=== PATIENT | male | born 1945 | race Caucasian/White ===

== ENCOUNTER 2022-12-15 11:03 | Outpatient (OUT) | payer MEDICARE, OTHER, SELFPAY ==
[2022-12-15 11:42] LABS: Estimated Average Glucose 97 mg/dL
[2022-12-15 11:49] LABS: Basophils Absolute Auto 0.1 10^3/uL (0.0-0.1); Basophils Percent Auto 0.7 % (0.2-2.0); Eosinophils Absolute Auto 0.1 10^3/uL (0.0-0.7); Eosinophils Percent Auto 1.8 % (0.9-7.0); Hematocrit 42.6 % (42.0-54.0); Hemoglobin 15.3 g/dL (14.0-18.0); Immature Granulocytes Abs Auto 0.06 10^3/uL (0.00-0.03); Immature Granulocytes Pct Auto 0.8 % (0.0-0.5); Lymphocytes Absolute Auto 0.9 10^3/uL (1.2-3.8); Lymphocytes Percent Auto 12.4 % (20.5-60.0); Mean Corpuscular HGB Conc 35.9 g/dL (29.9-35.2); Mean Corpuscular Hemoglobin 36.4 pg (25.9-34.0); Mean Corpuscular Volume 101.4 fL (80.0-94.0); Mean Platelet Volume 9.6 fL (9.5-13.5); Monocytes Absolute Auto 0.4 10^3/uL (0.3-0.8); Monocytes Percent Auto 5.6 % (1.7-12.0); Neutrophils Absolute Auto 5.6 10^3/uL (1.4-6.5); Neutrophils Percent Auto 78.7 % (43.0-75.0); Platelet Count 229 10^3/uL (150-450); Red Cell Distribution Width 12.5 % (11.0-15.0); White Blood Count 7.1 10^3/uL (4.0-11.0)
[2022-12-15 11:57] LABS: Alanine Aminotransferase 38 U/L (16-63); Albumin Globulin Ratio 1.2; Albumin Level 4.2 g/dL (3.4-5.0); Alkaline Phosphatase 96 U/L (46-116); Anion Gap 12.4; Aspartate Amino Transferase 19 U/L (15-37); Bilirubin Total 1.6 mg/dL (0.2-1.0); Calcium 8.9 mg/dL (8.5-10.1); Carbon Dioxide 28.9 mmol/L (21.0-32.0); Chloride 103 mmol/L (98-107); Chol HDL Ratio 2.7; Cholesterol 109 mg/dL (<=200); Estimated GFR (African America >60 (>=60); Estimated GFR (Non-African Ame >60 (>=60); Free T3 2.68 pg/mL (2.18-3.98); Globulin 3.5 g/dL; Glucose 100 mg/dL (74-106); HDL Cholesterol 40 mg/dL (40-60); Potassium 4.3 mmol/L (3.5-5.1); Sodium 140 mmol/L (136-145); Thyroid Stimulating Hormone 0.624 uIU/mL (0.358-3.740); Total Protein 7.7 g/dL (6.4-8.2); Triglycerides 95 mg/dL (<=150)
[2022-12-15 12:16] LABS: Prostate Specific Antigen Scrn 0.42 ng/mL (<=4.00)
== END 2022-12-15 11:04 | disposition home or self-care (01) ==
LOC: LAB 11:08
PROVIDERS: PCP Family Medicine; Visit Provider Family Medicine
DX: E78.5 Hyperlipidemia, unspecified (principal); I10 Essential (primary) hypertension; G21.3 Postencephalitic parkinsonism; R73.09 Other abnormal glucose; Z12.5 Encounter for screening for malignant neoplasm of prostate
CPT/HCPCS: 36415; 80053; 80061; 83036; 84436; 84443; 84481; 85025; G0103

== ENCOUNTER 2023-02-11 15:50 | Outpatient (OUT) | payer MEDICARE, OTHER, SELFPAY ==
--- NOTE | 2023-02-11 16:14 | XR_ITS ---
The [address] [address] Patient Name: GOOD MCDONNELL MRN: [id number] date: 1945 Sex: M Assigned Patient Location: LAB Current Patient Location: LAB Accession/Order Number: [id number] Exam Date: 02/11/2023 16:08 Report Date: 02/11/2023 19:06 At the request of: LUIS DANIEL GALICIA Procedure: XR chest 2V EXAM: XR chest 2V HISTORY: Pneumonia J18.9 . Cough for one week. COMPARISON: None. TECHNIQUE: Upright PA and lateral chest x-ray FINDINGS: There is elevation of the right hemidiaphragm. Prominence of interstitial markings are seen diffusely throughout the lungs without evidence of an effusion or pneumothorax. The heart is not grossly enlarged and the vasculature is not distended. The osseous structures are grossly intact. XR/XR chest 2V IMPRESSION: Prominence of interstitial markings are noted throughout the lungs. These are likely to be chronic in nature, and comparison with a previous study would be helpful in determining the chronicity of these findings. A discrete infiltrate or overt cardiac decompensation is not identified. Electronically authenticated by: LUIS HENSON Date: 02/11/2023 19:06
[2023-02-11 16:22] LABS: Alanine Aminotransferase 27 U/L (16-63); Albumin Globulin Ratio 0.9; Albumin Level 3.8 g/dL (3.4-5.0); Alkaline Phosphatase 118 U/L (46-116); Anion Gap 11.3; Aspartate Amino Transferase 36 U/L (15-37); BUN Creatinine Ratio 22.9; Bilirubin Total 1.3 mg/dL (0.2-1.0); Carbon Dioxide 29.8 mmol/L (21.0-32.0); Chloride 101 mmol/L (98-107); Estimated GFR (African America >60 (>=60); Estimated GFR (Non-African Ame >60 (>=60); Glucose 119 mg/dL (74-106); Potassium 4.1 mmol/L (3.5-5.1); Sodium 138 mmol/L (136-145); Total Protein 7.8 g/dL (6.4-8.2)
[2023-02-11 16:26] LABS: Basophils Percent Auto 0.5 % (0.2-2.0); Hematocrit 41.6 % (42.0-54.0); Hemoglobin 14.6 g/dL (14.0-18.0); Immature Granulocytes Abs Auto 0.05 10^3/uL (0.00-0.03); Immature Granulocytes Pct Auto 1.2 % (0.0-0.5); Lymphocytes Absolute Auto 0.8 10^3/uL (1.2-3.8); Lymphocytes Percent Auto 19.2 % (20.5-60.0); Mean Corpuscular HGB Conc 35.1 g/dL (29.9-35.2); Mean Corpuscular Volume 102.7 fL (80.0-94.0); Mean Platelet Volume 9.5 fL (9.5-13.5); Monocytes Absolute Auto 0.4 10^3/uL (0.3-0.8); Monocytes Percent Auto 8.8 % (1.7-12.0); Neutrophils Absolute Auto 2.9 10^3/uL (1.4-6.5); Neutrophils Percent Auto 69.3 % (43.0-75.0); Platelet Count 211 10^3/uL (150-450); Red Blood Count 4.05 10^6/uL (4.70-6.10); Red Cell Distribution Width 12.8 % (11.0-15.0); White Blood Count 4.2 10^3/uL (4.0-11.0)
== END 2023-02-11 15:51 | disposition home or self-care (01) ==
LOC: LAB 15:52
PROVIDERS: PCP Family Medicine; Visit Provider Family Medicine
DX: J18.9 Pneumonia, unspecified organism (principal)
CPT/HCPCS: 36415; 71046; 80053; 85025

== ENCOUNTER 2023-09-29 09:41 | Outpatient (OUT) | payer MEDICARE, OTHER, SELFPAY ==
[2023-09-29 10:47] LABS: Hematocrit 42.2 % (42.0-54.0); Hemoglobin 14.6 g/dL (14.0-18.0); Mean Corpuscular HGB Conc 34.6 g/dL (29.9-35.2); Mean Corpuscular Hemoglobin 34.8 pg (25.9-34.0); Mean Corpuscular Volume 100.7 fL (80.0-94.0); Mean Platelet Volume 9.6 fL (9.5-13.5); Platelet Count 194 10^3/uL (150-450); Red Blood Count 4.19 10^6/uL (4.70-6.10); Red Cell Distribution Width 12.8 % (11.0-15.0); White Blood Count 7.5 10^3/uL (4.0-11.0)
[2023-09-29 11:47] LABS: Alanine Aminotransferase 27 U/L (16-63); Albumin Globulin Ratio 1.1; Albumin Level 3.7 g/dL (3.4-5.0); Alkaline Phosphatase 116 U/L (46-116); Anion Gap 11.3; Aspartate Amino Transferase 16 U/L (15-37); Bilirubin Total 1.1 mg/dL (0.2-1.0); Carbon Dioxide 28.1 mmol/L (21.0-32.0); Chloride 106 mmol/L (98-107); Estimated GFR (African America >60 (>=60); Estimated GFR (Non-African Ame >60 (>=60); Globulin 3.4 g/dL; Glucose 100 mg/dL (74-106); Potassium 4.4 mmol/L (3.5-5.1); Sodium 141 mmol/L (136-145); Thyroid Stimulating Hormone 0.728 uIU/mL (0.358-3.740); Total Protein 7.1 g/dL (6.4-8.2)
[2023-09-29 12:53] LABS: Lymphocytes Absolute Manual 0.75 10^3/uL (1.20-3.80); Monocytes Absolute Manual 0.52 10^3/uL (0.30-0.80); Segmented Neut Absolute Manual 5.92 10^3/uL (1.4-6.5)
[2023-09-29 13:24] LABS: Free T4 0.95 ng/dL (0.76-1.46)
== END 2023-09-29 09:42 | disposition home or self-care (01) ==
LOC: LAB 09:42
PROVIDERS: PCP Family Medicine; Visit Provider Family Medicine
DX: M54.9 Dorsalgia, unspecified (principal); I11.0 Hypertensive heart disease with heart failure; I50.30 Unspecified diastolic (congestive) heart failure; C85.90 Non-Hodgkin lymphoma, unspecified, unspecified site
CPT/HCPCS: 36415; 80053; 83880; 84439; 84443; 85007; 85027

== ENCOUNTER 2023-11-14 06:00 | Outpatient (OUT) | payer MEDICARE, OTHER, SELFPAY ==
--- OUTSIDE RECORDS SUMMARY | 2023-11-16 06:13 | XMS_ITS | CCD ---
Author Organization [facility] Care Team Providers Care 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 Name Role Phone Alexandria Camargo RN Unavailable [...] RN Unavailable Unavailable Jigar Stanford DO Unavailable LUIS DANIEL GALICIA Primary Care Unavailable Dillan [...] Luis Daniel Galicia MD Primary Care Provider [phone] COLEEN HAYWARD Attending Unavailable HOY, LUIS DANIEL [...] Erythromycin; Translations: [ERYTHROMYCIN] Drug Allergy 2 Itching [facility] Work Phone: (18 sources) Iodine And Iodide Containing Products; Translations: [IODINE AND IODIDE CONTAINING PRODUCTS] Propensity to adverse reactions to drug 1 Other: See Comments [facility] (12 sources) Contrast media; Translations: [Contrast Dye] Drug allergy Loss of consciousness [facility] (1 source) Iodine (And Iodine Containting Drugs) Drug allergy (disorder) [facility] Repository (1 source) Acetaminophen; Translations: [acetaminophen] Drug Allergy [facility] Repository (1 source) No Known Medication Allergies; Translations: [No Known Medication Allergies] Propensity to adverse reactions (disorder) [facility] Repository Medications Current Medications Medication Drug [...] tablet (6 sources) Opioid Agonist Start: 11-18-2021 Melrose 325 mg-7.5 mg oral tablet See Instructions, 1 tab(s), Refill(s) 0, Take 1 tablet 1 hour before procedure., [facility] #[id number], 190, cm, 11/18/21 9:22:00 EDT, Height/Length Dosing, 102, kg, 11/18/21 9:22:00 EDT, Weight Dosing Start Date: 11/18/21 Status: Ordered acetaminophen 325 mg / traMADol hydrochloride 37.5 mg oral tablet (6 sources) Opioid Agonist Start: 11-18-2021 Ultracet 325 mg-37.5 mg Tab 1 tab(s), Oral, As Directed, 20 tab(s), Refill(s) 0, Take 1 tablet every 4 hours as needed for pain., [facility] #[id number], 190, cm, 11/18/21 9:22:00 EDT, Height/Length Dosing, [...] day(s), # 10 cap(s), Refills(s) 0, Pharmacy: [facility] #[id number], 190, cm, 09/24/21 8:06:00 EDT, Height/Length Dosing, 102.5, kg, 09/24/21 8:06:00 EDT, Weight Dosing Start Date: 10/09/21 Stop Date: 10/14/21 Status: Ordered ciprofloxacin 500 mg oral tablet (8 sources) Quinolone Antimicrobial Start: 11-19-19 take 1 tablet by mouth twice daily Cipro 500 mg Tab 500 mg = 1 tab(s), Oral, BID, Start 3 days prior to procedure., # 14 tab(s), Refills(s) 0, Pharmacy: [facility] #[id number], 190, cm, 11/18/21 9:22:00 EDT, Height/Length Dosing, 102, kg, 11/18/21 9:22:00 EDT, Weight Dosing Start Date: 11/18/21 Status: Ordered Start: 06-23-2021 Cipro 500 mg T ab 500 mg = 1 tab(s), Oral, As Directed, # 2 tab(s), Refills(s) 0, Pharmacy: [facility], 190, cm, 06/23/21 11:19:00 EDT, Height/Length Dosing, 102, kg, 06/23/21 11:19:00 EDT, Weight Dosing Start Date: 06/23/21 Status: Ordered diazePAM 10 mg oral tablet (6 sources) Benzodiazepine Start: 11-18-2021 Valium 10 mg Tab See Instructions, Take 1 tab 1 hour before procdure., # 1 tab(s), Refills(s) 0, [facility]: [id number], 190, cm, 11/18/21 9:22:00 EDT, Height/Length Dosing, [...] 20 tab(s), Refills(s) 0, [facility]acy: [facility] #[id number], 190, cm, 09/24/21 8:06:00 EDT, Height/Length Dosing, [...] 21 tab(s), Refills(s) 0, [facility]acy: [facility] #[id number], 190, cm, 02/03/22 15:48:00 EST, Height/Length Dosing, [...] Daily, # 30 tab(s), Refills(s) 11, Pharmacy: [facility] #[id number], 190, cm, 03/16/22 8:29:00 EST, Height/Length Dosing, [...] day(s), # 30 cap(s), Refills(s) 11, Pharmacy: [facility] #[id number], 190, cm, 03/31/23 15:07:00 EST, Height/Length Dosing, [...] in both eyes at bedtime as needed. sofioioq-lyo-kofkh- vit K-lycop (ONE-A-DAY MEN'S 50 PLUS) 400-20-370 mcg tab (6 sources) End: 2 take 50-400 tablets by mouth once daily mqlyfmdh-qin-btzhg-v it K-lycop (ONE-A-DAY MEN'S 50 PLUS) 400-20-370 mcg tab Take 1 tablet by mouth once daily. 0 12/12/2021 Discontinued take 50-400 tablets by mouth once daily gkwzmpzo-lus-yovbm-vit K-lycop (ONE-A-DA Y MEN'S 50 PLUS) 400-20-370 [...] # 5 tab(s), Refills(s) 0, Pharmacy: [facility] #[id number], 190, cm, 11/18/21 9:22:00 EDT, Height/Length Dosing, [...] Comment on above: TAKE 1 TABLET BY [facility] EVERY DAY NEEDED tamsulosin hydrochloride 0.4 mg oral capsule (8 sources) alpha-Adrenergic Rocio Start: End: take 1 capsule by mouth twice daily tamsulosin (FLOMAX) 0.4 mg Take 1 capsule by mouth twice daily. 60 capsule 2 11/27/2020 04/16/2022 Discontinued (Other) Comment on above: Take 1 capsule by mo [facility] twice daily. vitamin b12 1 mg oral [...] Residual codes; unclassified (1 source) History of wkfhalb-couliznb-dfxgk t (YAG) laser capsulotomy of lens; Translations: [...] detection for pulmonary nodules was performed utilizing Project [employer] software. FINDINGS: No pleural or pericardial effusion. [...] on 10/04/2023 9:37 AM Normal [facility] CT CHEST WO CONTon CT CHEST WO [...] on 07/01/2023 11:24 AM Normal [facility] THYROID PROFILEon 06-30-2023 Free T4 [Mass/Vol] 1.03 ng/dL Normal 0.61-1.60 [facility] Comment on above: Performed By: #### T HYR #### [facility] ([id number]) [address], [address] [place] [address] TSH 0.25 uIU/mL Low 0.49-4.67 [facility] Comment on above: Performed By: #### T HYR #### [facility] ([id number]) [address], [address] [place] [address] Reminderson 05-11-2023 Reminders - From: Radha Barbosa [...] fax orders. He said he would prefer [facility] if they are able to do these tests. Normal [facility] Oswaldo 04-21-2023 KEZIAN Telephone (ANDRE) -- LUIS ALBERTO OCAMPO ([id number]) 1945 M Date Time Provider Department 04/21/23 [...] to spreadsheet: No Routing: Please route to [employer] Allergies As of Date: 04/21/2023 Noted Allergy Reaction ERYTHROMYCIN 04/11/2021 9 - Itching IODINE AND IODIDE CONTAINING PROD*07/19/2020 14 - Other: See Comments Comments: Pt passed out from milogram test on spinal cord Date Reviewed: 03/02/2023 Reviewed by: Nicolasa Varela LPN - Fully Assessed Reason for Visit: Appointment [186] Primary Visit Diagnosis:Bronchiectasis without acute exacerbation (HCC) [J47.9] Order(s):SPIROMETRY - BASELINE AND POST DILATOR [4602930] Order #: [id number]: 1 FUTURE RESPIRATORY THERAPY OP [facility] A90 [0439525] Order #: [id number]: 1 Prescriptions as of 04/21/2023 - Acetaminophen [...] Encounter Status:Closed by OLIVIA QUINTERO on 04/21/[address] [facility] [address] ABD/PEL W IVCONon 024 CT ABD/PEL W IVCON * * *Final Report* * * DATE OF EXAM: Apr 16 2023 8:33AM [facility] 0530 - CT ABD/PEL W [...] chest CT performed will be reported separately. Middleware Developer (topogram) images: No additional findings. IMPRESSION: 1. [...] any questions regarding this interpretation, please call [phone]. If you are unable to reach us at the number above, please feel free to contact [facility] at [phone]. [id number] Normal [facility] CT Abdomen and Pelvis W cont rast [...] any questions regarding this interpretation, please call [phone]. If you are unable to reach us at the number above, please feel free to contact [facility] at [phone]. DIVISION OF RADIOLOGY * * *Final Report* * * DATE OF EXAM: Apr 16 2023 8:33AM [facility] 0530 - CT ABD/PEL W [...] chest CT performed will be reported separately. Middleware Developer (topogram) images: No additional findings. DIVISION OF RADIOLOGY Provider, Chris King - 04/16/2023 * * *Final Report* * * DATE OF EXAM: Apr 16 2023 8:33AM [facility] 0530 - CT ABD/PEL W [...] chest CT performed will be reported separately. Middleware Developer (topogram) images: No additional findings. IMPRESSION IMPRESSION: 1. Borderline splenomegaly, stable. 2. No evidence of intra-abdominal/pelvic lymphadenopathy. 3. New trace pelvic ascites. 4. Nonobstructing bilateral renal stones. Transcribe Date/Time: Apr 16 2023 10:45A Dictated by: YAMILE TOMPKINS MD This examination was interpreted and the report reviewed and electronically signed by: YAMILE TMOPKINS MD on Apr 16 2023 10:54AM EST Thank you for allowing us to participate in the care of your patient. Should there be any questions regarding this interpretation, please call [phone]. If you are unable to reach us at the number above, please feel free to contact [facility] at [phone]. [facility] CT CHEST W IVCONon 4 CT CHEST W IVCON * * *Final Report* * * DATE OF EXAM: Apr 16 2023 8:33AM [facility] 0539 - CT CHEST W [...] CT scan report for the abdomen findings. Middleware Developer (topogram) images: No additional findings. IMPRESSION: 1. [...] any questions regarding this interpretation, please call [phone]. If you are unable to reach us at the number above, please feel free to [facility] at [phone]. [id number] Normal [facility] CT Chest W contrast Jenna IMPRESSION: 1. [...] any questions regarding this interpretation, please call [phone]. If you are unable to reach us at the number above, please feel free to contact [facility] at [phone]. DIVISION OF RADIOLOGY * * *Final Report* * * DATE OF EXAM: Apr 16 2023 8:33AM [facility] 0539 - CT CHEST W [...] CT scan report for the abdomen findings. Middleware Developer (topogram) images: No additional findings. DIVISION OF RADIOLOGY Provider, [facility] - 04/16/2023 * * *Final Report* * * DATE OF EXAM: Apr 16 2023 8:33AM [facility] 0539 - CT CHEST W [...] CT scan report for the abdomen findings. Middleware Developer (topogram) images: No additional findings. IMPRESSION IMPRESSION: [...] any questions regarding this interpretation, please call [phone]. If you are unable to reach us at the number above, please feel free to contact [facility] at [phone]. [facility] No Panel InformationOrdered By: Ccf Provider on 04-16-2023 [facility] No Panel Informationon 04-16 Radiology Study observation (narrative) [facility] Lab Reportson 04-02-2023 Lab Reports [id number]#1.00TIFF [facility] Screenson 04-02-2023 Screens [id number]#1.00TIFF [facility] CNOVSPon 04-01-2023 CNOVSP Visit (SP) Office (H EMAMN) -- LUIS ALBERTO OCAMPO ([id number]) 1945 M Date Time Provider Department 04/01/23 3:15 PM LARRY HENSON HEM During your visit today, we recorded the following information about you: Temperature Pulse Respiration Blood pressure 97.5 degrees 89/minute 20/minute 133/75 Weight 94.6 kg Larry Henson MD, PhD 04/01/2023 4:06 PM Signed [facility] DEPARTMENT OF HEMATOLOGY AND MEDICAL ONCOLOGY ASSESSMENT [...] seen by Dr. Luis Daniel Galicia at [facility] and underwent a transthoracic CT guided needle [...] of right iritis. 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 Noted symptoms improved with eye drops, but [...] a pruritic.rash (more content not included)... Normal [facility] Ambulatory Visit Summaryon 0 03-31-2023 Ambulatory Visit Summary LUIS ALBERTO OCAMPO :1945 Visit Date:03/31/2023 Ambulatory Visit Instructions Your Diagnosis BPH with obstruction/lower urinary tract symptoms Prostate cancer OAB (overactive bladder) History of bladder stone Your Care Team Attending Physician - Jt GA, NANDO, Ivy Romero Primary Care Physician [...] CORONADO, Dakotah Krueger Where: [facility] Patient Educationon 03-31-19 24 Patient Education Nephrology [...] ? 8 oz (237 mL) of milk, nnrtqaw-hruzbekywmvf-rtvxd milk, and calcium-fortifiedfruit juice. Calcium-fortified means that [...] Spinach (cooked), rhubarb, beets, sweet potatoes, and Omani chard. ? Peanuts. ? Potato chips, uruguayan fries, and baked potatoes with skin on. ? Nuts and nut products. ? Chocolate. ? If you regularly take a diuretic medicine, make sure to eat at least 1 or 2 servings of fruits or vegetables that are high in potassium each day. These include: ? Avocado. ? Banana. ? [place], prune, carrot, or tomato juice. ? Baked [...] fish oil, or vitamin B6. ? Take awnh-gza-ailltnv and prescription medicines only as told by your health care provider. These include supplements. What foods sh (more content not included)... Normal [facility] Urology Office/Clinic Noteon 03-31-2023 Urology [...] prostate) TRUS/bx by RITU 04/15/20 - T1C, Larimer 6 (3+3). S/P Brachytherapy 06/26/20. [1] PSA [...] day(s), # 30 cap(s), Refills(s) 11, Pharmacy: [facility] #[id number], 190, cm, 03/31/23 15:07:00 EST, Height/Length Dosing, 95.7, kg, 03/31/23 15:07:00 EST, Weight Dosing 34918 Measure Post Void residual urine and/or bladder [...] pass them. Will (more content not included)... [facility] Comment on above: Result Comment: Elec tronically Signed By: NANDO Waters APRN, Ivy Romero\.br\Date and Time Signed: 03/31/23 19:18 EST Consultation Noteon 03-09-19 24 Consultation Note [id number]#1.00TIFF [facility] CNOVon 03-02-2023 CNOV Office Visit (RADTSA ) -- LUIS ALBERTO OCAMPO ([id number]) 1945 M Date Time Provider Department 03/02/23 3:15 PM [facility] During your visit today, we recorded the following information about you: Temperature Pulse Respiration Blood pressure 97.2 degrees 86/minute 18/minute 155/82 Weight 96.9 kg Nicolaas Varela LPN 03/05/2023 3:59 PM Signed AUA= [...] ASSESSMENT/PLAN: Prostate adenocarcinoma, initial PSA 5.51, biopsy Larimer score 3 + 3 = 6 (grade [...] (HCC) [C61] Order(s):PSA/PROSTSPECAG DIAG [SQPSA] Order #: [id number] FUTURE Prescriptions as of 03/05/2023 - Acetaminophen [...] induced catar (more content not included)... Normal [facility] CBC W Auto Differential pane l (Bld)on 02-24-2023 Basophils (Bld) [#/Vol] 0.04 10*3/uL Normal <0.11 [facility] Comment on above: Order Comment: Speci men Type: BLOOD SPECIMENOrdering Facility: [facility] Address: [address] [place] [address] Performed By: #### 5 7021-8 ####[facility] LABIA [id number] [place] [id number] Basophils/100 WBC (Bld) 0.7 % Normal [facility] Comment on above: Order Comment: Speci men Type: BLOOD SPECIMENOrdering Facility: [facility] Address: [address] [place] [address] Performed By: #### 5 7021-8 ####[facility] LABCLIA [id number] [place] [address] Differential cell count method Nom (Bld) Auto Normal [facility] Comment on above: Order Comment: Speci men Type: BLOOD SPECIMENOrdering Facility: [facility] Address: [address] [place] [address] Performed By: #### 5 7021-8 ####[facility] LABCLIA [id number] [place] [address] Eosinophils (Bld) [#/Vol] 0.23 10*3/uL Normal <0.46 [facility] Comment on above: Order Comment: Speci men Type: BLOOD SPECIMENOrdering Facility: [facility] Address: [address] [place] [address] Performed By: #### 5 7021-8 ####[facility] LABCLIA [id number] [place] [address] Eosinophils/100 WBC (Bld) 3.9 % Normal [facility] Comment on above: Order Comment: Speci men Type: BLOOD SPECIMENOrdering Facility: [facility] Address: [address] [place] [address] Performed By: #### 5 7021-8 ####[facility] LABCLIA [id number] [place] [address] Erythrocyte distribution width (RBC) [Ratio] 13.0 % Normal 11.5-15.0 [facility] Comment on above: Order Comment: Speci men Type: BLOOD SPECIMENOrdering Facility: [facility] Address: [address] [place] [address] Performed By: #### 5 7021-8 ####[facility] LABCLIA [id number] [place] [address] Hematocrit (Bld) [Volume fraction] 40.5 % Normal 39.0-51.0 [facility] Comment on above: Order Comment: Speci men Type: BLOOD SPECIMENOrdering Facility: [facility] Address: [address] [place] [address] Performed By: #### 5 7021-8 ####[facility] LABCLIA [id number] [place] [address] Hemoglobin (Bld) [Mass/Vol] 14.0 g/dL Normal 13.0-17.0 [facility] Comment on above: Order Comment: Speci men Type: BLOOD SPECIMENOrdering Facility: [facility] Address: [address] [place] [address] Performed By: #### 5 7021-8 ####[facility] LABCLIA [id number] [place] [address] Immature granulocytes (Bld) [#/Vol] 0.04 10*3/uL Normal <0.10 [facility] Comment on above: Order Comment: Speci men Type: BLOOD SPECIMENOrdering Facility: [facility] Address: [address] [place] [address] Performed By: #### 5 7021-8 ####[facility] LABCLIA [id number] [place] [address] Immature granulocytes/100 WBC (Bld) 0.7 % Normal [facility] Comment on above: Order Comment: Speci men Type: BLOOD SPECIMENOrdering Facility: [facility] Address: [address] [place] [address] Performed By: #### 5 7021-8 ####[facility] [id number] [place] [address] Lymphocytes (Bld) [#/Vol] 0.84 10*3/uL Low 1.00-4.00 [facility] Comment on above: Order Comment: Speci men Type: BLOOD SPECIMENOrdering Facility: [facility] Address: [address] [place] [address] Performed By: #### 5 7021-8 ####[facility] LABCLIA [id number] [place] [address] Lymphocytes/100 WBC (Bld) 14.3 % Normal [facility] Comment on above: Order Comment: Speci men Type: BLOOD SPECIMENOrdering Facility: [facility] Address: [address] [place] [address] Performed By: #### 5 7021-8 ####[facility]IA [id number] [place] [address] MCH (RBC) [Entitic mass] 35.1 pg High 26.0-34.0 [facility] Comment on above: Order Comment: Speci men Type: BLOOD SPECIMENOrdering Facility: [facility] Address: [address] [place] [address] Performed By: #### 5 7021-8 ####[facility] LABCLIA [id number] [place] [address] MCHC (RBC) [Mass/Vol] 34.6 g/dL Normal 30.5-36.0 [facility] Comment on above: Order Comment: Speci men Type: BLOOD SPECIMENOrdering Facility: [facility] Address: [address] [place] [address] Performed By: #### 5 7021-8 ####[facility] LABCLIA [id number] [place] [address] MCV (RBC) [Entitic vol] 101.5 fL High 80.0-100.0 [facility] Comment on above: Order Comment: Speci men Type: BLOOD SPECIMENOrdering Facility: [facility] Address: [address] [place] [address] Performed By: #### 5 7021-8 ####[facility] LABCLIA [id number] [place] [address] Monocytes (Bld) [#/Vol] 0.62 10*3/uL Normal <0.87 [facility] Comment on above: Order Comment: Speci men Type: BLOOD SPECIMENOrdering Facility: [facility] Address: [address] [place] [address] Performed By: #### 5 7021-8 ####[facility] LABCLIA [id number] [place] [address] Monocytes/100 WBC (Bld) 10.6 % Normal [facility] Comment on above: Order Comment: Speci men Type: BLOOD SPECIMENOrdering Facility: [facility] Address: [address] [place] [address] Performed By: #### 5 7021-8 ####[facility] LABCLIA [id number] [place] [address] Neutrophils (Bld) [#/Vol] 4.09 10*3/uL Normal 1.45-7.50 [facility] Comment on above: Order Comment: Speci men Type: BLOOD SPECIMENOrdering Facility: [facility] Address: [address] [place] [address] Performed By: #### 5 7021-8 ####[facility] LABCLIA [id number] [place] [address] Neutrophils/100 WBC (Bld) 69.8 % Normal [facility] Comment on above: Order Comment: Speci men Type: BLOOD SPECIMENOrdering Facility: [facility] Address: [address] [place] [address] Performed By: #### 5 7021-8 ####[facility] LABCLIA [id number] [place] [address] Nucleated RBC (Bld) [#/Vol] 10*3/uL Normal <0.01 [facility] Comment on above: Order Comment: Speci men Type: BLOOD SPECIMENOrdering Facility: [facility] Address: [address] [place] [address] Performed By: #### 5 7021-8 ####[facility] LABCLIA [id number] [place] [address] Nucleated RBC/100 WBC (Bld) [Ratio] 0.0 /100 WBC Normal [facility] Comment on above: Order Comment: Speci men Type: BLOOD SPECIMENOrdering Facility: [facility] Address: [address] [place] [address] Performed By: #### 5 7021-8 ####[facility] LABCLIA [id number] [place] [address] Platelet mean volume (Bld) [Entitic vol] 9.2 fL Normal 9.0-12.7 [facility] Comment on above: Order Comment: Speci men Type: BLOOD SPECIMENOrdering Facility: [facility] Address: [address] [place] [address] Performed By: #### 5 7021-8 ####[facility] LABCLIA [id number] [place] [address] Platelets (Bld) [#/Vol] 224 10*3/uL Normal 150-400 [facility] Comment on above: Order Comment: Speci men Type: BLOOD SPECIMENOrdering Facility: [facility] Address: [address] [place] [address] Performed By: #### 5 7021-8 ####[facility] LABCLIA [id number] [place] [address] RBC (Bld) [#/Vol] 3.99 10*6/uL Low 4.20-6.00 [facility] Comment on above: Order Comment: Speci men Type: BLOOD SPECIMENOrdering Facility: [facility] Address: [address] [place] [address] Performed By: #### 5 7021-8 ####[facility] LABCLIA [id number] [place] [address] WBC (Bld) [#/Vol] 5.86 10*3/uL Normal 3.70-11.00 [facility] Comment on above: Order Comment: Speci men Type: BLOOD SPECIMENOrdering Facility: [facility] Address: [address] [place] [address] Performed By: #### 5 7021-8 ####[facility] LABCLIA [id number] [place] [address] Comprehensive metabolic 2000 panelon 02-24-2023 Albumin [Mass/Vol] 4.4 g/dL Normal 3.9-4.9 [facility] Comment on above: Order Comment: Speci men Type: BLOOD SPECIMENOrdering Facility: [facility] Address: [address] [place] [address] Performed By: #### 2 4323-8, 2532-0 ####[facility] LABCLIA [id number] [place] [address] ALP [Catalytic activity/Vol] 96 U/L Normal 38-113 [facility] Comment on above: Order Comment: Speci men Type: BLOOD SPECIMENOrdering Facility: [facility] Address: [address] [place] [address] Performed By: #### 2 4323-8, 2531-0 ####[facility] LABCLIA [id number] [place] [address] ALT [Catalytic activity/Vol] 23 U/L Normal 10-54 [facility] Comment on above: Order Comment: Speci men Type: BLOOD SPECIMENOrdering Facility: [facility] Address: [address] [place] [address] Performed By: #### 2 4323-8, 2531-0 ####[facility] LABCLIA [id number] [place] [address] Anion gap [Moles/Vol] 9 mmol/L Normal 9-18 [facility] Comment on above: Order Comment: Speci men Type: BLOOD SPECIMENOrdering Facility: [facility] Address: [address] [place] [address] Performed By: #### 2 4323-8, 2531-0 ####[facility] LABCLIA [id number] [place] [address] AST [Catalytic activity/Vol] 22 U/L Normal 14-40 [facility] Comment on above: Order Comment: Speci men Type: BLOOD SPECIMENOrdering Facility: [facility] Address: [address], [place] [address] Performed By: #### 2 4323-8, 2531-0 ####[facility] LABCLIA [id number] [place] [address] Bilirubin [Mass/Vol] 1.3 mg/dL Normal 0.2-1.3 [facility] Comment on above: Order Comment: Speci men Type: BLOOD SPECIMENOrdering Facility: [facility] Address: [address] [place] [address] Performed By: #### 2 432-8, 2531-0 ####[facility] LABCLIA [id number] [place] [address] Calcium [Mass/Vol] 9.9 mg/dL Normal 8.5-10.2 [facility] Comment on above: Order Comment: Speci men Type: BLOOD SPECIMENOrdering Facility: [facility] Address: [address] [place] [address] Performed By: #### 2 4328, 2531-0 ####[facility] LABCLIA [id number] [place] [address] Chloride [Moles/Vol] 104 mmol/L Normal 97-105 [facility] Comment on above: Order Comment: Speci men Type: BLOOD SPECIMENOrdering Facility: [facility] Address: [address] [place] [address] Performed By: #### 2 4328, 0 ####[facility] LABCLIA [id number] [place] [address] CO2 [Moles/Vol] 29 mmol/L Normal 22-30 [facility] Comment on above: Order Comment: Speci men Type: BLOOD SPECIMENOrdering Facility: [facility] Address: [address] [place] [address] Performed By: #### 2 43238, 0 ####[facility] LABCLIA [id number] [place] [address] Creatinine [Mass/Vol] 1.00 mg/dL Normal 0.73-1.22 [facility] Comment on above: Order Comment: Speci men Type: BLOOD SPECIMENOrdering Facility: [facility] Address: [address] [place] [address] Performed By: #### 2 432-8, 2531-0 ####[facility] LABCLIA [id number] [place] [address] Creatinine and Glomerular filtration rate.predicted panel (S/P/Bld) 78 mL/min/1.73m??? Normal >=60 [facility] Comment on above: Order Comment: July sawyer Type: BLOOD SPECIMENOrdering Facility: [facility] Address: [address] [place] [address] Result Comment: Jessica mated Glomerular Filtration Rate [...] GFR. Performed By: #### 2 4323-8, 2531-0 ####[facility] LABIA [id number] [place] [address] Glucose [Mass/Vol] 105 mg/dL High 74-99 [facility] Comment on above: Order Comment: July sawyer Type: BLOOD SPECIMENOrdering Facility: [facility] Address: [address] [place] [address] Result Comment: The [place] Diabetes Association (ADA) provides guidance for cutoff [...] Standards of Medical Care in Diabetes 2016, [place] [employer] Association. Diabetes Care. 2016.39(Suppl 1). Performed By: #### 2 4323-8, 0 ####[facility] LABIA [id number] [place] [address] Potassium [Moles/Vol] 4.1 mmol/L Normal 3.7-5.1 [facility] Comment on above: Order Comment: July sawyer Type: BLOOD SPECIMENOrdering Facility: [facility] Address: [address] [place] [address] Performed By: #### 2 4323-8, 2531-0 ####[facility] LABCLIA [id number] [place] [address] Protein [Mass/Vol] 7.1 g/dL Normal 6.3-8.0 [facility] Comment on above: Order Comment: Speci men Type: BLOOD SPECIMENOrdering Facility: [facility] Address: [address] [place] [address] Performed By: #### 2 4323-8, 2531-0 ####[facility] LABCLIA [id number] [place] [address] Sodium [Moles/Vol] 142 mmol/L Normal 136-144 [facility] Comment on above: Order Comment: Speci men Type: BLOOD SPECIMENOrdering Facility: [facility] Address: [address] [place] [address] Performed By: #### 2 4323-8, 2531-0 ####[facility] LABCLIA [id number] [place] [address] Urea nitrogen [Mass/Vol] 25 mg/dL High 9-24 [facility] Comment on above: Order Comment: Speci men Type: BLOOD SPECIMENOrdering Facility: [facility] Address: [address] [place] [address] Performed By: #### 2 4323-8, 2531-0 ####[facility] LABCLIA [id number] [place] [address] [facility] LDH [Catalytic activity/Vol] 210 U/L Normal 135-225 [facility] Comment on above: Order Comment: Speci men Type: BLOOD SPECIMENOrdering Facility: [facility] Address: [address] [place] [address] Result Comment: Hemo lysis present. The origin [...] indicated. Performed By: #### 2 4323-8, 2532-0 ####[facility] LABCLIA [id number] [place] [address] PSA SerPl-ncon 02-24-2023 Prostate specific Ag [Mass/Vol] 0.40 ng/mL Normal <2.60 [facility] Comment on above: Order Comment: Speci men Type: BLOOD SPECIMENOrdering Facility: [facility] Address: [address] [place] [address] Result Comment: Tota terrence PSA test methodology used is the Electrochemiluminescence Immunoassay by [employer]. Total PSA values by differing methodologies cannot be interchanged. Performed By: #### 2 857-1 ####[facility] LABCLIA [id number] [address] [place] Lab Reportson 02-11-2023 Lab Reports [id number] [facility] CNPN Telephone (HEMAMN) -- LUIS ALBERTO OCAMPO ([id number]) 1945 M Date Time Provider Department 02/08/23 LARRY HENSON During your visit today, we recorded the following information about you: Kayleen Gardner 02/08/2023 10:20 AM Signed Luis Alberto Ocampo is calling Larry Henson MD, PhD today regarding Mobile Marketing Manager - Other (PET Scan) Vinayak states that he has an appointment scheduled in April with Dr. Henson and normally has a PET scan done prior to follow-ups. Asking if this order can be placed, or if this is not needed. Requesting response back:[phone] (home) [phone] (cell) Duration of symptoms: N/A Patient has [...] OD - Fully Assessed Reason for Visit: Mobile Marketing Manager - Other [3602] Cmt: PET Scan Prescriptions [...] history of lymphoma [Z85.72] 02/15/2020 Parkinson disease ([facility]) [G20.A1] 03/19/2021 Prostate CA ([facility]) [C61] 04/2020 GERD (gastroesophageal reflux disease) [K21.9] 03/19/2021 Encounter Status:Closed by KAYLEEN GARDNER on 03/15/23 Normal [facility] Consultation Noteon 09-06-19 23 Consultation Note [id number]#[id number]:127 Normal [facility] RAD - CT Reporton 09-05-2022 RAD - CT Report [id number]#1.00CD:127 Normal [facility] Reminderson 09-05-2022 Reminders - From: Maegan Gunter To: KAMERON - [place] - Results; Sent: 08/25/2022 09:16:55 EDT Show up: 09/24/2022 09:16:00 EDT Subject: CT results Due Date/Time: 09/24/2022 09:16:00 EDT Pt should be getting CT AP wo con to check for renal/bladder stones. Please check for these results and call pt with them. addressed in separate message. Normal [facility] Calculus Analysison 09-02-19 Calcium oxalate monohydrate (Stone) [Mass fraction] 100 % Invalid Interpretation Code [facility] Comment on above: Performed By: #### 1 [id number] ####[facility] [address] [place] [address] Color (Stone) Brown Invalid Interpretation Code [facility] Comment on above: Performed By: #### 1 [id number] ####[facility] [address] [place] [address] Composition Comment Invalid Interpretation Code [facility] Comment on above: Result Comment: Perc entage (Represents the % composition) Performed By: #### 1 [id number] ####[facility] [address] [place] [address] Disclaimer: Comment Invalid Interpretation Code [facility] Comment on above: Result Comment: This test was developed and its performance characteristics determined by [employer]. It has not been cleared or approved by the Food and Drug Administration. Performed at: [facility] [address] [id number] PhD Alec Tesfaye Performed By: #### 1 [id number] ####[facility] [address] [place] [address] Laboratory comment Alex (Report) Comment Invalid Interpretation Code [facility] Comment on above: Result Comment: Page hurst questions regarding Calculi Analysis contact [facility] at: [phone]. Performed By: #### 1 [id number] ####[address] [place] [address] Please Note: Comment Invalid Interpretation Code [facility] Comment on above: Result Comment: Calc siena report will follow via computer, mail or chucking lathe operator delivery. Performed By: #### 1 [id number] ####[facility] [address] [place] [address] Size (Stone) [Entitic vol] 6x7 Invalid Interpretation Code [facility] Comment on above: Result Comment: Sing le piece received. Performed By: #### 1 [id number] ####[address] [place] [address] Specimen source subject Nom Comment Invalid Interpretation Code [facility] Comment on above: Result Comment: Not provided Performed By: #### 1 [id number] ####[facility] [address] [place] [address] Stone Photo Comment Invalid Interpretation Code [facility] Comment on above: Result Comment: Phot ograph will follow under a separate cover Performed By: #### 1 [id number] ####[facility] [address] [place] [address] Weight (Stone) 151 mg Invalid Interpretation Code [facility] Comment on above: Performed By: #### 1 [id number] ####[facility] [address] [place] [address] CT ABD/PEL WO IVCONon 2022 CT ABD/PEL WO IVCON * * *Final Report* * * DATE OF EXAM: Aug 28 2022 8:47AM [facility] 0531 - CT ABD/PEL WO [...] partially imaged right inferior perihilar peribronchial thickening. Middleware Developer (topogram) images: No additional finding. IMPRESSION: 1. [...] any questions regarding this interpretation, please call [phone]. If you are unable to reach us at the number above, please feel free to contact [facility]iology at [phone]. [id number] Normal [facility] Screenson 08-26-2022 Screens [id number]#[id number]:127 Normal [facility] Ambulatory Visit Summaryon 0 08-25-2022 Ambulatory [...] Dakotah PELAYO MD Where: [facility] 08-25-2022 CNOV Office Visit (RADTSA ) -- LUIS ALBERTO OCAMPO ([id number]) 1945 M Date Time Provider Department 08/25/22 [...] (HCC) [C61] Order(s):PSA/PROSTSPECAG DIAG [SQPSA] Order #: [id number] FUTURE Prescriptions as of 09/02/2022 - carbidopa-levodopa [...] Malignant neopla (more content not included)... Normal [facility] Patient Educationon 08-26-19 Patient Education Oncology Cancer [...] if anything looks unusual. Men with a kqahik-aacx-yzgpiu risk for skin cancer may want to see a college specialist (stone polisher) for an annual body check. What are the benefits of screening? Cancer screening is done to look for cancer in the very early stages, before it spreads and becomes harder to treat and before you would start to notice symptoms. Finding cancer early improves the chances of successful treatment. It ma (more content not included)... 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 S/P Brachytherapy 06/26/20. Has appt [...] with results. Pt would like CT at [facility]. -Send stone for analysis. Overall the patient [...] Contact [employer] (more content not included)... Normal [facility] Comment on above: Result Comment: Elec tronically Signed By: Dakotah PELAYO MD\.br\Date and Time Signed: 08/25/22 09:19 EDT\.br\Electronically Co-Signed By: Maegan Gunter\.br\Date and Time Co-Signed: 08/25/22 09:16 EDT\.br\Electronically Co-Signed By: Maegan Gunter\.br\Date and Time Co-Signed: 08/25/22 09:17 EDT PSA Markyl-mCnatalyon 08-19-2022 Prostate specific Ag [Mass/Vol] 0.52 ng/mL Normal <2.60 [facility] Comment on above: Order Comment: Speci men Type: BLOOD SPECIMENOrdering Facility: [facility] Address: [address] [id number] Result Comment: Tota l PSA test methodology used is the Electrochemiluminescence Immunoassay by [employer]. Total PSA values by differing methodologies cannot be interchanged. Performed By: #### 2 857-1 ####[facility] LABCLIA [id number] [facility] [id number] [place], [place] [address] [place] BRAIN TREMOR [...] Vol. 15, No. 3, 1999, pp. 503-510 Air/Ocean Export Clerk: HAI Transcribe Date/Time: May 06 2022 5:13P Dictated by : MARIA ANTONIA ANDERSON MD This examination was interpreted and the report reviewed and electronically signed by: MARIA ANTONIA ANDERSON MD on May 06 2022 5:22PM EST [id number] Normal [facility] INSULINon 04-07-2022 Insulin 5.3 uIU/mL Normal 2.6-24.9 [facility] Comment on above: Performed By: #### I NSULIN #### [facility] [address] [place] [address] Dr. Gabbi Cummings CBC AUTO DIFFon 04-06-2022 BASO # 0.1 103/ul Normal 0.0-0.1 [facility] Comment on above: Performed By: #### C BC #### [facility] [address] [place] [address] Dr. Gabbi Cummings Basophils/100 WBC (Bld) 0.8 % Normal 0.2-2.0 [facility] Comment on above: Result Comment: Prev iously reported as: 0.9 On 04/06/2022 08:01 By RC01 Performed By: #### C BC #### [facility] [address] [place] [address] Dr. Gabbi Cummings EO # 0.2 103/ul Normal 0.0-0.7 [facility] Comment on above: Performed By: #### C BC #### [facility] [address] [place] [address] Dr. Gabbi Cummings Eosinophils/100 WBC (Bld) 2.8 % Normal 0.9-7.0 [facility] Comment on above: Result Comment: Prev iously reported as: 3.5 On 04/06/2022 08:01 By RC01 Performed By: #### C BC #### [facility] [address] [place] [address] Dr. Gabbi Cummings Erythrocyte distribution width (RBC) [Ratio] 13.9 % Normal 11.0-15.0 [facility] Comment on above: Result Comment: Prev iously reported as: 1.0 On 04/06/2022 08:01 By RC01 Performed By: #### C BC #### [facility] [address] [place] [address] Dr. Gabbi Cummings Hematocrit (Bld) [Volume fraction] 42.9 % Normal 42.0-54.0 [facility] Comment on above: Result Comment: Prev iously reported as: 20.4 On 04/06/2022 08:01 By RC01 Performed By: #### C BC #### [facility] [address] [place] [address] Dr. Gabbi Cummings Hemoglobin (Bld) [Mass/Vol] 15.5 g/dL Normal 14.0-18.0 [facility] Comment on above: Result Comment: Prev iously reported as: 15.1 On 04/06/2022 08:01 By RC01 Performed By: #### C BC #### [facility] [address] [place] [address] Dr. Gabbi Cummings IG # 0.06 10e3/ul Critically high 0.00-0.03 [facility] Comment on above: Result Comment: Prev iously reported as: 0.04 On 04/06/2022 08:01 By RC01 Performed By: #### C BC #### [facility] [address] [place] [address] Dr. Gabbi Cummings IG % 0.9 % Critically high 0.0-0.5 [facility] Comment on above: Result Comment: Prev iously reported as: 0.7 On 04/06/2022 08:01 By RC01 Performed By: #### C BC #### [facility] [address] [place] [address] Dr. Gabbi Cummings LYMPH # 0.9 103/ul Critically low 1.2-3.8 [facility] Comment on above: Result Comment: Prev iously reported as: 0.8 On 04/06/2022 08:01 By RC01 Performed By: #### C BC #### [facility] [address] [place] [address] Dr. Gabbi Cummings Lymphocytes/100 WBC (Bld) 13.9 % Critically low 20.5-60.0 [facility] Comment on above: Result Comment: Prev iously reported as: 14.6 On 04/06/2022 08:01 By RC01 Performed By: #### C BC #### [facility] [address] [place] [address] Dr. Gabbi Cummings MANUAL DIFF REQ NO Normal [facility] Comment on above: Performed By: #### C BC #### [facility] [address] [place] [address] Dr. Gabbi Cummings MCH (RBC) [Entitic mass] 38.4 pg Critically high 25.9-34.0 [facility] Comment on above: Result Comment: Prev iously reported as: 84.8 On 04/06/2022 08:01 By RC01 Performed By: #### C BC #### [facility] [address] [place] [address] Dr. Gabbi Cummings MCHC (RBC) [Mass/Vol] 36.1 g/dL Critically high 29.9-35.2 [facility] Comment on above: Result Comment: Prev iously reported as: 74.0 On 04/06/2022 08:01 By RC01 Performed By: #### C BC #### [facility] [address] [place] [address] Dr. Gabbi Cummings MCV (RBC) [Entitic vol] 106.2 fL Critically high 80.0-94.0 [facility] Comment on above: Result Comment: Prev iously reported as: 114.6 On 04/06/2022 08:01 By RC01 Performed By: #### C BC #### [facility] [address] [place] [address] Dr. Gabbi Cummings MONO # 0.4 103/ul Normal 0.3-0.8 [facility] Comment on above: Performed By: #### C BC #### [facility] [address] [place] [address] Dr. Gabbi Cummings Monocytes/100 WBC (Bld) 6.3 % Normal 1.7-12.0 [facility] Comment on above: Performed By: #### C BC #### [facility] [address] [place] [address] Dr. Gabbi Cummings NEUT # 4.8 103/ul Normal 1.4-6.5 [facility] Comment on above: Result Comment: Prev iously reported as: 4.2 On 04/06/2022 08:01 By RC Performed By: #### C BC #### [facility] [address] [place] [address] Dr. Gabbi Cummings Neutrophils/100 WBC (Bld) 75.3 % Critically high 43.0-75.0 [facility] Comment on above: Result Comment: Prev iously reported as: 74.0 On 04/06/2022 08:01 By RC01 Performed By: #### C BC #### [facility] [address] [place] [address] Dr. Gabbi Cummings Platelet mean volume (Bld) [Entitic vol] 9.9 fL Normal 9.5-13.5 [facility] Comment on above: Result Comment: Prev iously reported as: 10.2 On 04/06/2022 08:01 By RC01 Performed By: #### C BC #### [facility] [address] [place] [address] Dr. Gabbi Cummings PLT 217 103/ul Normal 150-450 [facility] Comment on above: Result Comment: Prev iously reported as: 194 On 04/06/2022 08:01 By RC01 Performed By: #### C BC #### [facility] [address] [place] [address] Dr. Gabbi Cummings RBC 4.04 106/ul Critically low 4.70-6.10 [facility] Comment on above: Result Comment: Prev iously reported as: 1.78 On 04/06/2022 08:01 By RC01 Performed By: #### C BC #### [facility] [address] [place] [address] Dr. Gabbi Cummings WBC 6.3 103/ul Normal 4.0-11.0 [facility] Comment on above: Result Comment: Prev iously reported as: 5.7 On 04/06/2022 08:01 By RC01 Performed By: #### C BC #### [facility] [address] [place] [address] Dr. Gabbi Cummings FREE THYROXINE INDEX T7on FTI 2.70 Normal 1.30-4.50 [facility] Comment on above: Performed By: #### T SH, T7, CMP, LIPID, URIC #### [facility] [address] [place] [address] Dr. Gabbi Cummings T3U 38.0 % Normal 33.0-40.0 [facility] Comment on above: Performed By: #### T SH, T7, CMP, LIPID, URIC #### [facility] [address] [place] [address] Dr. Gabbi Cummings T4 [Mass/Vol] 7.10 ug/dL Normal 4.50-12.10 [facility] Comment on above: Performed By: #### T SH, T7, CMP, LIPID, URIC #### [facility] [address] [place] [address] Dr. Gabbi Cummings GLYCOHEMOGLOBIN A1Con 2022 ADA RECOMMENDATION SEE BELOW Normal [facility] Comment on above: Result Comment: ADA RECOMMENDED LIMIT 4.0 - 6.0 ADA THERAPEUTIC TARGET < 7.0 ACTION SUGGESTED > 7.0 Performed By: #### A 1C #### [facility] [address] [place] [address] Dr. Gabbi Cummings Glucose [Mass/Vol] 100 mg/dL Normal [facility] Comment on above: Performed By: #### A 1C #### [facility] [address] [place] [address] Dr. Gabbi Cummings HbA1c (Bld) [Mass fraction] 5.1 % Normal 4.5-6.2 [facility] Comment on above: Performed By: #### A 1C #### [facility] [address] [place] [address] Dr. Gabbi Cummings LIPID PROFILEon 04-06-2022 CHOL-HDL RATIO NORM SEE BELOW Normal [facility] Comment on above: Result Comment: 3.3 - 4.4 LOW RISK 4.4 - 7.1 AVERAGE RISK 7.1 - 11.0 MODERATE RISK >11.0 HIGH RISK Performed By: #### T SH, T7, CMP, LIPID, URIC #### [facility] [address] [address] [address] Gabbi Cummings Cholesterol [Mass/Vol] 90 mg/dL Normal <=200 [facility] Comment on above: Performed By: #### T SH, T7, CMP, LIPID, URIC #### [facility] [address] [place] [address] Dr. Gabbi Cummings Cholesterol in HDL [Mass/Vol] 37 mg/dL Critically low 40-60 [facility] Comment on above: Performed By: #### T SH, T7, CMP, LIPID, URIC #### [facility] [address] [place] [address] Dr. Gabbi Cummings Cholesterol in LDL [Mass/Vol] 35.0 mg/dL Normal [facility] Comment on above: Performed By: #### T SH, T7, CMP, LIPID, URIC #### [facility] [address] [address] [address] Gabbi Cummings Cholesterol.total/Ch olesterol in HDL [Mass ratio] 2.4 {ratio} Normal [facility] Comment on above: Performed By: #### T SH, T7, CMP, LIPID, URIC #### [facility] [address] [place] [address] Dr. Gabbi Cummings HDL NORMAL > or = 60 mg/dl - LO W CARDIOVASCULAR RISK <40 mg/dl - HIGH CARDIOVASCULAR RISK Normal [facility] Comment on above: Performed By: #### T SH, T7, CMP, LIPID, URIC #### [facility] [address] [address] [address] Gabbi Cummings LDL CALC NORMAL SEE BELOW Normal [facility] Comment on above: Result Comment: <100 mg/dl OPTIMAL 100 - 129 mg/dl NEAR OR ABOVE OPTIMAL 130 - 159 mg/dl BORDERLINE HIGH 160 - 189 mg/dl HIGH >190 mg/dl VERY HIGH Performed By: #### T SH, T7, CMP, LIPID, URIC #### [facility] [address] [address] [address] Gabbi Cummings Triglyceride [Mass/Vol] 90 mg/dL Normal <=150 [facility] Comment on above: Performed By: #### T SH, T7, CMP, LIPID, URIC #### [facility] [address] [address] [address] Gabbi Cummings VLDL CALC 18.0 mg/dL Normal [facility] Comment on above: Performed By: #### T SH, T7, CMP, LIPID, URIC #### [facility] [address] [address] [address] Gabbi Cummings PERIPHERAL SMEARon 3 Pathologist Cyto stain Nom (Cvx/Vag) [ID] DR. YVONNE ALONZO Normal [facility] Comment on above: Result Comment: LYMP HOPENIA OF UNCERTAIN ETIOLOGY; REACTIVE FORMATION PRESENT Performed By: #### P ERSMR #### [facility] [address] [place] [address] Dr. Gabbi Cummings PROF 14(COMP METB)on 023 Albumin [Mass/Vol] 4.1 g/dL Normal 3.4-5.0 [facility] [facility] Comment on above: Performed By: #### T SH, T7, CMP, LIPID, URIC #### [facility] [address] [address] [address] Gabbi Cummings Albumin/Globulin [Mass ratio] 1.2 {ratio} Normal [facility] Comment on above: Performed By: #### T SH, T7, CMP, LIPID, URIC #### [facility] [address] [address] [address] Gabbi Cummings ALP [Catalytic activity/Vol] 100 U/L Normal 46-116 [facility] Comment on above: Performed By: #### T SH, T7, CMP, LIPID, URIC #### [facility] [address] [place] [address] Dr. Gabbi Cummings ALT [Catalytic activity/Vol] 43 U/L Normal 16-63 [facility] Comment on above: Performed By: #### T SH, T7, CMP, LIPID, URIC #### [facility] [address] [place] [address] Dr. Gabbi Cummings Anion gap [Moles/Vol] 11.2 mmol/L Normal [facility] Comment on above: Performed By: #### T SH, T7, CMP, LIPID, URIC #### [facility] [address] [place] [address] Dr. Gabbi Cummings AST [Catalytic activity/Vol] 20 U/L Normal 15-37 [facility] Comment on above: Performed By: #### T SH, T7, CMP, LIPID, URIC #### [facility] [address] [place] [address] Dr. Gabbi Cummings Bilirubin [Mass/Vol] 1.6 mg/dL Critically high 0.2-1.0 [facility] Comment on above: Performed By: #### T SH, T7, CMP, LIPID, URIC #### [facility] [address] [place] [address] Dr. Gabbi Cummings Calcium [Mass/Vol] 9.1 mg/dL Normal 8.5-10.1 [facility] Comment on above: Performed By: #### T SH, T7, CMP, LIPID, URIC #### [facility] [address] [place] [address] Dr. Gabbi Cummings Chloride [Moles/Vol] 105 mmol/L Normal 98-107 [facility] Comment on above: Performed By: #### T SH, T7, CMP, LIPID, URIC #### [facility] [address] [place] [address] Dr. Gabbi Cummings CO2 [Moles/Vol] 28.8 mmol/L Normal 21.0-32.0 [facility] Comment on above: Performed By: #### T SH, T7, CMP, LIPID, URIC #### [facility] [address] [address] [address] Gabbi Cummings Creatinine [Mass/Vol] 0.97 mg/dL Normal 0.70-1.30 [facility] Comment on above: Performed By: #### T SH, T7, CMP, LIPID, URIC #### [facility] [address] [address] [address] Gabbi Cummings EGFR-AF QATARI >60 Normal >=60 [facility] Comment on above: Performed By: #### T SH, T7, CMP, LIPID, URIC #### [facility] [address] [place] [address] Dr. Gabbi Cummings EGFR-NON AF QATARI >60 Normal >=60 [facility] Comment on above: Performed By: #### T SH, T7, CMP, LIPID, URIC #### [facility] [address] [place] [address] Dr. Gabbi Cummings Globulin (S) [Mass/Vol] 3.4 g/dL Normal [facility] Comment on above: Performed By: #### T SH, T7, CMP, LIPID, URIC #### [facility] [address] [place] [address] Dr. Gabbi Cummings Glucose [Mass/Vol] 109 mg/dL Critically high 74-106 [facility] Comment on above: Performed By: #### T SH, T7, CMP, LIPID, URIC #### [facility] [address] [place] [address] Dr. Gabbi Cummings Potassium [Moles/Vol] 4.0 mmol/L Normal 3.5-5.1 [facility] Comment on above: Performed By: #### T SH, T7, CMP, LIPID, URIC #### [facility] [address] [place] [address] Dr. Gabbi Cummings Protein [Mass/Vol] 7.5 g/dL Normal 6.4-8.2 [facility] Comment on above: Performed By: #### T SH, T7, CMP, LIPID, URIC #### [facility] [address] [place] [address] Dr. Gabbi Cummings Sodium [Moles/Vol] 141 mmol/L Normal 136-145 [facility] Comment on above: Performed By: #### T SH, T7, CMP, LIPID, URIC #### [facility] [address] [address] [address] Gabbi Cummings Urea nitrogen [Mass/Vol] 17.0 mg/dL Normal 7.0-18.0 [facility] Comment on above: Performed By: #### T SH, T7, CMP, LIPID, URIC #### [facility] [address] [address] [address] Gabbi Cummings Urea nitrogen/Creatinine [Mass ratio] 17.5 mg/mg Normal [facility] Comment on above: Performed By: #### T SH, T7, CMP, LIPID, URIC #### [facility] [address] [place] [address] Dr. Gabbi Cummings TSHon 04-06-2022 TSH 0.655 uIU/mL Normal 0.358-3.740 [facility] Comment on above: Performed By: #### T SH, T7, CMP, LIPID, URIC #### [facility] [address] [address] [address] Gabbi Cummings URIC ACID SERUMon 04-06-2022 Urate [Mass/Vol] 5.1 mg/dL Normal 3.5-7.2 [facility] Comment on above: Performed By: #### T SH, T7, CMP, LIPID, URIC #### [facility] [address] [place] [address] Dr. Gabbi Cummings COAGULATIONOrdered By: Yakelin Patel on 10-09-2021 aPTT Coag (PPP) [Time] 51.9 s High 25.1 - 36.5 second(s) [facility] INR Coag (PPP) [Relative time] 1.1 {INR} Invalid Interpretation Code [facility] PT Coag (PPP) [Time] 12.7 s Normal 10.2 - 12.9 second(s) [facility] ECHOCARDIO M/2D COMPLETEon 0 09-09-2021 ECHOCARDIO M/2D COMPLETE Patient: LUIS ALBERTO OCAMPOJesus Exam Date: 09/09/2021 : 1945 Gender:M Ordering : ELAINE MONTERO Admission #: [id number] Family : DR LUIS DANIEL GALICIA . Order #: [id number] CLICK HERE TO VIEW EXAM ECHOCARDIOGRAM REPORT [...] Area(A4C): 14.40 cm2 Left Atrium Systolic Volume(A2C): 43236 mm3 Left Atrium Systolic Volume(A4C): 59707 mm3 Mitral Valve MV E to A [...] Thapa M.D. on 09/09/2021 at 18:36 Normal [facility] CHEMISTRYOrdered By: SYSTEM SYSTEM on 08-11-2021 Anion [...] rate/Area] mL/min/1.73 m2 Normal >=59mL/min/ 1.73 m2 [facility] Chem S Glucose [Mass/Vol] 122 mg/dL Normal [...] AM) Normal Negative [facility] UA Auto SS Devol.plasma/Lithi um.RBC (Bld) [Mass ratio] 0-3 /HPF Normal [...] Desc Clean Catch (08/11/21 7:44 AM) Normal [facility] UA Auto SS Urobilinogen Qn (U) 1.2507647 {June'U}/dL Normal 0.0 - 1.0 EU/dL FT [...] (Unsp spec) Not detected Normal Not Detected [facility] Comment on above: Order Comment: Healt hcare Worker?: N Result Comment: This nucleic acid amplification test was developed and its performance characteristics determined by [employer]. Nucleic acid amplification tests include RT- PCR [...] detected) result in this assay. PERFORMED BY: [address] [place] [address] PATHOLOGIST MILLING/POLISHING OPERATOR LUZ MARINA RAYO M.D. Performed By: #### C ORONAVIRUS #### [facility] , No Panel Information [facility] Vital Signs Date Time Vital Sign Value Performing Clinician Facility 03-31-2023 15:00-0500 Blood Pressure Location [facility] 03-31-2023 15:00-0500 Diastolic blood pressure 70 mm[Hg] [facility] 03-31-2023 15:00-0500 Heart rate 100 /min [facility] 03-31-2023 15:00-0500 Systolic blood pressure 124 mm[Hg] [facility] 08-25-2022 16:00-0400 Body temperature 98.29 [degF] CHACHO Kaiser MD Work Phone: [facility] 08-25-2022 16:00-0400 Body weight 98.25 kg CHACHO Kaiser MD Work Phone: [facility] 08-25-2022 16:00-0400 Diastolic blood pressure 84 mm[Hg] CHACHO Kaiser MD Work Phone: [facility] 08-25-2022 16:00-0400 Heart rate 91 /min CHACHO Kaiser MD Work Phone: [facility] 08-25-2022 16:00-0400 SaO2% (BldA) [Mass fraction] 97 % CHACHO Kaiser MD Work Phone: [facility] 08-25-2022 16:00-0400 Systolic blood pressure 133 mm[Hg] CHACHO Kaiser MD Work Phone: [facility] 08-25-2022 08:47-0400 Blood Pressure Location Dakotahlanie PELAY[facility] 08-25-2022 08:47-0400 Diastolic blood pressure 83 mm[Hg] Dakotah PELAYO [facility] 08-25-2022 08:47-0400 Heart rate 84 /min Dakotah PELAYO [facility] 08-25-2022 08:47-0400 Respiratory rate 16 /min Dakotah PELAYO [facility] 08-25-2022 08:47-0400 Systolic blood pressure 127 mm[Hg] Dakotah PELAYO [facility] 04-16-2022 15:54-0500 Diastolic blood pressure 77 mm[Hg] Jigar Stanford DO Work Phone: [facility] 04-16-2022 15:54-0500 Heart rate 87 /min Jigar Stanford DO Work Phone: [facility] 04-16-2022 15:54-0500 Systolic blood pressure 149 mm[Hg] Jigar Stanford DO Work Phone: [facility] 03-16-2022 08:25-0500 Blood Pressure Location Dakotah PELAYO [facility] 03-16-2022 08:25-0500 Diastolic blood pressure 97 mm[Hg] Dakotah PELAYO [facility] 03-16-2022 08:25-0500 Heart rate 92 /min Dakotah PELAYO [facility] 03-16-2022 08:25-0500 Systolic blood pressure 149 mm[Hg] Dakotha PELAYO [facility] 02-25-2022 15:41-0500 Body temperature 97.59 [degF] NA Martha CORONADO Work Phone: [facility] 02-25-2022 15:41-0500 Body weight 103.87 kg CHACHO Kaiser MD Work Phone: [facility] 02-25-2022 15:41-0500 Diastolic blood pressure 80 mm[Hg] CHACHO Kaiser MD Work Phone: [facility] 02-25-2022 15:41-0500 Heart rate 91 /min CHACHO Kaiser MD Work Phone: [facility] 02-25-2022 15:41-0500 Respiratory rate 16 /min CHACHO Kaiser MD Work Phone: [facility] 02-25-2022 15:41-0500 SaO2% (BldA) [Mass fraction] 98 % CHACHO Kaiser MD Work Phone: [facility] 02-25-2022 15:41-0500 Systolic blood pressure 137 mm[Hg] CHACHO Kaiser MD Work Phone: [facility] 02-03-2022 15:36-0500 Blood Pressure Location Dakotah PELAYO [facility] 02-03-2022 15:36-0500 Diastolic blood pressure 87 mm[Hg] Dakotah PELAYO [facility] 02-03-2022 15:36-0500 Heart rate 76 /min Dakotah PELAYO [facility] 02-03-2022 15:36-0500 Respiratory rate 16 /min Dakotah PELAYO [facility] 02-03-2022 15:36-0500 Systolic blood pressure 135 mm[Hg] Dakotah PELAYO [facility] 12-11-2021 09:46-0400 Body temperature 98.1 [degF] Larry Henson MD, PhD Work Phone: [facility] 12-11-2021 09:46-0400 Body weight 104.92 kg Larry Henson MD, PhD Work Phone: [facility] 12-11-2021 09:46-0400 Diastolic blood pressure 85 mm[Hg] Larry Henson MD, PhD Work Phone: [facility] 12-11-2021 09:46-0400 Heart rate 71 /min Larry Henson MD, PhD Work Phone: [facility] 12-11-2021 09:46-0400 Respiratory rate 18 /min Larry Henson MD, PhD Work Phone: [facility] 12-11-2021 09:46-0400 SaO2% (BldA) [Mass fraction] 96 % Larry Henson MD, PhD Work Phone: [facility] 12-11-2021 09:46-0400 Systolic blood pressure 147 mm[Hg] Larry Henson MD, PhD Work Phone: [facility] 10-09-2021 11:54-0400 Blood Pressure Location [facility] 10-09-2021 11:54-0400 Diastolic blood pressure 81 mm[Hg] [facility] 10-09-2021 11:54-0400 Heart rate 71 /min [facility] 10-09-2021 11:54-0400 Mean blood pressure 104 mm[Hg] [facility] 10-09-2021 11:54-0400 Respiratory rate 20 /min [facility] 10-09-2021 11:54-0400 SaO2% (BldA) [Mass fraction] 93 % [facility] 10-09-2021 11:54-0400 Systolic blood pressure 149 mm[Hg] [facility] 10-09-2021 11:00-0400 Blood Pressure Location [facility] 10-09-2021 11:00-0400 Diastolic blood pressure 85 mm[Hg] [facility] 10-09-2021 11:00-0400 Heart rate 73 /min [facility] 10-09-2021 11:00-0400 Mean blood pressure 107 mm[Hg] [facility] 10-09-2021 11:00-0400 Respiratory rate 20 /min [facility] 10-09-2021 11:00-0400 SaO2% (BldA) [Mass fraction] 93 % [facility] 10-09-2021 11:00-0400 Systolic blood pressure 151 mm[Hg] [facility] 10-09-2021 10:55-0400 Body temperature 98.78 [degF] [facility] 10-09-2021 10:55-0400 Diastolic blood pressure 81 mm[Hg] [facility] 10-09-2021 10:55-0400 Heart rate 71 /min [facility] 10-09-2021 10:55-0400 Respiratory rate 11 /min [facility] 10-09-2021 10:55-0400 SaO2% (BldA) [Mass fraction] 93 % [facility] 10-09-2021 10:55-0400 Systolic blood pressure 141 mm[Hg] [facility] 10-09-2021 10:45-0400 Respiratory rate 16 /min [facility] 10-09-2021 10:40-0400 Respiratory rate 11 /min [facility] 10-09-2021 10:30-0400 Blood Pressure Location [facility] 10-09-2021 10:30-0400 Body temperature 99.32 [degF] [facility] 10-09-2021 10:25-0400 Respiratory rate 8 /min [facility] 10-09-2021 08:24-0400 Mean blood pressure 100 mm[Hg] [facility] 10-09-2021 08:23-0400 Body temperature 97.7 [degF] [facility] 10-09-2021 08:23-0400 Heart rate 76 /min [facility] 08-28-2021 14:01-0400 Body temperature 98.71 [degF] CHACHO Kaiser MD Work Phone: [facility] 08-28-2021 14:01-0400 Body weight 102.24 kg CHACHO Kaiser MD Work Phone: [facility] 08-28-2021 14:01-0400 Diastolic blood pressure 85 mm[Hg] CHACHO Kaiser MD Work Phone: [facility] 08-28-2021 14:01-0400 Heart rate 102 /min CHACHO Kaiser MD Work Phone: [facility] 08-28-2021 14:01-0400 Respiratory rate 18 /min CHACHO Kaiser MD Work Phone: [facility] 08-28-2021 14:01-0400 SaO2% (BldA) [Mass fraction] 96 % CHACHO Kaiser MD Work Phone: [facility] 08-28-2021 14:01-0400 Systolic blood pressure 141 mm[Hg] CHACHO Kaiser MD Work Phone: [facility] 08-11-2021 07:17-0400 Blood Pressure Location [facility] 08-11-2021 07:17-0400 Body temperature 98.24 [degF] [facility] 08-11-2021 07:17-0400 Diastolic blood pressure 74 mm[Hg] [facility] 08-11-2021 07:17-0400 Heart rate 84 /min [facility] 08-11-2021 07:17-0400 Mean blood pressure 89 mm[Hg] [facility] 08-11-2021 07:17-0400 SaO2% (BldA) [Mass fraction] 96 % [facility] 08-11-2021 07:17-0400 Systolic blood pressure 119 mm[Hg] [facility] 08-11-2021 07:16-0400 Blood Pressure Location [facility] 08-11-2021 07:16-0400 BP/Pulse Patient Position [facility] 08-11-2021 07:16-0400 Diastolic blood pressure 78 mm[Hg] [facility] 08-11-2021 07:16-0400 Heart rate 93 /min [facility] 08-11-2021 07:16-0400 Mean blood pressure 96 mm[Hg] [facility] 08-11-2021 07:16-0400 Respiratory rate 18 /min [facility] 08-11-2021 07:16-0400 Systolic blood pressure 132 mm[Hg] [facility] 06-23-2021 11:18-0400 Blood Pressure Location [facility] 06-23-2021 11:18-0400 Diastolic blood pressure 89 mm[Hg] [facility] 06-23-2021 11:18-0400 Heart rate 87 /min [facility] 06-23-2021 11:18-0400 Respiratory rate 16 /min [facility] 06-23-2021 11:18-0400 Systolic blood pressure 135 mm[Hg] [facility] Encounters Encounter Date Encounter Type Care Provider Facility Start: 03-28-2024 ambulatory Dakotah PELAYO Facility [facility] Start: 11-11-2023 End: 11-11-2023 ambulatory [facility] Start: 10-01-2023 End: 10-01-2023 ambulatory [facility] Start: 08-31-2023 End: 08-31-2023 ambulatory WHITNEY PHIPPS Not Available Start: 08-05-2023 End: 08-05-2023 ambulatory [facility] Start: 07-07-2023 ambulatory LUIS DANIEL [facility] Start: 06-30-2023 End: 06-30-2023 ambulatory [facility] Start: 06-29-2023 End: 06-29-2023 ambulatory WHITNEY Osorio BEJ Not Available Start: 06-17-2023 End: 06-17-2023 ambulatory COLEEN M [facility] Start: 04-21-2023 Telephone encounter [facility] Provider Ibeth lynnekingston Magnus Comment on above: Appointment Start: 04-16-2023 End: 04-16-2023 ambulatory LUIS DANIEL GALICIA Facility:[facility] Start: 04-16-2023 End: 04-16-2023 Subsequent hospital visit by physician Arrival Time Radiology Work Phone: Radiology Pet CT Comment on above: 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] Start: 04-01-2023 End: 04-01-2023 ambulatory LUIS DANIEL SHELLEYY Facility:[facility] Start: 03-31-2023 End: 04-01-2023 ambulatory Ivy X Orsridharch Facility:[facility] Start: 03-31-2023 End: 03-31-2023 Patient encounter procedure Ivy X Orzech [facility] Start: 03-02-2023 End: 03-03-2023 ambulatory LUIS DANIEL M GRAYSON Facility:[facility] Start: 02-24-2023 End: 02-24-2023 ambulatory LUIS DANIEL M Y Facility:[facility] Start: 02-16-2023 End: 02-17-2023 ambulatory Dakotah PELAYO Facility:[facility] Start: 02-16-2023 End: 02-16-2023 Patient encounter procedure Dakotah PELAYO [facility] [place] Start: 11-16-2022 End: 11-16-2022 ambulatory LUIS DANIEL M HOY Facility:[facility] Start: 11-16-2022 End: 11-16-2022 Patient encounter procedure Freda Hendrix OD Work Phone: Ophthalmology Comment on above: S/P YAG capsulotomy, bilateral (Primary Dx); Pseudophakia; Insufficiency of tear film of both eyes Start: 11-05-2022 End: 11-05-2022 ambulatory LINDSEY HUGO Facility:[facility] Start: 11-05-2022 End: 11-05-2022 Office outpatient new 45 minutes Lindsey Hugo MD Work Phone: Ophthalmology Comment on above: 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); Pseudophakia; Insufficiency of tear film of both eyes Start: 09-30-2022 Refill Jigar little DO Work Phone: [facility] Comment on above: Refill Request Start: 08-28-2022 End: 08-28-2022 ambulatory LUIS DANIEL GALICIA Facility:[facility] Start: 08-25-2022 End: 08-26-2022 ambulatory LUIS DANIEL GALICIA Facility:[facility] Start: 08-25-2022 End: 08-25-2022 Lab Drop off Dakotah PELAYO [facility] Start: 08-25-2022 End: 08-26-2022 Patient encounter procedure Dakotah PELAYO [facility] Comment on above: Malignant neoplasm o f prostate (HCC) (Primary Dx) Start: 08-21-2022 End: 08-21-2022 ambulatory ODETTE BARRETT Facility:[facility] Start: 08-19-2022 End: 08-19-2022 ambulatory LUIS DANIEL GALICIA Facility:[facility] Start: 07-20-2022 End: 07-21-2022 ambulatory Dakotah PELAYO Facility:[facility] Start: 05-26-2022 End: 05-26-2022 ambulatory JIGAR STANFORD Facility:[facility] Start: 05-26-2022 End: 05-26-2022 ambulatory Jigar Stanford DO Work Phone: [facility] Comment on above: Primary parkinsonism (HCC) (Primary Dx); Tremor Start: 05-26-2022 End: 05-26-2022 Telemedicine consultation with patient Jigar Stanford DO Work Phone: [facility] Start: 05-08-2022 ambulatory Jigar little DO Work Phone: Neurology Comment on above: Just on May 06 Start: 05-06-2022 End: 05-06-2022 ambulatory JIGAR STANFORD Facility:[facility] Start: 04-20-2022 Telephone encounter Joy Zuñiga (Pss) [...] encounter procedure Dakotah PELAYO [facility] [place] Start: 02-25-2022 End: 02-25-2022 Patient encounter procedure Dillan Kaiser MD Work Phone: Radiation Oncology Comment on above: Malignant neoplasm o f prostate (HCC) (Primary Dx) Start: 02-03-2022 End: 02-03-2022 Patient encounter procedure [facility]EL[facility] Start: 01-14-2022 End: 01-14-2022 Patient encounter procedure SONIDO NERI [facility] Start: 01-12-2022 End: 01-12-2022 Patient encounter procedure Dakotah PELAYO [facility] Start: 12-11-2021 End: 12-11-2021 ambulatory Larry Henson MD, PhD Work Phone: Hematology/Oncology Comment on above: Tremor (Primary Dx); Extranodal marginal zone B-cell lymphoma (HCC) Start: 12-11-2021 End: 12-11-2021 Patient encounter procedure Larry Henson MD, PhD Work Phone: [facility] Start: 11-18-2021 End: 11-18-2021 Patient encounter procedure Dakotah Krueger PIERCE [facility] Start: 10-21-2021 Telephone encounter Larry agarwal MD, PhD Work Phone: Hematology/Oncology Comment on above: Care Coordination (N eurologist Referral ) Start: 10-09-2021 End: 10-09-2021 Admission to same day surgery center [facility] Start: 09-09-2021 End: 09-10-2021 ambulatory [facility] Facility: Start: 08-28-2021 End: 08-28-2021 Patient encounter procedure Dillan Kaiser MD Work Phone: Radiation Oncology Comment on above: Malignant neoplasm o f prostate (HCC) (Primary Dx) Start: 08-11-2021 End: 08-11-2021 Patient encounter procedure [facility] Start: 08-11-2021 End: 08-11-2021 Preprocedural examination done [facility] Start: 07-21-2021 End: 07-21-2021 Patient encounter procedure [facility] Start: 06-23-2021 End: 06-23-2021 Patient encounter procedure [facility] Start: 2021 Orders Only Thomas Mckeon INSTALLATION MANAGER.FURNITURE STAINER Work Phone: Ophthalmology Comment on above: Dermatochalasis [...] ation done Marissa Leija MD Work Phone: [facility] Work Phone: Procedures Date Procedure Procedure Detail [...] Author Start: 02-24-2026 Diabetes Screening [facility] Start: 12-11-2024 DIABETES SCREEN DIABETES SCREEN [facility] Start: 12-11-2024 Diabetes Screening Diabetes Screenin [facility] Start: 03-02-2024 End: 03-02-2024 ambulatory 03/02/2024 3:45 PM EST Results Only [facility] [address] [address] [place] [address] [facility] Start: 03-02-2024 End: 03-02-2024 Patient encounter procedure 03/02/2024 1:30 PM EST Office Visit Radiation Oncology [address] [facility] [place] [address] Dillan Kaiser MD [address] [place] [address] [place] [address] 1yr f/u Radiation Oncology Comment on above: 1yr f/u Start: 11-20-2023 DIABETES SCREEN DIABETES SCREEN [facility] Start: 11-19-2023 End: 11-19-2023 Patient encounter procedure 11/19/2023 2:45 PM EDT Office Visit [facility] Ophthalmology [address] [place], [place] [id number] Odette Barrett, OD [address] [place], [place] [id number] 1 year full exam Ophthalmology Comment on above: 1 year full exam Start: 10-31-2023 Covid-19 Vaccine () Covid-19 Vaccine () [facility] Start: 10-31-2023 Influenza vaccination Influenza Vacc ine (#1) [facility] Start: 03-01-2023 Advance Directive Discussion Advance Directive Discussion [facility] Start: 03-01-2023 Depression Assessment Depression Ass essment [facility] Start: 02-24-2023 End: 04-26-2023 Prostate specific Ag [Mass/volume] in Serum or Plasma PSA/PROSTSPECAG DIAG Lab Routine Malignant neoplasm of prostate (HCC) Expected: 02/24/2023, Expires: 04/26/2023 [facility] Work Phone: Comment on above: Expected: 02/24/2023 , Expires: 04/26/2023 Start: 10-30-2022 Covid-19 Vaccine () Covid-19 Vaccine () [facility] Start: 10-30-2022 Influenza vaccination [facility] Start: 08-26-2022 End: 10-26-2022 Prostate specific Ag [Mass/volume] in Serum or Plasma PSA/PROSTSPECAG DIAG Lab Routine Malignant neoplasm of prostate (HCC) Expected: 08/26/2022, Expires: 10/26/2022 [facility] Work Phone: Comment on above: Expected: 08/26/2022 , Expires: 10/26/2022 Start: 08-25-2022 Adult depression screening assessment DEPRESSION SCREENING [facility] Start: 03-01-2022 ADVANCE DIRECTIVE DISCUSSION ADVANCE DIRECTIVE DISCUSSION [facility] Start: 03-01-2022 DEPRESSION ASSESSMENT DEPRESSION ASS ESSMENT [facility] Start: 02-27-2022 End: 04-29-2022 Prostate specific Ag [Mass/volume] in Serum or Plasma PSA/PROSTSPECAG DIAG Lab Routine Malignant neoplasm of prostate (HCC) Expected: 02/27/2022, Expires: 04/29/2022 [facility] Work Phone: Comment on above: Expected: 02/27/2022 , Expires: 04/29/2022 Start: 02-24-2022 Adult depression screening assessment DEPRESSION SCREENING [facility] Start: 10-30-2021 Influenza vaccination INFLUENZA (#1) [facility] Start: 03-01-2021 ADVANCE DIRECTIVE DISCUSSION ADVANCE DIRECTIVE DISCUSSION [facility] Start: 03-01-2021 DEPRESSION ASSESSMENT DEPRESSION ASS ESSMENT [facility] Start: 02-14-2021 COVID-19 VACCINE (5 - Booster) COVID-19 VACCINE (5 - Booster) [facility] Start: 12-10-2020 COVID-19 VACCINE (3 - Booster for Aisha series) COVID-19 VACCINE (3 - Booster for Aisha series) [facility] Start: 12-10-2020 COVID-19 VACCINE (3 - Aisha risk series) COVID-19 VACCINE (3 - Aisha risk series) [facility] Start: 06-08-2012 PNEUMOVAX AGE 65 AND OVER WITH 5YR LOOKBACK (#1) PNEUMOVAX AGE 65 AND OVER WITH 5YR LOOKBACK (#1) [facility] Start: 2007 RSV Vaccine (1 - 1-d ose 60+ series) RSV Vaccine (1 - 1-dose 60+ series) [facility] Start: 06-08-1997 SHINGRIX VACCINE (1 of 2) SHINGRIX VACCINE (1 of 2) [facility] Start: 06-08-1992 COLOGUARD (FIT-DNA) COLOGUARD (FIT-D NA) [facility] Start: 06-08-1992 Colonoscopy COLONOSCOPY [facility] Start: 06-08-1992 COLORECTAL CANCER SCREENING COLORECTAL CANCER SCREENING [facility] Start: 06-08-[address] COLONOGRAPHY [facility] Start: 06-08-1992 FECAL OCCULT BLOOD FECAL OCCULT BLOO D [facility] Start: 06-08-1992 Screening for malign ant neoplasm of colon [facility] Start: 06-08-1992 SIGMOIDOSCOPY SIGMOIDOSCOPY [facility] Start: 06-08-1982 Lipid 1996 panel - Serum or Plasma Lipid Screening [facility] Start: 06-08-1982 Lipid panel Lipid Screening [facility] Start: 06-08-1982 LIPID SCREEN LIPID SCREEN [facility] Start: 06-08-1966 SHINGRIX VACCINE (1 of 2) SHINGRIX VACCINE (1 of 2) [facility] Start: 06-08-1966 Urine microalbumin profile [facility] Start: 06-08-1965 Anxiety Screening Anxiety Screening [facility] Start: 06-08-1965 Depression Screening Depression Scre ening [facility] Start: 06-08-1953 Pneumococcal Vaccine : 65+ (1 - PCV) Pneumococcal Vaccine: 65+ (1 - PCV) [facility] Start: 06-08-1953 Pneumococcal Vaccine : 65+ (1 of 2 - PCV) Pneumococcal Vaccine: 65+ (1 of 2 - PCV) [facility] Start: 06-08-1953 PNEUMOCOCCAL: 65+ (1 - PCV) PNEUMOCOCCAL: 65+ (1 - PCV) [facility] Start: 1945 ABDOMINAL AORTIC ANEURYSM SCREENING ABDOMINAL AORTIC ANEURYSM SCREENING [facility] End: 05-15-2023 NM BRAIN SPECT NM BRAIN SPECT Radiology Routine Other symptoms and signs involving the nervous system 1 Occurrences starting 04/16/2022 until 05/15/2023 [facility] Work Phone: Comment on above: 1 Occurrences starti ng 04/16/2022 until 05/15/2023 End: 05-20-2024 SPIROMETRY - BASELINE AND POST DILATOR SPIROMETRY - BASELINE AND POST DILATOR PFT Routine Bronchiectasis without acute exacerbation (HCC) 1 Occurrences starting 04/21/2023 until 05/20/2024 [facility] Comment on above: 1 Occurrences starti ng 04/21/2023 until 05/20/2024 [facility] Immunizations Immunization Date Immunization Notes Care Provider Bettie [email or web address] 12-30-2022 influenza virus vaccine, unspecified formulation Ivy Waters [facility] 12-09-2020 influenza virus vaccine, unspecified formulation Dakotah PELAYO [facility] 12-09-2020 influenza, high-dose , quadrivalent vaccine (FLUZONE HIGH DOSE QUADRIVALENT) Marissa Leija MD Work Phone: [facility] 12-05-2020 influenza nasal, unspecified formulation CHACHO Kaiser MD Work Phone: [facility] 12-05-2020 influenza virus vaccine, unspecified formulation Supa Dickens Jr. [facility] 10-15-2020 SARS-CoV-2 (COVID-19 ) Ad26 vaccine, recombinant Supa Dickens JrJesus [facility] 09-05-2020 SARS-CoV-2 (COVID-19 ) Ad26 vaccine, recombinant Supa Dickens JrJesus [facility] 05-24-2020 SARS-CoV-2 (COVID-19 ) mRNA-1273 vaccine Supa Dickens Jr. [facility] 05-20-2020 SARS-CoV-2 (COVID-19 ) mRNA-1273 vaccine Dakotah PELAYO [facility] 05-03-2020 SARS-CoV-2 (COVID-19 ) mRNA-1273 vaccine Dakotah PELAYO [facility] 04-26-2020 SARS-CoV-2 (COVID-19 ) mRNA-1273 vaccine Supa Maninder Juarez [facility] 12-29-2019 influenza virus vaccine, unspecified formulation Dakotah PIERCE [facility] 12-29-2019 Seasonal trivalent influenza vaccine, adjuvanted, preservative free Marissa Leija MD Work Phone: [facility] 12-13-2019 influenza virus vaccine, unspecified formulation Dakotah PELAYO [facility] 12-13-2019 influenza, seasonal, injectable Marissa Leija MD Work Phone: [facility] 12-15-2018 influenza virus vaccine, unspecified formulation Dakotah PELAYO [facility] 12-15-2018 influenza, high dose seasonal, preservative-free Marissa Leija MD Work Phone: [facility] 11-23-2018 influenza virus vaccine, live, attenuated, for intranasal use Marissa Leija MD Work Phone: [facility] 12-22-2016 influenza virus vaccine, unspecified formulation Dakotah PELAYO [facility] 12-22-2016 influenza, high dose seasonal, preservative-free Marissa Leija MD Work Phone: [facility] 11-26-2014 influenza virus vaccine, unspecified formulation Dakotah PELAYO [facility] 11-26-2014 influenza, high dose seasonal, preservative-free Marissa Leija MD Work Phone: [facility] Payers Date Payer Category Payer Medicare MEDICARE MEDICAR E A AND B [id number] 2014-Present [phone] [place] [address] Medicare [id number] 2014 Medicare MEDICARE MEDICAR E A AND B [id number] 2014-Present [phone] [place] [address] Medicare [id number] 2014 Unknown [employer] [place] [employer] [place] MEDIC[place] SUPPLEMENT [id number] 2014-Present [phone] [id number] [employer] [place] [address] Indemnity [id number] 2014 Unknown [employer] [place] [employer] [place] MEDICARE SUPPLEMENT [id number] 2014-Present [phone] [address] [employer] [place] [address] Indemnity [id number] 2014 Unknown [id number] 1959 Medicare [id number] 1959 Unknown [id number] 1947 Unknown [id number] 3 1947 Unknown [id number] [id number] 3 1947 Unknown [id number] 2.16.840.1.842169.3.579.2.72 7 1947 Unknown [id number] 2.16.840.1.154374.3.579.2.72 7 1947 Unknown [id number] 2.16.840.1.142637.3.579.2.72 7 1947 Unknown [id number] 2.16.840.1.855351.3.579.2.72 7 1947 Unknown [id number] 2.16.840.1.349289.3.579.2.72 7 1947 Unknown [id number] 2.16.840.1.017250.3.579.2.72 7 1947 Unknown [id number] 2.16.840.1.423807.3.579.2.12 59 1947 Unknown [id number] 2.16.840.1.949310.3.579.2.12 59 1947 Unknown [id number] 2.16.840.1.613346.3.579.2.12 86 1947 Unknown [id number] 2.16.840.1.352068.3.579.2.12 86 1947 Unknown [id number] 2.16.840.1.382896.3.579.2.12 86 1947 Unknown [id number] 2.16.840.1.681191.3.579.2.12 86 1947 Unknown [id number] 2.16.840.1.920212.3.579.2.12 86 1947 Unknown [id number] 2.16.840.1.978738.3.579.2.12 86 1947 Unknown [id number] 2.16.840.1.211551.3.579.2.12 86 1947 Unknown [id number] 86 Social History Date Type Detail Facility Start: 06-23-2021 End: 02-25-2022 Tobacco smoking status PRIS Ex-smoker [facility] Start: 03-01-1969 End: 03-01-2004 History of tobacco use Current smoker [facility] Work Phone: Start: 03-01-1969 End: 03-01-2004 History of tobacco use Cigarette Smoker [facility] Work Phone: Start: 06-06-2021 End: 03-02-2023 Alcohol intake Current drinker of alcohol (finding) [facility] Start: 03-19-2021 History SDOH Alcohol Comment 1 beer per week. [facility] Start: 1945 Sex Assigned At Male [facility] Start: 05-03-2021 End: 08-28-2021 Exposure to SARS-CoV-2 (event) Not sure [facility] Start: 08-19-2022 End: 08-25-2022 Sex Assigned At Male [facility] Start: 07-11-2014 End: 08-19-2022 Cigarettes smoked current (pack per day) - Reported 2 [facility] Start: 07-11-2014 End: 02-25-2022 Tobacco use and exposure Smokeless tobacco non-user [facility] Tobacco smoking status Never [facility] Start: 05-13-2020 Gender identity Identifies as male gender (finding) [facility] Start: 05-13-2020 Sexual orientation Heterosexual (fin fara) [facility] Medical Equipment Procedure Code Equipment Code Equipment Origin al Text Equipment Identifier Dates Lens Iol 0d +20 Jarvis Uv Abs - [id number] Start: 02-15-2020 Comment on above: Description: -0.23 Lens Iol 0d +20 Jarvis Uv Abs - [id number] Start: 06-11-2020 Comment on above: Description: -0.09 Functional Status Date Assessment Result Facility 03-31-2023 Functional Status N/A [facility] 08-25-2022 Functional Status N/A [facility] 03-16-2022 Functional Status N/A [facility] 02-03-2022 Functional Status N/A [facility] 12-29-2021 Functional Status N/A [facility] 11-18-2021 Functional Status N/A [facility] 08-11-2021 Functional Status No [facility] Clinical Notes 02-15-2020 to 04-21-2023 Telephone Encounter - Bhavani Clements - 04/21/2023 12:14 PM Frandy Robles RN - 04/16/2023 7:45 AM Lizzie Henderson RT(R) - 04/16/2023 7:45 AM Freda Arenas OD - 11/16/2022 4:03 PM EDT Note [...] to Olivia Quintero documented in this encounter [facility] 04-16-2023 Note HNO ID: [id number] Author: LIZZIE MAC RT(R) Service: ? Author [...] PATIENT PRESENTS WITH AN IMPLANTABLE OR ATTACHED COLLAR BASTER JUMPBASTING: No RADIOLOGY DEPARTMENT: CT; Exam(s) Completed: Chest Abdomen Pelvis With IV and Oral contrast PERIPHERAL IV DATA: Site assessment: Clean,Dry and Intact, Site disposition Discontinued SIGNED BY: Lizzie Mac RT(R) April 16, 2023 7:50 AM [facility] 04-16-2023 Note HNO ID: [id number] Author: FRANDY SKINNER RN Service: ? 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 Author Type: Physician Type: Progress Notes Filed: 04/01/2023 16:06 Note Text: [facility] DEPARTMENT OF HEMATOLOGY AND MEDICAL ONCOLOGY ASSESSMENT [...] seen by Dr. Luis Daniel Galicia at [facility] and underwent a transthoracic CT guided needle [...] of right iritis. 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 Noted symptoms improved with eye drops, but [...] ptosis of the (more content not included)... [facility] 03-31-2023 Hospital Discharge instructions Patient Education 03/31/2023 [...] include: ?8 oz (237 mL) of milk, xzwrouj-mgxphlvvznge-qwfrf milk, and calcium-fortifiedfruit juice. Calcium-fortified means that [...] ?Spinach (cooked), rhubarb, beets, sweet potatoes, and Omani chard. ?Peanuts. ?Potato chips, uruguayan fries, and baked potatoes with skin on. ?Nuts and nut products. ?Chocolate. If you regularly take a diuretic medicine, make sure to eat at least 1 or 2 servings of fruits or vegetables that are high in potassium each day. These include: ?Avocado. ?Banana. ?[place], prune, carrot, or tomato juice. ?Baked potato. [...] magnesium, fish oil, or vitamin B6. Take rbiw-ksg-uvzkjem and prescription medicines only as told by [...] Casseroles. Pizza. Lasagna. Frozen meals. Potato chips. Hungarian fries. The items listed above may not [...] provider. Document Revised: 05/28/2022 Document Reviewed: 05/28/2022 [employer] Patient Education 2022 netomat. 03/31/2023 19:17:52 Kidney Stones, Zuxs-bs-Ouyx Kidney Stones Kidney stones are rock-like masses [...] Follow these instructions at home: Medicines Take ryge-vma-xvqdgbo and prescription medicines only as told by [...] provider. Document Revised: 10/20/2021 Document Reviewed: 10/20/2021 [employer] Patient Education 2022 netomat. 03/31/2023 19:17:39 Benign Prostatic Hyperplasia Benign Prostatic [...] urethra. Follow these instructions at home: Take aiac-brf-kqrsutr and prescription medicines only as told by [...] provider. Document Revised: 09/03/2021 Document Reviewed: 09/03/2021 [employer] Patient Education 2022 netomat. 03/31/2023 19:17:29 Prostate Cancer Prostate Cancer The [...] under a microscope. This is called the Larimer score and the total score can range from 6 10, indicating how likely it is that the cancer will spread (metastasize) to other parts of the body. The higher the score, the greater the likelihood that the cancer will spread. Larimer 6 or lower: This indicates that the cancer cells look similar to normal prostate cells (well differentiated). Larimer 7: This indicates that the cancer cells look somewhat similar to normal prostate cells (moderately differentiated). Larimer 8, 9, or 10: This indicates that [...] stress of having cancer. General instructions Take urpt-kul-rlzneuo and prescription medicines only as told by your health care provider. If you have to go to the hospital, notify your cancer specialist (oncologist). Keep all follow-up visits. This is important. Where to find more information [place] [employer]: www.cancer.org [place] Society of Clinical Oncology: www.cancer.net National Cancer [place]: www.cancer.gov Contact a health care provider if: [...] provider. Document Revised: 05/14/2021 Document Reviewed: 05/14/2021 [employer] Patient Education 2022 netomat. [facility] 03-02-2023 Note HNO ID: [id number] Author: Dillan KAISER MD Service: ? Author Type: Physician Type: Progress Notes Filed: 03/05/2023 15:59 Note Text: Radiation Oncology - Follow Up Note PATIENT NAME: Luis Alberto Ocampo PATIENT DIAGNOSIS: 1. Prostate adenocarcinoma, initial PSA 5.51, biopsy Larimer score 3 + 3 = 6 (grade [...] Urologic follow-up with Dr. Pelayo. Signed by: Dillna Kaiser MD cc: MD Dr. Pierce Brooks Portions of the above note extracted and edited from previous visit as well as active information included in the EMR. [facility] 11-16-2022 Note HNO ID: [id number] Author: Freda Hendrix OD Service: ? Author Type: BUDGET EXAMINER Type: Progress Notes Filed: 11/16/2022 4:05 PM [...] Hendrix, OD November 16, 2022 4:03 PM [facility] 11-16-2022 History of Present illness Narrative ASSESSMENT/PLAN: [...] 2022 4:03 PM documented in this encounter [facility] 11-05-2022 Note HNO ID: [id number] Author: Lindsey Hugo V, MD Service: ? [...] patient was offered a surgery/procedure at a [facility] facility. The surgeon/proceduralist and patient have discussed [...] the consent form. -F/U 1 week with hooker off (Franki) The documentation recorded by the scribe [...] HUGO MD November 05, 2022 3:30 PM [facility] 11-05-2022 Note HNO ID: [id number] Author: Freda Hendrix OD Service: ? Author Type: BUDGET EXAMINER Type: Progress Notes Filed: 11/05/2022 3:35 PM [...] Hendrix, EVAN November 05, 2022 2:59 PM [facility] 11-05-2022 History of Present illness Narrative The [...] patient was offered a surgery/procedure at a [facility] facility. The surgeon/proceduralist and patient have discussed [...] the consent form. -F/U 1 week with hooker off (Franki) The documentation recorded by the scribe [...] 2022 2:59 PM documented in this encounter [facility] 09-30-2022 Miscellaneous Notes Last appt 05/26/22 [facility] Requested Prescriptions Pending Prescriptions Disp Refills carbidopa-levodopa (SINEMET 25-100) 25-100 mg per tablet 270 tablet 3 Sig: Take 1 tablet by mouth three times daily. documented in this encounter [facility] 08-28-2022 Note HNO ID: [id number] Author: RT Linnea(Mila) Service: ? Author Type: [...] RT Linnea(R) August 28, 2022 8:49 AM [facility] 08-25-2022 Note HNO ID: [id number] Author: Dillan Kaiser MD Service: ? Author [...] ASSESSMENT/PLAN: Prostate adenocarcinoma, initial PSA 5.51, biopsy Larimer score 3 + 3 = 6 (grade [...] as active information included in the EMR. [facility] 08-25-2022 Nurse Note AUA=20 documented in this encounter [facility] 08-25-2022 History of Present illness Narrative Radiation Oncology - Follow Up Note PATIENT NAME: Luis Alberto Ocampo PATIENT DIAGNOSIS: 1. Prostate adenocarcinoma, initial PSA 5.51, biopsy Larimer score 3 + 3 = 6 (grade [...] in the EMR. documented in this encounter [facility] 08-25-2022 Hospital Discharge instructions Patient Education 08/25/2022 [...] if anything looks unusual. Men with a ulurmq-pkxv-qtvtzb risk for skin cancer may want to see a college specialist (stone polisher) for an annual body check. What are the benefits of screening? Cancer screening is done to look for cancer in the very early stages, before it spreads and becomes harder to treat and before you would start to notice symptoms. Finding cancer early improves the chances of successful treatment. It may save your life. Where to find more information [place] [employer]: www.cancer.org Centers for Disease Control and Prevention: www.cdc.gov National Cancer [place]: www.cancer.gov Contact a health care provider if: [...] provider. Document Revised: 07/14/2021 Document Reviewed: 01/12/2020 [employer] Patient Education 2022 netomat. Follow Up Care 07/28/2022 15:36:43 With:PIERCE CORONADO, Dakotah Krueger, URL Address: [facility] [address] [place] [address]- When: Unknown [facility] 08-21-2022 Note HNO ID: [id number] Author: Odette Barrett, EVAN Service: ? Author Type: BUDGET EXAMINER Type: Progress Notes Filed: 08/21/2022 3:52 PM [...] Barrett, OD August 21, 2022 3:51 PM [facility] 05-26-2022 Note HNO ID: [id number] Author: Jigar Stanford, DO Service: ? Author Type: Physician Type: Progress Notes Filed: 05/27/2022 8:22 AM Note Text: VIRTUAL VISIT PROGRESS NOTE This is a virtual visit using [employer] video visit. It required patient-provider interaction for the medical decision making as documented below. I have communicated my name and active licensure. The patient's identity and physical location were verified at the time of this visit. 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 documented in this encounter [facility] 05-26-2022 History of Present illness Narrative VIRTUAL VISIT PROGRESS NOTE This is a virtual visit using [employer] video visit. It required patient-provider interaction for the medical decision making as documented below. I have communicated my name and active licensure. The patient's identity and physical location were verified at the time of this visit. 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] 1050 PATIENT DISCHARGED TO: Ambulatory patient, left [place] department area. A Diagnostic radioactive procedure has taken place, with no further precautions necessary other than routine body substance precautions. More information regarding radiation safety can be found using this link: [email or web address] [email or web address] SIGNATURE: RT Sam(R) PATIENT NAME: Luis Alberto Ocampo DATE: May 06, 2022 TIME: 11:09 AM PAGER/CONTACT #: [facility] 04-20-2022 Miscellaneous Notes Name: Luis Alberto Ocampo AGE: [age] year old Weight: Last 1 Encounter Wt Readings: Date: Wt: 02/25/2022 103.9 kg (229 lb) Is this appointment for a WBC scan? No. Clinical Scan VIJAY SCAN Scheduled for - Date: 05/06 Time: 1030 Study can ONLY be done Wednesday thru Wednesday Scanned into Syngo: N/A Additional Comments: Route to [facility] Special Studies ([id number]) Are all orders present for scheduling? Yes Appointment Scheduled: Date: 05/06 Time: 1030 Mill Recorder Notes: N/A Route to P [place] SPECIAL STUDIES [[id number]] documented in this encounter [facility] 04-16-2022 Instructions Jigar Stanford DO - 04/16/2022 4:44 PM EST Radiology will contact the patient OR call [phone] option 3 to schedule documented in this encounter [facility] 04-16-2022 History of Present illness Narrative [facility] - NEW PATIENT EVALUATION Luis Daniel Galicia MD, [address] [facility] [address] Luis Alberto Ocampo is a 76 year [...] has scratchier. 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 He [...] Left pathological reflexes: Mike's absent. Coordination Right: Qtcrkf-ue-pbav normal. Rapid alternating movement normal.Left: Akzqxr-sk-slwf normal. Rapid alternating movement normal. Gait Casual [...] stare. Hypophonia was not present. The patient's pendunbartonsh sample reveals significant tremulousness without micrographia. Assessment [...] newly diagnosed Neurologic disease and counseling about alf implications, counseling and review of mutliple symptoms [...] counseling regarding preparing to see the patient, gmnl-vb-wzjo patient care, completing clinical documentation, obtaining and/or reviewing separately obtained history, performing a medically appropriate examination, counseling and educating the patient/family/caregiver, ordering medications, tests, or procedures, and communicating results to the patient/family/caregiver. I tried to answer all of the patient's questions and concerns during this visit. Jigar Stanford DO Senior Staff Neurologist - [facility] documented in this encounter [facility] 03-16-2022 Hospital Discharge instructions Patient Education 03/16/2022 [...] who: Are older than age 65. Are -Panamanian. Are obese. Have a family history of [...] cells. Follow these instructions at home: Take hcnr-yul-pypfdqf and prescription medicines only as told by [...] 02/15/2006 Document Revised: 01/28/2018 Document Reviewed: 10/26/2016 [employer] Patient Education Danger. Follow Up Care 02/26/2022 11:42:07 With:PIERCE CORONADO, Dakotah Krueger, URL Address: [facility] [address] [address]- When: Unknown [facility] 02-25-2022 History of Present illness Narrative Radiation [...] ASSESSMENT/PLAN: Prostate adenocarcinoma, initial PSA 5.51, biopsy Larimer score 3 + 3 = 6 (grade group 1), clinical stage T1c, N0, M0, stage I [pT2, N0, M0, PSA <10, GG 1] (AJCC 8th ed.) status post prostate brachytherapy 06/26/2020. PSA remains very low. Still with urgency related urinary issues, actively seeing Dr. Pelayo. Recent diagnosis Parkinsons, has worsening tremor, has consult at [facility] with neurology. continues to decline. Considering UroLift [...] in the EMR. documented in this encounter [facility] 02-03-2022 Hospital Discharge instructions Patient Education 02/03/2022 [...] urethra. Follow these instructions at home: Take lsky-veu-jmlnjsr and prescription medicines only as told by [...] 02/15/2006 Document Revised: 01/10/2019 Document Reviewed: 03/22/2017 [employer] Patient Education 2020 netomat. Follow Up Care 01/14/2022 12:19:47 With:PIERCE CORONADO, Dakotah Krueger, URL Address: [address] [address]- When:3 months [facility] 01-12-2022 Hospital Discharge instructions Patient Education [...] facility personnel to use a Coude (pronounced cracker and cookie machine operator-day) tipped catheter. Follow Up Care 11/18/2021 10:03:06 With:Dakotah PELAYO Address: [address] [address] [facility] (1) When: Unknown Comments:Call for followup appointment. Please make arrangements to follow-up on Wednesday morning so we can remove the catheter. [facility] 12-11-2021 Nurse Note Additional intake questions: Has the patient had fever, nausea, vomiting, diarrhea, constipation, fatigue for > 1 week? No Does the patient have a decreased appetite? No Does patient want to see a Development Analyst? No (yes to any of above refer patient to schedulers for dietitian appointment) ) Does patient have any new or increased numbness or tingling of extremities? No Is patient interested in fertility information? No Does patient need any prescription refills? No Does patient have an advanced directive in place? No, Patient refused referral to Social Work or Resource Center documented in this encounter [facility] 12-11-2021 History of Present illness Narrative Images from the original note were not included. [facility] DEPARTMENT OF HEMATOLOGY AND MEDICAL ONCOLOGY ASSESSMENT [...] seen by Dr. Luis Daniel Galicia at [place] and underwent a transthoracic CT guided needle [...] of right iritis. 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 Noted symptoms improved with eye drops, but [...] April 2020 Diagnosed with Elham 6 (3+3) [id number] prostate cancer. Underwent brachytherapy with appropriate decrement [...] as above Elham 6 (3+3) prostate cancer ([id number]), low risk; treated with brachytherapy Parkinson's Disease [...] 2021 Larry Henson M.D., Ph.D. Staff Physician [facility] [address] [place] [address] Office Office Appointments Authenticated by responsible provider. documented in this encounter [facility] 11-18-2021 Hospital Discharge instructions Patient Education 11/18/2021 [...] including vitamins, herbs, eye drops, creams, and ecxm-phg-yazfymo medicines. ?Whether you are or may be [...] 12/13/2007 Document Revised: 06/06/2019 Document Reviewed: 12/20/2017 [employer] Patient Education 2020 [employer] Follow Up Care 11/05/2021 14:26:12 With:Dakotah PELAYO MD, URL Address: [address] [address]- When: Unknown With:Dakotah PELAYO MD, URL Address: [address] [address]- When: Unknown [facility] [place] 10-23-2021 Miscellaneous Notes Returned patient's call regarding referral to Neurology. The patient verbalized that he has seen his PCP regarding the hand tremors and was referred to a neurologist at [facility]. He has seen this neurologist twice and verbalized that he is not comfortable he would like a referral to a [facility] Neurologist. Dr. Henson notified of the above. Zo Kingsley RN Patient is calling back to follow-up on request for referral to neurology. States he would like to be seen as close to [place] as possible. Requesting response back: [phone] Luis Alberto Thoams Damaris('s) is calling Larry Henson MD, PhD today regarding Care Coordination (Neurologist Referral ) Patient has been identified by name and birthdate. Requesting response back: [phone] (home) [phone] (cell) Pt called stating that he has [...] October 21, 2021 documented in this encounter [facility] 10-09-2021 Evaluation + Plan note Diagnostic Tests PendingCalculi Analysis Urinary 10/09/21 [facility] 10-09-2021 Hospital Discharge instructions Patient Education [...] Follow these instructions at home: Medicines Take lcmm-aac-whdnaaj and prescription medicines only as told by [...] 03/06/2008 Document Revised: 05/29/2019 Document Reviewed: 01/06/2017 [employer] Patient Education 2020 netomat. 10/09/2021 11:21:03 Cystoscopy Cystoscopy Cystoscopy is a [...] including vitamins, herbs, eye drops, creams, and dnjr-mji-ingtroh medicines. Any problems you or family members [...] provider tells you to take them. ?Taking wxpo-hed-ggwubve medicines, vitamins, herbs, and supplements. Follow instructions [...] Follow these instructions at home: Medicines Take zncn-att-lirmuqo and prescription medicines only as told by [...] 02/12/2001 Document Revised: 02/07/2019 Document Reviewed: 02/07/2019 [employer] Patient Education 2020 [employer] 10/09/2021 11:21:03 Post Op Patient Instructions - FT (CUSTOM) Follow Up Care 09/17/2021 14:25:14 With:Supa Dickens Address: [facility] [address] [place] [address]- Business (1) When:6 weeks Comments:PVR with next visitCall for followup appointmentCall for any problems. [facility] 08-28-2021 History of Present illness Narrative [...] day to affected eyelid x 2 wks ijejcdvn-xzq-gtmic-vit K-lycop (ONE-A-DAY MEN'S 50 PLUS) 400-20-370 mcg [...] in the EMR. documented in this encounter [facility] 07-21-2021 Hospital Discharge instructions Patient Education 07/21/2021 [...] nerve stimulation). For women, using a medical librarian to prevent urine leaks. This is a [...] right after experiencing incontinence. General instructions Take rgid-udt-ocwqzqa and prescription medicines only as told by [...] 03/25/2005 Document Revised: 02/25/2018 Document Reviewed: 05/27/2017 [employer] Patient Education 2020 [employer] Follow Up Care 06/26/2021 12:54:28 With:Maninder Juarez MD, Supa Viveros, URO Address: [facility] [address] , [place] [address]- When: Unknown Comments:Cysto Lithopathy & bladder stone urolift [facility] 06-23-2021 Hospital Discharge instructions Patient Education 06/23/2021 [...] fried and sweet foods. General instructions Take ktgj-lvu-wlvllex and prescription medicines only as told by [...] 12/12/2009 Document Revised: 06/08/2019 Document Reviewed: 03/03/2018 [employer] Patient Education 2019 netomat. 06/23/2021 11:49:37 Brachytherapy for Prostate Cancer Brachytherapy [...] including vitamins, herbs, eye drops, creams, and wasa-qlt-rpjnpng medicines. Any problems you or family members [...] 07/26/2006 Document Revised: 01/28/2018 Document Reviewed: 02/24/2017 [employer] Patient Education 2020 netomat. Follow Up Care 04/21/2021 09:38:11 With:Maninder Juarez MD, Supa Viveros, URO Address: [facility] [address] , [place] [address]- When: Unknown [facility] 06-06-2021 Instructions Marissa Leija MD - 06/06/2021 [...] with small sip of water Will need warehouse associate driver if having sedation surgery For surgery at [place] or [place], call . The patient was offered a surgery/procedure at a [facility] facility. The surgeon/proceduralist and patient have discussed [...] okay after surgery. documented in this encounter [facility] 06-06-2021 History of Present illness Narrative Pt [...] with small sip of water Will need warehouse associate driver if having sedation surgery For surgery at [place] or [place], call . The patient was offered a surgery/procedure at a [facility] facility. The surgeon/proceduralist and patient have discussed [...] 2021 2:38 PM. documented in this encounter [facility] 05-30-2021 Nurse Note AUA=23 documented in this encounter [facility] 05-28-2021 Miscellaneous Notes Called patient and LVM for him to call back and schedule a follow up appointment with Dr. Leija. Patient wanting a call back from Dr. Barrett because he hasnt heard from Dr. Leija or Dr. Barrett about some results. He can be reached at [phone]. 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 documented as of this encounter (statuses as of 06/06/2021) [facility] History of Past illness Narrative* Problem Noted Date Resolved Date Combined 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 02/15/2020 02/16/2020 Senile incipient cataract, bilateral 12/28/2019 02/16/2020 Dry eye syndrome of bilateral lacrimal glands 12/28/2019 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 documented as of this encounter (statuses as of 2021) [facility] History of Past illness Narrative* Problem Noted Date Resolved Date Combined 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 02/15/2020 02/16/2020 Senile incipient cataract, bilateral 12/28/2019 02/16/2020 Dry eye syndrome of bilateral lacrimal glands 12/28/2019 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 documented as of this encounter (statuses as of 08/16/2021) [facility] History of Past illness Narrative* Problem Noted Date Resolved Date Combined 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 02/15/2020 02/16/2020 Senile incipient cataract, bilateral 12/28/2019 02/16/2020 Dry eye syndrome of bilateral lacrimal glands 12/28/2019 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 documented as of this encounter (statuses as of 09/02/2021) [facility] History of Past illness Narrative* Problem Noted Date Resolved Date Combined 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 02/15/2020 02/16/2020 Senile incipient cataract, bilateral 12/28/2019 02/16/2020 Dry eye syndrome of bilateral lacrimal glands 12/28/2019 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 documented as of this encounter (statuses as of 10/23/2021) [facility] History of Past illness Narrative* Problem Noted Date Resolved Date Combined 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 02/15/2020 02/16/2020 Senile incipient cataract, bilateral 12/28/2019 02/16/2020 Dry eye syndrome of bilateral lacrimal glands 12/28/2019 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 documented as of this encounter (statuses as of 12/12/2021) [facility] History of Past illness Narrative* Problem Noted Date Resolved Date Combined 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 02/15/2020 02/16/2020 Senile incipient cataract, bilateral 12/28/2019 02/16/2020 Dry eye syndrome of bilateral lacrimal glands 12/28/2019 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 documented as of this encounter (statuses as of 03/04/2022) [facility] History of Past illness Narrative* Problem Noted Date Resolved Date Combined 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 02/15/2020 02/16/2020 Senile incipient cataract, bilateral 12/28/2019 02/16/2020 Dry eye syndrome of bilateral lacrimal glands 12/28/2019 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 documented as of this encounter (statuses as of 04/17/2022) [facility] History of Past illness Narrative* Problem Noted Date Resolved Date Combined 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 02/15/2020 02/16/2020 Senile incipient cataract, bilateral 12/28/2019 02/16/2020 Dry eye syndrome of bilateral lacrimal glands 12/28/2019 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 documented as of this encounter (statuses as of 04/21/2022) [facility] History of Past illness Narrative* Problem Noted Date Resolved Date Combined 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 02/15/2020 02/16/2020 Senile incipient cataract, bilateral 12/28/2019 02/16/2020 Dry eye syndrome of bilateral lacrimal glands 12/28/2019 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 documented as of this encounter (statuses as of 05/08/2022) [facility] History of Past illness Narrative* Problem Noted Date Resolved Date Combined 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 02/15/2020 02/16/2020 Senile incipient cataract, bilateral 12/28/2019 02/16/2020 Dry eye syndrome of bilateral lacrimal glands 12/28/2019 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 documented as of this encounter (statuses as of 05/27/2022) [facility] History of Past illness Narrative* Problem Noted Date Resolved Date Combined 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 02/15/2020 02/16/2020 Senile incipient cataract, bilateral 12/28/2019 02/16/2020 Dry eye syndrome of bilateral lacrimal glands 12/28/2019 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 documented as of this encounter (statuses as of 09/03/2022) [facility] History of Past illness Narrative* Problem Noted [...] of this encounter (statuses as of 09/30/2022) [facility] History of Past illness Narrative* Problem Noted [...] of this encounter (statuses as of 11/06/2022) [facility] History of Past illness Narrative* Problem Noted [...] of this encounter (statuses as of 11/17/2022) [facility] History of Past illness Narrative* Problem Noted [...] of this encounter (statuses as of 04/21/2023) [facility] No data available for this section [facility] Evaluation + Plan note Future Appointments Appointment Date:08/14/2021 11:45:00 AM Scheduled Provider: Location:[facility] Future Appointments Appointment Date:01/05/2022 07:45:00 AM Scheduled Provider: Location:[facility] Appointment Type:Urology CALL PAT FT Appointment Date:01/12/2022 01:00:00 PM Scheduled Provider: Location:[facility] Appointment Type:Urology FT [facility] Evaluation + Plan note Future Appointments Appointment Date:01/14/2022 11:30:00 AM Scheduled Provider: Location:[facility] Appointment Type:URO [facility] Future Appointments Appointment Date:02/03/2022 03:30:00 PM Scheduled Provider:Dakotah PELAYO [facility] evaluation + Plan note Future Appointments Appointment Date:05/05/2022 03:15:00 PM Scheduled Provider:Dakotah PELAYO MD [facility]O Office Visit [facility] evaluation + Plan note Future Appointments Appointment Date:02/16/2023 11:00:00 AM Scheduled Provider:Dakotah PELAYO MD [facility] Type:[facility]O Office Visit [facility] Evaluation + Plan note Future Appointments Appointment Date:02/16/2023 11:00:00 AM Scheduled Provider:Dakotah PELAYO MD Location:[facility] Appointment Type:URO Office Visit Diagnostic Tests Pending * Calculi Analysis Urinary 08/25/22 [facility] Future Appointments Appointment Date:03/28/2024 03:15:00 PM Scheduled Provider:Dakotah PELAYO MD Location:[facility] Appointment Type:URO Office Visit [facility] evaluation note* Diagnosis 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 [facility] Diagnosis Dermatochalasis of both upper eyelids- Primary Brow ptosis, left [facility]* Diagnosis Malignant neoplasm of prostate (HCC)- Primary Malignant neoplasm of prostate [facility]* Diagnosis Tremor- Primary Abnormal involuntary movements Extranodal marginal zone B-cell lymphoma (HCC) Marginal zone lymphoma, unspecified site, extranodal and solid organ sites [facility] Diagnosis Malignant neoplasm of prostate (HCC)- Primary Malignant neoplasm of prostate [facility] Diagnosis Tremor- Primary Abnormal involuntary movements Other symptoms and signs involving the nervous system [facility]* Diagnosis Primary parkinsonism (HCC)- Primary Paralysis agitans Tremor Abnormal involuntary movements [facility] Diagnosis Malignant neoplasm of prostate (HCC)- Primary Malignant neoplasm of prostate [facility]* Diagnosis Primary parkinsonism (HCC) Paralysis agitans [facility]* Diagnosis 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- Primary Pseudophakia Lens replaced by other means Insufficiency of tear film of both eyes [facility]* Diagnosis S/P YAG capsulotomy, bilateral- Primary Pseudophakia Lens replaced by other means Insufficiency of tear film of both eyes [facility]* Diagnosis Bronchiectasis without acute exacerbation (HCC)- Primary Bronchiectasis without acute exacerbation [facility]* Diagnosis Preop examination- Primary Preoperative examination, [...] solid organ sites [facility] No data available for this section [facility] No data available for this section [facility] (narrative)* Outpatient Procedure (Routine) - Authorized Specialty Diagnoses / Procedures Referred By Juliet t Referred To Contact [facility] Diagnoses Bronchiectasis without acute exacerbation (HCC) Procedures SPIROMETRY - BASELINE AND POST DILATOR BRNCDILAT RSPSE SPMTRY PRE&POST-BRNCDILAT ADMN Pulm [address] [place] [address] Respiratory [place] [address] [place] [address] Referral ID Status Reason Start Date Expiration Date Visits Requested Visits Authorized [id number] Authorized Auto-Generat ed Referral 04/21/2023 05/20/2024 1 1 [facility] Summary Purpose Family History No Family History Records FoundNo Family History Records Found No data available for this section No data available for this section No Family History Records FoundNo Family History Records FoundNo Family History Records FoundNo Family History Records FoundNo Family History Records Found Advance Directives No Advanced Directives Records FoundDocuments on File Type Date Recorded Patient Crime Specialist Expl anation Advance Directive(s) 04/04/2021 9:46 AM [...] TOMOGRAPHY THORAX W/[place] [address] [place] [address] Ct Imaging [facility] Referral ID Status Reason Start Date Expiration Date V isits Requested Visits Authorized [id number] Closed Auto-Generate d Referral 04/01/2023 04/30/2024 1 1 Specialty Diagnoses / Procedures Referred By Juliet gold Referred To Contact CT IMAGING Diagnoses Extranodal marginal zone B-cell lymphoma (HCC) Procedures CT ABD/PEL W IVCON CT ABD & PELVIS W/[place] [address] [place] [address] [place] [address] Referral ID Status Reason Start Date Expiration Date V isits Requested Visits Authorized [id number] Closed Auto-Generate d Referral 04/01/2023 04/30/2024 1 1 Specialty Diagnoses / Procedures Referred By Juliet t Referred To Contact Diagnoses Primary parkinsonism (HCC) Procedures PROVIDER ORDERED FOLLOW UP OFFICE/OUTPATIENT [facility] 60-74 MINUTES Jigar Stanford, DO [address] [place] [address] Referral ID Status Reason Start Date Expiration Date V isits Requested Visits Authorized [id number] Authorized 11/26/2022 02/24/2023 1 1 Specialty Diagnoses / Procedures Referred By José Miguelac t Referred To Contact Diagnoses Tremor Procedures PROVIDER ORDERED FOLLOW UP OFFICE/OUTPATIENT [facility] 60-74 MINUTES Jigar Stanford, DO [address] [place] [address] Referral ID Status Reason Start Date Expiration Date Visits Requested Visits Authorized [id number] Authorized PCP Requested Referral 07/14/2022 07/15/2022 1 1 Specialty Diagnoses / Procedures Referred By Juliet t Referred To Contact MOLECULAR & FUNCTIONAL IMAGING Diagnoses Other symptoms and signs involving the nervous system Procedures NM BRAIN SPECT RP LOCLZJ MARANDA SPECT 1 AREA SINGLE DAY IMAGING Jigar Stanford DO [address] [place] [address] Molecular & Functional Imaging [address] [place] [address] Referral ID Status Reason Start Date Expiration Date Visits Requested Visits Authorized [id number] Pending Review Auto-Generat ed Referral 04/16/2022 05/16/2023 1 1 Specialty Diagnoses / Procedures Referred By Juliet t Referred To Contact Neurology Diagnoses Tremor Procedures CONSULT TO NEUROLOGY OFFICE/OUTPATIENT [facility] 60-74 MINUTES [place] [address] [place] [id number] Referral ID Status Reason Start Date Expiration Date Visits Requested Visits Authorized [id number] Authorized PCP Requested Referral 12/11/2022 1 1 Additional Source Comments (unrecognized sect ion and content) No Status Records FoundNo Status Records FoundNo Status Records FoundNo Status Records FoundNo Status Records FoundNo Status Records FoundNo Status Records Found INFORMATION SOURCE (unrecogn ized section and content) DATE CREATED AUTHOR 04/24/2021 [facility] DATE CREATED AUTHOR AUTHOR'S ORGANIZ ATION 04/09/2022 [facility] DATE CREATED AUTHOR AUTHOR'S ORGANIZ ATION 04/29/2023 [facility] DATE CREATED AUTHOR AUTHOR'S ORGANIZ ATION 05/13/2023 [facility] DATE CREATED AUTHOR AUTHOR'S ORGANIZ ATION 09/02/2023 [facility] DATE CREATED AUTHOR AUTHOR'S ORGANIZ ATION 10/05/2023 [facility] DATE CREATED AUTHOR AUTHOR'S ORGANIZ ATION 11/13/2023 [facility] Source Comments (unrecognize d section and content) In the event this informatio n is protected by the Federal Confidentiality of Alcohol and Drug Abuse Patient Records regulations: The Federal rules restrict any use of the information to criminally investigate or prosecute any alcohol or drug abuse patient.[facility] the event this information is protected by the Federal Confidentiality of Alcohol and Drug Abuse Patient Records regulations: The Federal rules restrict any use of the information to criminally investigate or prosecute any alcohol or drug abuse patient.[facility] the event this information is protected by the Federal Confidentiality of Alcohol and Drug Abuse Patient Records regulations: The Federal rules restrict any use of the information to criminally investigate or prosecute any alcohol or drug abuse patient.[facility] the event this information is protected by the Federal Confidentiality of Alcohol and Drug Abuse Patient Records regulations: The Federal rules restrict any use of the information to criminally investigate or prosecute any alcohol or drug abuse patient.[facility] the event this information is protected by the Federal Confidentiality of Alcohol and Drug Abuse Patient Records regulations: The Federal rules restrict any use of the information to criminally investigate or prosecute any alcohol or drug abuse patient.[facility] the event this information is protected by the Federal Confidentiality of Alcohol and Drug Abuse Patient Records regulations: The Federal rules restrict any use of the information to criminally investigate or prosecute any alcohol or drug abuse patient.[facility] the event this information is protected by the Federal Confidentiality of Alcohol and Drug Abuse Patient Records regulations: The Federal rules restrict any use of the information to criminally investigate or prosecute any alcohol or drug abuse patient.[facility] the event this information is protected by the Federal Confidentiality of Alcohol and Drug Abuse Patient Records regulations: The Federal rules restrict any use of the information to criminally investigate or prosecute any alcohol or drug abuse patient.[facility] the event this information is protected by the Federal Confidentiality of Alcohol and Drug Abuse Patient Records regulations: The Federal rules restrict any use of the information to criminally investigate or prosecute any alcohol or drug abuse patient.[facility] the event this information is protected by the Federal Confidentiality of Alcohol and Drug Abuse Patient Records regulations: The Federal rules restrict any use of the information to criminally investigate or prosecute any alcohol or drug abuse patient.[facility] the event this information is protected by the Federal Confidentiality of Alcohol and Drug Abuse Patient Records regulations: The Federal rules restrict any use of the information to criminally investigate or prosecute any alcohol or drug abuse patient.[facility] the event this information is protected by the Federal Confidentiality of Alcohol and Drug Abuse Patient Records regulations: The Federal rules restrict any use of the information to criminally investigate or prosecute any alcohol or drug abuse patient.[facility] the event this information is protected by the Federal Confidentiality of Alcohol and Drug Abuse Patient Records regulations: The Federal rules restrict any use of the information to criminally investigate or prosecute any alcohol or drug abuse patient.[facility] the event this information is protected by the Federal Confidentiality of Alcohol and Drug Abuse Patient Records regulations: The Federal rules restrict any use of the information to criminally investigate or prosecute any alcohol or drug abuse patient.[facility] the event this information is protected by the Federal Confidentiality of Alcohol and Drug Abuse Patient Records regulations: The Federal rules restrict any use of the information to criminally investigate or prosecute any alcohol or drug abuse patient.[facility] the event this information is protected by the Federal Confidentiality of Alcohol and Drug Abuse Patient Records regulations: The Federal rules restrict any use of the information to criminally investigate or prosecute any alcohol or drug abuse patient.[facility] the event this information is protected by the Federal Confidentiality of Alcohol and Drug Abuse Patient Records regulations: The Federal rules restrict any use of the information to criminally investigate or prosecute any alcohol or drug abuse patient.[facility] Reason for Visit (unrecogniz ed section and content) Reason Comments Established Patient Specialty Diagnoses / Procedures Referred By Juliet gold Referred To Contact Diagnoses Tremor Procedures PROVIDER ORDERED FOLLOW UP OFFICE/OUTPATIENT NEW HIGH MDM 60-74 MINUTES Jigar Stanford, DO [address] [place] [address] Referral ID Status Reason Start Date Expiration Date V isits Requested Visits Authorized [id number] Closed PCP Requested Referral 07/14/2022 07/15/2022 1 [...] TOMOGRAPHY THORAX W/[place] [address] [place] [address] [place] [address] Referral ID Status Reason Start Date Expiration Date V isits Requested Visits Authorized [id number] Closed Auto-Generate d Referral 04/01/2023 04/30/2024 1 1 Care Teams (unrecognized sec tion and content) 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 Relationship Specialty Start Date End Date Luis Daniel Galicia MD [address] [place] [address] PCP - General Family Practice 02/17/18 Alexandria Camargo, RN Specialty Mobile Marketing Manager Radiation Oncology 06/17/17 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 Relationship Specialty Start Date End Date Luis Daniel Galicia MD [address] [place] [address] PCP - General Family Practice 02/17/18 Alexandria Camargo RN Specialty Mobile Marketing Manager Radiation Oncology 06/17/17 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 Relationship Specialty Start Date End Date Luis Daniel Galicia MD [address] [place] [id number] PCP - General Family Practice 02/17/18 Alexandria Camargo RN Specialty Mobile Marketing Manager Radiation Oncology 06/17/17 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 Relationship Specialty Start Date End Date Luis Daniel Galicia MD [address] [place] [address] PCP - General Family Practice 02/17/18 Alexandria Camargo, RN Specialty Mobile Marketing Manager Radiation Oncology 06/17/17 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 Relationship Specialty Start Date End Date Luis Daniel Galicia MD [address] [place] [address] PCP - General Family Practice 02/17/18 Alexandria Camargo, RN Specialty Mobile Marketing Manager Radiation Oncology 06/17/17 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 Relationship Specialty Start Date End Date Luis Daniel Galicia MD [address] [place] [id number] PCP - General Family Medicine 02/17/18 Alexandria Camargo, RN Specialty Mobile Marketing Manager Radiation Oncology 06/17/17 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 Relationship Specialty Start Date End Date Luis Daniel Galicia MD [address] [place] [id number] PCP - General Family Medicine 02/17/18 Alexandria Camargo, RN Specialty Mobile Marketing Manager Radiation Oncology 06/17/17 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 Relationship Specialty Start Date End Date Luis Daniel Galicia MD [address] [place] [id number] PCP - General Family Medicine 02/17/18 Alexandria Camargo, RN Specialty Mobile Marketing Manager Radiation Oncology 06/17/17 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 Relationship Specialty Start Date End Date Luis Daniel Galicia MD [address] [place] [address] PCP - General Family Medicine 02/17/18 Alexandria Camargo, RN Specialty Mobile Marketing Manager Radiation Oncology 06/17/17 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 Relationship Specialty Start Date End Date Luis Daniel Galicia MD PCP - General Family Medicine 02/17/18 Alexandria Camargo, RN Specialty Mobile Marketing Manager Radiation Oncology 06/17/17 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 Relationship Specialty Start Date End Date Luis Daniel Galicia MD PCP - General Family Medicine 02/17/18 Alexandria Camargo, RN Specialty Mobile Marketing Manager Radiation Oncology 06/17/17 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 Relationship Specialty Start Date End Date Luis Daniel Galicia MD PCP - General Family Medicine 02/17/18 Alexandria Camargo, RN Specialty Mobile Marketing Manager Radiation Oncology 06/17/17 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 Relationship Specialty Start Date End Date Luis Daniel Galicia MD PCP - General Family Medicine 02/17/18 Alexandria Camargo, RN Specialty Mobile Marketing Manager Radiation Oncology 06/17/17 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 Relationship Specialty Start Date End Date Luis Daniel Galicia MD PCP - General Family Medicine 02/17/18 Alexandria Camargo, RN Specialty Mobile Marketing Manager Radiation Oncology 06/17/17 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 Relationship Specialty Start Date End Date Luis Daniel Galicia MD PCP - General Family Medicine 02/17/18 Alexandria Camargo, RN Specialty Mobile Marketing Manager Radiation Oncology 06/17/17 Jigar Stanford DO [address] [place] [id number] Specialty Event Promotions Coordinator Neurology 02/17/23 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 Relationship Specialty Start Date End Date Luis Daniel Galicia MD PCP - General Family Medicine 02/17/18 Alexandria Camargo, RN Specialty Mobile Marketing Manager Radiation Oncology 06/17/17 Jigar Stanford [address] [place] [id number] Specialty Event Promotions Coordinator Neurology 02/17/23 FOR RECORDS PERTAINING TO PATIENTS [...] BE BASED ON THE PRIMARY CLINICAL RECORDS. [email or web address] provides no warranty or guarantee of the accuracy or completeness of information in this document.
--- OUTSIDE RECORDS SUMMARY | 2023-11-16 08:11 | XMS_ITS | CCD ---
Author Organization [facility] Care Team Providers Care Commercial Loan Assistant Name Role Phone Alexandria Camargo RN Unavailable [...] Luis Daniel Galicia MD Primary Care Provider [phone] COLEEN HAYWARD Attending Unavailable HOY, LUIS DANIEL [...] Erythromycin; Translations: [ERYTHROMYCIN] Drug Allergy 2 Itching [facility] Work Phone: (18 sources) Iodine And Iodide Containing Products; Translations: [IODINE AND IODIDE CONTAINING PRODUCTS] Propensity to adverse reactions to drug 1 Other: See Comments [facility] (12 sources) Contrast media; Translations: [Contrast Dye] Drug allergy Loss of consciousness [facility] (1 source) Iodine (And Iodine Containting Drugs) Drug allergy (disorder) [facility] (1 source) Acetaminophen; Translations: [acetaminophen] Drug Allergy [facility] (1 source) No Known Medication Allergies; Translations: [No Known Medication Allergies] Propensity to adverse reactions (disorder) [facility] Medications Current Medications Medication Drug [...] tablet (6 sources) Opioid Agonist Start: 11-18-2021 [place] 325 mg-7.5 mg oral tablet See Instructions, 1 tab(s), Refill(s) 0, Take 1 tablet 1 hour before procedure., [facility] #[id number], 190, cm, 11/18/21 9:22:00 EDT, Height/Length Dosing, 102, kg, 11/18/21 9:22:00 EDT, Weight Dosing Start Date: 11/18/21 Status: Ordered acetaminophen 325 mg / traMADol hydrochloride 37.5 mg oral tablet (6 sources) Opioid Agonist Start: 11-18-2021 Ultracet 325 mg-37.5 mg Tab 1 tab(s), Oral, As Directed, 20 tab(s), Refill(s) 0, Take 1 tablet every 4 hours as needed for pain., [facility] #[id number], 190, cm, 11/18/21 9:22:00 EDT, Height/Length Dosing, [...] day(s), # 10 cap(s), Refills(s) 0, Pharmacy: [facility] #[id number], 190, cm, 09/24/21 8:06:00 EDT, Height/Length Dosing, 102.5, kg, 09/24/21 8:06:00 EDT, Weight Dosing Start Date: 10/09/21 Stop Date: 10/14/21 Status: Ordered ciprofloxacin 500 mg oral tablet (8 sources) Quinolone Antimicrobial Start: 11-19-19 take 1 tablet by mouth twice daily Cipro 500 mg Tab 500 mg = 1 tab(s), Oral, BID, Start 3 days prior to procedure., # 14 tab(s), Refills(s) 0, Pharmacy: [facility] #[id number], 190, cm, 11/18/21 9:22:00 EDT, Height/Length Dosing, 102, kg, 11/18/21 9:22:00 EDT, Weight Dosing Start Date: 11/18/21 Status: Ordered Start: 06-23-2021 Cipro 500 mg T ab 500 mg = 1 tab(s), Oral, As Directed, # 2 tab(s), Refills(s) 0, Pharmacy: [facility], 190, cm, 06/23/21 11:19:00 EDT, Height/Length Dosing, 102, kg, 06/23/21 11:19:00 EDT, Weight Dosing Start Date: 06/23/21 Status: Ordered diazePAM 10 mg oral tablet (6 sources) Benzodiazepine Start: 11-18-2021 Valium 10 mg Tab See Instructions, Take 1 tab 1 hour before procdure., # 1 tab(s), Refills(s) 0, [facility]: [id number], 190, cm, 11/18/21 9:22:00 EDT, Height/Length Dosing, [...] 20 tab(s), Refills(s) 0, [facility]: [facility][id number], 190, cm, 09/24/21 8:06:00 EDT, Height/Length Dosing, [...] 21 tab(s), Refills(s) 0, [facility]: [facility] #[id number], 190, cm, 02/03/22 15:48:00 EST, Height/Length Dosing, [...] Daily, # 30 tab(s), Refills(s) 11, Pharmacy: [facility] #[id number], 190, cm, 03/16/22 8:29:00 EST, Height/Length Dosing, [...] day(s), # 30 cap(s), Refills(s) 11, Pharmacy: [facility] #[id number], 190, cm, 03/31/23 15:07:00 EST, Height/Length Dosing, [...] in both eyes at bedtime as needed. afgozprw-kmx-cfzsr- vit K-lycop (ONE-A-DAY MEN'S 50 PLUS) 400-20-370 mcg tab (6 sources) End: 2 take 50-400 tablets by mouth once daily pppbtwcv-rrw-kcvei-v it K-lycop (ONE-A-DAY MEN'S 50 PLUS) 400-20-370 mcg tab Take 1 tablet by mouth once daily. 0 12/12/2021 Discontinued take 50-400 tablets by mouth once daily plivgjia-xnf-tilhl-vit K-lycop (ONE-A-DA Y MEN'S 50 PLUS) 400-20-370 [...] # 5 tab(s), Refills(s) 0, Pharmacy: [facility] #[id number], 190, cm, 11/18/21 9:22:00 EDT, Height/Length Dosing, [...] above: TAKE 1 TABLET BY [facility] EVERY DAY NEEDED tamsulosin hydrochloride 0.4 mg oral capsule (8 sources) alpha-Adrenergic Rocio Start: End: take 1 capsule by mouth twice daily tamsulosin (FLOMAX) 0.4 mg Take 1 capsule by mouth twice daily. 60 capsule 2 11/27/2020 04/16/2022 Discontinued (Other) Comment on above: Take 1 capsule by mo [facility] twice daily. vitamin b12 1 mg [...] Residual codes; unclassified (1 source) History of hjvkzxv-oqmuemjq-pihby t (YAG) laser capsulotomy of lens; Translations: [...] detection for pulmonary nodules was performed utilizing [employer] software. FINDINGS: No pleural or pericardial effusion. [...] Kevin MD on 10/04/2023 9:37 AM Normal [facility] CT CHEST WO CONTon CT CHEST WO [...] Cohen DO on 07/01/2023 11:24 AM Normal [facility] THYROID PROFILEon 06-30-2023 Free T4 [Mass/Vol] 1.03 ng/dL Normal 0.61-1.60 [facility] Comment on above: Performed By: #### T HYR #### [facility] ([id number]) [address], [address] [place] [address] TSH 0.25 uIU/mL Low 0.49-4.67 [facility] Comment on above: Performed By: #### T HYR #### [facility] ([id number]) [address], [address] [place] [address] Reminderson 05-11-2023 Reminders - From: Radha Barbosa MA (EU - Recalls Pirece) To: EU - Recalls Pierce; Sent: 05/11/2023 [...] fax orders. He said he would prefer [facility] if they are able to do these tests. Normal [facility] 04-21-2023 KEZIAN Telephone (ANDRE) -- LUIS ALBERTO OCAMPO ([id number]) 1945 M Date Time Provider Department 04/21/23 [...] to spreadsheet: No Routing: Please route to [employer] Allergies As of Date: 04/21/2023 Noted Allergy Reaction ERYTHROMYCIN 04/11/2021 9 - Itching IODINE AND IODIDE CONTAINING PROD*07/19/2020 14 - Other: See Comments Comments: Pt passed out from milogram test on spinal cord Date Reviewed: 03/02/2023 Reviewed by: Nicolasa Varela LPN - Fully Assessed Reason for Visit: Appointment [186] Primary Visit Diagnosis:Bronchiectasis without acute exacerbation (HCC) [J47.9] Order(s):SPIROMETRY - BASELINE AND POST DILATOR [2858104] Order #: [id number]: 1 FUTURE RESPIRATORY THERAPY OP [facility] A90 [8691040] Order #: [id number]: 1 Prescriptions as of 04/21/2023 - Acetaminophen [...] Encounter Status:Closed by OLIVIA QUINTERO on 04/21/[address] [facility] [address] ABD/PEL W IVCONon 024 CT ABD/PEL W IVCON * * *Final Report* * * DATE OF EXAM: Apr 16 2023 8:33AM [facility] 0530 - CT ABD/PEL W IVCON / [...] chest CT performed will be reported separately. Gas Regulator Repairer Helper (topogram) images: No additional findings. IMPRESSION: 1. [...] any questions regarding this interpretation, please call [phone]. If you are unable to reach us at the number above, please feel free to contact [facility] at [phone]. [id number] Normal [facility] CT Abdomen and Pelvis W cont rast [...] any questions regarding this interpretation, please call [phone]. If you are unable to reach us at the number above, please feel free to contact [facility] at [phone]. DIVISION OF RADIOLOGY * * *Final Report* * * DATE OF EXAM: Apr 16 2023 8:33AM [facility] 0530 - CT ABD/PEL W IVCON / [...] chest CT performed will be reported separately. Gas Regulator Repairer Helper (topogram) images: No additional findings. DIVISION OF RADIOLOGY Provider, Chris King - 04/16/2023 * * *Final Report* * * DATE OF EXAM: Apr 16 2023 8:33AM [facility] 0530 - CT ABD/PEL W IVCON / [...] chest CT performed will be reported separately. Gas Regulator Repairer Helper (topogram) images: No additional findings. IMPRESSION IMPRESSION: [...] any questions regarding this interpretation, please call [phone]. If you are unable to reach us at the number above, please feel free to contact [facility] at [phone]. [facility] CT CHEST W IVCONon 4 CT CHEST W IVCON * * *Final Report* * * DATE OF EXAM: Apr 16 2023 8:33AM [facility] 0539 - CT CHEST W IVCON / [...] CT scan report for the abdomen findings. Gas Regulator Repairer Helper (topogram) images: No additional findings. IMPRESSION: 1. [...] any questions regarding this interpretation, please call [phone]. If you are unable to reach us at the number above, please feel free to [facility] at [phone]. [id number] Normal [facility] CT Chest W contrast Jenna IMPRESSION: 1. [...] any questions regarding this interpretation, please call [phone]. If you are unable to reach us at the number above, please feel free to contact [facility] at [phone]. DIVISION OF RADIOLOGY * * *Final Report* * * DATE OF EXAM: Apr 16 2023 8:33AM [facility] 0539 - CT CHEST W IVCON / [...] CT scan report for the abdomen findings. Gas Regulator Repairer Helper (topogram) images: No additional findings. DIVISION OF RADIOLOGY Provider, [facility] - 04/16/2023 * * *Final Report* * * DATE OF EXAM: Apr 16 2023 8:33AM [facility] 0539 - CT CHEST W IVCON / [...] CT scan report for the abdomen findings. Gas Regulator Repairer Helper (topogram) images: No additional findings. IMPRESSION IMPRESSION: [...] any questions regarding this interpretation, please call [phone]. If you are unable to reach us at the number above, please feel free to contact [facility] at [phone]. [facility] No Panel InformationOrdered By: Ccf Provider on 04-16-2023 [facility] No Panel Informationon 04-16 Radiology Study observation (narrative) [facility] Lab Reportson 04-02-2023 Lab Reports [id number]#1.00TIFF [facility] Screenson 04-02-2023 Screens [id number]#1.00TIFF [facility] CNOVSPon 04-01-2023 CNOVSP Visit (SP) Office (H EMAMN) -- LUIS ALBERTO OCAMPO ([id number]) 1945 M Date Time Provider Department 04/01/23 3:15 PM LARRY HENSON HEM During your visit today, we recorded the following information about you: Temperature Pulse Respiration Blood pressure 97.5 degrees 89/minute 20/minute 133/75 Weight 94.6 kg Larry Henson MD, PhD 04/01/2023 4:06 PM Signed [facility] DEPARTMENT OF HEMATOLOGY AND MEDICAL ONCOLOGY ASSESSMENT [...] seen by Dr. Luis Daniel Galicia at [place] and underwent a transthoracic CT guided needle [...] of right iritis. Was followed with outside robotic machine tender production. Noted symptoms improved with eye drops, but [...] a pruritic.rash (more content not included)... Normal [facility] Ambulatory Visit Summaryon 0 03-31-2023 Ambulatory Visit [...] ? 8 oz (237 mL) of milk, itqhukz-vscghbmgwmdt-rvwrt milk, and calcium-fortifiedfruit juice. Calcium-fortified means that [...] Spinach (cooked), rhubarb, beets, sweet potatoes, and Burkinan chard. ? Peanuts. ? Potato chips, nauruan fries, and baked potatoes with skin on. ? Nuts and nut products. ? Chocolate. ? If you regularly take a diuretic medicine, make sure to eat at least 1 or 2 servings of fruits or vegetables that are high in potassium each day. These include: ? Avocado. ? Banana. ? [place], prune, carrot, or tomato juice. ? Baked [...] fish oil, or vitamin B6. ? Take hplx-uln-nsnwjhe and prescription medicines only as told by your health care provider. These include supplements. What foods sh (more content not included)... Normal [facility] Urology Office/Clinic Noteon 03-31-2023 Urology Office/Clinic Note [...] prostate) TRUS/bx by RITU 04/15/20 - T1C, [place] 6 (3+3). S/P Brachytherapy 06/26/20. [1] PSA [...] day(s), # 30 cap(s), Refills(s) 11, Pharmacy: [facility] #[id number], 190, cm, 03/31/23 15:07:00 EST, Height/Length Dosing, 95.7, kg, 03/31/23 15:07:00 EST, Weight Dosing 33015 Measure Post Void residual urine and/or bladder [...] pass them. Will (more content not included)... [facility] Comment on above: Result Comment: Elec tronically Signed By: NANDO Waters APRN, Ivy Romero\.br\Date and Time Signed: 03/31/23 19:18 EST Consultation Noteon 03-09-19 24 Consultation Note [id number]#1.00TIFF [facility] CNOVon 03-02-2023 CNOV Office Visit (RADTSA ) -- LUIS ALBERTO OCAMPO ([id number]) 1945 M Date Time Provider Department 03/02/23 [...] ASSESSMENT/PLAN: Prostate adenocarcinoma, initial PSA 5.51, biopsy [place] score 3 + 3 = 6 (grade [...] (HCC) [C61] Order(s):PSA/PROSTSPECAG DIAG [SQPSA] Order #: [id number] FUTURE Prescriptions as of 03/05/2023 - Acetaminophen [...] induced catar (more content not included)... Normal [facility] CBC W Auto Differential pane l (Bld)on 02-24-2023 Basophils (Bld) [#/Vol] 0.04 10*3/uL Normal <0.11 [facility] Comment on above: Order Comment: Speci men Type: BLOOD SPECIMENOrdering Facility: [facility] Address: [address] [place] [address] Performed By: #### 5 7021-8 ####[facility] LABIA [id number] [place] [id number] Basophils/100 WBC (Bld) 0.7 % Normal [facility] Comment on above: Order Comment: Speci men Type: BLOOD SPECIMENOrdering Facility: [facility] Address: [address] [place] [address] Performed By: #### 5 7021-8 ####[facility] LABCLIA [id number] [place] [address] Differential cell count method Nom (Bld) Auto Normal [facility] Comment on above: Order Comment: Speci men Type: BLOOD SPECIMENOrdering Facility: [facility] Address: [address] [place] [address] Performed By: #### 5 7021-8 ####[facility] LABCLIA [id number] [place] [address] Eosinophils (Bld) [#/Vol] 0.23 10*3/uL Normal <0.46 [facility] Comment on above: Order Comment: Speci men Type: BLOOD SPECIMENOrdering Facility: [facility] Address: [address] [place] [address] Performed By: #### 5 7021-8 ####[facility] LABCLIA [id number] [place] [address] Eosinophils/100 WBC (Bld) 3.9 % Normal [facility] Comment on above: Order Comment: Speci men Type: BLOOD SPECIMENOrdering Facility: [facility] Address: [address] [place] [address] Performed By: #### 5 7021-8 ####[facility] LABCLIA [id number] [place] [address] Erythrocyte distribution width (RBC) [Ratio] 13.0 % Normal 11.5-15.0 [facility] Comment on above: Order Comment: Speci men Type: BLOOD SPECIMENOrdering Facility: [facility] Address: [address] [place] [address] Performed By: #### 5 7021-8 ####[facility] LABCLIA [id number] [place] [address] Hematocrit (Bld) [Volume fraction] 40.5 % Normal 39.0-51.0 [facility] Comment on above: Order Comment: Speci men Type: BLOOD SPECIMENOrdering Facility: [facility] Address: [address] [place] [address] Performed By: #### 5 7021-8 ####[facility] LABCLIA [id number] [place] [address] Hemoglobin (Bld) [Mass/Vol] 14.0 g/dL Normal 13.0-17.0 [facility] Comment on above: Order Comment: Speci men Type: BLOOD SPECIMENOrdering Facility: [facility] Address: [address] [place] [address] Performed By: #### 5 7021-8 ####[facility] LABCLIA [id number] [place] [address] Immature granulocytes (Bld) [#/Vol] 0.04 10*3/uL Normal <0.10 [facility] Comment on above: Order Comment: Speci men Type: BLOOD SPECIMENOrdering Facility: [facility] Address: [address] [place] [address] Performed By: #### 5 7021-8 ####[facility] LABCLIA [id number] [place] [address] Immature granulocytes/100 WBC (Bld) 0.7 % Normal [facility] Comment on above: Order Comment: Speci men Type: BLOOD SPECIMENOrdering Facility: [facility] Address: [address] [place] [address] Performed By: #### 5 7021-8 ####[facility] LABIA [id number] [place] [address] Lymphocytes (Bld) [#/Vol] 0.84 10*3/uL Low 1.00-4.00 [facility] Comment on above: Order Comment: Speci men Type: BLOOD SPECIMENOrdering Facility: [facility] Address: [address] [place] [address] Performed By: #### 5 7021-8 ####[facility] LABCLIA [id number] [place] [address] Lymphocytes/100 WBC (Bld) 14.3 % Normal [facility] Comment on above: Order Comment: Speci men Type: BLOOD SPECIMENOrdering Facility: [facility] Address: [address] [place] [address] Performed By: #### 5 7021-8 ####[facility] LABIA [id number] [place] [address] MCH (RBC) [Entitic mass] 35.1 pg High 26.0-34.0 [facility] Comment on above: Order Comment: Speci men Type: BLOOD SPECIMENOrdering Facility: [facility] Address: [address] [place] [address] Performed By: #### 5 7021-8 ####[facility] LABCLIA [id number] [place] [address] MCHC (RBC) [Mass/Vol] 34.6 g/dL Normal 30.5-36.0 [facility] Comment on above: Order Comment: Speci men Type: BLOOD SPECIMENOrdering Facility: [facility] Address: [address] [place] [address] Performed By: #### 5 7021-8 ####[facility] LABCLIA [id number] [place] [address] MCV (RBC) [Entitic vol] 101.5 fL High 80.0-100.0 [facility] Comment on above: Order Comment: Speci men Type: BLOOD SPECIMENOrdering Facility: [facility] Address: [address] [place] [address] Performed By: #### 5 7021-8 ####[facility] LABCLIA [id number] [place] [address] Monocytes (Bld) [#/Vol] 0.62 10*3/uL Normal <0.87 [facility] Comment on above: Order Comment: Speci men Type: BLOOD SPECIMENOrdering Facility: [facility] Address: [address] [place] [address] Performed By: #### 5 7021-8 ####[facility] LABCLIA [id number] [place] [address] Monocytes/100 WBC (Bld) 10.6 % Normal [facility] Comment on above: Order Comment: Speci men Type: BLOOD SPECIMENOrdering Facility: [facility] Address: [address] [place] [address] Performed By: #### 5 7021-8 ####[facility] LABCLIA [id number] [place] [address] Neutrophils (Bld) [#/Vol] 4.09 10*3/uL Normal 1.45-7.50 [facility] Comment on above: Order Comment: Speci men Type: BLOOD SPECIMENOrdering Facility: [facility] Address: [address] [place] [address] Performed By: #### 5 7021-8 ####[facility] LABCLIA [id number] [place] [address] Neutrophils/100 WBC (Bld) 69.8 % Normal [facility] Comment on above: Order Comment: Speci men Type: BLOOD SPECIMENOrdering Facility: [facility] Address: [address] [place] [address] Performed By: #### 5 7021-8 ####[facility] LABCLIA [id number] [place] [address] Nucleated RBC (Bld) [#/Vol] 10*3/uL Normal <0.01 [facility] Comment on above: Order Comment: Speci men Type: BLOOD SPECIMENOrdering Facility: [facility] Address: [address] [place] [address] Performed By: #### 5 7021-8 ####[facility] LABCLIA [id number] [place] [address] Nucleated RBC/100 WBC (Bld) [Ratio] 0.0 /[address] [facility] Comment on above: Order Comment: Speci men Type: BLOOD SPECIMENOrdering Facility: [facility] Address: [address] [place] [address] Performed By: #### 5 7021-8 ####[facility] LABCLIA [id number] [place] [address] Platelet mean volume (Bld) [Entitic vol] 9.2 fL Normal 9.0-12.7 [facility] Comment on above: Order Comment: Speci men Type: BLOOD SPECIMENOrdering Facility: [facility] Address: [address] [place] [address] Performed By: #### 5 7021-8 ####[facility] LABCLIA [id number] [place] [address] Platelets (Bld) [#/Vol] 224 10*3/uL Normal 150-400 [facility] Comment on above: Order Comment: Speci men Type: BLOOD SPECIMENOrdering Facility: [facility] Address: [address] [place] [address] Performed By: #### 5 7021-8 ####[facility] LABCLIA [id number] [place] [address] RBC (Bld) [#/Vol] 3.99 10*6/uL Low 4.20-6.00 [facility] Comment on above: Order Comment: Speci men Type: BLOOD SPECIMENOrdering Facility: [facility] Address: [address] [place] [address] Performed By: #### 5 7021-8 ####[facility] LABCLIA [id number] [place] [address] WBC (Bld) [#/Vol] 5.86 10*3/uL Normal 3.70-11.00 [facility] Comment on above: Order Comment: Speci men Type: BLOOD SPECIMENOrdering Facility: [facility] Address: [address] [place] [address] Performed By: #### 5 7021-8 ####[facility] LABCLIA [id number] [place] [address] Comprehensive metabolic 2000 panelon 02-24-2023 Albumin [Mass/Vol] 4.4 g/dL Normal 3.9-4.9 [facility] Comment on above: Order Comment: Speci men Type: BLOOD SPECIMENOrdering Facility: [facility] Address: [address] [place] [address] Performed By: #### 2 4323-8, 2532-0 ####[facility] LABCLIA [id number] [place] [address] ALP [Catalytic activity/Vol] 96 U/L Normal 38-113 [facility] Comment on above: Order Comment: Speci men Type: BLOOD SPECIMENOrdering Facility: [facility] Address: [address] [place] [address] Performed By: #### 2 4323-8, 2531-0 ####[facility] LABCLIA [id number] [place] [address] ALT [Catalytic activity/Vol] 23 U/L Normal 10-54 [facility] Comment on above: Order Comment: Speci men Type: BLOOD SPECIMENOrdering Facility: [facility] Address: [address] [place] [address] Performed By: #### 2 4323-8, 2531-0 ####[facility] LABCLIA [id number] [place] [address] Anion gap [Moles/Vol] 9 mmol/L Normal 9-18 [facility] Comment on above: Order Comment: Speci men Type: BLOOD SPECIMENOrdering Facility: [facility] Address: [address] [place] [address] Performed By: #### 2 4323-8, 2531-0 ####[facility] LABCLIA [id number] [place] [address] AST [Catalytic activity/Vol] 22 U/L Normal 14-40 [facility] Comment on above: Order Comment: Speci men Type: BLOOD SPECIMENOrdering Facility: [facility] Address: [address] [place] [address] Performed By: #### 2 4323-8, 2531-0 ####[facility] LABCLIA [id number] [place] [address] Bilirubin [Mass/Vol] 1.3 mg/dL Normal 0.2-1.3 [facility] Comment on above: Order Comment: Speci men Type: BLOOD SPECIMENOrdering Facility: [facility] Address: [address] [place] [address] Performed By: #### 2 432-8, 2531-0 ####[facility] LABCLIA [id number] [place] [address] Calcium [Mass/Vol] 9.9 mg/dL Normal 8.5-10.2 [facility] Comment on above: Order Comment: Speci men Type: BLOOD SPECIMENOrdering Facility: [facility] Address: [address] [place] [address] Performed By: #### 2 4328, 2531-0 ####[facility] LABCLIA [id number] [place] [address] Chloride [Moles/Vol] 104 mmol/L Normal 97-105 [facility] Comment on above: Order Comment: Speci men Type: BLOOD SPECIMENOrdering Facility: [facility] Address: [address] [place] [address] Performed By: #### 2 4328, 0 ####[facility] LABCLIA [id number] [place] [address] CO2 [Moles/Vol] 29 mmol/L Normal 22-30 [facility] Comment on above: Order Comment: Speci men Type: BLOOD SPECIMENOrdering Facility: [facility] Address: [address] [place] [address] Performed By: #### 2 43238, 0 ####[facility] LABCLIA [id number] [place] [address] Creatinine [Mass/Vol] 1.00 mg/dL Normal 0.73-1.22 [facility] Comment on above: Order Comment: Speci men Type: BLOOD SPECIMENOrdering Facility: [facility] Address: [address] [place] [address] Performed By: #### 2 432-8, 2531-0 ####[facility] LABCLIA [id number] [place] [address] Creatinine and Glomerular filtration rate.predicted panel (S/P/Bld) 78 mL/min/1.73m??? Normal >=60 [facility] Comment on above: Order Comment: July sawyer Type: BLOOD SPECIMENOrdering Facility: [facility] Address: [address] [place] [address] Result Comment: Jessica mated Glomerular Filtration Rate [...] GFR. Performed By: #### 2 4323-8, 2531-0 ####[facility] LABIA [id number] [place] [address] Glucose [Mass/Vol] 105 mg/dL High 74-99 [facility] Comment on above: Order Comment: July sawyer Type: BLOOD SPECIMENOrdering Facility: [facility] Address: [address] [place] [address] Result Comment: The [place] [employer] (ADA) provides guidance for cutoff [...] Standards of Medical Care in Diabetes 2016, [place] [employer]. Diabetes Care. 2016.39(Suppl 1). Performed By: #### 2 4323-8, 0 ####[facility] LABIA [id number] [place] [address] Potassium [Moles/Vol] 4.1 mmol/L Normal 3.7-5.1 [facility] Comment on above: Order Comment: July sawyer Type: BLOOD SPECIMENOrdering Facility: [facility] Address: [address] [place] [address] Performed By: #### 2 4323-8, 2531-0 ####[facility] LABCLIA [id number] [place] [address] Protein [Mass/Vol] 7.1 g/dL Normal 6.3-8.0 [facility] Comment on above: Order Comment: Speci men Type: BLOOD SPECIMENOrdering Facility: [facility] Address: [address] [place] [address] Performed By: #### 2 4323-8, 2531-0 ####[facility] LABCLIA [id number] [place] [address] Sodium [Moles/Vol] 142 mmol/L Normal 136-144 [facility] Comment on above: Order Comment: Speci men Type: BLOOD SPECIMENOrdering Facility: [facility] Address: [address] [place] [address] Performed By: #### 2 4323-8, 2531-0 ####[facility] LABCLIA [id number] [place] [address] Urea nitrogen [Mass/Vol] 25 mg/dL High 9-24 [facility] Comment on above: Order Comment: Speci men Type: BLOOD SPECIMENOrdering Facility: [facility] Address: [address] [place] [address] Performed By: #### 2 4323-8, 2531-0 ####[facility] LABCLIA [id number] [place] [address] [facility]2023 LDH [Catalytic activity/Vol] 210 U/L Normal 135-225 [facility] Comment on above: Order Comment: Speci men Type: BLOOD SPECIMENOrdering Facility: [facility] Address: [address] [place] [address] Result Comment: Hemo lysis present. The origin [...] indicated. Performed By: #### 2 4323-8, 2532-0 ####[facility] LABCLIA [id number] [place] [address] PSA SerPl-ncon 02-24-2023 Prostate specific Ag [Mass/Vol] 0.40 ng/mL Normal <2.60 [facility] Comment on above: Order Comment: Speci men Type: BLOOD SPECIMENOrdering Facility: [facility] Address: [address] [place] [address] Result Comment: Tota terrence PSA test methodology used is the Electrochemiluminescence Immunoassay by [employer]. Total PSA values by differing methodologies cannot be interchanged. 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 Henson and normally has a PET scan done prior to follow-ups. Asking if this order can be placed, or if this is not needed. 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 Consultation Noteon 09-06-19 23 Consultation Note [id number]#[id number]:127 Normal [facility] RAD - CT Reporton 09-05-2022 RAD - CT Report [id number]#[id number]:127 Normal [facility] Reminderson 09-05-2022 Reminders - From: Maegan Gunter To: KAMERON - PA - Results; Sent: 08/25/2022 09:16:55 EDT Show up: 09/24/2022 09:16:00 EDT Subject: CT results Due Date/Time: 09/24/2022 09:16:00 EDT Pt should be getting CT AP wo con to check for renal/bladder stones. Please check for these results and call pt with them. addressed in separate message. Normal [facility] Calculus Analysison 09-02-19 Calcium oxalate monohydrate (Stone) [Mass fraction] 100 % Invalid Interpretation Code [facility] Comment on above: Performed By: #### 1 [id number] ####[facility] [address] [place] [address] Color (Stone) Brown Invalid Interpretation Code [facility] Comment on above: Performed By: #### 1 [id number] ####[facility] [address] [place] [address] Composition Comment Invalid Interpretation Code [facility] Comment on above: Result Comment: Perc entage (Represents the % composition) Performed By: #### 1 [id number] ####[facility] [address] [place] [address] Disclaimer: Comment Invalid Interpretation Code [facility] Comment on above: Result Comment: This test was developed and its performance characteristics determined by [employer]. It has not been cleared or approved by the Food and Drug Administration. Performed at: [facility] [address] [id number] PhD Alec Tesfaye Performed By: #### 1 [id number] ####[facility] [address] [place] [address] Laboratory comment Alex (Report) Comment Invalid Interpretation Code [facility] Comment on above: Result Comment: Page hurst questions regarding Calculi Analysis [facility] at: [phone]. Performed By: #### 1 [id number] ####[address] [place] [address] Please Note: Comment Invalid Interpretation Code [facility] Comment on above: Result Comment: Calc siena report will follow via computer, mail or laborer adjustable steel joist delivery. Performed By: #### 1 [id number] ####[facility] [address] [place] [address] Size (Stone) [Entitic vol] 6x7 Invalid Interpretation Code [facility] Comment on above: Result Comment: Sing le piece received. Performed By: #### 1 [id number] ####[address] [place] [address] Specimen source subject Nom Comment Invalid Interpretation Code [facility] Comment on above: Result Comment: Not provided Performed By: #### 1 [id number] ####[facility] [address] [place] [address] Stone Photo Comment Invalid Interpretation Code [facility] Comment on above: Result Comment: Phot ograph will follow under a separate cover Performed By: #### 1 [id number] ####[facility] [address] [place] [address] Weight (Stone) 151 mg Invalid Interpretation Code [facility] Comment on above: Performed By: #### 1 [id number] ####[facility] [address] [place] [address] CT ABD/PEL WO IVCONon 2022 CT ABD/PEL WO IVCON * * *Final Report* * * DATE OF EXAM: Aug 28 2022 8:47AM [facility] 0531 - CT ABD/PEL WO IVCON / [...] partially imaged right inferior perihilar peribronchial thickening. Gas Regulator Repairer Helper (topogram) images: No additional finding. IMPRESSION: 1. [...] any questions regarding this interpretation, please call [phone]. If you are unable to reach us at the number above, please feel free to contact [facility] at [phone]. [id number] Normal [facility] Screenson 08-26-2022 Screens [id number]#[id number]:127 Normal [facility] Ambulatory Visit Summaryon 0 08-25-2022 Ambulatory [...] Dakotah PELAYO MD Where: [facility] 08-25-2022 CNOV Office Visit (RADTSA ) -- LUIS ALBERTO OCAMPO ([id number]) 1945 M Date Time Provider Department 08/25/22 [...] (HCC) [C61] Order(s):PSA/PROSTSPECAG DIAG [SQPSA] Order #: [id number] FUTURE Prescriptions as of 09/02/2022 - carbidopa-levodopa [...] Malignant neopla (more content not included)... Normal [facility] Patient Educationon 08-26-19 Patient Education Oncology Cancer [...] if anything looks unusual. Men with a jvodcp-cudj-apwlvs risk for skin cancer may want to see a slunk skinner (human resources team member) for an annual body check. What are the benefits of screening? Cancer screening is done to look for cancer in the very early stages, before it spreads and becomes harder to treat and before you would start to notice symptoms. Finding cancer early improves the chances of successful treatment. It ma (more content not included)... 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 S/P Brachytherapy 06/26/20. Has appt [...] with results. Pt would like CT at [facility]. -Send stone for analysis. Overall the patient [...] Contact Informat (more content not included)... Normal [facility] Comment on above: Result Comment: Elec tronically Signed By: Dakotah PELAYO MD\.br\Date and Time Signed: 08/25/22 09:19 EDT\.br\Electronically Co-Signed By: Maegan Gunter\.br\Date and Time Co-Signed: 08/25/22 09:16 EDT\.br\Electronically Co-Signed By: Maegan Gunter\.br\Date and Time Co-Signed: 08/25/22 09:17 EDT PSA Markyl-mCnatalyon 08-19-2022 Prostate specific Ag [Mass/Vol] 0.52 ng/mL Normal <2.60 [facility] Comment on above: Order Comment: Speci men Type: BLOOD SPECIMENOrdering Facility: [facility] Address: [address] [id number] Result Comment: Tota l PSA test methodology used is the Electrochemiluminescence Immunoassay by [employer]. Total PSA values by differing methodologies cannot be interchanged. Performed By: #### 2 857-1 ####[facility] LABCLIA [id number] [facility] [id number] [place], [place] [id number] [place] BRAIN TREMOR [...] Vol. 15, No. 3, 1999, pp. 503-510 Striper: HAI Transcribe Date/Time: May 06 2022 5:13P Dictated by : MARIA ANTONIA ANDERSON MD This examination was interpreted and the report reviewed and electronically signed by: MARIA ANTONIA ANDERSON MD on May 06 2022 5:22PM EST [id number] Normal [facility] INSULINon 04-07-2022 Insulin 5.3 uIU/mL Normal 2.6-24.9 [facility] Comment on above: Performed By: #### I NSULIN #### [facility] [address] [place] [address] Dr. Gabbi Cummings CBC AUTO DIFFon 04-06-2022 BASO # 0.1 103/ul Normal 0.0-0.1 [facility] Comment on above: Performed By: #### C BC #### [facility] [address] [place] [address] Dr. Gabbi Cummings Basophils/100 WBC (Bld) 0.8 % Normal 0.2-2.0 [facility] Comment on above: Result Comment: Prev iously reported as: 0.9 On 04/06/2022 08:01 By RC01 Performed By: #### C BC #### [facility] [address] [place] [address] Dr. Gabbi Cummings EO # 0.2 103/ul Normal 0.0-0.7 [facility] Comment on above: Performed By: #### C BC #### [facility] [address] [place] [address] Dr. Gabbi Cummings Eosinophils/100 WBC (Bld) 2.8 % Normal 0.9-7.0 [facility] Comment on above: Result Comment: Prev iously reported as: 3.5 On 04/06/2022 08:01 By RC01 Performed By: #### C BC #### [facility] [address] [place] [address] Dr. Gabbi Cummings Erythrocyte distribution width (RBC) [Ratio] 13.9 % Normal 11.0-15.0 [facility] Comment on above: Result Comment: Prev iously reported as: 1.0 On 04/06/2022 08:01 By RC01 Performed By: #### C BC #### [facility] [address] [place] [address] Dr. Gabbi Cummings Hematocrit (Bld) [Volume fraction] 42.9 % Normal 42.0-54.0 [facility] Comment on above: Result Comment: Prev iously reported as: 20.4 On 04/06/2022 08:01 By RC01 Performed By: #### C BC #### [facility] [address] [place] [address] Dr. Gabbi Cummings Hemoglobin (Bld) [Mass/Vol] 15.5 g/dL Normal 14.0-18.0 [facility] Comment on above: Result Comment: Prev iously reported as: 15.1 On 04/06/2022 08:01 By RC01 Performed By: #### C BC #### [facility] [address] [place] [address] Dr. Gabbi Cummings IG # 0.06 10e3/ul Critically high 0.00-0.03 [facility] Comment on above: Result Comment: Prev iously reported as: 0.04 On 04/06/2022 08:01 By RC01 Performed By: #### C BC #### [facility] [address] [place] [address] Dr. Gabbi Cummings IG % 0.9 % Critically high 0.0-0.5 [facility] Comment on above: Result Comment: Prev iously reported as: 0.7 On 04/06/2022 08:01 By RC01 Performed By: #### C BC #### [facility] [address] [place] [address] Dr. Gabbi Cummings LYMPH # 0.9 103/ul Critically low 1.2-3.8 [facility] Comment on above: Result Comment: Prev iously reported as: 0.8 On 04/06/2022 08:01 By RC01 Performed By: #### C BC #### [facility] [address] [place] [address] Dr. Gabbi Cummings Lymphocytes/100 WBC (Bld) 13.9 % Critically low 20.5-60.0 [facility] Comment on above: Result Comment: Prev iously reported as: 14.6 On 04/06/2022 08:01 By RC01 Performed By: #### C BC #### [facility] [address] [place] [address] Dr. Gabbi Cummings MANUAL DIFF REQ NO Normal [facility] Comment on above: Performed By: #### C BC #### [facility] [address] [place] [address] Dr. Gabbi Cummings MCH (RBC) [Entitic mass] 38.4 pg Critically high 25.9-34.0 [facility] Comment on above: Result Comment: Prev iously reported as: 84.8 On 04/06/2022 08:01 By RC01 Performed By: #### C BC #### [facility] [address] [place] [address] Dr. Gabbi Cummings MCHC (RBC) [Mass/Vol] 36.1 g/dL Critically high 29.9-35.2 [facility] Comment on above: Result Comment: Prev iously reported as: 74.0 On 04/06/2022 08:01 By RC01 Performed By: #### C BC #### [facility] [address] [place] [address] Dr. Gabbi Cummings MCV (RBC) [Entitic vol] 106.2 fL Critically high 80.0-94.0 [facility] Comment on above: Result Comment: Prev iously reported as: 114.6 On 04/06/2022 08:01 By RC01 Performed By: #### C BC #### [facility] [address] [place] [address] Dr. Gabbi Cummings MONO # 0.4 103/ul Normal 0.3-0.8 [facility] Comment on above: Performed By: #### C BC #### [facility] [address] [place] [address] Dr. Gabbi Cummings Monocytes/100 WBC (Bld) 6.3 % Normal 1.7-12.0 [facility] Comment on above: Performed By: #### C BC #### [facility] [address] [place] [address] Dr. Gabbi Cummings NEUT # 4.8 103/ul Normal 1.4-6.5 [facility] Comment on above: Result Comment: Prev iously reported as: 4.2 On 04/06/2022 08:01 By RC Performed By: #### C BC #### [facility] [address] [place] [address] Dr. Gabbi Cummings Neutrophils/100 WBC (Bld) 75.3 % Critically high 43.0-75.0 [facility] Comment on above: Result Comment: Prev iously reported as: 74.0 On 04/06/2022 08:01 By RC01 Performed By: #### C BC #### [facility] [address] [place] [address] Dr. Gabbi Cummings Platelet mean volume (Bld) [Entitic vol] 9.9 fL Normal 9.5-13.5 [facility] Comment on above: Result Comment: Prev iously reported as: 10.2 On 04/06/2022 08:01 By RC01 Performed By: #### C BC #### [facility] [address] [place] [address] Dr. Gabbi Cummings PLT 217 103/ul Normal 150-450 [facility] Comment on above: Result Comment: Prev iously reported as: 194 On 04/06/2022 08:01 By RC01 Performed By: #### C BC #### [facility] [address] [place] [address] Dr. Gabbi Cummings RBC 4.04 106/ul Critically low 4.70-6.10 [facility] Comment on above: Result Comment: Prev iously reported as: 1.78 On 04/06/2022 08:01 By RC01 Performed By: #### C BC #### [facility] [address] [place] [address] Dr. Gabbi Cummings WBC 6.3 103/ul Normal 4.0-11.0 [facility] Comment on above: Result Comment: Prev iously reported as: 5.7 On 04/06/2022 08:01 By RC01 Performed By: #### C BC #### [facility] [address] [place] [address] Dr. Gabbi Cummings FREE THYROXINE INDEX T7on FTI 2.70 Normal 1.30-4.50 [facility] Comment on above: Performed By: #### T SH, T7, CMP, LIPID, URIC #### [facility] [address] [place] [address] Dr. Gabbi Cummings T3U 38.0 % Normal 33.0-40.0 [facility] Comment on above: Performed By: #### T SH, T7, CMP, LIPID, URIC #### [facility] [address] [place] [address] Dr. Gabbi Cummings T4 [Mass/Vol] 7.10 ug/dL Normal 4.50-12.10 [facility] Comment on above: Performed By: #### T SH, T7, CMP, LIPID, URIC #### [facility] [address] [place] [address] Dr. Gabbi Cummings GLYCOHEMOGLOBIN A1Con 2022 ADA RECOMMENDATION SEE BELOW Normal [facility] Comment on above: Result Comment: ADA RECOMMENDED LIMIT 4.0 - 6.0 ADA THERAPEUTIC TARGET < 7.0 ACTION SUGGESTED > 7.0 Performed By: #### A 1C #### [facility] [address] [place] [address] Dr. Gabbi Cummings Glucose [Mass/Vol] 100 mg/dL Normal [facility] Comment on above: Performed By: #### A 1C #### [facility] [address] [place] [address] Dr. Gabbi Cummings HbA1c (Bld) [Mass fraction] 5.1 % Normal 4.5-6.2 [facility] Comment on above: Performed By: #### A 1C #### [facility] [address] [place] [address] Dr. Gabbi Cummings LIPID PROFILEon 04-06-2022 CHOL-HDL RATIO NORM SEE BELOW Normal [facility] Comment on above: Result Comment: 3.3 - 4.4 LOW RISK 4.4 - 7.1 AVERAGE RISK 7.1 - 11.0 MODERATE RISK >11.0 HIGH RISK Performed By: #### T SH, T7, CMP, LIPID, URIC #### [facility] [address] [address] [address] Gabbi Cummings Cholesterol [Mass/Vol] 90 mg/dL Normal <=200 [facility] Comment on above: Performed By: #### T SH, T7, CMP, LIPID, URIC #### [facility] [address] [place] [address] Dr. Gabbi Cummings Cholesterol in HDL [Mass/Vol] 37 mg/dL Critically low 40-60 [facility] Comment on above: Performed By: #### T SH, T7, CMP, LIPID, URIC #### [facility] [address] [place] [address] Dr. Gabbi Cummings Cholesterol in LDL [Mass/Vol] 35.0 mg/dL Normal [facility] Comment on above: Performed By: #### T SH, T7, CMP, LIPID, URIC #### [facility] [address] [address] [address] Gabbi Cummings Cholesterol.total/Ch olesterol in HDL [Mass ratio] 2.4 {ratio} Normal [facility] Comment on above: Performed By: #### T SH, T7, CMP, LIPID, URIC #### [facility] [address] [place] [address] Dr. Gabbi Cummings HDL NORMAL > or = 60 mg/dl - LO W CARDIOVASCULAR RISK <40 mg/dl - HIGH CARDIOVASCULAR RISK Normal [facility] Comment on above: Performed By: #### T SH, T7, CMP, LIPID, URIC #### [facility] [address] [address] [address] Gabbi Cummings LDL CALC NORMAL SEE BELOW Normal [facility] Comment on above: Result Comment: <100 mg/dl OPTIMAL 100 - 129 mg/dl NEAR OR ABOVE OPTIMAL 130 - 159 mg/dl BORDERLINE HIGH 160 - 189 mg/dl HIGH >190 mg/dl VERY HIGH Performed By: #### T SH, T7, CMP, LIPID, URIC #### [facility] [address] [address] [address] Gabbi Cummings Triglyceride [Mass/Vol] 90 mg/dL Normal <=150 [facility] Comment on above: Performed By: #### T SH, T7, CMP, LIPID, URIC #### [facility] [address] [address] [address] Gabbi Cummings VLDL CALC 18.0 mg/dL Normal [facility] Comment on above: Performed By: #### T SH, T7, CMP, LIPID, URIC #### [facility] [address] [address] [address] Gabbi Cummings PERIPHERAL SMEARon 3 Pathologist Cyto stain Nom (Cvx/Vag) [ID] DR. YVONNE ALOZNO Normal [facility] Comment on above: Result Comment: LYMP HOPENIA OF UNCERTAIN ETIOLOGY; REACTIVE FORMATION PRESENT Performed By: #### P ERSMR #### [facility] [address] [place] [address] Dr. Gabbi Cummings PROF 14(COMP METB)on 023 Albumin [Mass/Vol] 4.1 g/dL Normal 3.4-5.0 [facility] Comment on above: Performed By: #### T SH, T7, CMP, LIPID, URIC #### [facility] [address] [address] [address] Gabbi Cummings Albumin/Globulin [Mass ratio] 1.2 {ratio} Normal [facility] Comment on above: Performed By: #### T SH, T7, CMP, LIPID, URIC #### [facility] [address] [address] [address] Gabbi Cummings ALP [Catalytic activity/Vol] 100 U/L Normal 46-116 [facility] Comment on above: Performed By: #### T SH, T7, CMP, LIPID, URIC #### [facility] [address] [place] [address] Dr. Gabbi Cummings ALT [Catalytic activity/Vol] 43 U/L Normal 16-63 [facility] Comment on above: Performed By: #### T SH, T7, CMP, LIPID, URIC #### [facility] [address] [place] [address] Dr. Gabbi Cummings Anion gap [Moles/Vol] 11.2 mmol/L Normal [facility] Comment on above: Performed By: #### T SH, T7, CMP, LIPID, URIC #### [facility] [address] [place] [address] Dr. Gabbi Cummings AST [Catalytic activity/Vol] 20 U/L Normal 15-37 [facility] Comment on above: Performed By: #### T SH, T7, CMP, LIPID, URIC #### [facility] [address] [place] [address] Dr. Gabbi Cummings Bilirubin [Mass/Vol] 1.6 mg/dL Critically high 0.2-1.0 [facility] Comment on above: Performed By: #### T SH, T7, CMP, LIPID, URIC #### [facility] [address] [place] [address] Dr. Gabbi Cummings Calcium [Mass/Vol] 9.1 mg/dL Normal 8.5-10.1 [facility] Comment on above: Performed By: #### T SH, T7, CMP, LIPID, URIC #### [facility] [address] [place] [address] Dr. Gabbi Cummings Chloride [Moles/Vol] 105 mmol/L Normal 98-107 [facility] Comment on above: Performed By: #### T SH, T7, CMP, LIPID, URIC #### [facility] [address] [place] [address] Dr. Gabbi Cummings CO2 [Moles/Vol] 28.8 mmol/L Normal 21.0-32.0 [facility] Comment on above: Performed By: #### T SH, T7, CMP, LIPID, URIC #### [facility] [address] [address] [address] Gabbi Cummings Creatinine [Mass/Vol] 0.97 mg/dL Normal 0.70-1.30 [facility] Comment on above: Performed By: #### T SH, T7, CMP, LIPID, URIC #### [facility] [address] [address] [address] Gabbi Cummings EGFR-AF BERMUDIAN >60 Normal >=60 [facility] Comment on above: Performed By: #### T SH, T7, CMP, LIPID, URIC #### [facility] [address] [place] [address] Dr. Gabbi Cummings EGFR-NON AF BERMUDIAN >60 Normal >=60 [facility] Comment on above: Performed By: #### T SH, T7, CMP, LIPID, URIC #### [facility] [address] [place] [address] Dr. Gabbi Cummings Globulin (S) [Mass/Vol] 3.4 g/dL Normal [facility] Comment on above: Performed By: #### T SH, T7, CMP, LIPID, URIC #### [facility] [address] [place] [address] Dr. Gabbi Cummings Glucose [Mass/Vol] 109 mg/dL Critically high 74-106 [facility] Comment on above: Performed By: #### T SH, T7, CMP, LIPID, URIC #### [facility] [address] [place] [address] Dr. Gabbi Cummings Potassium [Moles/Vol] 4.0 mmol/L Normal 3.5-5.1 [facility] Comment on above: Performed By: #### T SH, T7, CMP, LIPID, URIC #### [facility] [address] [place] [address] Dr. Gabbi Cummings Protein [Mass/Vol] 7.5 g/dL Normal 6.4-8.2 [facility] Comment on above: Performed By: #### T SH, T7, CMP, LIPID, URIC #### [facility] [address] [place] [address] Dr. Gabbi Cummings Sodium [Moles/Vol] 141 mmol/L Normal 136-145 [facility] Comment on above: Performed By: #### T SH, T7, CMP, LIPID, URIC #### [facility] [address] [address] [address] Gabbi Cummings Urea nitrogen [Mass/Vol] 17.0 mg/dL Normal 7.0-18.0 [facility] Comment on above: Performed By: #### T SH, T7, CMP, LIPID, URIC #### [facility] [address] [address] [address] Gabbi Cummings Urea nitrogen/Creatinine [Mass ratio] 17.5 mg/mg Normal [facility] Comment on above: Performed By: #### T SH, T7, CMP, LIPID, URIC #### [facility] [address] [place] [address] Dr. Gabbi Cummings TSHon 04-06-2022 TSH 0.655 uIU/mL Normal 0.358-3.740 [facility] Comment on above: Performed By: #### T SH, T7, CMP, LIPID, URIC #### [facility] [address] [address] [address] Gabbi Cummings URIC ACID SERUMon 04-06-2022 Urate [Mass/Vol] 5.1 mg/dL Normal 3.5-7.2 [facility] Comment on above: Performed By: #### T SH, T7, CMP, LIPID, URIC #### [facility] [address] [place] [address] Dr. Gabbi Cummings COAGULATIONOrdered By: Yakelin Patel on 10-09-2021 aPTT Coag (PPP) [Time] 51.9 s High 25.1 - 36.5 second(s) [facility] Coag INR Coag (PPP) [Relative time] 1.1 {INR} Invalid Interpretation Code [facility] PT Coag (PPP) [Time] 12.7 s Normal 10.2 - 12.9 second(s) [facility] ECHOCARDIO M/2D COMPLETEon 0 09-09-2021 ECHOCARDIO M/2D COMPLETE Patient: LUIS ALBERTO OCAMPOJesus Exam Date: 09/09/2021 : 1945 Gender:M Ordering : ELAINE MONTERO Admission #: [id number] Family : DR LUIS DANIEL GALICIA . Order #: [id number] CLICK HERE TO VIEW EXAM ECHOCARDIOGRAM REPORT [...] Area(A4C): 14.40 cm2 Left Atrium Systolic Volume(A2C): 02176 mm3 Left Atrium Systolic Volume(A4C): 66793 mm3 Mitral Valve MV E to A [...] Thapa M.D. on 09/09/2021 at 18:36 Normal [facility] CHEMISTRYOrdered By: SYSTEM SYSTEM on 08-11-2021 Anion [...] rate/Area] mL/min/1.73 m2 Normal >=59mL/min/ 1.73 m2 [facility] Chem S Glucose [Mass/Vol] 122 mg/dL Normal [...] AM) Normal Negative [facility] UA Auto SS [place].plasma/Lithi um.RBC (Bld) [Mass ratio] 0-3 /HPF Normal [...] Desc Clean Catch (08/11/21 7:44 AM) Normal [facility] UA Auto SS Urobilinogen Qn (U) [id number] {June'U}/dL Normal 0.0 - 1.0 EU/dL FT [...] (Unsp spec) Not detected Normal Not Detected [facility] Comment on above: Order Comment: Healt hcare Worker?: N Result Comment: This nucleic acid amplification test was developed and its performance characteristics determined by [employer]. Nucleic acid amplification tests include RT- PCR [...] detected) result in this assay. PERFORMED BY: [address] [place] [address] PATHOLOGIST PROFESSIONAL MODEL LUZ MARINA RAYO M.D. Performed By: #### C ORONAVIRUS #### [facility] , No Panel Information [facility] Vital Signs Date Time Vital Sign Value Performing Clinician Facility 03-31-2023 15:00-0500 Blood Pressure Location [facility] 03-31-2023 15:00-0500 Diastolic blood pressure 70 mm[Hg] [facility] 03-31-2023 15:00-0500 Heart rate 100 /min [facility] 03-31-2023 15:00-0500 Systolic blood pressure 124 mm[Hg] [facility] 08-25-2022 16:00-0400 Body temperature 98.29 [degF] CHACHO Kaiser MD Work Phone: [facility] 08-25-2022 16:00-0400 Body weight 98.25 kg CHACHO Kaiser MD Work Phone: [facility] 08-25-2022 16:00-0400 Diastolic blood pressure 84 mm[Hg] CHACHO Kaiser MD Work Phone: [facility] 08-25-2022 16:00-0400 Heart rate 91 /min CHACHO Kaiser MD Work Phone: [facility] 08-25-2022 16:00-0400 SaO2% (BldA) [Mass fraction] 97 % CHACHO Kaiser MD Work Phone: [facility] 08-25-2022 16:00-0400 Systolic blood pressure 133 mm[Hg] CHACHO Kaiser MD Work Phone: [facility] 08-25-2022 08:47-0400 Blood Pressure Location Dakotahlanie PELAYO [facility] 08-25-2022 08:47-0400 Diastolic blood pressure 83 mm[Hg] Dakotah PELAYO [facility] 08-25-2022 08:47-0400 Heart rate 84 /min Dakotah PELAYO [facility] 08-25-2022 08:47-0400 Respiratory rate 16 /min Dakotah PELAYO [facility] 08-25-2022 08:47-0400 Systolic blood pressure 127 mm[Hg] Dakotah PELAYO [facility] 04-16-2022 15:54-0500 Diastolic blood pressure 77 mm[Hg] Jigar Stanford DO Work Phone: [facility] 04-16-2022 15:54-0500 Heart rate 87 /min Jigar Stanford DO Work Phone: [facility] 04-16-2022 15:54-0500 Systolic blood pressure 149 mm[Hg] Jigar Stanford DO Work Phone: [facility] 03-16-2022 08:25-0500 Blood Pressure Location Dakotah PELAYO [facility] 03-16-2022 08:25-0500 Diastolic blood pressure 97 mm[Hg] Dakotah PELAYO [facility] 03-16-2022 08:25-0500 Heart rate 92 /min Dakotah PELAYO [facility] 03-16-2022 08:25-0500 Systolic blood pressure 149 mm[Hg] Dakotah PELAYO [facility] 02-25-2022 15:41-0500 Body temperature 97.59 [degF] NA Martha CORONADO Work Phone: [facility] 02-25-2022 15:41-0500 Body weight 103.87 kg CHACHO Kaiser MD Work Phone: [facility] 02-25-2022 15:41-0500 Diastolic blood pressure 80 mm[Hg] CHACHO Kaiser MD Work Phone: [facility] 02-25-2022 15:41-0500 Heart rate 91 /min CHACHO Kaiser MD Work Phone: [facility] 02-25-2022 15:41-0500 Respiratory rate 16 /min CHACHO Kaiser MD Work Phone: [facility] 02-25-2022 15:41-0500 SaO2% (BldA) [Mass fraction] 98 % CHACHO Kaiser MD Work Phone: [facility] 02-25-2022 15:41-0500 Systolic blood pressure 137 mm[Hg] CHACHO Kaiser MD Work Phone: [facility] 02-03-2022 15:36-0500 Blood Pressure Location Dakotah PELAYO [facility] 02-03-2022 15:36-0500 Diastolic blood pressure 87 mm[Hg] Dakotah PELAYO [facility] 02-03-2022 15:36-0500 Heart rate 76 /min Dakotah PELAYO [facility] 02-03-2022 15:36-0500 Respiratory rate 16 /min Dakotah PELAYO [facility] 02-03-2022 15:36-0500 Systolic blood pressure 135 mm[Hg] Dakotah PELAYO [facility] 12-11-2021 09:46-0400 Body temperature 98.1 [degF] Larry Henson MD, PhD Work Phone: [facility] 12-11-2021 09:46-0400 Body weight 104.92 kg Larry Henson MD, PhD Work Phone: [facility] 12-11-2021 09:46-0400 Diastolic blood pressure 85 mm[Hg] Larry Henson MD, PhD Work Phone: [facility] 12-11-2021 09:46-0400 Heart rate 71 /min Larry Henson MD, PhD Work Phone: [facility] 12-11-2021 09:46-0400 Respiratory rate 18 /min Larry Henson MD, PhD Work Phone: [facility] 12-11-2021 09:46-0400 SaO2% (BldA) [Mass fraction] 96 % Larry Henson MD, PhD Work Phone: [facility] 12-11-2021 09:46-0400 Systolic blood pressure 147 mm[Hg] Larry Henson MD, PhD Work Phone: [facility] 10-09-2021 11:54-0400 Blood Pressure Location [facility] 10-09-2021 11:54-0400 Diastolic blood pressure 81 mm[Hg] [facility] 10-09-2021 11:54-0400 Heart rate 71 /min [facility] 10-09-2021 11:54-0400 Mean blood pressure 104 mm[Hg] [facility] 10-09-2021 11:54-0400 Respiratory rate 20 /min [facility] 10-09-2021 11:54-0400 SaO2% (BldA) [Mass fraction] 93 % [facility] 10-09-2021 11:54-0400 Systolic blood pressure 149 mm[Hg] [facility] 10-09-2021 11:00-0400 Blood Pressure Location [facility] 10-09-2021 11:00-0400 Diastolic blood pressure 85 mm[Hg] [facility] 10-09-2021 11:00-0400 Heart rate 73 /min [facility] 10-09-2021 11:00-0400 Mean blood pressure 107 mm[Hg] [facility] 10-09-2021 11:00-0400 Respiratory rate 20 /min [facility] 10-09-2021 11:00-0400 SaO2% (BldA) [Mass fraction] 93 % [facility] 10-09-2021 11:00-0400 Systolic blood pressure 151 mm[Hg] [facility] 10-09-2021 10:55-0400 Body temperature 98.78 [degF] [facility] 10-09-2021 10:55-0400 Diastolic blood pressure 81 mm[Hg] [facility] 10-09-2021 10:55-0400 Heart rate 71 /min [facility] 10-09-2021 10:55-0400 Respiratory rate 11 /min [facility] 10-09-2021 10:55-0400 SaO2% (BldA) [Mass fraction] 93 % [facility] 10-09-2021 10:55-0400 Systolic blood pressure 141 mm[Hg] [facility] 10-09-2021 10:45-0400 Respiratory rate 16 /min [facility] 10-09-2021 10:40-0400 Respiratory rate 11 /min [facility] 10-09-2021 10:30-0400 Blood Pressure Location [facility] 10-09-2021 10:30-0400 Body temperature 99.32 [degF] [facility] 10-09-2021 10:25-0400 Respiratory rate 8 /min [facility] 10-09-2021 08:24-0400 Mean blood pressure 100 mm[Hg] [facility] 10-09-2021 08:23-0400 Body temperature 97.7 [degF] [facility] 10-09-2021 08:23-0400 Heart rate 76 /min [facility] 08-28-2021 14:01-0400 Body temperature 98.71 [degF] CHACHO Kaiser MD Work Phone: [facility] 08-28-2021 14:01-0400 Body weight 102.24 kg CHACHO Kaiser MD Work Phone: [facility] 08-28-2021 14:01-0400 Diastolic blood pressure 85 mm[Hg] CHACHO Kaiser MD Work Phone: [facility] 08-28-2021 14:01-0400 Heart rate 102 /min CHACHO Kaiser MD Work Phone: [facility] 08-28-2021 14:01-0400 Respiratory rate 18 /min CHACHO Kaiser MD Work Phone: [facility] 08-28-2021 14:01-0400 SaO2% (BldA) [Mass fraction] 96 % CHACHO Kaiser MD Work Phone: [facility] 08-28-2021 14:01-0400 Systolic blood pressure 141 mm[Hg] CHACHO Kaiser MD Work Phone: [facility] 08-11-2021 07:17-0400 Blood Pressure Location [facility] 08-11-2021 07:17-0400 Body temperature 98.24 [degF] [facility] 08-11-2021 07:17-0400 Diastolic blood pressure 74 mm[Hg] [facility] 08-11-2021 07:17-0400 Heart rate 84 /min [facility] 08-11-2021 07:17-0400 Mean blood pressure 89 mm[Hg] [facility] 08-11-2021 07:17-0400 SaO2% (BldA) [Mass fraction] 96 % [facility] 08-11-2021 07:17-0400 Systolic blood pressure 119 mm[Hg] [facility] 08-11-2021 07:16-0400 Blood Pressure Location [facility] 08-11-2021 07:16-0400 BP/Pulse Patient Position [facility] 08-11-2021 07:16-0400 Diastolic blood pressure 78 mm[Hg] [facility] 08-11-2021 07:16-0400 Heart rate 93 /min [facility] 08-11-2021 07:16-0400 Mean blood pressure 96 mm[Hg] [facility] 08-11-2021 07:16-0400 Respiratory rate 18 /min [facility] 08-11-2021 07:16-0400 Systolic blood pressure 132 mm[Hg] [facility] 06-23-2021 11:18-0400 Blood Pressure Location [facility] 06-23-2021 11:18-0400 Diastolic blood pressure 89 mm[Hg] [facility] 06-23-2021 11:18-0400 Heart rate 87 /min [facility] 06-23-2021 11:18-0400 Respiratory rate 16 /min [facility] 06-23-2021 11:18-0400 Systolic blood pressure 135 mm[Hg] [facility] Encounters Encounter Date Encounter Type Care Provider Facility Start: 03-28-2024 ambulatory Dakotah PELAYO Facility :[facility] Start: 11-11-2023 End: 11-11-2023 ambulatory [facility] Start: 10-01-2023 End: 10-01-2023 ambulatory [facility] Start: 08-31-2023 End: 08-31-2023 ambulatory WHITNEY PHIPPS Not Available Start: 08-05-2023 End: 08-05-2023 ambulatory [facility] Start: 07-07-2023 ambulatory LUIS DANIEL [facility] Start: 06-30-2023 End: 06-30-2023 ambulatory [facility] Start: 06-29-2023 End: 06-29-2023 ambulatory WHITNEY Osorio BEJ Not Available Start: 06-17-2023 End: 06-17-2023 ambulatory [facility] Start: 04-21-2023 Telephone encounter [facility] Provider Ibeth lynnenew cuyama Magnus Comment on above: Appointment Start: 04-16-2023 End: 04-16-2023 ambulatory LUIS DANIEL GALICIA Facility:[facility] Start: 04-16-2023 End: 04-16-2023 Subsequent hospital visit by physician Arrival Time Radiology Work Phone: Radiology [facility] Comment on above: 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] Start: 04-01-2023 End: 04-01-2023 ambulatory LUIS DANIEL SHELLEYY Facility:[facility] Start: 03-31-2023 End: 04-01-2023 ambulatory Ivy X Orsridharch Facility:[facility] Start: 03-31-2023 End: 03-31-2023 Patient encounter procedure Ivy X Orzech [facility] [place] Start: 03-02-2023 End: 03-03-2023 ambulatory LUIS DANIEL M GRAYSON Facility:[facility] Start: 02-24-2023 End: 02-24-2023 ambulatory LUIS DANIEL M Y Facility:[facility] Start: 02-16-2023 End: 02-17-2023 ambulatory Dakotah PELAYO Facility:[facility] Start: 02-16-2023 End: 02-16-2023 Patient encounter procedure Dakotah PELAYO [facility] [place] Start: 11-16-2022 End: 11-16-2022 ambulatory LUIS DANIEL M HOY Facility:[facility] Start: 11-16-2022 End: 11-16-2022 Patient encounter procedure Freda Hendrix OD Work Phone: Ophthalmology Comment on above: S/P YAG capsulotomy, bilateral (Primary Dx); Pseudophakia; Insufficiency of tear film of both eyes Start: 11-05-2022 End: 11-05-2022 ambulatory LINDSEY HUGO Facility:[facility] Start: 11-05-2022 End: 11-05-2022 Office outpatient new 45 minutes Lindsey Hugo MD Work Phone: Ophthalmology Comment on above: 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); Pseudophakia; Insufficiency of tear film of both eyes Start: 09-30-2022 Refill Jigar little DO Work Phone: [facility] Comment on above: Refill Request Start: 08-28-2022 End: 08-28-2022 ambulatory LUIS DANIEL GALICIA Facility:[facility] Start: 08-25-2022 End: 08-26-2022 ambulatory LUIS DANIEL GALICIA Facility:[facility] Start: 08-25-2022 End: 08-25-2022 Lab Drop off Dakotah PELAYO [facility] Start: 08-25-2022 End: 08-26-2022 Patient encounter procedure Dakotah PELAYO [facility] [place] Comment on above: Malignant neoplasm o f prostate (HCC) (Primary Dx) Start: 08-21-2022 End: 08-21-2022 ambulatory ODETTE BARRETT Facility:[facility] Start: 08-19-2022 End: 08-19-2022 ambulatory LUIS DANIEL GALICIA Facility:[facility] Start: 07-20-2022 End: 07-21-2022 ambulatory Dakotah PELAYO Facility:[facility] Start: 05-26-2022 End: 05-26-2022 ambulatory JIGAR STANFORD Facility:[facility] Start: 05-26-2022 End: 05-26-2022 ambulatory Jigar Stanford DO Work Phone: [facility] Comment on above: Primary parkinsonism (HCC) (Primary Dx); Tremor Start: 05-26-2022 End: 05-26-2022 Telemedicine consultation with patient Jigar Stanford DO Work Phone: [facility] Start: 05-08-2022 ambulatory Jigar little DO Work Phone: Neurology Comment on above: Just on May 06 Start: 05-06-2022 End: 05-06-2022 ambulatory JIGAR STANFORD Facility:[facility] Start: 04-20-2022 Telephone encounter Joy Zuñiga (Pss) [...] encounter procedure Dakotah PELAYO [facility] [place] Start: 02-25-2022 End: 02-25-2022 Patient encounter procedure Dillan Kaiser MD Work Phone: Radiation Oncology Comment on above: Malignant neoplasm o f prostate (HCC) (Primary Dx) Start: 02-03-2022 End: 02-03-2022 Patient encounter procedure [facility]ah PELAYO [facility] Start: 01-14-2022 End: 01-14-2022 Patient encounter procedure SONIDO NERI [facility] Start: 01-12-2022 End: 01-12-2022 Patient encounter procedure Dakotah PELAYO [facility] Start: 12-11-2021 End: 12-11-2021 ambulatory Larry Henson MD, PhD Work Phone: Hematology/Oncology Comment on above: Tremor (Primary Dx); Extranodal marginal zone B-cell lymphoma (HCC) Start: 12-11-2021 End: 12-11-2021 Patient encounter procedure Larry Henson MD, PhD Work Phone: [facility] Start: 11-18-2021 End: 11-18-2021 Patient encounter procedure Dakotah Krueger PIERCE [facility] Start: 10-21-2021 Telephone encounter Larry agarwal MD, PhD Work Phone: Hematology/Oncology Comment on above: Care Coordination (N eurologist Referral ) Start: 10-09-2021 End: 10-09-2021 Admission to same day surgery center Supa Dickens Jr[facility] Start: 09-09-2021 End: 09-10-2021 ambulatory [facility] Facility: Start: 08-28-2021 End: 08-28-2021 Patient encounter procedure Dillan Kaiser MD Work Phone: Radiation Oncology Comment on above: Malignant neoplasm o f prostate (HCC) (Primary Dx) Start: 08-11-2021 End: 08-11-2021 Patient encounter procedure Supa Dickens Jr. [facility] Start: 08-11-2021 End: 08-11-2021 Preprocedural examination done [facility]ens Jr[facility] Start: 07-21-2021 End: 07-21-2021 Patient encounter procedure Supa Dickens Jr. [facility] Start: 06-23-2021 End: 06-23-2021 Patient encounter procedure Supa Dickens Jr. [facility] Start: 2021 Orders Only Thomas Mckeon RELOCATION SERVICES SPECIALIST.CHRISTIAN SCIENCE HEALER Work Phone: Ophthalmology Comment on above: Dermatochalasis [...] ation done Marissa Leija MD Work Phone: [facility] Work Phone: Procedures Date Procedure Procedure Detail [...] xm uni/ bi w/interp intermed exam Marissa Lieja MD Work Phone: Start: 02-24-2021 Adult depression [...] Author Start: 02-24-2026 Diabetes Screening Diabetes Screenin [facility] Start: 12-11-2024 DIABETES SCREEN DIABETES SCREEN [facility] Start: 12-11-2024 Diabetes Screening Diabetes Screenin [facility] Start: 03-02-2024 End: 03-02-2024 ambulatory 03/02/2024 3:45 PM EST Results Only [facility] [address] [place] [address] [place] [address] [facility] Start: 03-02-2024 End: 03-02-2024 Patient encounter procedure 03/02/2024 1:30 PM EST Office Visit Radiation Oncology [address] [facility] [place] [address] Dillan Kaiser MD [address] [place] [address] [place] [address] 1yr f/u Radiation Oncology Comment on above: 1yr f/u Start: 11-20-2023 DIABETES SCREEN DIABETES SCREEN [facility] Start: 11-19-2023 End: 11-19-2023 Patient encounter procedure 11/19/2023 2:45 PM EDT Office Visit [facility] Ophthalmology [address] [place], [place] [id number] Odette Barrett, OD [address] [place], [place] [id number] 1 year full exam Ophthalmology Comment on above: 1 year full exam Start: 10-31-2023 Covid-19 Vaccine () Covid-19 Vaccine () [facility] Start: 10-31-2023 Influenza vaccination Influenza Vacc ine (#1) [facility] Start: 03-01-2023 Advance Directive Discussion Advance Directive Discussion [facility] Start: 03-01-2023 Depression Assessment Depression Ass essment [facility] Start: 02-24-2023 End: 04-26-2023 Prostate specific Ag [Mass/volume] in Serum or Plasma PSA/PROSTSPECAG DIAG Lab Routine Malignant neoplasm of prostate (HCC) Expected: 02/24/2023, Expires: 04/26/2023 [facility] Work Phone: Comment on above: Expected: 02/24/2023 , Expires: 04/26/2023 Start: 10-30-2022 Covid-19 Vaccine () Covid-19 Vaccine () [facility] Start: 10-30-2022 Influenza vaccination [facility] [place] Start: 08-26-2022 End: 10-26-2022 Prostate specific Ag [Mass/volume] in Serum or Plasma PSA/PROSTSPECAG DIAG Lab Routine Malignant neoplasm of prostate (HCC) Expected: 08/26/2022, Expires: 10/26/2022 [facility] Work Phone: Comment on above: Expected: 08/26/2022 , Expires: 10/26/2022 Start: 08-25-2022 Adult depression screening assessment DEPRESSION SCREENING [facility] Start: 03-01-2022 ADVANCE DIRECTIVE DISCUSSION ADVANCE DIRECTIVE DISCUSSION [facility] Start: 03-01-2022 DEPRESSION ASSESSMENT DEPRESSION ASS ESSMENT [facility] Start: 02-27-2022 End: 04-29-2022 Prostate specific Ag [Mass/volume] in Serum or Plasma PSA/PROSTSPECAG DIAG Lab Routine Malignant neoplasm of prostate (HCC) Expected: 02/27/2022, Expires: 04/29/2022 [facility] Work Phone: Comment on above: Expected: 02/27/2022 , Expires: 04/29/2022 Start: 02-24-2022 Adult depression screening assessment DEPRESSION SCREENING [facility] Start: 10-30-2021 Influenza vaccination INFLUENZA (#1) [facility] Start: 03-01-2021 ADVANCE DIRECTIVE DISCUSSION ADVANCE DIRECTIVE DISCUSSION [facility] Start: 03-01-2021 DEPRESSION ASSESSMENT DEPRESSION ASS ESSMENT [facility] Start: 02-14-2021 COVID-19 VACCINE (5 - Booster) COVID-19 VACCINE (5 - Booster) [facility] Start: 12-10-2020 COVID-19 VACCINE (3 - Booster for Aisha series) COVID-19 VACCINE (3 - Booster for Aisha series) [facility] Start: 12-10-2020 COVID-19 VACCINE (3 - Aisha risk series) COVID-19 VACCINE (3 - Aisha risk series) [facility] Start: 06-08-2012 PNEUMOVAX AGE 65 AND OVER WITH 5YR LOOKBACK (#1) PNEUMOVAX AGE 65 AND OVER WITH 5YR LOOKBACK (#1) [facility] Start: 2007 RSV Vaccine (1 - 1-d ose 60+ series) RSV Vaccine (1 - 1-dose 60+ series) [facility] Start: 06-08-1997 SHINGRIX VACCINE (1 of 2) SHINGRIX VACCINE (1 of 2) [facility] Start: 06-08-1992 COLOGUARD (FIT-DNA) COLOGUARD (FIT-D NA) [facility] Start: 06-08-1992 Colonoscopy COLONOSCOPY [facility] Start: 06-08-1992 COLORECTAL CANCER SCREENING COLORECTAL CANCER SCREENING [facility] Start: 06-08-[address] COLONOGRAPHY [facility] Start: 06-08-1992 FECAL OCCULT BLOOD FECAL OCCULT BLOO D [facility] Start: 06-08-1992 Screening for malign ant neoplasm of colon [facility] Start: 06-08-1992 SIGMOIDOSCOPY SIGMOIDOSCOPY [facility] Start: 06-08-1982 Lipid 1996 panel - Serum or Plasma Lipid Screening [facility] Start: 06-08-1982 Lipid panel Lipid Screening [facility] Start: 06-08-1982 LIPID SCREEN LIPID SCREEN [facility] Start: 06-08-1966 SHINGRIX VACCINE (1 of 2) SHINGRIX VACCINE (1 of 2) [facility] Start: 06-08-1966 Urine microalbumin profile [facility] Start: 06-08-1965 Anxiety Screening Anxiety Screening [facility] Start: 06-08-1965 Depression Screening Depression Scre ening [facility] Start: 06-08-1953 Pneumococcal Vaccine : 65+ (1 - PCV) Pneumococcal Vaccine: 65+ (1 - PCV) [facility] Start: 06-08-1953 Pneumococcal Vaccine : 65+ (1 of 2 - PCV) Pneumococcal Vaccine: 65+ (1 of 2 - PCV) [facility] Start: 06-08-1953 PNEUMOCOCCAL: 65+ (1 - PCV) PNEUMOCOCCAL: 65+ (1 - PCV) [facility] Start: 1945 ABDOMINAL AORTIC ANEURYSM SCREENING ABDOMINAL AORTIC ANEURYSM SCREENING [facility] End: 05-15-2023 NM BRAIN SPECT NM BRAIN SPECT Radiology Routine Other symptoms and signs involving the nervous system 1 Occurrences starting 04/16/2022 until 05/15/2023 [facility] Work Phone: Comment on above: 1 Occurrences starti ng 04/16/2022 until 05/15/2023 End: 05-20-2024 SPIROMETRY - BASELINE AND POST DILATOR SPIROMETRY - BASELINE AND POST DILATOR PFT Routine Bronchiectasis without acute exacerbation (HCC) 1 Occurrences starting 04/21/2023 until 05/20/2024 [facility] Comment on above: 1 Occurrences starti ng 04/21/2023 until 05/20/2024 [facility] Immunizations Immunization Date Immunization Notes Care Provider Bettie [email or web address] 12-30-2022 influenza virus vaccine, unspecified formulation Ivy Waters [facility] 12-09-2020 influenza virus vaccine, unspecified formulation Dakotah PELAYO [facility] 12-09-2020 influenza, high-dose , quadrivalent vaccine (FLUZONE HIGH DOSE QUADRIVALENT) Marissa Leija MD Work Phone: [facility] 12-05-2020 influenza nasal, unspecified formulation CHACHO Kaiser MD Work Phone: [facility] 12-05-2020 influenza virus vaccine, unspecified formulation Supa Dickens Jr. [facility] 10-15-2020 SARS-CoV-2 (COVID-19 ) Ad26 vaccine, recombinant Supa Dickens JrJesus [facility] 09-05-2020 SARS-CoV-2 (COVID-19 ) Ad26 vaccine, recombinant Supa Dickens JrJesus [facility] 05-24-2020 SARS-CoV-2 (COVID-19 ) mRNA-1273 vaccine Supa Dickens Jr. [facility] 05-20-2020 SARS-CoV-2 (COVID-19 ) mRNA-1273 vaccine Dakotah PELAYO [facility] 05-03-2020 SARS-CoV-2 (COVID-19 ) mRNA-1273 vaccine Dakotah PELAYO [facility] 04-26-2020 SARS-CoV-2 (COVID-19 ) mRNA-1273 vaccine Supa Maninder Juarez [facility] 12-29-2019 influenza virus vaccine, unspecified formulation Dakotah PIERCE [facility] 12-29-2019 Seasonal trivalent influenza vaccine, adjuvanted, preservative free Marissa Leija MD Work Phone: [facility] 12-13-2019 influenza virus vaccine, unspecified formulation Dakotah PELAYO [facility] 12-13-2019 influenza, seasonal, injectable Marissa Leija MD Work Phone: [facility] 12-15-2018 influenza virus vaccine, unspecified formulation Dakotah PELAYO [facility] 12-15-2018 influenza, high dose seasonal, preservative-free Marissa Leija MD Work Phone: [facility] 11-23-2018 influenza virus vaccine, live, attenuated, for intranasal use Marissa Leija MD Work Phone: [facility] 12-22-2016 influenza virus vaccine, unspecified formulation Dakotah PELAYO [facility] 12-22-2016 influenza, high dose seasonal, preservative-free Marissa Leija MD Work Phone: [facility] 11-26-2014 influenza virus vaccine, unspecified formulation Dakotah PELAYO [facility] 11-26-2014 influenza, high dose seasonal, preservative-free Marissa Leija MD Work Phone: [facility] Payers Date Payer Category Payer Medicare MEDICARE MEDICAR E A AND B [id number] 2014-Present [phone] [place] [address] Medicare [id number] 2014 Medicare MEDICARE MEDICAR E A AND B [id number] 2014-Present [phone] [place] [address] Medicare [id number] 2014 Unknown [employer] [place] [employer] [place] MEDICARE SUPPLEMENT [id number] 2014-Present [phone] [address] [employer] [place] [address] Indemnity [id number] 2014 Unknown [employer] [place] [employer] [place] MEDICARE SUPPLEMENT [id number] 2014-Present [phone] [address] [place] [address] Indemnity [id number] 2014 Unknown [id number] 1959 Medicare [id number] 1959 Unknown [id number] 1947 Unknown [id number] 3 1947 Unknown [id number] [id number] 3 1947 Unknown [id number] [id number] 7 1947 Unknown [id number] 2.16.840.1.437786.3.579.2.72 7 1947 Unknown [id number] 2.16.840.1.231595.3.579.2.72 7 1947 Unknown [id number] 2.16.840.1.945934.3.579.2.72 7 1947 Unknown [id number] 2.16.840.1.298912.3.579.2.72 7 1947 Unknown [id number] 2.16.840.1.423944.3.579.2.72 7 1947 Unknown [id number] 2.16.840.1.408581.3.579.2.12 59 1947 Unknown [id number] 2.16.840.1.533221.3.579.2.12 59 1947 Unknown [id number] 2.16.840.1.750912.3.579.2.12 86 1947 Unknown [id number] 2.16.840.1.499096.3.579.2.12 86 1947 Unknown [id number] 2.16.840.1.720165.3.579.2.12 86 1947 Unknown [id number] 2.16.840.1.188063.3.579.2.12 86 1947 Unknown [id number] 2.16.840.1.716661.3.579.2.12 86 1947 Unknown [id number] 2.16.840.1.266852.3.579.2.12 86 1947 Unknown [id number] 2.16.840.1.467872.3.579.2.12 86 1947 Unknown [id number] 86 Social History Date Type Detail Facility Start: 06-23-2021 End: 02-25-2022 Tobacco smoking status SDIS Ex-smoker [facility] Start: 03-01-1969 End: 03-01-2004 History of tobacco use Current smoker [facility] Work Phone: Start: 03-01-1969 End: 03-01-2004 History of tobacco use Cigarette Smoker [facility] Work Phone: Start: 06-06-2021 End: 03-02-2023 Alcohol intake Current drinker of alcohol (finding) [facility] Start: 03-19-2021 History SDOH Alcohol Comment 1 beer per week. [facility] Start: 1945 Sex Assigned At Male [facility] Start: 05-03-2021 End: 08-28-2021 Exposure to SARS-CoV-2 (event) Not sure [facility] Start: 08-19-2022 End: 08-25-2022 Sex Assigned At Male [facility] Start: 07-11-2014 End: 08-19-2022 Cigarettes smoked current (pack per day) - Reported 2 [facility] Start: 07-11-2014 End: 02-25-2022 Tobacco use and exposure Smokeless tobacco non-user [facility] Tobacco smoking status Never [facility] Start: 05-13-2020 Gender identity Identifies as male gender (finding) [facility] Start: 05-13-2020 Sexual orientation Heterosexual (fin fara) [facility] Medical Equipment Procedure Code Equipment Code Equipment Origin al Text Equipment Identifier Dates Lens Iol 0d +20 Jarvis Uv Abs - [id number] Start: 02-15-2020 Comment on above: Description: -0.23 Lens Iol 0d +20 Jarvis Uv Abs - [id number] Start: 06-11-2020 Comment on above: Description: -0.09 Functional Status Date Assessment Result Facility 03-31-2023 Functional Status N/A [facility] 08-25-2022 Functional Status N/A [facility] 03-16-2022 Functional Status N/A [facility] 02-03-2022 Functional Status N/A [facility] 12-29-2021 Functional Status N/A [facility] 11-18-2021 Functional Status N/A [facility] 08-11-2021 Functional Status No [facility] Clinical Notes 02-15-2020 to 04-21-2023 Telephone Encounter [...] to Olivia Quintero documented in this encounter [facility] 04-16-2023 Note HNO ID: [id number] Author: LIZZIE MAC RT(R) Service: ? Author [...] PATIENT PRESENTS WITH AN IMPLANTABLE OR ATTACHED CITY ATTORNEY: No RADIOLOGY DEPARTMENT: CT; Exam(s) Completed: Chest Abdomen Pelvis With IV and Oral contrast PERIPHERAL IV DATA: Site assessment: Clean,Dry and Intact, Site disposition Discontinued SIGNED BY: Lizzie Mac RT(R) April 16, 2023 7:[address] [facility] 04-16-2023 Note HNO ID: [id number] Author: FRANDY SKINNER RN Service: ? Author [...] DATE: April 16, 2023 TIME: 7:[address] [facility] 04-16-2023 History of Present illness Narrative Radiology [...] PATIENT PRESENTS WITH AN IMPLANTABLE OR ATTACHED CITY ATTORNEY: No RADIOLOGY DEPARTMENT: CT; Exam(s) Completed: Chest Abdomen Pelvis With IV and Oral contrast PERIPHERAL IV DATA: Site assessment: Clean,Dry and Intact, Site disposition Discontinued SIGNED BY: RT Linnea(R) April 16, 2023 7:50 AM documented in this encounter [facility] 04-01-2023 Note HNO ID: [id number] Author: LARRY HENSON MD, PhD Service: ? Author Type: Physician Type: Progress Notes Filed: 04/01/2023 16:06 Note Text: [facility] DEPARTMENT OF HEMATOLOGY AND MEDICAL ONCOLOGY ASSESSMENT [...] seen by Dr. Luis Daniel Galicia at [place] and underwent a transthoracic CT guided needle [...] of right iritis. Was followed with outside robotic machine tender production. Noted symptoms improved with eye drops, but [...] ptosis of the (more content not included)... [facility] 03-31-2023 Hospital Discharge instructions Patient Education 03/31/2023 [...] include: ?8 oz (237 mL) of milk, qaxuhja-gxmttqqvzocw-vccwu milk, and calcium-fortifiedfruit juice. Calcium-fortified means that [...] ?Spinach (cooked), rhubarb, beets, sweet potatoes, and Burkinan chard. ?Peanuts. ?Potato chips, nauruan fries, and baked potatoes with skin on. ?Nuts and nut products. ?Chocolate. If you regularly take a diuretic medicine, make sure to eat at least 1 or 2 servings of fruits or vegetables that are high in potassium each day. These include: ?Avocado. ?Banana. ?Chester, prune, carrot, or tomato juice. ?Baked potato. [...] magnesium, fish oil, or vitamin B6. Take qaqm-ihb-dkfksuz and prescription medicines only as told by [...] Casseroles. Pizza. Lasagna. Frozen meals. Potato chips. Yoruba fries. The items listed above may not [...] provider. Document Revised: 05/28/2022 Document Reviewed: 05/28/2022 [employer] Patient Education 2022 [place]. 03/31/2023 19:17:52 Kidney Stones, Buvj-yw-Dbjt Kidney Stones Kidney stones are rock-like masses [...] Follow these instructions at home: Medicines Take lydj-gou-znactmu and prescription medicines only as told by [...] provider. Document Revised: 10/20/2021 Document Reviewed: 10/20/2021 [employer] Patient Education 2022 [place]. 03/31/2023 19:17:39 Benign Prostatic Hyperplasia Benign Prostatic [...] urethra. Follow these instructions at home: Take eyie-mih-pnotkcc and prescription medicines only as told by [...] provider. Document Revised: 09/03/2021 Document Reviewed: 09/03/2021 [employer] Patient Education 2022 [place]. 03/31/2023 19:17:29 Prostate Cancer Prostate Cancer The [...] under a microscope. This is called the Brooklyn score and the total score can range from 6 10, indicating how likely it is that the cancer will spread (metastasize) to other parts of the body. The higher the score, the greater the likelihood that the cancer will spread. Brooklyn 6 or lower: This indicates that the cancer cells look similar to normal prostate cells (well differentiated). Brooklyn 7: This indicates that the cancer cells look somewhat similar to normal prostate cells (moderately differentiated). Brooklyn 8, 9, or 10: This indicates that [...] stress of having cancer. General instructions Take rxla-ckr-vhfpvcu and prescription medicines only as told by your health care provider. If you have to go to the hospital, notify your cancer specialist (oncologist). Keep all follow-up visits. This is important. Where to find more information [employer] [employer]: www.cancer.org [place] [employer] On[employer]: www.cancer.net National Cancer [place]: www.cancer.gov Contact a health care provider if: [...] provider. Document Revised: 05/14/2021 Document Reviewed: 05/14/2021 [employer] Patient Education 2022 [employer]. [facility] 03-02-2023 Note HNO ID: [id number] Author: Dillan KAISER MD Service: ? Author Type: Physician Type: Progress Notes Filed: 03/05/2023 15:59 Note Text: Radiation Oncology - Follow Up Note PATIENT NAME: Luis Alberto Ocampo PATIENT DIAGNOSIS: 1. Prostate adenocarcinoma, initial PSA 5.51, biopsy Brooklyn score 3 + 3 = 6 (grade [...] as active information included in the EMR. [facility] 11-16-2022 Note HNO ID: [id number] Author: Freda Hendrix OD Service: ? Author Type: DRAFTER TOPOGRAPHICAL Type: Progress Notes Filed: 11/16/2022 4:05 PM [...] Hendrix, OD November 16, 2022 4:[address] [facility] 11-16-2022 History of Present illness Narrative ASSESSMENT/PLAN: [...] 2022 4:03 PM documented in this encounter [facility] 11-05-2022 Note HNO ID: [id number] Author: Lindsey Hugo V, MD Service: ? [...] patient was offered a surgery/procedure at a [facility] facility. The surgeon/proceduralist and patient have discussed [...] the consent form. -F/U 1 week with mosaic worker (Frakni) The documentation recorded by the scribe accurately [...] HUGO MD November 05, 2022 3:[address] [facility] 11-05-2022 Note HNO ID: [id number] Author: Freda Hendrix OD Service: ? Author Type: DRAFTER TOPOGRAPHICAL Type: Progress Notes Filed: 11/05/2022 3:35 PM [...] Hendrix, EVAN November 05, 2022 2:[address] [facility] 11-05-2022 History of Present illness Narrative The [...] patient was offered a surgery/procedure at a [facility] facility. The surgeon/proceduralist and patient have discussed [...] the consent form. -F/U 1 week with mosaic worker (Franki) The documentation recorded by the scribe [...] 2022 2:59 PM documented in this encounter [facility] 09-30-2022 Miscellaneous Notes Last appt 05/26/22 [facility] Requested Prescriptions Pending Prescriptions Disp Refills carbidopa-levodopa (SINEMET 25-100) 25-100 mg per tablet 270 tablet 3 Sig: Take 1 tablet by mouth three times daily. documented in this encounter [facility] 08-28-2022 Note HNO ID: [id number] Author: RT Linnea(Mila) Service: ? Author Type: [...] RT Linnea(R) August 28, 2022 8:[address] [facility] 08-25-2022 Note HNO ID: [id number] Author: Dillan Kaiser MD Service: ? Author [...] ASSESSMENT/PLAN: Prostate adenocarcinoma, initial PSA 5.51, biopsy Brooklyn score 3 + 3 = 6 (grade [...] as active information included in the EMR. [facility] 08-25-2022 Nurse Note AUA=20 documented in this encounter [facility] 08-25-2022 History of Present illness Narrative Radiation Oncology - Follow Up Note PATIENT NAME: Luis Alberto Ocampo PATIENT DIAGNOSIS: 1. Prostate adenocarcinoma, initial PSA 5.51, biopsy Brooklyn score 3 + 3 = 6 (grade [...] in the EMR. documented in this encounter [facility] 08-25-2022 Hospital Discharge instructions Patient Education 08/25/2022 [...] if anything looks unusual. Men with a jmvipd-dmbi-utyoen risk for skin cancer may want to see a slunk skinner (human resources team member) for an annual body check. What are the benefits of screening? Cancer screening is done to look for cancer in the very early stages, before it spreads and becomes harder to treat and before you would start to notice symptoms. Finding cancer early improves the chances of successful treatment. It may save your life. Where to find more information [employer] [employer]: www.cancer.org Centers for Disease Control and Prevention: www.cdc.gov National Cancer [place]: www.cancer.gov Contact a health care provider if: [...] provider. Document Revised: 07/14/2021 Document Reviewed: 01/12/2020 [employer] Patient Education 2022 [place]. Follow Up Care 07/28/2022 15:36:43 With:PIERCE CORONADO, Dakotah Krueger, URL Address: [facility] [address] [place] [address]- When: Unknown [facility] [place] 08-21-2022 Note HNO ID: [id number] Author: Odette Barrett, EVAN Service: ? Author Type: DRAFTER TOPOGRAPHICAL Type: Progress Notes Filed: 08/21/2022 3:52 PM [...] Barrett, OD August 21, 2022 3:[address] [facility] 05-26-2022 Note HNO ID: [id number] Author: Jigar Stanford, DO Service: ? Author Type: Physician Type: Progress Notes Filed: 05/27/2022 8:22 AM Note Text: VIRTUAL VISIT PROGRESS NOTE This is a virtual visit using ncyclo video visit. It required patient-provider interaction for the medical decision making as documented below. I have communicated my name and active licensure. The patient's identity and physical location were verified at the time of this visit. 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 05-26-2022 Instructions Jigar Stanford DO - 05/26/2022 [...] Compazine or Phenergan. documented in this encounter [facility] 05-26-2022 History of Present illness Narrative VIRTUAL VISIT PROGRESS NOTE This is a virtual visit using ncyclo video visit. It required patient-provider interaction for the medical decision making as documented below. I have communicated my name and active licensure. The patient's identity and physical location were verified at the time of this visit. 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[facility]) Parkinson disease ([facility]) Polio 1949 No sequela Prostate CA ([facility]) 04/2020 Tremor of both hands on Toprol [...] which included preparing to see the patient, rpze-cx-vzum patient care, completing clinical documentation, obtaining and/or reviewing separately obtained history, counseling and educating the patient/family/caregiver, and communicating results to the patient/family/caregiver Jigar Stanford DO documented in this encounter [facility] 05-06-2022 Note HNO ID: [id number] Author: RT Sam(R) Service: Nuclear Medicine Author [...] 1050 PATIENT DISCHARGED TO: Ambulatory patient, left [place] department area. A Diagnostic radioactive procedure has taken place, with no further precautions necessary other than routine body substance precautions. More information regarding radiation safety can be found using this link: [email or web address] [email or web address]%20Medi [email or web address].pdf SIGNATURE: RT Sam(R) PATIENT NAME: Luis Alberto Ocampo DATE: May 06, 2022 TIME: 11:09 AM PAGER/CONTACT #: [facility] 04-20-2022 Miscellaneous Notes Name: Luis Alberto Ocampo AGE: [age] year old Weight: Last 1 Encounter Wt Readings: Date: Wt: 02/25/2022 103.9 kg (229 lb) Is this appointment for a WBC scan? No. Clinical Scan VIJAY SCAN Scheduled for - Date: 05/06 Time: 1030 Study can ONLY be done Wednesday thru Wednesday Scanned into Syngo: N/A Additional Comments: Route to [facility] Special Studies ([id number]) Are all orders present for scheduling? Yes Appointment Scheduled: Date: 05/06 Time: 1030 Social Work Msw Notes: N/A Route to [facility] SPECIAL STUDIES [[id number]] documented in this encounter [facility] 04-16-2022 Instructions Jigar Stanford DO - 04/16/2022 4:44 PM EST Radiology will contact the patient OR call [phone] option 3 to schedule documented in this encounter [facility] 04-16-2022 History of Present illness Narrative [facility] - NEW PATIENT EVALUATION Luis Daniel Galicia MD, [address] [facility] [id number] Luis Alberto Ocampo is a 76 year [...] has scratchier. 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 He [...] Left pathological reflexes: Mike's absent. Coordination Right: Brirhv-zn-iwbu normal. Rapid alternating movement normal.Left: Oinlkb-ta-fazn normal. Rapid alternating movement normal. Gait Casual [...] stare. Hypophonia was not present. The patient's pennorth forksh sample reveals significant tremulousness without micrographia. Assessment [...] newly diagnosed Neurologic disease and counseling about chcf implications, counseling and review of mutliple symptoms [...] counseling regarding preparing to see the patient, wpbq-vj-jgks patient care, completing clinical documentation, obtaining and/or reviewing separately obtained history, performing a medically appropriate examination, counseling and educating the patient/family/caregiver, ordering medications, tests, or procedures, and communicating results to the patient/family/caregiver. I tried to answer all of the patient's questions and concerns during this visit. Jigar Stanford DO Senior Staff Neurologist - [facility] documented in this encounter [facility] 03-16-2022 Hospital Discharge instructions Patient Education 03/16/2022 [...] who: Are older than age 65. Are -Turkmen. Are obese. Have a family history of [...] cells. Follow these instructions at home: Take hjax-iyq-eieduoe and prescription medicines only as told by [...] 02/15/2006 Document Revised: 01/28/2018 Document Reviewed: 10/26/2016 [employer] Patient Education [employer]. Follow Up Care 02/26/2022 11:42:07 With:PIERCE CORONADO, Dakotah Krueger, URL Address: [facility] [place] [address]- When: Unknown [facility] 02-25-2022 History of Present illness Narrative Radiation [...] ASSESSMENT/PLAN: Prostate adenocarcinoma, initial PSA 5.51, biopsy Brooklyn score 3 + 3 = 6 (grade group 1), clinical stage T1c, N0, M0, stage I [pT2, N0, M0, PSA <10, GG 1] (AJCC 8th ed.) status post prostate brachytherapy 06/26/2020. PSA remains very low. Still with urgency related urinary issues, actively seeing Dr. Pelayo. Recent diagnosis Parkinsons, has worsening tremor, has consult at [facility] with neurology. continues to decline. Considering [...] in the EMR. documented in this encounter [facility] 02-03-2022 Hospital Discharge instructions Patient Education 02/03/2022 [...] urethra. Follow these instructions at home: Take oegp-cya-rtpteas and prescription medicines only as told by [...] 02/15/2006 Document Revised: 01/10/2019 Document Reviewed: 03/22/2017 [employer] Patient Education 2020 [employer]. Follow Up Care 01/14/2022 12:19:47 With:PIERCE CORONADO, Dakotah Krueger, URL Address: [address] [address]- When:3 months [facility] [place] 01-12-2022 Hospital Discharge instructions Patient [...] facility personnel to use a Coude (pronounced hospice care transitions coordinator-day) tipped catheter. Follow Up Care 11/18/2021 10:03:06 With:Dakotah PELAYO Address: [address] [address] [facility] (1) When: Unknown Comments:Call for followup appointment. Please make arrangements to follow-up on Wednesday morning so we can remove the catheter. [facility] 12-11-2021 Nurse Note Additional intake questions: Has the patient had fever, nausea, vomiting, diarrhea, constipation, fatigue for > 1 week? No Does the patient have a decreased appetite? No Does patient want to see a Soft Shoe Dancer? No (yes to any of above refer patient to schedulers for dietitian appointment) ) Does patient have any new or increased numbness or tingling of extremities? No Is patient interested in fertility information? No Does patient need any prescription refills? No Does patient have an advanced directive in place? No, Patient refused referral to Social Work or Resource Center documented in this encounter [facility] 12-11-2021 History of Present illness Narrative Images from the original note were not included. [facility] DEPARTMENT OF HEMATOLOGY AND MEDICAL ONCOLOGY ASSESSMENT [...] seen by Dr. Luis Daniel Galicia at [place] and underwent a transthoracic CT guided needle [...] of right iritis. Was followed with outside robotic machine tender production. Noted symptoms improved with eye drops, but [...] April 2020 Diagnosed with Elham 6 (3+3) [id number] prostate cancer. Underwent brachytherapy with appropriate decrement [...] as above Elham 6 (3+3) prostate cancer (C1yE5C7), low risk; treated with brachytherapy Parkinson's Disease [...] 2021 Larry Henson M.D., Ph.D. Staff Physician [facility] [address] [place] [address] Office Office Appointments Authenticated by responsible provider. documented in this encounter [facility] 11-18-2021 Hospital Discharge instructions Patient Education 11/18/2021 [...] including vitamins, herbs, eye drops, creams, and rwye-fcd-krqlbas medicines. ?Whether you are or may be [...] 12/13/2007 Document Revised: 06/06/2019 Document Reviewed: 12/20/2017 [employer] Patient Education 2020 [employer] Follow Up Care 11/05/2021 14:26:12 With:Dakotah PELAYO MD, URL Address: [address] [address]- When: Unknown With:Dakotah PELAYO MD, URL Address: [address] [address]- When: Unknown [facility] [place] 10-23-2021 Miscellaneous Notes Returned patient's call regarding referral to Neurology. The patient verbalized that he has seen his PCP regarding the hand tremors and was referred to a neurologist at [facility]. He has seen this neurologist twice and verbalized that he is not comfortable he would like a referral to a [facility] Neurologist. Dr. Henson notified of the above. Zo Kingsley RN Patient is calling back to follow-up on request for referral to neurology. States he would like to be seen as close to [place] as possible. Requesting response back: [phone] Luis Alberto Thomas Damaris('s) is calling Larry Henson MD, PhD today regarding Care Coordination (Neurologist Referral ) Patient has been identified by name and birthdate. Requesting response back: [phone] (home) [phone] (cell) Pt called stating that he has [...] October 21, 2021 documented in this encounter [facility] 10-09-2021 Evaluation + Plan note Diagnostic Tests PendingCalculi Analysis Urinary 10/09/21 [facility] 10-09-2021 Hospital Discharge instructions Patient Education [...] Follow these instructions at home: Medicines Take bkbr-fkc-ztengmg and prescription medicines only as told by [...] 03/06/2008 Document Revised: 05/29/2019 Document Reviewed: 01/06/2017 Connect[employer] Patient Education 2020 [employer]. 10/09/2021 11:21:03 Cystoscopy Cystoscopy Cystoscopy is a [...] including vitamins, herbs, eye drops, creams, and khfx-bhb-raxtgkb medicines. Any problems you or family members [...] provider tells you to take them. ?Taking bicw-uqt-elumlow medicines, vitamins, herbs, and supplements. Follow instructions [...] Follow these instructions at home: Medicines Take sinj-khh-yxvoimn and prescription medicines only as told by [...] 02/12/2001 Document Revised: 02/07/2019 Document Reviewed: 02/07/2019 [employer] Patient Education 2020 [employer] 10/09/2021 11:21:03 Post Op Patient Instructions - FT (CUSTOM) Follow Up Care 09/17/2021 14:25:14 With:Supa Dickens Address: [facility] [address] [place] [address]- Business (1) When:6 weeks Comments:PVR with next visitCall for followup appointmentCall for any problems. [facility] 08-28-2021 History of Present illness Narrative [...] day to affected eyelid x 2 wks bmquevix-nex-wqxuq-vit K-lycop (ONE-A-DAY MEN'S 50 PLUS) 400-20-370 mcg [...] in the EMR. documented in this encounter [facility] 07-21-2021 Hospital Discharge instructions Patient Education 07/21/2021 [...] nerve stimulation). For women, using a medical staff manager to prevent urine leaks. This is a [...] right after experiencing incontinence. General instructions Take mjkz-kub-tslhcoq and prescription medicines only as told by [...] 03/25/2005 Document Revised: 02/25/2018 Document Reviewed: 05/27/2017 [employer] Patient Education 2020 [employer] Follow Up Care 06/26/2021 12:54:28 With:Maninder Juarez MD, Supa Viveros, URO Address: [facility] [address] , [place] [address]- When: Unknown Comments:Cysto Lithopathy & bladder stone urolift [facility] 06-23-2021 Hospital Discharge instructions Patient Education 06/23/2021 [...] fried and sweet foods. General instructions Take gmjy-frn-pxymbsj and prescription medicines only as told by [...] 12/12/2009 Document Revised: 06/08/2019 Document Reviewed: 03/03/2018 Connect[employer] Patient Education 2019 [employer]. 06/23/2021 11:49:37 Brachytherapy for Prostate Cancer Brachytherapy [...] including vitamins, herbs, eye drops, creams, and ahsc-vjd-kjcaykr medicines. Any problems you or family members [...] 07/26/2006 Document Revised: 01/28/2018 Document Reviewed: 02/24/2017 Connecture Patient Education 2020 [employer]. Follow Up Care 04/21/2021 09:38:11 With:Maninder Juarez MD, Supa Viveros, URO Address: [facility] [address] , [place] [address]- When: Unknown [facility] 06-06-2021 Instructions Marissa Leija MD - 06/06/2021 [...] with small sip of water Will need sweeper driver if having sedation surgery For surgery at [place] or [place], call . The patient was offered a surgery/procedure at a [facility] facility. The surgeon/proceduralist and patient have discussed [...] okay after surgery. documented in this encounter [facility] 06-06-2021 History of Present illness Narrative Pt [...] with small sip of water Will need sweeper driver if having sedation surgery For surgery at [place] or [place], call . The patient was offered a surgery/procedure at a [facility] facility. The surgeon/proceduralist and patient have discussed [...] 2021 2:38 PM. documented in this encounter [facility] 05-30-2021 Nurse Note AUA=23 documented in this encounter [facility] 05-28-2021 Miscellaneous Notes Called patient and LVM for him to call back and schedule a follow up appointment with Dr. Leija. Patient wanting a call back from Dr. Barrett because he hasnt heard from Dr. Leija or Dr. Barrett about some results. He can be reached at [phone]. 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 documented as of this encounter (statuses as of 06/06/2021) [facility] History of Past illness Narrative* Problem Noted Date Resolved Date Combined 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 02/15/2020 02/16/2020 Senile incipient cataract, bilateral 12/28/2019 02/16/2020 Dry eye syndrome of bilateral lacrimal glands 12/28/2019 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 documented as of this encounter (statuses as of 2021) [facility] History of Past illness Narrative* Problem Noted Date Resolved Date Combined 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 02/15/2020 02/16/2020 Senile incipient cataract, bilateral 12/28/2019 02/16/2020 Dry eye syndrome of bilateral lacrimal glands 12/28/2019 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 documented as of this encounter (statuses as of 08/16/2021) [facility] History of Past illness Narrative* Problem Noted Date Resolved Date Combined 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 02/15/2020 02/16/2020 Senile incipient cataract, bilateral 12/28/2019 02/16/2020 Dry eye syndrome of bilateral lacrimal glands 12/28/2019 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 documented as of this encounter (statuses as of 09/02/2021) [facility] History of Past illness Narrative* Problem Noted Date Resolved Date Combined 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 02/15/2020 02/16/2020 Senile incipient cataract, bilateral 12/28/2019 02/16/2020 Dry eye syndrome of bilateral lacrimal glands 12/28/2019 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 documented as of this encounter (statuses as of 10/23/2021) [facility] History of Past illness Narrative* Problem Noted Date Resolved Date Combined 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 02/15/2020 02/16/2020 Senile incipient cataract, bilateral 12/28/2019 02/16/2020 Dry eye syndrome of bilateral lacrimal glands 12/28/2019 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 documented as of this encounter (statuses as of 12/12/2021) [facility] History of Past illness Narrative* Problem Noted Date Resolved Date Combined 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 02/15/2020 02/16/2020 Senile incipient cataract, bilateral 12/28/2019 02/16/2020 Dry eye syndrome of bilateral lacrimal glands 12/28/2019 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 documented as of this encounter (statuses as of 03/04/2022) [facility] History of Past illness Narrative* Problem Noted Date Resolved Date Combined 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 02/15/2020 02/16/2020 Senile incipient cataract, bilateral 12/28/2019 02/16/2020 Dry eye syndrome of bilateral lacrimal glands 12/28/2019 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 documented as of this encounter (statuses as of 04/17/2022) [facility] History of Past illness Narrative* Problem Noted Date Resolved Date Combined 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 02/15/2020 02/16/2020 Senile incipient cataract, bilateral 12/28/2019 02/16/2020 Dry eye syndrome of bilateral lacrimal glands 12/28/2019 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 documented as of this encounter (statuses as of 04/21/2022) [facility] History of Past illness Narrative* Problem Noted Date Resolved Date Combined 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 02/15/2020 02/16/2020 Senile incipient cataract, bilateral 12/28/2019 02/16/2020 Dry eye syndrome of bilateral lacrimal glands 12/28/2019 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 documented as of this encounter (statuses as of 05/08/2022) [facility] History of Past illness Narrative* Problem Noted Date Resolved Date Combined 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 02/15/2020 02/16/2020 Senile incipient cataract, bilateral 12/28/2019 02/16/2020 Dry eye syndrome of bilateral lacrimal glands 12/28/2019 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 documented as of this encounter (statuses as of 05/27/2022) [facility] History of Past illness Narrative* Problem Noted Date Resolved Date Combined 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 02/15/2020 02/16/2020 Senile incipient cataract, bilateral 12/28/2019 02/16/2020 Dry eye syndrome of bilateral lacrimal glands 12/28/2019 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] of this encounter (statuses as of 04/21/2023) [facility] No data available for this section [facility] [place] Evaluation + Plan note Future Appointments Appointment Date:08/14/2021 11:45:00 AM Scheduled Provider: Location:[facility] Future Appointments Appointment Date:01/05/2022 07:45:00 AM Scheduled Provider: Location:[facility] Urology Surgical Services Appointment Type:Urology CALL PAT FT Appointment Date:01/12/2022 01:00:00 PM Scheduled Provider: Location:[facility]rology Surgical Services Appointment Type:Urology FT [facility] Evaluation + Plan note Future Appointments Appointment Date:01/14/2022 11:30:00 AM Scheduled Provider: Location:[facility] Appointment Type:URO [facility] Future Appointments Appointment Date:02/03/2022 03:30:00 PM Scheduled Provider:Dakotah PELAYO MD Location:[facility] Appointment Type:URO Office Visit [facility] evaluation + Plan note Future Appointments Appointment Date:05/05/2022 03:15:00 PM Scheduled Provider:Dakotah PELAYO MD Location:[facility] Appointment Type:URO Office Visit [facility] evaluation + Plan note Future Appointments Appointment Date:02/16/2023 11:00:00 AM Scheduled Provider:Dakotah PELAYO MD Location:[facility] Appointment Type:URO Office Visit [facility] Evaluation + Plan note Future Appointments Appointment Date:02/16/2023 11:00:00 AM Scheduled Provider:Dakotah PELAYO MD Location:[facility] Appointment Type:URO Office Visit Diagnostic Tests Pending * Calculi Analysis Urinary [facility] Future Appointments Appointment Date:03/28/2024 03:15:00 PM Scheduled Provider:Dakotah PELAYO MD Location:[facility] Appointment Type:URO Office Visit [facility] evaluation note* Diagnosis 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 [facility] Diagnosis Dermatochalasis of both upper eyelids- Primary Brow ptosis, left [facility] Diagnosis Malignant neoplasm of prostate (HCC)- Primary Malignant neoplasm of prostate [facility] Diagnosis Tremor- Primary Abnormal involuntary movements Extranodal marginal zone B-cell lymphoma (HCC) Marginal zone lymphoma, unspecified site, extranodal and solid organ sites [facility] Diagnosis Malignant neoplasm of prostate (HCC)- Primary Malignant neoplasm of prostate [facility]* Diagnosis Tremor- Primary Abnormal involuntary movements Other symptoms and signs involving the nervous system [facility]* Diagnosis Primary parkinsonism (HCC)- Primary Paralysis agitans Tremor Abnormal involuntary movements [facility] in [facility] Diagnosis Malignant neoplasm of prostate (HCC)- Primary Malignant neoplasm of prostate [facility] Diagnosis Primary parkinsonism (HCC) Paralysis agitans [facility] Diagnosis 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- Primary Pseudophakia Lens replaced by other means Insufficiency of tear film of both eyes [facility]* Diagnosis S/P YAG capsulotomy, bilateral- Primary Pseudophakia Lens replaced by other means Insufficiency of tear film of both eyes [facility] Diagnosis Bronchiectasis without acute exacerbation (HCC)- Primary Bronchiectasis without acute exacerbation [facility] Diagnosis Preop examination- Primary Preoperative examination, [...] solid organ sites [facility] this encounter [facility] No data available for this section [facility] No data available for this section [facility] HospitalReason for referral (narrative)* Outpatient Procedure (Routine) - Authorized Specialty Diagnoses / Procedures Referred By Juliet t Referred To Contact [facility] Diagnoses Bronchiectasis without acute exacerbation (HCC) Procedures SPIROMETRY - BASELINE AND POST DILATOR BRNCDILAT RSPSE SPMTRY PRE&POST-BRNCDILAT ADMN Pulm Main [address] [place] [address] [facility] [place] [address] [place] [address] Referral ID Status Reason Start Date Expiration Date Visits Requested Visits Authorized [id number] Authorized Auto-Generat ed Referral 04/21/2023 05/20/2024 1 1 [facility] Summary Purpose Family History No Family History Records FoundNo Family History Records Found No data available for this section No data available for this section No Family History Records FoundNo Family History Records FoundNo Family History Records FoundNo Family History Records FoundNo Family History Records Found Advance Directives No Advanced Directives Records FoundDocuments on File Type Date Recorded 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 Advance Directive(s) 04/04/2021 9:46 AM [...] TOMOGRAPHY THORAX W/[place] [address] [place] [address] Ct Imaging [facility] Referral ID Status Reason Start Date Expiration Date V isits Requested Visits Authorized [id number] Closed Auto-Generate d Referral 04/01/2023 04/30/2024 1 1 Specialty Diagnoses / Procedures Referred By Juliet gold Referred To Contact CT IMAGING Diagnoses Extranodal marginal zone B-cell lymphoma (HCC) Procedures CT ABD/PEL W IVCON CT ABD & PELVIS W/[place] [address] [place] [address] [place] [address] Referral ID Status Reason Start Date Expiration Date V isits Requested Visits Authorized [id number] Closed Auto-Generate d Referral 04/01/2023 04/30/2024 1 1 Specialty Diagnoses / Procedures Referred By Juliet t Referred To Contact Diagnoses Primary parkinsonism (HCC) Procedures PROVIDER ORDERED FOLLOW UP OFFICE/OUTPATIENT [facility] 60-74 MINUTES Jigar Stanford, DO [address] [place] [address] Referral ID Status Reason Start Date Expiration Date V isits Requested Visits Authorized [id number] Authorized 11/26/2022 02/24/2023 1 1 Specialty Diagnoses / Procedures Referred By José Miguelac t Referred To Contact Diagnoses Tremor Procedures PROVIDER ORDERED FOLLOW UP OFFICE/OUTPATIENT [facility] 60-74 MINUTES Jigar Stanford, DO [address] [place] [address] Referral ID Status Reason Start Date Expiration Date Visits Requested Visits Authorized [id number] Authorized PCP Requested Referral 07/14/2022 07/15/2022 1 1 Specialty Diagnoses / Procedures Referred By Juliet t Referred To Contact MOLECULAR & FUNCTIONAL IMAGING Diagnoses Other symptoms and signs involving the nervous system Procedures NM BRAIN SPECT RP LOCLZJ MARANDA SPECT 1 AREA SINGLE DAY IMAGING Jigar Stanford DO [address] [place] [address] Molecular & Functional Imaging [address] [place] [address] Referral ID Status Reason Start Date Expiration Date Visits Requested Visits Authorized [id number] Pending Review Auto-Generat ed Referral 04/16/2022 05/16/2023 1 1 Specialty Diagnoses / Procedures Referred By Juliet t Referred To Contact Neurology Diagnoses Tremor Procedures CONSULT TO NEUROLOGY OFFICE/OUTPATIENT [facility] 60-74 MINUTES [place] [address] [place] [id number] Referral ID Status Reason Start Date Expiration Date Visits Requested Visits Authorized [id number] Authorized PCP Requested Referral 12/11/2022 1 1 Additional Source Comments (unrecognized sect ion and content) No Status Records FoundNo Status Records FoundNo Status Records FoundNo Status Records FoundNo Status Records FoundNo Status Records FoundNo Status Records Found INFORMATION SOURCE (unrecogn ized section and content) DATE CREATED AUTHOR 04/24/2021 [facility] DATE CREATED AUTHOR AUTHOR'S ORGANIZ ATION 04/09/2022 [facility] DATE CREATED AUTHOR AUTHOR'S ORGANIZ ATION 04/29/2023 [facility] DATE CREATED AUTHOR AUTHOR'S ORGANIZ ATION 05/13/2023 [facility] DATE CREATED AUTHOR AUTHOR'S ORGANIZ ATION 09/02/2023 [facility] DATE CREATED AUTHOR AUTHOR'S ORGANIZ ATION 10/05/2023 [facility] DATE CREATED AUTHOR AUTHOR'S ORGANIZ ATION 11/13/[address] [facility] Source Comments (unrecognize d section and content) In the event this informatio n is protected by the Federal Confidentiality of Alcohol and Drug Abuse Patient Records regulations: The Federal rules restrict any use of the information to criminally investigate or prosecute any alcohol or drug abuse patient.[facility] MemorialIn the event this information is protected by the Federal Confidentiality of Alcohol and Drug Abuse Patient Records regulations: The Federal rules restrict any use of the information to criminally investigate or prosecute any alcohol or drug abuse patient.[facility] MemorialIn the event this information is protected by the Federal Confidentiality of Alcohol and Drug Abuse Patient Records regulations: The Federal rules restrict any use of the information to criminally investigate or prosecute any alcohol or drug abuse patient.[facility] MemorialIn the event this information is protected by the Federal Confidentiality of Alcohol and Drug Abuse Patient Records regulations: The Federal rules restrict any use of the information to criminally investigate or prosecute any alcohol or drug abuse patient.[facility] MemorialIn the event this information is protected by the Federal Confidentiality of Alcohol and Drug Abuse Patient Records regulations: The Federal rules restrict any use of the information to criminally investigate or prosecute any alcohol or drug abuse patient.[facility] MemorialIn the event this information is protected by the Federal Confidentiality of Alcohol and Drug Abuse Patient Records regulations: The Federal rules restrict any use of the information to criminally investigate or prosecute any alcohol or drug abuse patient.[facility] MemorialIn the event this information is protected by the Federal Confidentiality of Alcohol and Drug Abuse Patient Records regulations: The Federal rules restrict any use of the information to criminally investigate or prosecute any alcohol or drug abuse patient.[facility] MemorialIn the event this information is protected by the Federal Confidentiality of Alcohol and Drug Abuse Patient Records regulations: The Federal rules restrict any use of the information to criminally investigate or prosecute any alcohol or drug abuse patient.[facility] MemorialIn the event this information is protected by the Federal Confidentiality of Alcohol and Drug Abuse Patient Records regulations: The Federal rules restrict any use of the information to criminally investigate or prosecute any alcohol or drug abuse patient.[facility] MemorialIn the event this information is protected by the Federal Confidentiality of Alcohol and Drug Abuse Patient Records regulations: The Federal rules restrict any use of the information to criminally investigate or prosecute any alcohol or drug abuse patient.[facility] MemorialIn the event this information is protected by the Federal Confidentiality of Alcohol and Drug Abuse Patient Records regulations: The Federal rules restrict any use of the information to criminally investigate or prosecute any alcohol or drug abuse patient.[facility] MemorialIn the event this information is protected by the Federal Confidentiality of Alcohol and Drug Abuse Patient Records regulations: The Federal rules restrict any use of the information to criminally investigate or prosecute any alcohol or drug abuse patient.[facility] MemorialIn the event this information is protected by the Federal Confidentiality of Alcohol and Drug Abuse Patient Records regulations: The Federal rules restrict any use of the information to criminally investigate or prosecute any alcohol or drug abuse patient.[facility] MemorialIn the event this information is protected by the Federal Confidentiality of Alcohol and Drug Abuse Patient Records regulations: The Federal rules restrict any use of the information to criminally investigate or prosecute any alcohol or drug abuse patient.[facility] MemorialIn the event this information is protected by the Federal Confidentiality of Alcohol and Drug Abuse Patient Records regulations: The Federal rules restrict any use of the information to criminally investigate or prosecute any alcohol or drug abuse patient.[facility] MemorialIn the event this information is protected by the Federal Confidentiality of Alcohol and Drug Abuse Patient Records regulations: The Federal rules restrict any use of the information to criminally investigate or prosecute any alcohol or drug abuse patient.[facility] MemorialIn the event this information is protected by the Federal Confidentiality of Alcohol and Drug Abuse Patient Records regulations: The Federal rules restrict any use of the information to criminally investigate or prosecute any alcohol or drug abuse patient.[facility] Reason for Visit (unrecogniz ed section and content) Reason Comments Established Patient Specialty Diagnoses / Procedures Referred By Juliet gold Referred To Contact Diagnoses Tremor Procedures PROVIDER ORDERED FOLLOW UP OFFICE/OUTPATIENT NEW [facility] 60-74 MINUTES Jigar Stanford, DO [address] [place] [address] Referral ID Status Reason Start Date Expiration Date V isits Requested Visits Authorized [id number] Closed PCP Requested Referral 07/14/2022 07/15/2022 1 [...] TOMOGRAPHY THORAX W/[place] [address] [place] [address] [place] [address] Referral ID Status Reason Start Date Expiration Date V isits Requested Visits Authorized [id number] Closed Auto-Generate d Referral 04/01/2023 04/30/2024 1 1 Care Teams (unrecognized sec tion and content) Commercial Loan Assistant Relationship Specialty Start Date End Date Luis Daniel Galicia MD [address] [place] [address] PCP - General Family Practice 02/17/18 Alexandria Camargo, RN Specialty Cooking Teacher Radiation Oncology 06/17/17 Commercial Loan Assistant Relationship Specialty Start Date End Date Luis Daniel Galicia MD [address] [place] [address] PCP - General Family Practice 02/17/18 Alexandria Camargo RN Specialty Cooking Teacher Radiation Oncology 06/17/17 Commercial Loan Assistant Relationship Specialty Start Date End Date Luis Daniel Galicia MD [address] [place] [id number] PCP - General Family Practice 02/17/18 Alexandria Camargo RN Specialty Cooking Teacher Radiation Oncology 06/17/17 Commercial Loan Assistant Relationship Specialty Start Date End Date Luis Daniel Galicia MD [address] [place] [address] PCP - General Family Practice 02/17/18 Alexandria Camargo, RN Specialty Cooking Teacher Radiation Oncology 06/17/17 Commercial Loan Assistant Relationship Specialty Start Date End Date Luis Daniel Galicia MD [address] [place] [address] PCP - General Family Practice 02/17/18 Alexandria Camargo, RN Specialty Cooking Teacher Radiation Oncology 06/17/17 Commercial Loan Assistant Relationship Specialty Start Date End Date Luis Daniel Galicia MD [address] [place] [id number] PCP - General Family Medicine 02/17/18 Alexandria Camargo, RN Specialty Cooking Teacher Radiation Oncology 06/17/17 Commercial Loan Assistant Relationship Specialty Start Date End Date Luis Daniel Galicia MD [address] [place] [id number] PCP - General Family Medicine 02/17/18 lAexandria Camargo, RN Specialty Cooking Teacher Radiation Oncology 06/17/17 Commercial Loan Assistant Relationship Specialty Start Date End Date Luis Daniel Galicia MD [address] [place] [id number] PCP - General Family Medicine 02/17/18 Alexandria Camargo, RN Specialty Cooking Teacher Radiation Oncology 06/17/17 Commercial Loan Assistant Relationship Specialty Start Date End Date Luis Daniel Galicia MD [address] [place] [address] PCP - General Family Medicine 02/17/18 Alexandria Camargo, RN Specialty Cooking Teacher Radiation Oncology 06/17/17 Commercial Loan Assistant Relationship Specialty Start Date End Date Luis Daniel Galicia MD PCP - General Family Medicine 02/17/18 Alexandria Camargo, RN Specialty Cooking Teacher Radiation Oncology 06/17/17 Commercial Loan Assistant Relationship Specialty Start Date End Date Luis Daniel Galicia MD PCP - General Family Medicine 02/17/18 Alexandria Camargo, RN Specialty Cooking Teacher Radiation Oncology 06/17/17 Commercial Loan Assistant Relationship Specialty Start Date End Date Luis Daniel Galicia MD PCP - General Family Medicine 02/17/18 Alexandria Camargo, RN Specialty Cooking Teacher Radiation Oncology 06/17/17 Commercial Loan Assistant Relationship Specialty Start Date End Date Luis Daniel Galicia MD PCP - General Family Medicine 02/17/18 Alexandria Camargo, RN Specialty Cooking Teacher Radiation Oncology 06/17/17 Commercial Loan Assistant Relationship Specialty Start Date End Date Luis Daniel Galicia MD PCP - General Family Medicine 02/17/18 Alexandria Camargo, RN Specialty Cooking Teacher Radiation Oncology 06/17/17 Commercial Loan Assistant Relationship Specialty Start Date End Date Luis Daniel Galicia MD PCP - General Family Medicine 02/17/18 Alexandria Camargo, RN Specialty Cooking Teacher Radiation Oncology 06/17/17 Jigar Stanford DO [address] [place] [id number] Lab Technician Neurology 02/17/23 Commercial Loan Assistant Relationship Specialty Start Date End Date Luis Daniel Galicia MD PCP - General Family Medicine 02/17/18 Alexandria Camargo, RN Specialty Cooking Teacher Radiation Oncology 06/17/17 Jigar Stanford [address] [place] [id number] Lab Technician Neurology 02/17/23 FOR RECORDS PERTAINING TO PATIENTS [...] BE BASED ON THE PRIMARY CLINICAL RECORDS. [email or web address] provides no warranty or guarantee of the accuracy or completeness of information in this document.
== END 2023-11-14 06:01 | disposition home or self-care (01) ==
LOC: LAB 11-16 07:51
PROVIDERS: PCP Family Medicine; Visit Provider Family Medicine
DX: K52.9 Noninfective gastroenteritis and colitis, unspecified (principal)
CPT/HCPCS: 87045; 87046; 87427; 87493

== ENCOUNTER 2023-11-15 09:35 | Outpatient (OUT) | payer MEDICARE, OTHER, SELFPAY ==
--- NOTE | 2023-11-15 09:41 | XR_ITS ---
The [address] [address] Patient Name: GOOD MCDONNELL MRN: [id number] date: 1945 Sex: M Assigned Patient Location: [facility] Current Patient Location: LAB Accession/Order Number: [id number] Exam Date: 11/15/2023 09:43 Report Date: 11/16/2023 09:12 At the request of: LUIS DANIEL GALICIA Procedure: XR acute abdomen series EXAMINATION: XR acute abdomen series HISTORY: Irritable Bowel K58.9 COMPARISON: No relevant comparison available. FINDINGS: LUNGS: Low lung volumes. Elevated right hemidiaphragm. No focal parenchymal infiltrates MEDIASTINUM: No abnormal widening. BOWEL GAS PATTERN: Overall nonobstructive bowel gas pattern. Moderate amount of stool throughout the colon. FREE AIR: None. 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 XR/XR acute abdomen series IMPRESSION: Clear lungs Nonobstructive bowel gas pattern Electronically authenticated by: JASON FIGUEROA Date: 11/16/2023 09:12
--- OUTSIDE RECORDS SUMMARY | 2023-11-15 10:00 | XMS_ITS | CCD ---
Author Organization [facility] Care Team Providers Care Manager Business Management Name Role Phone Alexandria Camargo RN Unavailable Unavailable Luis Daniel Galicia MD Primary Care Provider Luis Daniel Galicia Primary Care Physician Alexandria Camargo RN Unavailable Unavailable Luis Daniel Galicia MD Primary Care Provider Luis Daniel Galicia MD Primary Care Provider Alexandria Camargo RN Unavailable Unavailable Luis Daniel Galicia MD Primary Care Provider ELAINE MONTERO Admitting Unavailable ELAINE MONTERO Attending Unavailable DR LUIS DANIEL GALICIA Primary Care Unavailable ELAINE MONTERO Consulting Unavailable DR LUIS DANIEL GALICIA Admitting Unavailable DR LUIS DANIEL GALICIA Attending Unavailable DR LUIS DANIEL GALICIA Primary Care Unavailable DR LUIS DANIEL GALICIA Consulting Unavailable Luis Daniel Galicia MD Primary Care Provider Alexandria Camargo RN Unavailable Unavailable Jigar Stanford DO Unavailable [phone] LUIS DANIEL GALICIA Primary Care Unavailable Dillan KAISER Attending Unavailable LUIS DANIEL GALICIA M Primary Care Unavailable Dillan KAISER Referring Unavailable LUIS DANIEL GALICIA M Primary Care Unavailable FREDA HENDRIX Attending Unavailable FREDA HENDRIX Referring Unavailable LINDSEY HUGO Attending Unavailable LUIS DANIEL GALICIA M Primary Care Unavailable ODETTE BARRETT Referring Unavailable LUIS DANIEL GALICIA M Primary Care Unavailable LUIS DANIEL GALICIA M Primary Care Unavailable Dillan KAISER Attending Unavailable ODETTE BARRETT Referring Unavailable LUIS DANIEL GALICIA M Primary Care Unavailable ODETTE BARRETT Attending Unavailable HOY, LUIS DANIEL M Primary Care Unavailable GOSTKOWSKI, JIGAR T Attending Unavailable GOSTKOWSKI, JIGAR T Referring Unavailable HOY, LUIS DANIEL M Primary Care Unavailable GOSTKOWSKI, JIGAR T Referring Unavailable HOY, LUIS DANIEL M Primary Care Unavailable GOSTKOWSKI, JIGAR T Referring Unavailable HOY, LUIS DANIEL M Primary Care Unavailable HOY, LUIS DANIEL M Primary Care Unavailable LARRY HENSON T Referring Unavailable HOY, LUIS DANIEL M Primary Care Unavailable LARRY HENSON Attending Unavailable Dakotah PELAYO P Attending Unavailable Dakotah PELAYO P Admitting Unavailable Dakotah PELAYO P Attending Unavailable PIERCE, Dakotah P Attending Unavailable Ivy Waters Attending Unavailable Dakotah PELAYO Attending Unavailable Dakotah PELAYO Attending Unavailable WHITNEY PHIPPS Attending Unavailable WHITNEY PHIPPS Attending Unavailable COLEEN HAYWARD M Attending Unavailable MAINOR, COLEEN M Referring Unavailable HOY, LUIS DANIEL M Primary Care Unavailable COLEEN HAYWARD Attending Unavailable MAINORKYLENA M Referring Unavailable HOY, LUIS DANIEL M Primary Care Unavailable WHITNEY PHIPPS Referring Unavailable HOY, LUIS DANIEL M Primary Care Unavailable MAINOR, COLEEN M Attending Unavailable MAINOR, COLEEN M Referring Unavailable HOY, LUIS DANIEL M Primary Care Unavailable Luis Daniel Galicia MD Primary Care Provider [phone] COLEEN HAYWARD Attending Unavailable HOY, LUIS DANIEL M Referring Unavailable HOY, LUIS DANIEL M Primary Care Unavailable HOY, LUIS DANIEL M Referring Unavailable HOY, LUIS DANIEL M Primary Care Unavailable MAINOR, COLEEN M Attending Unavailable HOY, LUIS DANIEL M Referring Unavailable HOY, LUIS DANIEL M Primary Care Unavailable MAINOR, COLEEN M Attending Unavailable HOY, LUIS DANIEL M Referring Unavailable HOY, LUIS DANIEL M Primary Care Unavailable Allergies Allergy Classification Reported Allergen(s) Allergy Type Date of Onset Reaction(s) Facility (18 sources) Erythromycin; Translations: [ERYTHROMYCIN] Drug Allergy 2 Itching [facility] Work Phone: (18 sources) Iodine And Iodide Containing Products; Translations: [IODINE AND IODIDE CONTAINING PRODUCTS] Propensity to adverse reactions to drug 1 Other: See Comments [facility] (12 sources) Contrast media; Translations: [Contrast Dye] Drug allergy Loss of consciousness [facility] (1 source) Iodine (And Iodine Containting Drugs) Drug allergy (disorder) [facility] Repository (1 source) Acetaminophen; Translations: [acetaminophen] Drug Allergy [facility] Repository (1 source) No Known Medication Allergies; Translations: [No Known Medication Allergies] Propensity to adverse reactions (disorder) [facility] Repository Medications Current Medications Medication Drug Class(es) Dates Sig (Normalized) Sig (Original) acetaminophen 500 mg oral capsule (17 sources) take 2 capsules by mouth once daily Acetaminophen 500 mg cap Take 500 mg by mouth once daily. 2 CAPSULES DAILY Active Comment on above: Take 500 mg by mouth once daily. 2 CAPSULES DAILY acetaminophen 325 mg / HYDROcodone bitartrate 7.5 mg oral tablet (6 sources) Opioid Agonist Start: 11-18-2021 [place] 325 mg-7.5 mg oral tablet See Instructions, 1 tab(s), Refill(s) 0, Take 1 tablet 1 hour before procedure., [facility] #[id number], 190, cm, 11/18/21 9:22:00 EDT, Height/Length Dosing, 102, kg, 11/18/21 9:22:00 EDT, Weight Dosing Start Date: 11/18/21 Status: Ordered acetaminophen 325 mg / traMADol hydrochloride 37.5 mg oral tablet (6 sources) Opioid Agonist Start: 11-18-2021 Ultracet 325 mg-37.5 mg Tab 1 tab(s), Oral, As Directed, 20 tab(s), Refill(s) 0, Take 1 tablet every 4 hours as needed for pain., [facility] #[id number], 190, cm, 11/18/21 9:22:00 EDT, Height/Length Dosing, 102, kg, 11/18/21 9:22:00 EDT, Weight Dosing Start Date: 11/18/21 Status: Ordered carbidopa 25 mg / levodopa 100 mg oral tablet (20 sources) Aromatic Amino Acid Decarboxylation Inhibitor, Aromatic Amino Acid Start: 04-21-2021 End: 09-30-2023 take 1 tablet by mouth three times daily carbidopa-levodopa 25 mg-100 mg Tab 1 tab(s), Oral, TID, Refill(s) 0, Parkinsons Start Date: 04/21/21 Status: Ordered Start: 04-21-2021 carbidopa-levo dopa 25 mg-100 mg Tab Refill(s) 0 Start Date: 04/21/21 Status: Ordered End: 12-12-2021 take 1 tablet by mouth twice daily carbidopa-levodopa (SINEMET 25-100) 25-100 mg per tablet Take 1 tablet by mouth twice daily. 0 12/12/2021 Discontinued Comment on above: Take 1 tablet by tali th twice daily. Take 1 tablet by tali th three times daily. Celebrate Multivitamin (2 sources) Start: 09-17-19 Celebrate Multivitamin Daily, Refill(s) 0 Start Date: 09/16/18 Status: Ordered cephalexin 500 mg oral capsule (1 source) Cephalosporin Antibacterial Start: 10-10-19 End: 10-15-19 take 1 capsule by mouth every twelve hours Keflex 500 mg Cap 500 mg = 1 cap(s), Oral, q12hr, X 5 day(s), # 10 cap(s), Refills(s) 0, Pharmacy: [facility] #[id number], 190, cm, 09/24/21 8:06:00 EDT, Height/Length Dosing, 102.5, kg, 09/24/21 8:06:00 EDT, Weight Dosing Start Date: 10/09/21 Stop Date: 10/14/21 Status: Ordered ciprofloxacin 500 mg oral tablet (8 sources) Quinolone Antimicrobial Start: 11-19-19 take 1 tablet by mouth twice daily Cipro 500 mg Tab 500 mg = 1 tab(s), Oral, BID, Start 3 days prior to procedure., # 14 tab(s), Refills(s) 0, Pharmacy: [facility] #[id number], 190, cm, 11/18/21 9:22:00 EDT, Height/Length Dosing, 102, kg, 11/18/21 9:22:00 EDT, Weight Dosing Start Date: 11/18/21 Status: Ordered Start: 06-23-2021 Cipro 500 mg T ab 500 mg = 1 tab(s), Oral, As Directed, # 2 tab(s), Refills(s) 0, Pharmacy: [facility], 190, cm, 06/23/21 11:19:00 EDT, Height/Length Dosing, 102, kg, 06/23/21 11:19:00 EDT, Weight Dosing Start Date: 06/23/21 Status: Ordered diazePAM 10 mg oral tablet (6 sources) Benzodiazepine Start: 11-18-2021 Valium 10 mg Tab See Instructions, Take 1 tab 1 hour before procdure., # 1 tab(s), Refills(s) 0, [facility]: [facility] #[id number], 190, cm, 11/18/21 9:22:00 EDT, Height/Length Dosing, 102, kg, 11/18/21 9:22:00 EDT, Weight Dosing Start Date: 11/18/21 Status: Ordered hyoscyamine sulfate 0.125 mg oral tablet (1 source) Start: 10-09-2021 take 1 tablet by mouth four times daily as needed for muscle spasms Levsin 0.125 mg SL Tab 0.125 mg = 1 tab(s), Oral, QID, PRN Spasm, # 20 tab(s), Refills(s) 0, [facility]: [facility] #[id number], 190, cm, 09/24/21 8:06:00 EDT, Height/Length Dosing, 102.5, kg, 09/24/21 8:06:00 EDT, Weight Dosing Start Date: 10/09/21 Status: Ordered meloxicam 15 mg oral tablet (20 sources) Nonsteroidal Anti-inflammatory Drug Start: 09-16-2018 meloxicam Oral, Daily, Refills(s) 0 Start Date: 09/16/18 Status: Ordered Start: 08-30-2018 take 1 tablet by tali th once daily meloxicam (MOBIC) 15 mg tablet Take 15 mg by mouth once daily. 1 08/30/2018 Active Comment on above: Take 15 mg by mouth once daily. methylPREDNISolone 4 mg oral tablet (1 source) Corticosteroid Start: End: Medrol Dosepack 4 mg Tab = 1 packet(s), Oral, As Directed, as directed on package labeling, X 6 day(s), # 21 tab(s), Refills(s) 0, [facility]: [facility] #[id number], 190, cm, 02/03/22 15:48:00 EST, Height/Length Dosing, 102, kg, 02/03/22 15:48:00 EST, Weight Dosing Start Date: 02/03/22 Stop Date: 02/09/22 Status: Ordered 24 hr mirabegron 50 mg extended release oral tablet (1 source) beta3-Adrenergic Agonist Start: 023 take 1 tablet by mouth once daily Myrbetriq 50 mg oral tablet, extended release 50 mg = 1 tab(s), Oral, Daily, # 30 tab(s), Refills(s) 11, Pharmacy: [facility] #[id number], 190, cm, 03/16/22 8:29:00 EST, Height/Length Dosing, 102, kg, 03/16/22 8:29:00 EST, Weight Dosing Start Date: 03/16/22 Status: Ordered omeprazole 40 mg delayed release oral capsule (20 sources) Proton Pump Inhibitor Start: omeprazole 40 mg Cap-DR 40 mg = 1 cap(s), Oral, Daily, Refills(s) 0, Control of stomach acid Start Date: 04/15/20 Status: Ordered Comment on above: Take 40 mg by mouth once daily. omeprazole 40 mg Cap-DR (2 sources) Start: take 1 capsule by mouth once daily omeprazole 40 mg Cap-DR 40 mg = 1 cap(s), Oral, Daily, # 30 cap(s), Refills(s) 0 Start Date: 04/15/20 Status: Ordered Potassium Acetate (2 sources) Start: 019 potassium acetate Refills(s) 0 Start Date: 09/16/18 Status: Ordered POTASSIUM-99 ORAL (17 sources) take 20 mEq by mouth once daily POTASSIUM-99 ORAL Take 20 mEq by mouth once daily. Active take 20 mEq by mouth once daily POTASSIUM-99 ORAL Take 20 mEq by mouth once daily. 0 Active Comment on above: Take 20 mEq by mouth once daily. terazosin 10 mg oral capsule (16 sources) alpha-Adrenergic Rocio Start: 03-31-2023 End: 03-25-2024 take 1 capsule by mouth once daily at bedtime terazosin 10 mg Cap 10 mg = 1 cap(s), Oral, Once a day (at bedtime), X 30 day(s), # 30 cap(s), Refills(s) 11, Pharmacy: [facility] #[id number], 190, cm, 03/31/23 15:07:00 EST, Height/Length Dosing, 95.7, kg, 03/31/23 15:07:00 EST, Weight Dosing Start Date: 03/31/23 Stop Date: 03/25/24 Status: Ordered Start: 03-26-2021 End: 04-16-2022 take 1 capsule by mouth once daily at bedtime Terazosin HCl (HYTRIN) 10 mg capsule Take 10 mg by mouth daily at bedtime. 0 05/20/2021 04/16/2022 Discontinued (Other) Comment on above: Take 10 mg by mouth daily at bedtime. Vitamin B Complex oral capsule (13 sources) Start: 12-11-2019 take 1 capsule by mouth once daily Vitamin B Complex oral capsule 1 cap(s), Oral, Daily, Prophylaxis Start Date: 12/11/19 Status: Ordered Start: 12-11-2019 Vitamin B Comp gerard oral capsule Oral, Daily Start Date: 12/11/19 Status: Ordered Vitamin E (13 sources) Start: 09-16-2018 vitamin E 1,00 0 International_Unit, Oral, Daily, Refills(s) 0, Prophylaxis Start Date: 09/16/18 Status: Ordered Start: 09-16-2018 vitamin E Oral , Daily, Refills(s) 0 Start Date: 09/16/18 Status: Ordered Completed/Discontinued Medications Medication Drug Class(es) Dates Sig (Normalized) Sig (Original) dexamethasone 0.001 mg/mg / neomycin 0.0035 mg/mg / polymyxin b 10 unt/mg ophthalmic ointment (11 sources) Aminoglycoside Antibacterial, Polymyxin-class Antibacterial, Corticosteroid Start: 04-11-2021 End: 04-16-2022 neomycin/polymyxi n b/dexametha(MAXIT ROL 3.5 MG/G-10,000 UNIT/G-0.1 % EYE OINTMENT) Use twice a day to affected eyelid x 2 wks 3.5 g 0 04/11/2021 04/16/2022 Discontinued (Other) Comment on above: Use twice a day to a ffected eyelid x 2 wks dextran/hypromellos e/glycerin (GENTEAL TEARS MODERATE OPHTHALMIC) (12 sources) End: 08-25-2022 take 1 drop(s) into the eye(s) three times daily dextran/hypromell ose/glycerin (GENTEAL TEARS MODERATE OPHTHALMIC) Use 1 Drop in eyes three times daily. 0 08/25/2022 Discontinued take 1 drop(s) into the eye(s) three times daily dextran/hypromellose/glycerin (GENTEAL T EARS MODERATE OPHTHALMIC) Use 1 Drop in eyes three times daily. 0 Active Comment on above: Use 1 Drop in eyes t hree times daily. ibuprofen 400 mg oral tablet (12 sources) Nonsteroidal Anti-inflammatory Drug Start: 0 End: 3 take 1 tablet by mouth every six hours as needed ibuprofen (MOTRIN) 400 mg tablet Take 400 mg by mouth every 6 hours as needed. 0 01/09/2020 08/25/2022 Discontinued (Discontinued by another Health Care Provider) Comment on above: Take 400 mg by mouth every 6 hours as needed. mineral oil 0.03 mg/mg / petrolatum 0.94 mg/mg ophthalmic ointment (8 sources) End: 3 white petrolatum-mineral oil (GENTEAL TEARS SEVERE,PETROLAT,) 94-3 % ophthalmic ointment Use 1 application in both eyes at bedtime as needed. 0 04/16/2022 Discontinued (Other) Comment on above: Use 1 application in both eyes at bedtime as needed. gswmmyup-ydp-uhgfu- vit K-lycop (ONE-A-DAY MEN'S 50 PLUS) 400-20-370 mcg tab (6 sources) End: 2 take 50-400 tablets by mouth once daily icudtggt-uiq-iorgo-v it K-lycop (ONE-A-DAY MEN'S 50 PLUS) 400-20-370 mcg tab Take 1 tablet by mouth once daily. 0 12/12/2021 Discontinued take 50-400 tablets by mouth once daily muuchkkj-ntg-yuxmt-vit K-lycop (ONE-A-DA Y MEN'S 50 PLUS) 400-20-370 mcg tab Take 1 tablet by mouth once daily. 0 Active Comment on above: Take 1 tablet by tali th once daily. oxybutynin chloride 5 mg oral tablet (4 sources) Cholinergic Muscarinic Antagonist Start: 022 oxybutynin 5 mg Tab 5 mg = 1 tab(s), Oral, As Directed, 1 Tablet PRN for urinary discomfort, # 5 tab(s), Refills(s) 0, [facility]acy: [facility] #[id number], 190, cm, 11/18/21 9:22:00 EDT, Height/Length Dosing, 102, kg, 11/18/21 9:22:00 EDT, Weight Dosing Start Date: 11/18/21 Status: Ordered potassium chloride 20 meq oral tablet (11 sources) Start: take 1 tablet by mouth once daily Potassium Chloride (Eqv-K-Tab) 20 mEq oral tablet, extended release 20 mEq = 1 tab(s), Oral, Daily, Prophylaxis Start Date: 08/11/21 Status: Ordered sildenafil 50 mg oral tablet (8 sources) Phosphodiesterase 5 Inhibitor Start: End: take 1 tablet by mouth once daily as needed sildenafil (VIAGRA) 50 mg tablet TAKE 1 TABLET BY MOUTH EVERY DAY NEEDED 10 tablet 2 02/27/2021 04/16/2022 Discontinued (Other) Comment on above: TAKE 1 TABLET BY [facility] EVERY DAY NEEDED tamsulosin hydrochloride 0.4 mg oral capsule (8 sources) alpha-Adrenergic Rocio Start: End: take 1 capsule by mouth twice daily tamsulosin (FLOMAX) 0.4 mg Take 1 capsule by mouth twice daily. 60 capsule 2 11/27/2020 04/16/2022 Discontinued (Other) Comment on above: Take 1 capsule by mo [facility] twice daily. vitamin b12 1 mg oral tablet (8 sources) Vitamin B12 End: take 1 tablet by mouth once daily cyanocobalamin (VITAMIN B-12) 1,000 mcg tab Take 1,000 mcg by mouth once daily. 0 04/16/2022 Discontinued (Other) Comment on above: Take 1,000 mcg by mo ut once daily. 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, face and neck] Onset: 04-27-2017 04-27-2017 Chronic Cancer of bronchus; lung (11 sources) Malignant tumor of lung 08-11-2021 Chronic Cancer of prostate (20 sources) Malignant tumor of prostate; 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 of prostate] Onset: 04-29-2020 03-19-2021 Chronic Cataract (20 sources) Cataract associated with radiation; Translations: [Other specified cataract] Onset: 12-28-2019 Resolved: 02-16-2020 12-28-2019 Chronic Chronic obstructive pulmonary disease and bronchiectasis (3 sources) Bronchiectasis; Translations: [Bronchiectasis, uncomplicated] Onset: 06-17-2023 04-21-2023 Chronic Conduction disorders (4 sources) Other right bundle-branch block; Translations: [OTHER RIGHT BUNDLE-BRANCH BLOCK] Onset: 09-09-2021 Chronic Diabetes mellitus without complication (1 source) Other abnormal glucose; Translations: [OTHER ABNORMAL GLUCOSE] Onset: 04-08-2022 Episodic Disorders of lipid metabolism (2 sources) Hyperlipidemia, unspecified; Translations: [HYPERLIPIDEMIA UNSPECIFIED] Onset: 04-08-2022 Chronic Esophageal disorders (17 sources) Gastroesophageal reflux disease; Translations: [Gastro-esophageal reflux disease without esophagitis] Onset: 03-19-2021 03-19-2021 Chronic Genitourinary symptoms and ill-defined conditions (20 sources) Post-void dribbling; 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 ] Onset: 06-23-2021 Chronic Headache; including migraine (13 sources) Headache 09-16-2018 Episodic Heart valve disorders (1 source) Rheumatic disorders of both mitral and tricuspid valves; Translations: [RHEUMATIC D/O MITRAL TRICUSPID VALV] Onset: 09-10-2021 Chronic Hyperplasia of prostate (20 sources) Benign prostatic hypertrophy with outflow obstruction; Translations: [Benign prostatic hyperplasia with lower urinary tract symptoms] Onset: 06-23-2021 Chronic Malaise and fatigue (1 source) Other fatigue; Translations: [OTHER FATIGUE] Onset: 04-08-2022 Episodic Non-Hodgkin`s lymphoma (20 sources) B-cell lymphoma (clinical); Translations: [Other specified types of non-Hodgkin lymphoma, extranodal and solid organ sites] Onset: 09-11-2014 Resolved: 12-28-2019 05-10-2017 Chronic Nonspecific chest pain (1 source) Chest pain, unspecified; Translations: [CHEST PAIN UNSPECIFIED] Onset: 04-08-2022 Episodic Osteoarthritis (13 sources) Arthritis 09-16-2018 Chronic Other connective tissue disease (1 source) Neurological symptom; Translations: [Other symptoms and signs involving the nervous system] Episodic Other diseases of bladder and urethra (2 sources) Detrusor overactivity; Translations: [Overactive bladder] Onset: 08-25-2022 Chronic Other diseases of bladder and urethra (4 sources) Overactive bladder 08-25-2022 Chronic Other diseases of kidney and ureters (4 sources) Urinary tract obstruction; Translations: [Other obstructive and reflux uropathy] Onset: 07-21-2021 Episodic Other eye disorders (1 source) Myogenic ptosis of left eye; Translations: [Myogenic ptosis of left eyelid] Episodic Other eye disorders (1 source) Excess skin of eyelid; Translations: [Dermatochalasis of right upper eyelid] Episodic Other eye disorders (1 source) Ptosis of left eyebrow; Translations: [Brow ptosis, left] Episodic Other eye disorders (2 sources) Tear film insufficiency of bilateral eyes; Translations: [Dry eye syndrome of bilateral lacrimal glands] 11-05-2022 Episodic Other hereditary and degenerative nervous system conditions (4 sources) Essential tremor; Translations: [ESSENTIAL TREMOR] Onset: 04-06-2022 Chronic Other lower respiratory disease (2 sources) Interstitial pulmonary disease, unspecified; Translations: [Interstitial pulmonary disease, unspecified] Onset: 06-17-2023 Chronic Other lower respiratory disease (1 source) Solitary pulmonary nodule; Translations: [Solitary pulmonary nodule] Onset: 11-11-2023 Episodic Other nervous system disorders (1 source) Polyneuropathy, unspecified; Translations: [Polyneuropathy, unspecified] Onset: 06-30-2023 Chronic Other nervous system disorders (1 source) Hereditary and idiopathic neuropathy, unspecified; Translations: [Hereditary and idiopathic neuropathy, unspecified] Onset: 06-30-2023 Chronic Other nervous system disorders (3 sources) Tremor; Translations: [Tremor, unspecified] Episodic Parkinson`s disease (20 sources) Parkinson's disease; Translations: [Parkinson's disease] Onset: 03-19-2021 03-19-2021 Chronic Peripheral and visceral atherosclerosis (1 source) Generalized atherosclerosis; Translations: [Generalized atherosclerosis] Onset: 06-30-2023 Chronic Residual codes; unclassified (1 source) History of uaitxsx-arvfqlai-xkgol t (YAG) laser capsulotomy of lens; Translations: [Other specified postprocedural states] 11-16-2022 Episodic Screening and history of mental health and substance abuse codes (13 sources) Ex-smoker 09-16-2018 Episodic Past or Other Problems Problem Classification Problem Date Documented Date Episodic/Chronic Cancer; other and unspecified primary (1 source) Malignant tumor of conjunctiva; 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] Onset: 09-02-2017 Resolved: 12-28-2019 12-28-2019 Chronic Deficiency and other anemia (1 source) Other dietary vitamin B12 deficiency anemia; Translations: [Other dietary vitamin B12 deficiency anemia] Onset: 06-30-2023 Episodic Genitourinary symptoms and ill-defined conditions (20 sources) Nocturia; Translations: [Nocturia] Onset: 05-03-2017 05-03-2017 Episodic Immunizations and screening for infectious disease (1 source) Encounter for screening for infections with a predominantly sexual mode of transmission; Translations: [Encounter for screening for infections with a predominantly sexual mode of transmission] Onset: 06-30-2023 Episodic Non-Hodgkin`s lymphoma (19 sources) History of malignant lymphoma; Translations: [Personal history of non-Hodgkin lymphomas] Onset: 02-15-2020 02-15-2020 Episodic Nutritional deficiencies (1 source) Pyridoxine deficiency; 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] Onset: 06-30-2023 Episodic Other connective tissue disease (1 source) Other symptoms and signs involving the nervous system; Translations: [Other symptoms and signs involving the nervous system] Onset: 05-06-2022 Episodic Other connective tissue disease (1 source) Myalgia, unspecified site; Translations: [Myalgia, unspecified site] Onset: 06-30-2023 Episodic Other eye disorders (1 source) Exophthalmos; 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] Onset: 04-27-2017 Resolved: 12-28-2019 12-28-2019 Chronic Other eye disorders (17 sources) Entropion of left lower eyelid; Translations: [Unspecified entropion of left lower eyelid] Onset: 06-16-2018 06-16-2018 Episodic Other eye disorders (1 source) Disorder of lacrimal gland; Translations: [Dry eye syndrome of bilateral lacrimal glands] Onset: 11-16-2017 Resolved: 12-28-2019 12-28-2019 Episodic Other lower respiratory disease (17 sources) Lung mass; Translations: [Other nonspecific abnormal finding of lung field] Onset: 07-16-2014 07-16-2014 Episodic Other lower respiratory disease (2 sources) Other nonspecific abnormal finding of lung field; Translations: [Other nonspecific abnormal finding of lung field] Onset: 06-17-2023 Episodic Other nervous system disorders (17 sources) 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; Translations: [Clonic hemifacial spasm, left] Onset: 07-08-2018 07-08-2018 Episodic Other nervous system disorders (1 source) Tremor, unspecified; Translations: [Tremor] Onset: 05-26-2022 Episodic Other screening for suspected conditions (not mental disorders or infectious disease) (15 sources) Raised prostate specific antigen; Translations: [Other specified abnormal findings of blood chemistry] Onset: 04-08-2022 09-16-2018 Episodic Residual codes; unclassified (1 source) Pain, unspecified; Translations: [Pain, unspecified] Onset: 07-07-2023 Episodic Results Test Name Value Interpretation Reference Range Facility CT CHEST WO CONTon CT CHEST WO CONT CT CHEST WO CONT STUDY: CT chest without contrast CLINICAL HISTORY: Pulmonary nodules. Follow-up. Centrilobular emphysema (CMS-HCC); History of non-Hodgkin's lymphoma; Pulmonary infiltrate present on computed tomography COMPARISON: 06/30/2023 TECHNIQUE: CT chest was performed utilizing 5 mm axial reconstructions without contrast. Coronal and sagittal reformatted images were obtained and reviewed. Automated exposure control was utilized. Computer aided detection for pulmonary nodules was performed utilizing [employer] software. FINDINGS: No pleural or pericardial effusion. No enlarged axillary, mediastinal or hilar lymph nodes. Diffusely heterogeneous and enlarged thyroid. There is respiratory motion compromising assessment. There is centrilobular emphysematous changes with septal thickening in the right upper lobe and right greater than left lower lobe suggestive of interstitial inflammatory or fibrotic process with findings typical for UIP. Right upper lobe 5 mm pulmonary nodule, stable. No new suspicious nodule seen. Spleen is again noted to be enlarged. Degenerative changes of the thoracic spine. IMPRESSION: 1. Stable pulmonary nodule as above. CT follow-up in 12 months is recommended. 2. Stable nonspecific groundglass opacities and septal thickening throughout both lungs with findings of atypical for UIP. All CT scans at this facility use dose modulation, iterative reconstruction, and/or weight based dosing when appropriate to reduce radiation dose to as low as reasonably achievable. Finalized by Pablo Kevin MD on 10/04/2023 9:37 AM Normal [facility] CT CHEST WO CONTon CT CHEST WO CONT CT CHEST WO CONT CT CHEST WO CONT 06/30/2023 3:00 PM INDICATION: History of non-Hodgkin's lymphoma; Centrilobular emphysema (CMS-HCC); Pulmonary infiltrate present on computed tomography; Interstitial lung disease (CMS-HCC), evaluate for recurrence, former smoker COMPARISON: None TECHNIQUE: Noncontrast CT images of the chest were obtained in the prone and supine position. In supine positioning, images were obtained during both inspiratory and expiratory phases of breathing. All CT scans at this facility use dose modulation, iterative reconstruction, and/or weight based dosing when appropriate to reduce radiation dose to as low as reasonably achievable. FINDINGS: LUNGS/PLEURA: Moderate upper lobe predominant centrilobular emphysematous changes. On supine imaging there is basilar predominant posterior groundglass opacities and suggestion of some ill-defined areas of intralobular septal thickening most prominent at the right lung base in the right perihilar region, some additional disease in the inferior left perihilar region. On prone imaging the posterior predominant basilar opacities largely improved, however the perihilar disease persists. There is bronchiectasis of the right lower lobe with questionable areas of architectural distortion and reticulation concerning for fibrosis. Left perihilar groundglass areas also persist on prone imaging. Expiratory imaging does not demonstrate significant air trapping. Noncalcified pulmonary nodules include: * Right lower lobe, 3 mm (6/48) * Right upper lobe, 5 mm (6/45) * Left lower lobe, 3 mm (6/70). CENTRAL AIRWAYS: Patent trachea and mainstem bronchi. VASCULATURE: Mild atheromatous disease of the thoracic aorta without aneurysm. HEART/PERICARDIUM: The heart is not enlarged. No pericardial effusion. No coronary artery calcifications. MEDIASTINUM: Prominent mediastinal lymph nodes which are not enlarged by size criteria. LOWER NECK: Prominent thyroid diffusely. CHEST WALL: No axillary adenopathy. UPPER ABDOMEN: Liver cyst. Splenomegaly, measuring up to 14 cm. Questionable duodenal diverticulum. Bilateral renal calculi, measuring up to 4 mm. OSSEOUS STRUCTURES: Multilevel thoracic spine degenerative changes. No aggressive osseous lesions. IMPRESSION: 1. Ground glass opacities suggestion of areas of interlobular septal thickening most prominent in the right lung base but also present in the left, and additionally the right greater than left perihilar regions, which largely improves on prone imaging, although the perihilar opacities persists, and therefore remain indeterminate. Given persistence from outside imaging from 04/2023 report available on electronic medical record these areas remain indeterminant, and neoplastic etiology could be considered, with lymphangitic spread of disease and possibility, especially given patient's history. Follow-up exam in 2-3 months recommended, as well as uploaded prior CT for comparison. Please include contrast on this exam. 2. Pulmonary nodules measuring up to 5 mm as described. Attention on follow-up recommended. 3. Right lung base mild fibrotic changes. 4. Splenomegaly, which could be concerning for lymphoma given history, without definite enlarged mediastinal lymph node. 5. Diffusely prominent thyroid. Approved by Resident: Celio Lawrence MD on 07/01/2023 9:07 AM IMikael DO have personally reviewed the image(s) and agree with and/or edited the report Finalized by Mikael Cohen DO on 07/01/2023 11:24 AM Normal [facility] THYROID PROFILEon 06-30-2023 Free T4 [Mass/Vol] 1.03 ng/dL Normal 0.61-1.60 [facility] Comment on above: Performed By: #### T HYR #### [facility] ([id number]) [address], [address] [place] [address] TSH 0.25 uIU/mL Low 0.49-4.67 [facility] Comment on above: Performed By: #### T HYR #### [facility] ([id number]) [address], [address] [place] [address] Reminderson 05-11-2023 Reminders - From: Radha Barbosa MA (EU - Recalls Pierce) To: EU - Recalls Pierce; Sent: 05/11/2023 15:43:07 EDT Show up: 01/30/2024 15:43:00 EST Subject: YOHANNES/KUB Due Date/Time: 03/01/2024 15:43:00 EST Reminder/Recall Addendum by Radha Barbosa MA on April 06, 2023 15:09:43 EST From: Radha Barbosa MA (EU - Recalls Pierce) To: EU - Recalls Pierce; Sent: 04/06/2023 15:09:43 EST Subject: FW: 1 yr KUB/YOHANNES Due Date/Time: 12/30/2024 15:09:00 EDT Caller Name: LUIS ALBERTO OCAMPO; Caller Number: H , M From: NANDO Waters APRN, [place] X To: EU - Recalls Pierce; Sent: 03/31/2023 15:55:05 EST Subject: 1 yr KUB/YOHANNES Due Date/Time: 03/20/2024 15:55:00 EST Caller Name: LUIS ALBERTO OCAMPO; Caller Number: H , M f/u scheduled 03/28/24 w/ KUB/YOHANNES Orders placed today. Please schedule w/ pt prior to appt and fax orders. He said he would prefer [facility] if they are able to do these tests. Normal [facility] Oswaldo 04-21-2023 KEZIAN Telephone (ANDRE) -- LUIS ALBERTO OCAMPO ([id number]) 1945 M Date Time Provider Department 04/21/23 [facility] PROVIDER PULMMN During your visit today, we recorded the following information about you: Bhavani Clements 04/21/2023 12:15 PM Signed Patient is requesting an appointment closer to home and not at main campus: Referring physician: Dr. Larry Henson Address: Internal Phone: Fax: Diagnosis: Bronchiectasis Are there epic records: Yes Are there care everywhere records: Yes Has a referral form been faxed: Yes Has patient been added to spreadsheet: No Routing: Please route to [employer] Allergies As of Date: 04/21/2023 Noted Allergy Reaction ERYTHROMYCIN 04/11/2021 9 - Itching IODINE AND IODIDE CONTAINING PROD*07/19/2020 14 - Other: See Comments Comments: Pt passed out from milogram test on spinal cord Date Reviewed: 03/02/2023 Reviewed by: Nicolasa Varela LPN - Fully Assessed Reason for Visit: Appointment [186] Primary Visit Diagnosis:Bronchiectasis without acute exacerbation (HCC) [J47.9] Order(s):SPIROMETRY - BASELINE AND POST DILATOR [[id number]] Order #: [id number]: 1 FUTURE RESPIRATORY THERAPY OP [facility] A90 [[id number]] Order #: [id number]: 1 Prescriptions as of 04/21/2023 - Acetaminophen 500 mg cap Take 500 mg by mouth once daily. 2 CAPSULES DAILY - meloxicam (MOBIC) 15 mg tablet Take 15 mg by mouth once daily. - POTASSIUM-99 ORAL Take 20 mEq by mouth once daily. - Omeprazole 40 mg capsule Take 40 mg by mouth once daily. 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] 07/08/2018 Senile incipient cataract, bilateral [H25.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] 12/28/2019 02/16/2020 Radiation induced cataract [H26.8] 12/28/2019 Preoperative examination [Z01.818] 02/15/2020 Combined forms of age-related cataract of both *02/15/2020 02/16/2020 Personal history of lymphoma [Z85.72] 02/15/2020 Parkinson disease (HCC) [G20.A1] 03/19/2021 Prostate CA (HCC) [C61] 04/2020 GERD (gastroesophageal reflux disease) [K21.9] 03/19/2021 Encounter Status:Closed by OLIVIA QUINTERO on 04/21/[address] [facility] [address] ABD/PEL W IVCONon 024 CT ABD/PEL W IVCON * * *Final Report* * * DATE OF EXAM: Apr 16 2023 8:33AM [facility] 0530 - CT ABD/PEL W IVCON / 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 MQ: CTAP_3 Contrast: IV: 150 ml of Omnipaque 300 Oral: 500 ml of Omni 240 10-25ml diluted with water CT Radiation dose: Integrated Dose-length product (DLP) for this visit = 1414 mGy*cm. CT Dose Reduction Employed: Automated exposure control (AEC) COMPARISON: 08/01/22. RESULT: Liver: No mass. 1.3 cm hepatic cyst, stable. Biliary: No bile duct dilation. Gallbladder is unremarkable. Spleen: No mass. Borderline enlarged measuring 13-13.5 cm in length, stable. Pancreas: No mass or duct dilation. Adrenals: No mass. Kidneys: Nonobstructing bilateral renal stones measuring 4 mm. No suspicious enhancing renal mass or hydronephrosis. GI tract: No dilation or wall thickening. Stool is noted throughout the colon. Lymph nodes: No abdominal or pelvic lymphadenopathy. Mesentery/Peritoneum: No ascites or mass. Retroperitoneum: No mass. Vasculature: - Abdominal aorta and iliac arteries: Atherosclerotic calcifications without aneurysm. - Celiac and SMA: Patent without stenosis. - Portal venous system (SMV, splenic vein, portal vein and branches): Patent. - Hepatic veins: Patent. Pelvis: New trace pelvic ascites. Radiation seeds in the prostate. Urinary bladder is decompressed. Bones/Soft Tissues: Umbilical hernia containing a loop of nonobstructed small bowel. No new osseous abnormalities. Lower thorax: A chest CT performed will be reported separately. Health Consultant (topogram) images: No additional findings. IMPRESSION: 1. Borderline splenomegaly, stable. 2. No evidence of intra-abdominal/pelvic lymphadenopathy. 3. New trace pelvic ascites. 4. Nonobstructing bilateral renal stones. Transcribe Date/Time: Apr 16 2023 10:45A Dictated by: YAMILE TOMPKINS MD This examination was interpreted and the report reviewed and electronically signed by: YAMILE TOMPKINS MD on Apr 16 2023 10:54AM EST Thank you for allowing us to participate in the care of your patient. Should there be any questions regarding this interpretation, please call [phone]. If you are unable to reach us at the number above, please feel free to contact [facility] at [phone]. [id number] Normal [facility] CT Abdomen and Pelvis W cont rast Jenna 04-16-2023 IMPRESSION: 1. Borderline splenomegaly, stable. 2. No evidence of intra-abdominal/pelvic lymphadenopathy. 3. New trace pelvic ascites. 4. Nonobstructing bilateral renal stones. Transcribe Date/Time: Apr 16 2023 10:45A Dictated by: YAMILE TOMPKINS MD This examination was interpreted and the report reviewed and electronically signed by: YAMILE TOMPKINS MD on Apr 16 2023 10:54AM EST Thank you for allowing us to participate in the care of your patient. Should there be any questions regarding this interpretation, please call [phone]. If you are unable to reach us at the number above, please feel free to contact [facility] at [phone]. 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 MQ: CTAP_3 Contrast: IV: 150 ml of Omnipaque 300 Oral: 500 ml of Omni 240 10-25ml diluted with water CT Radiation dose: Integrated Dose-length product (DLP) for this visit = 1414 mGy*cm. CT Dose Reduction Employed: Automated exposure control (AEC) COMPARISON: 08/01/22. RESULT: Liver: No mass. 1.3 cm hepatic cyst, stable. Biliary: No bile duct dilation. Gallbladder is unremarkable. Spleen: No mass. Borderline enlarged measuring 13-13.5 cm in length, stable. Pancreas: No mass or duct dilation. Adrenals: No mass. Kidneys: Nonobstructing bilateral renal stones measuring 4 mm. No suspicious enhancing renal mass or hydronephrosis. GI tract: No dilation or wall thickening. Stool is noted throughout the colon. Lymph nodes: No abdominal or pelvic lymphadenopathy. Mesentery/Peritoneum: No ascites or mass. Retroperitoneum: No mass. Vasculature: - Abdominal aorta and iliac arteries: Atherosclerotic calcifications without aneurysm. - Celiac and SMA: Patent without stenosis. - Portal venous system (SMV, splenic vein, portal vein and branches): Patent. - Hepatic veins: Patent. Pelvis: New trace pelvic ascites. Radiation seeds in the prostate. Urinary bladder is decompressed. Bones/Soft Tissues: Umbilical hernia containing a loop of nonobstructed small bowel. No new osseous abnormalities. Lower thorax: A chest CT performed will be reported separately. Health Consultant (topogram) images: No additional findings. 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 MQ: CTAP_3 Contrast: IV: 150 ml of Omnipaque 300 Oral: 500 ml of Omni 240 10-25ml diluted with water CT Radiation dose: Integrated Dose-length product (DLP) for this visit = 1414 mGy*cm. CT Dose Reduction Employed: Automated exposure control (AEC) COMPARISON: 08/01/22. RESULT: Liver: No mass. 1.3 cm hepatic cyst, stable. Biliary: No bile duct dilation. Gallbladder is unremarkable. Spleen: No mass. Borderline enlarged measuring 13-13.5 cm in length, stable. Pancreas: No mass or duct dilation. Adrenals: No mass. Kidneys: Nonobstructing bilateral renal stones measuring 4 mm. No suspicious enhancing renal mass or hydronephrosis. GI tract: No dilation or wall thickening. Stool is noted throughout the colon. Lymph nodes: No abdominal or pelvic lymphadenopathy. Mesentery/Peritoneum: No ascites or mass. Retroperitoneum: No mass. Vasculature: - Abdominal aorta and iliac arteries: Atherosclerotic calcifications without aneurysm. - Celiac and SMA: Patent without stenosis. - Portal venous system (SMV, splenic vein, portal vein and branches): Patent. - Hepatic veins: Patent. Pelvis: New trace pelvic ascites. Radiation seeds in the prostate. Urinary bladder is decompressed. Bones/Soft Tissues: Umbilical hernia containing a loop of nonobstructed small bowel. No new osseous abnormalities. Lower thorax: A chest CT performed will be reported separately. Health Consultant (topogram) images: No additional findings. IMPRESSION IMPRESSION: 1. Borderline splenomegaly, stable. 2. No evidence of intra-abdominal/pelvic lymphadenopathy. 3. New trace pelvic ascites. 4. Nonobstructing bilateral renal stones. Transcribe Date/Time: Apr 16 2023 10:45A Dictated by: YAMILE TOMPKINS MD This examination was interpreted and the report reviewed and electronically signed by: YAMILE TOMPKINS MD on Apr 16 2023 10:54AM EST Thank you for allowing us to participate in the care of your patient. Should there be any questions regarding this interpretation, please call [phone]. If you are unable to reach us at the number above, please feel free to contact [facility] at [phone]. 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 MQ: CTCW_6 Contrast: 150 mL Omnipaque [address] Radiation dose: Integrated Dose-length product (DLP) for this visit = 1414 mGy*cm CT Dose Reduction Employed: Automated exposure control (AEC) Comparison: 12/06/20 RESULT: Limitations: Motion artifact is noted. Lines, tubes, and devices: None. Lung parenchyma and airways: Mild emphysematous changes of the lungs. Elevation of the right hemidiaphragm. Ground glass opacities in the bilateral lung brewster, right greater than left, increased. Borderline bronchiectatic changes in the right lung, stable. Subcentimeter nodular opacities measuring up to 5 mm, stable. For example: Right upper lobe (4:63) Left upper lobe (4:72) Left lower lobe (4:123) The central airways are patent. Pleural space: No pleural effusion. No pleural thickening. Lower neck, lymph nodes, and mediastinum: The imaged thyroid gland is normal. Borderline enlarged mediastinal lymph nodes are stable.. Heart, pericardium, and thoracic vessels: The ascending thoracic aorta is mildly ectatic measuring 4.0 cm in diameter, stable. The cardiac chambers are normal in size. No coronary artery atherosclerotic calcifications are noted, although the study is not optimized for coronary assessment. No pericardial effusion or thickening. Bones and soft tissues: No suspicious lytic or blastic osseous lesions. Upper abdomen: Please refer to the abdomen CT scan report for the abdomen findings. Health Consultant (topogram) images: No additional findings. IMPRESSION: 1. Ground glass opacities in the bilateral lung brewster, right greater than left, increased. Differential diagnoses include combination of infectious/inflammatory etiologies and asymmetric pulmonary edema. Consider interval follow-up. 2. Associated borderline bronchiectatic changes in the right lung. 3. Borderline thoracic lymphadenopathy, stable. 4. Subcentimeter nodular opacities measuring less than 5 mm, stable. Transcribe Date/Time: Apr 16 2023 10:21A Dictated by: YAMILE TOMPKINS MD This examination was interpreted and the report reviewed and electronically signed by: YAMILE TOMPKINS MD on Apr 16 2023 10:54AM EST Thank you for allowing us to participate in the care of your patient. Should there be any questions regarding this interpretation, please call [phone]. If you are unable to reach us at the number above, please feel free to contact [facility] at [phone]. [id number] Normal [facility] CT Chest W contrast Jenna IMPRESSION: 1. Ground glass opacities in the bilateral lung brewster, right greater than left, increased. Differential diagnoses include combination of infectious/inflammatory etiologies and asymmetric pulmonary edema. Consider interval follow-up. 2. Associated borderline bronchiectatic changes in the right lung. 3. Borderline thoracic lymphadenopathy, stable. 4. Subcentimeter nodular opacities measuring less than 5 mm, stable. Transcribe Date/Time: Apr 16 2023 10:21A Dictated by: YAMILE TOMPKINS MD This examination was interpreted and the report reviewed and electronically signed by: YAMILE TOMPKINS MD on Apr 16 2023 10:54AM EST Thank you for allowing us to participate in the care of your patient. Should there be any questions regarding this interpretation, please call [phone]. If you are unable to reach us at the number above, please feel free to contact [facility] at [phone]. 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 MQ: CTCW_6 Contrast: 150 mL Omnipaque [address] Radiation dose: Integrated Dose-length product (DLP) for this visit = 1414 mGy*cm CT Dose Reduction Employed: Automated exposure control (AEC) Comparison: 12/06/20 RESULT: Limitations: Motion artifact is noted. Lines, tubes, and devices: None. Lung parenchyma and airways: Mild emphysematous changes of the lungs. Elevation of the right hemidiaphragm. Ground glass opacities in the bilateral lung brewster, right greater than left, increased. Borderline bronchiectatic changes in the right lung, stable. Subcentimeter nodular opacities measuring up to 5 mm, stable. For example: Right upper lobe (4:63) Left upper lobe (4:72) Left lower lobe (4:123) The central airways are patent. Pleural space: No pleural effusion. No pleural thickening. Lower neck, lymph nodes, and mediastinum: The imaged thyroid gland is normal. Borderline enlarged mediastinal lymph nodes are stable.. Heart, pericardium, and thoracic vessels: The ascending thoracic aorta is mildly ectatic measuring 4.0 cm in diameter, stable. The cardiac chambers are normal in size. No coronary artery atherosclerotic calcifications are noted, although the study is not optimized for coronary assessment. No pericardial effusion or thickening. Bones and soft tissues: No suspicious lytic or blastic osseous lesions. Upper abdomen: Please refer to the abdomen CT scan report for the abdomen findings. Health Consultant (topogram) images: No additional findings. DIVISION OF RADIOLOGY Provider, 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 MQ: CTCW_6 Contrast: 150 mL Omnipaque [address] Radiation dose: Integrated Dose-length product (DLP) for this visit = 1414 mGy*cm CT Dose Reduction Employed: Automated exposure control (AEC) Comparison: 12/06/20 RESULT: Limitations: Motion artifact is noted. Lines, tubes, and devices: None. Lung parenchyma and airways: Mild emphysematous changes of the lungs. Elevation of the right hemidiaphragm. Ground glass opacities in the bilateral lung brewster, right greater than left, increased. Borderline bronchiectatic changes in the right lung, stable. Subcentimeter nodular opacities measuring up to 5 mm, stable. For example: Right upper lobe (4:63) Left upper lobe (4:72) Left lower lobe (4:123) The central airways are patent. Pleural space: No pleural effusion. No pleural thickening. Lower neck, lymph nodes, and mediastinum: The imaged thyroid gland is normal. Borderline enlarged mediastinal lymph nodes are stable.. Heart, pericardium, and thoracic vessels: The ascending thoracic aorta is mildly ectatic measuring 4.0 cm in diameter, stable. The cardiac chambers are normal in size. No coronary artery atherosclerotic calcifications are noted, although the study is not optimized for coronary assessment. No pericardial effusion or thickening. Bones and soft tissues: No suspicious lytic or blastic osseous lesions. Upper abdomen: Please refer to the abdomen CT scan report for the abdomen findings. Health Consultant (topogram) images: No additional findings. IMPRESSION IMPRESSION: 1. Ground glass opacities in the bilateral lung brewster, right greater than left, increased. Differential diagnoses include combination of infectious/inflammatory etiologies and asymmetric pulmonary edema. Consider interval follow-up. 2. Associated borderline bronchiectatic changes in the right lung. 3. Borderline thoracic lymphadenopathy, stable. 4. Subcentimeter nodular opacities measuring less than 5 mm, stable. Transcribe Date/Time: Apr 16 2023 10:21A Dictated by: YAMILE TOMPKINS MD This examination was interpreted and the report reviewed and electronically signed by: YAMILE TOMPKINS MD on Apr 16 2023 10:54AM EST Thank you for allowing us to participate in the care of your patient. Should there be any questions regarding this interpretation, please call [phone]. If you are unable to reach us at the number above, please feel free to contact [facility] at [phone]. [facility] No Panel InformationOrdered By: Ccf Provider on 04-16-2023 [facility] No Panel Informationon 04-16 Radiology Study observation (narrative) [facility] Lab Reportson 04-02-2023 Lab Reports [id number]#[id number] [facility] Screenson 04-02-2023 Screens [id number]#[id number] [facility] CNOVSPon 04-01-2023 CNOVSP Visit (SP) Office (H EMAMN) -- LUIS ALBERTO OCAMPO ([id number]) 1945 M Date Time Provider Department 04/01/23 3:15 PM LARRY HENSON HEM During your visit today, we recorded the following information about you: Temperature Pulse Respiration Blood pressure 97.5 degrees 89/minute 20/minute 133/75 Weight 94.6 kg Larry Henson MD, PhD 04/01/2023 4:06 PM Signed [facility] DEPARTMENT OF HEMATOLOGY AND MEDICAL ONCOLOGY ASSESSMENT AND PLAN 77 year old male with 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 1. 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 - Return in one year for history, physical exam, and laboratory studies and CT imaging 2. Shallow breathing - depending on the results of his chest CT, he may benefit from referral to pulmonology. 3. 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 Parkinson's Disease - Referral to neurology for second opinion per patient request _- ONCOLOGIC HISTORY April, He developed right sided iritis. Chest X-ray showed a right lung consolidation. Further assesment with chest CT showed this area to be a 7.5 x 5.0 x 3.6 cm area of consolidation in the posterior right lung base, with air bronchogram. He was seen by Dr. Luis Daniel Galicia at [place] and underwent a transthoracic CT guided needle biopsy on April 17, 2014. Pathology revealed lymphoid tissue with rare fragments of respiratory epithelium, and it was negative for malignancy. May, Repeat chest CT showed persistent abnormality. Bronchoscopy with biopsy showed a lymphoid infiltrate with plasmacytoid differentiation. Flow cytometry was notable for a CD20+/CD19+ positive monoclonal lambda-restricted B-cell population that was CD5 negative, CD10 negative suggestive of marginal zone lymphoma. He had no cough, denies fevers, chills, nightsweats, early satiety or unintentional weight loss. July, Due to a suspicion for MALT lymphoma, the patient underwent an upper endoscopy. The EGD revealed mucosal changes suspicious for Cardoso's esophagus, an area of salmon-colored mucosa at the GE junction, and mildly erythematous mucosa in the first part of the duodenum, biopsies were negative for malignancy August-2014 He completed 4 doses of Rituximab. October 2014 CT chest :Demonstrated interval regression without resolution of the previously idenitified right long consolidation; March 2015 Asymptomatic; Doing well without any major complaints except iritis. May, Chest CT with stable right lung infiltrate with no significant interval change. 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 November, Serum protein electrophoresis and light chain showed increase in free kappa levels. Chest CT with interval reduction in consolidation in right lung base. May 2016 Doing well overall, unfortunately fatigued as undergoing a divorce after 40 years of marriage Laboratory studies notable for stable serum kappa level. CT scan of the chest/abdomen/pelvis with stable right lung infiltrate. November, Had recurrence of right iritis. 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 Noted symptoms improved with eye drops, but still feels irritation. March, Diagnosed with preseptal cellulitis of the right eye. April - April 2017 Developed right eye ptosis and cellulitis CT scans of the orbit showed soft tissue nearly circumferentially surrounding the right globe and involving the adjacent right orbital contents CT scan of the chest/abdomen/pelvis with no change in the consolidative opacities in the right lower lung. Referred to Dr. Davis and noted to have right eye superonasal conjunctival lesion consistent with lymphoma. Biopsy confirmed extranodal marginal zone lymphoma. May - Jun, 2017 Completed 12 sessions of radiation therapy Had mild residual upper lid swelling and eye dryness for which he uses artificial tears. January, Doing well. Asymptomatic. CT scan of the chest/abdomen/pelvis without evidence of active disease. Laboratory studies notable for CBC, CMP, LDH within normal limits May, Clinically stable. November, Saw Dr. Davis. Was noted to have regression of previously discernable ocular lesion. May, Developed a pruritic.rash (more content not included)... Normal [facility] Ambulatory Visit Summaryon 0 03-31-2023 Ambulatory Visit Summary LUIS ALBERTO OCAMPO :1945 Visit Date:03/31/2023 Ambulatory Visit Instructions Your Diagnosis BPH with obstruction/lower urinary tract symptoms Prostate cancer OAB (overactive bladder) History of bladder stone Your Care Team Attending Physician - tJ GA, NANDO, Ivy Romero Primary Care Physician - Luis Daniel Galicia MD This Is Your Medications List Contact prescribing physician if questions or concerns carbidopa-levodopa (carbidopa-levodopa 25 mg-100 mg Tab) meloxicam multivitamin (Vitamin B Complex oral capsule) omeprazole (omeprazole 40 mg Cap-DR) potassium chloride (Potassium Chloride (Eqv-K-Tab) 20 mEq oral tablet, extended release) vitamin E Procedures Performed Transurethral insertion of prostatic urethral lift implant (01/12/2022), Cystoscopy (10/09/2021), Cystoscopy and lithotripsy of calculus of bladder using laser (10/09/2021), Cystoscope (07/21/2021), Brachytherapy (06/26/2020), Transrectal biopsy of prostate using ultrasound (US) guidance (04/15/2020), Cataract (01/30/2020), Hernia (12/31/2019), Colonoscopy, Tonsillectomy. Discharge Vitals Heart Rate (Peripheral) 100 Blood Pressure 124/70 Height 190 cm Height 75 in Weight 95.7 kg Weight 210.54 lb BMI 26.51 What to do next Scheduled Follow-Up Appointments Wednesday 3:15 PM EST With: PIERCE CORONADO, Dakotah Krueger Where: [facility] Patient Educationon 03-31-19 24 Patient Education Nephrology Dietary Guidelines to Help Prevent Kidney Stones Kidney stones are deposits of minerals and salts that form inside your kidneys. Your risk of developing kidney stones may be greater depending on your diet, your lifestyle, the medicines you take, and whether you have certain medical conditions. Most people can lower their risks of developing kidney stones by following these dietary guidelines. Your dietitian may give you more specific instructions depending on your overall health and the type of kidney stones you tend to develop. What are tips for following this plan? Reading food labels ? Choose foods with no salt added or low-salt labels. Limit your salt (sodium) intake to less than 1,500 mg a day. ? Choose foods with calcium for each meal and snack. Try to eat about 300 mg of calcium at each meal. Foods that contain 200?500 mg of calcium a serving include: ? 8 oz (237 mL) of milk, apfgplh-pvcvuxeyohew-dherl milk, and calcium-fortifiedfruit juice. Calcium-fortified means that calcium has been added to these drinks. ? 8 oz (237 mL) of kefir, yogurt, and soy yogurt. ? 4 oz (114 g) of tofu. ? 1 oz (28 g) of cheese. ? 1 cup (150 g) of dried figs. ? 1 cup (91 g) of cooked broccoli. ? One 3 oz (85 g) can of sardines or mackerel. Most people need 1,000?1,500 mg of calcium a day. Talk to your dietitian about how much calcium is recommended for you. Shopping ? Buy plenty of fresh fruits and vegetables. Most people do not need to avoid fruits and vegetables, even if these foods contain nutrients that may contribute to kidney stones. ? When shopping for convenience foods, choose: ? Whole pieces of fruit. ? Pre-made salads with dressing on the side. ? Low-fat fruit and yogurt smoothies. ? Avoid buying frozen meals or prepared deli foods. These can be high in sodium. ? Look for foods with live cultures, such as yogurt and kefir. ? Choose high-fiber grains, such as whole-wheat breads, oat bran, and wheat cereals. Cooking ? Do not add salt to food when cooking. Place a salt shaker on the table and allow each person to add their own salt to taste. ? Use vegetable protein, such as beans, textured vegetable protein (TVP), or tofu, instead of meat in pasta, casseroles, and soups. Meal planning ? Eat less salt, if told by your dietitian. To do this: ? Avoid eating processed or pre-made food. ? Avoid eating fast food. ? Eat less animal protein, including cheese, meat, poultry, or fish, if told by your dietitian. To do this: ? Limit the number of times you have meat, poultry, fish, or cheese each week. Eat a diet free of meat at least 2 days a week. ? Eat only one serving each day of meat, poultry, fish, or seafood. ? When you prepare animal proteins, cut pieces into small portion sizes. For most meat and fish, one serving is about the size of the palm of your hand. ? Eat at least five servings of fresh fruits and vegetables each day. To do this: ? Keep fruits and vegetables on hand for snacks. ? Eat one piece of fruit or a handful of berries with breakfast. ? Have a salad and fruit at lunch. ? Have two kinds of vegetables at dinner. ? You may be told to limit foods that are high in a substance called oxalate. These include: ? Spinach (cooked), rhubarb, beets, sweet potatoes, and Italian chard. ? Peanuts. ? Potato chips, burkinan fries, and baked potatoes with skin on. ? Nuts and nut products. ? Chocolate. ? If you regularly take a diuretic medicine, make sure to eat at least 1 or 2 servings of fruits or vegetables that are high in potassium each day. These include: ? Avocado. ? Banana. ? [place], prune, carrot, or tomato juice. ? Baked potato. ? Cabbage. ? Beans and split peas. Lifestyle ? Drink enough fluid to keep your urine pale yellow. This is the most important thing you can do. Spread your fluid intake throughout the day. ? If you drink alcohol: ? Limit how much you have to: ? 0?1 drink a day for women who are not . ? 0?2 drinks a day for men. ? Know how much alcohol is in your drink. In the [place] one drink equals one 12 oz bottle of beer (355 mL), one 5 oz glass of wine (148 mL), or one 1? oz glass of hard liquor (44 mL). ? Lose weight if told by your health care provider. Work with your dietitian to find an eating plan and weight loss strategies that work best for you. General information ? Talk to your health care provider and dietitian about taking daily supplements. Depending on your health and the cause of your kidney stones, you may be told: ? Do not take high-dose supplements of vitamin C (1,000 mg a day or more). ? To take a calcium supplement. ? To take a daily probiotic supplement. ? To take other supplements such as magnesium, fish oil, or vitamin B6. ? Take ywci-apc-slzhgwf and prescription medicines only as told by your health care provider. These include supplements. What foods sh (more content not included)... Normal [facility] Urology Office/Clinic Noteon 03-31-2023 Urology Office/Clinic Note Chief Complaint 6 month follow up HPI Staff Luis Alberto is a 77 y.o. male here for 6 month follow up. Previous DX: BPH w/ obstruction/lower urinary tract symptoms, elevated PSA, history of bladder cancer, nocturia, OAB, post void dribbling, prostate cancer, urge incontinence, urinary frequency. S/P UroLift done on 01/12/22, cystoscopy done on 10/09/21, brachytherapy done on 06/26/20, TRUS/bx done on 04/15/20. IPSS 20 Current PSA 0.40 02/24/23, previous PSA 0.42 12/15/22. IPSS 14 Dysuria: denies pain or burning Incomplete bladder emptying: sometimes Hematuria: denies visible blood Frequency: every 2 hours Urgency: sometimes Nocturia: 3x a night Stream: denies hesitancy, stream varies Leaking: denies Post void dripping: denies Wearing pads/ Depends: denies Urge incontinence: yes Stress incontinence: denies Incontinence without Sensory Awareness: denies Abdominal pain: denies Flank pain: denies Sexual complaints: denies History of Present Illness I have reviewed and verified the staff HPI to be accurate for this encounter. Review of Systems PHQ Score Initial Depression Screen Score: 0 SCORE Physical Exam Vitals & Measurements HR: 100(Peripheral) BP: 124/70 HT: 75 in HT: 190 cm WT: 95.7 kg WT: 210.54 lb BMI: 26.51 General: Well developed, well nourished, in no acute distress. Genitourinary: Flank Pain: none. Bladder: nonpalpable Assessment/Plan 1. Prostate cancer (C61: Malignant neoplasm of prostate) TRUS/bx by RITU 04/15/20 - T1C, [place] 6 (3+3). S/P Brachytherapy 06/26/20. [1] PSA (monitored by Dr. Kaiser): 02/18/21 - 1.26 08/21/21 - 0.73 02/10/22 - 0.29 08/19/22 - 0.52 02/24/23 - 0.40 Continue to follow w/ Dr Kaiser annually. 2. BPH with obstruction/lower urinary tract symptoms (N40.1: Benign prostatic hyperplasia with lower urinary tract symptoms) No sample provided today. PVR 14cc IPSS 20 (18) severe sxs of BPH expresses that he is mostly dissatisfied w/ urinary pattern c/o of intermittency, feeling of incomplete emptying, weak stream s/p UroLift 01/13/22 Does admit he has not had the results he was hoping from procedure Discussed restarting on prostate medication in optimize urination. Pt agrees to trial medication. Previously tolerated terazosin 10 mg QD. Discussed SEs, stop medication and notify office if experiencing anything intolerable. Rx sent to [facility]. -Pt to make f/u in 2-3 mos if urinary pattern continues to worsen back on medication -Otherwise, f/u 1 yr Ordered: terazosin, 10 mg = 1 cap(s), Oral, Once a day (at bedtime), X 30 day(s), # 30 cap(s), Refills(s) 11, Pharmacy: [facility] #[id number], 190, cm, 03/31/23 15:07:00 EST, Height/Length Dosing, 95.7, kg, 03/31/23 15:07:00 EST, Weight Dosing 98416 Measure Post Void residual urine and/or bladder capacity by US- non-imaging Body Mass Index (BMI) documented 3008F Current tobacco non-user 1036F Depression Screening Negative 3352F Falls plan of care documented 0518F Influenza immunization status assessed 1030F Most recent diastolic blood pressure <80 mm Hg 3078F Systolic BP <130 mm Hg (Most Recent) 3074F 3. OAB (overactive bladder) (N32.81: Overactive bladder) frequency/urgency sxs after UroLift. Trial Myrbetriq for 2-3 mos w/o improvement. Discussed bladder irritants and timed voids. Will see if sxs improve w/ resuming terazosin. 4. History of bladder stone (Z87.448: Personal history of other diseases of urinary system) Cysto, laser litho of bladder calculus by DLS 10/09/21. Stone analysis 10/09/21 - 90% Ca Ox mono, 10% Ca Ox di. [2] Passed a large stone around the time of visit about 6 mos ago. Had worsening of urinary sxs and left sided flank pain for 24 hrs. Stone analysis 08/25/22 - 100% Ca Ox mono CT AP wo con 08/28/22 - bilateral nonobstructive renal stones, largest measuring up to 6 mm in the left lower pole. No ureteral stone or hydronephrosis. There is a 4 mm calculus within the posterior bladder. Reviewed imaging w/ pt. Discussed that it's possible that the stone in the bladder is a kidney stone that has passed. Discussed true bladder stones are usually due to incomplete bladder emptying. PVR 14 cc today, although pt does feel that he does not always empty. Discussed timed voiding, voiding maneuvers. 5. Kidney stone (N20.0: Calculus of kidney) CT AP wo con 08/28/22 - bilateral nonobstructive renal stones, largest measuring up to 6 mm in the left lower pole. No ureteral stone or hydronephrosis. There is a 4 mm calculus within the posterior bladder. Discussed generalized stone prevention - pt encouraged to increase fluid intake so that he/she producing 2.5L of urine daily. Add 1/4 cup of lemon juice to water throughout the day or can also drink sugar free lemonade or clear soda. Avoid dark brown. Restrict sodium intake. Restrict animal protein. Discussed that if stones continue to grow, may require procedure to break them up so that he can pass them. Will (more content not included)... [facility] Comment on above: Result Comment: Elec tronically Signed By: NANDO Waters APRN, Ivy Romero\.br\Date and Time Signed: 03/31/23 19:18 EST Consultation Noteon 03-09-19 24 Consultation Note [id number]#[id number] [facility] CNOVon 03-02-2023 CNOV Office Visit (RADTSA ) -- LUIS ALBERTO OCAMPO ([id number]) 1945 M Date Time Provider Department 03/02/23 3:15 PM Dillan [facility] During your visit today, we recorded the following information about you: Temperature Pulse Respiration Blood pressure 97.2 degrees 86/minute 18/minute 155/82 Weight 96.9 kg Nicolasa Varela LPN 03/05/2023 3:59 PM Signed AUA= 16 Dillan Kaiser MD 03/05/2023 3:59 PM Signed Radiation Oncology - Follow Up Note PATIENT NAME: Luis Alberto Ocampo PATIENT DIAGNOSIS: 1. Prostate adenocarcinoma, initial PSA 5.51, biopsy Elham score 3 + 3 = 6 (grade group 1), clinical stage T1c, N0, M0, stage I [pT2, N0, M0, PSA <10, GG 1] (AJCC 8th ed.), s/p TRUS Random biopsy. 2. 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 Denies any new problems. 02/25/22:Underwent urolift. Still with urinary urgency, episodic, better last 2 days. 02/25/21: Urinary urgency has improved. Did undergo cystoscopy with Dr. Dickens without remarkable findings. No hematuria. He is having intermittent incontinence although improved recently. PSA HISTORY: PSA (ng/mL) Date Value 02/24/2023 0.40 08/19/2022 0.52 02/10/2022 0.29 08/21/2021 0.73 02/18/2021 1.26 12/06/2020 1.67 11/19/2020 2.09 08/02/2020 4.29 ALLERGIES Allergen Reactions Erythromycin Itching Iodine And Iodide C* Other: See Comments Pt passed out from milogram test on spinal cord Acetaminophen 500 mg cap Take 500 mg by mouth once daily. 2 CAPSULES DAILY meloxicam (MOBIC) 15 mg tablet Take 15 mg by mouth once daily. POTASSIUM-99 ORAL Take 20 mEq by mouth once daily. Omeprazole 40 mg capsule Take 40 mg by mouth once daily. carbidopa-levodopa (SINEMET 25-100) 25-100 mg per tablet Take 1 tablet by mouth three times daily. REVIEW OF SYSTEMS: D/N = 6/2-3 Hematuria: none Dysuria: Yes Incontinence: yes urge related Urgency: moderate Catheter use: No Medications to aid urination: yes Difficulty maintaining erections currently not using Viagra etc. - Total AUA Score: 16 Bowel movement frequency: 1/day Bowel movement quality: normal Blood per rectum: No PHYSICAL EXAM: BP 155/82 Pulse 86 Temp 36.2 ?C (97.2 ?F) Resp 18 Wt 96.9 kg (213 lb 10 oz) SpO2 95% BMI 26.35 kg/m? KPS: 100 General appearance: Alert and oriented. No acute distress. Rectal exam def Extremities: No deformities, edema, skin discoloration, clubbing or cyanosis. Skin: Skin color, texture, turgor normal, no suspicious rashes or lesions. ASSESSMENT/PLAN: Prostate adenocarcinoma, initial PSA 5.51, biopsy [place] score 3 + 3 = 6 (grade group 1), clinical stage T1c, N0, M0, stage I [pT2, N0, M0, PSA <10, GG 1] (AJCC 8th ed.) status post prostate brachytherapy 06/26/2020. Doing well, PSA remains low. Plan to see patient back in one year he continues with PSA. Urologic follow-up with Dr. Pelayo. Signed by: Dillan Kaiser MD cc: MD Dr. Pierce Brooks Portions of the above note extracted and edited from previous visit as well as active information included in the EMR. Allergies As of Date: 03/02/2023 Noted Allergy Reaction ERYTHROMYCIN 04/11/2021 9 - Itching IODINE AND IODIDE CONTAINING PROD*07/19/2020 14 - Other: See Comments Comments: Pt passed out from milogram test on spinal cord Date Reviewed: 03/02/2023 Reviewed by: Nicolasa Varela LPN - Fully Assessed Reason for Visit: Prostate Cancer [590] Primary Visit Diagnosis:Malignant neoplasm of prostate (HCC) [C61] Order(s):PSA/PROSTSPECAG DIAG [SQPSA] Order #: [id number] FUTURE Prescriptions as of 03/05/2023 - Acetaminophen 500 mg cap Take 500 mg by mouth once daily. 2 CAPSULES DAILY - meloxicam (MOBIC) 15 mg tablet Take 15 mg by mouth once daily. - POTASSIUM-99 ORAL Take 20 mEq by mouth once daily. - Omeprazole 40 mg capsule Take 40 mg by mouth once daily. 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 Normal [facility] CBC W Auto Differential pane l (Bld)on 02-24-2023 Basophils (Bld) [#/Vol] 0.04 10*3/uL Normal <0.11 [facility] Comment on above: Order Comment: Speci men Type: BLOOD SPECIMENOrdering Facility: [facility] Address: [address] [place] [address] Performed By: #### 5 7021-8 ####[facility] LABIA [id number] [place] [id number] Basophils/100 WBC (Bld) 0.7 % Normal [facility] Comment on above: Order Comment: Speci men Type: BLOOD SPECIMENOrdering Facility: [facility] Address: [address] [place] [address] Performed By: #### 5 7021-8 ####[facility] LABCLIA [id number] [place] [address] Differential cell count method Nom (Bld) Auto Normal [facility] Comment on above: Order Comment: Speci men Type: BLOOD SPECIMENOrdering Facility: [facility] Address: [address] [place] [address] Performed By: #### 5 7021-8 ####[facility] LABCLIA [id number] [place] [address] Eosinophils (Bld) [#/Vol] 0.23 10*3/uL Normal <0.46 [facility] Comment on above: Order Comment: Speci men Type: BLOOD SPECIMENOrdering Facility: [facility] Address: [address] [place] [address] Performed By: #### 5 7021-8 ####[facility] LABCLIA [id number] [place] [address] Eosinophils/100 WBC (Bld) 3.9 % Normal [facility] Comment on above: Order Comment: Speci men Type: BLOOD SPECIMENOrdering Facility: [facility] Address: [address] [place] [address] Performed By: #### 5 7021-8 ####[facility] LABCLIA [id number] [place] [address] Erythrocyte distribution width (RBC) [Ratio] 13.0 % Normal 11.5-15.0 [facility] Comment on above: Order Comment: Speci men Type: BLOOD SPECIMENOrdering Facility: [facility] Address: [address] [place] [address] Performed By: #### 5 7021-8 ####[facility] LABCLIA [id number] [place] [address] Hematocrit (Bld) [Volume fraction] 40.5 % Normal 39.0-51.0 [facility] Comment on above: Order Comment: Speci men Type: BLOOD SPECIMENOrdering Facility: [facility] Address: [address] [place] [address] Performed By: #### 5 7021-8 ####[facility] LABCLIA [id number] [place] [address] Hemoglobin (Bld) [Mass/Vol] 14.0 g/dL Normal 13.0-17.0 [facility] Comment on above: Order Comment: Speci men Type: BLOOD SPECIMENOrdering Facility: [facility] Address: [address] [place] [address] Performed By: #### 5 7021-8 ####[facility] LABCLIA [id number] [place] [address] Immature granulocytes (Bld) [#/Vol] 0.04 10*3/uL Normal <0.10 [facility] Comment on above: Order Comment: Speci men Type: BLOOD SPECIMENOrdering Facility: [facility] Address: [address] [place] [address] Performed By: #### 5 7021-8 ####[facility] LABCLIA [id number] [place] [address] Immature granulocytes/100 WBC (Bld) 0.7 % Normal [facility] Comment on above: Order Comment: Speci men Type: BLOOD SPECIMENOrdering Facility: [facility] Address: [address] [place] [address] Performed By: #### 5 7021-8 ####[facility] LABIA [id number] [place] [address] Lymphocytes (Bld) [#/Vol] 0.84 10*3/uL Low 1.00-4.00 [facility] Comment on above: Order Comment: Speci men Type: BLOOD SPECIMENOrdering Facility: [facility] Address: [address] [place] [address] Performed By: #### 5 7021-8 ####[facility] LABCLIA [id number] [place] [address] Lymphocytes/100 WBC (Bld) 14.3 % Normal [facility] Comment on above: Order Comment: Speci men Type: BLOOD SPECIMENOrdering Facility: [facility] Address: [address] [place] [address] Performed By: #### 5 7021-8 ####[facility] LABIA [id number] [place] [address] MCH (RBC) [Entitic mass] 35.1 pg High 26.0-34.0 [facility] Comment on above: Order Comment: Speci men Type: BLOOD SPECIMENOrdering Facility: [facility] Address: [address] [place] [address] Performed By: #### 5 7021-8 ####[facility] LABCLIA [id number] [place] [address] MCHC (RBC) [Mass/Vol] 34.6 g/dL Normal 30.5-36.0 [facility] Comment on above: Order Comment: Speci men Type: BLOOD SPECIMENOrdering Facility: [facility] Address: [address] [place] [address] Performed By: #### 5 7021-8 ####[facility] LABCLIA [id number] [place] [address] MCV (RBC) [Entitic vol] 101.5 fL High 80.0-100.0 [facility] Comment on above: Order Comment: Speci men Type: BLOOD SPECIMENOrdering Facility: [facility] Address: [address] [place] [address] Performed By: #### 5 7021-8 ####[facility] LABCLIA [id number] [place] [address] Monocytes (Bld) [#/Vol] 0.62 10*3/uL Normal <0.87 [facility] Comment on above: Order Comment: Speci men Type: BLOOD SPECIMENOrdering Facility: [facility] Address: [address] [place] [address] Performed By: #### 5 7021-8 ####[facility] LABCLIA [id number] [place] [address] Monocytes/100 WBC (Bld) 10.6 % Normal [facility] Comment on above: Order Comment: Speci men Type: BLOOD SPECIMENOrdering Facility: [facility] Address: [address] [place] [address] Performed By: #### 5 7021-8 ####[facility] LABCLIA [id number] [place] [address] Neutrophils (Bld) [#/Vol] 4.09 10*3/uL Normal 1.45-7.50 [facility] Comment on above: Order Comment: Speci men Type: BLOOD SPECIMENOrdering Facility: [facility] Address: [address] [place] [address] Performed By: #### 5 7021-8 ####[facility] LABCLIA [id number] [place] [address] Neutrophils/100 WBC (Bld) 69.8 % Normal [facility] Comment on above: Order Comment: Speci men Type: BLOOD SPECIMENOrdering Facility: [facility] Address: [address] [place] [address] Performed By: #### 5 7021-8 ####[facility] LABCLIA [id number] [place] [address] Nucleated RBC (Bld) [#/Vol] 10*3/uL Normal <0.01 [facility] Comment on above: Order Comment: Speci men Type: BLOOD SPECIMENOrdering Facility: [facility] Address: [address] [place] [address] Performed By: #### 5 7021-8 ####[facility] LABCLIA [id number] [place] [address] Nucleated RBC/100 WBC (Bld) [Ratio] 0.0 /100 WBC Normal [facility] Comment on above: Order Comment: Speci men Type: BLOOD SPECIMENOrdering Facility: [facility] Address: [address] [place] [address] Performed By: #### 5 7021-8 ####[facility] LABCLIA [id number] [place] [address] Platelet mean volume (Bld) [Entitic vol] 9.2 fL Normal 9.0-12.7 [facility] Comment on above: Order Comment: Speci men Type: BLOOD SPECIMENOrdering Facility: [facility] Address: [address] [place] [address] Performed By: #### 5 7021-8 ####[facility] LABCLIA [id number] [place] [address] Platelets (Bld) [#/Vol] 224 10*3/uL Normal 150-400 [facility] Comment on above: Order Comment: Speci men Type: BLOOD SPECIMENOrdering Facility: [facility] Address: [address] [place] [address] Performed By: #### 5 7021-8 ####[facility] LABCLIA [id number] [place] [address] RBC (Bld) [#/Vol] 3.99 10*6/uL Low 4.20-6.00 [facility] Comment on above: Order Comment: Speci men Type: BLOOD SPECIMENOrdering Facility: [facility] Address: [address] [place] [address] Performed By: #### 5 7021-8 ####[facility] LABCLIA [id number] [place] [address] WBC (Bld) [#/Vol] 5.86 10*3/uL Normal 3.70-11.00 [facility] Comment on above: Order Comment: Speci men Type: BLOOD SPECIMENOrdering Facility: [facility] Address: [address] [place] [address] Performed By: #### 5 7021-8 ####[facility] LABCLIA [id number] [place] [address] Comprehensive metabolic 2000 panelon 02-24-2023 Albumin [Mass/Vol] 4.4 g/dL Normal 3.9-4.9 [facility] Comment on above: Order Comment: Speci men Type: BLOOD SPECIMENOrdering Facility: [facility] Address: [address] [place] [address] Performed By: #### 2 4323-8, 2532-0 ####[facility] LABCLIA [id number] [place] [address] ALP [Catalytic activity/Vol] 96 U/L Normal 38-113 [facility] Comment on above: Order Comment: Speci men Type: BLOOD SPECIMENOrdering Facility: [facility] Address: [address] [place] [address] Performed By: #### 2 4323-8, 2531-0 ####[facility] LABCLIA [id number] [place] [address] ALT [Catalytic activity/Vol] 23 U/L Normal 10-54 [facility] Comment on above: Order Comment: Speci men Type: BLOOD SPECIMENOrdering Facility: [facility] Address: [address] [place] [address] Performed By: #### 2 4323-8, 2531-0 ####[facility] LABCLIA [id number] [place] [address] Anion gap [Moles/Vol] 9 mmol/L Normal 9-18 [facility] Comment on above: Order Comment: Speci men Type: BLOOD SPECIMENOrdering Facility: [facility] Address: [address] [place] [address] Performed By: #### 2 4323-8, 2531-0 ####[facility] LABCLIA [id number] [place] [address] AST [Catalytic activity/Vol] 22 U/L Normal 14-40 [facility] Comment on above: Order Comment: Speci men Type: BLOOD SPECIMENOrdering Facility: [facility] Address: [address] [place] [address] Performed By: #### 2 4323-8, 2531-0 ####[facility] LABCLIA [id number] [place] [address] Bilirubin [Mass/Vol] 1.3 mg/dL Normal 0.2-1.3 [facility] Comment on above: Order Comment: Speci men Type: BLOOD SPECIMENOrdering Facility: [facility] Address: [address] [place] [address] Performed By: #### 2 432-8, 2531-0 ####[facility] LABCLIA [id number] [place] [address] Calcium [Mass/Vol] 9.9 mg/dL Normal 8.5-10.2 [facility] Comment on above: Order Comment: Speci men Type: BLOOD SPECIMENOrdering Facility: [facility] Address: [address] [place] [address] Performed By: #### 2 4328, 2531-0 ####[facility] LABCLIA [id number] [place] [address] Chloride [Moles/Vol] 104 mmol/L Normal 97-105 [facility] Comment on above: Order Comment: Speci men Type: BLOOD SPECIMENOrdering Facility: [facility] Address: [address] [place] [address] Performed By: #### 2 4328, 0 ####[facility] LABCLIA [id number] [place] [address] CO2 [Moles/Vol] 29 mmol/L Normal 22-30 [facility] Comment on above: Order Comment: Speci men Type: BLOOD SPECIMENOrdering Facility: [facility] Address: [address] [place] [address] Performed By: #### 2 43238, 0 ####[facility] LABCLIA [id number] [place] [address] Creatinine [Mass/Vol] 1.00 mg/dL Normal 0.73-1.22 [facility] Comment on above: Order Comment: Speci men Type: BLOOD SPECIMENOrdering Facility: [facility] Address: [address] [place] [address] Performed By: #### 2 432-8, 2531-0 ####[facility] LABCLIA [id number] [place] [address] Creatinine and Glomerular filtration rate.predicted panel (S/P/Bld) 78 mL/min/1.73m??? Normal >=60 [facility] Comment on above: Order Comment: July sawyer Type: BLOOD SPECIMENOrdering Facility: [facility] Address: [address] [place] [address] Result Comment: Jessica mated Glomerular Filtration Rate (eGFR) is calculated using the 2020 CKD-EPI creatinine equation. This equation utilizes serum creatinine, sex, and age as parameters. The creatinine assay has traceable calibration to isotope dilution-mass spectrometry. Refer to KDIGO guidelines for clinical interpretation. In patients with unstable renal function, e.g. those with acute kidney injury, the eGFR may not accurately reflect actual GFR. Performed By: #### 2 4323-8, 2531-0 ####[facility] LABIA [id number] [place] [address] Glucose [Mass/Vol] 105 mg/dL High 74-99 [facility] Comment on above: Order Comment: July sawyer Type: BLOOD SPECIMENOrdering Facility: [facility] Address: [address] [place] [address] Result Comment: The [place] [employer] (ADA) provides guidance for cutoff values for fasting glucose and random glucose. The ADA defines fasting as no caloric intake for at least 8 hours. Fasting plasma glucose results between 100 to 125 mg/dL indicate increased risk for diabetes (prediabetes). Fasting plasma glucose results greater than or equal to 126 mg/dL meet the criteria for diagnosis of diabetes. In the absence of unequivocal hyperglycemia, results should be confirmed by repeat testing. In a patient with classic symptoms of hyperglycemia or hyperglycemic crisis, random plasma glucose results greater than or equal to 200 mg/dL meet the criteria for diagnosis of diabetes. Reference: Standards of Medical Care in Diabetes 2016, [place] [employer]. Diabetes Care. 2016.39(Suppl 1). Performed By: #### 2 4323-8, 0 ####[facility] LABIA [id number] [place] [address] Potassium [Moles/Vol] 4.1 mmol/L Normal 3.7-5.1 [facility] Comment on above: Order Comment: July sawyer Type: BLOOD SPECIMENOrdering Facility: [facility] Address: [address] [place] [address] Performed By: #### 2 4323-8, 2531-0 ####[facility] LABCLIA [id number] [place] [address] Protein [Mass/Vol] 7.1 g/dL Normal 6.3-8.0 [facility] Comment on above: Order Comment: Speci men Type: BLOOD SPECIMENOrdering Facility: [facility] Address: [address] [place] [address] Performed By: #### 2 4323-8, 2531-0 ####[facility] LABCLIA [id number] [place] [address] Sodium [Moles/Vol] 142 mmol/L Normal 136-144 [facility] Comment on above: Order Comment: Speci men Type: BLOOD SPECIMENOrdering Facility: [facility] Address: [address] [place] [address] Performed By: #### 2 4323-8, 2531-0 ####[facility] LABCLIA [id number] [place] [address] Urea nitrogen [Mass/Vol] 25 mg/dL High 9-24 [facility] Comment on above: Order Comment: Speci men Type: BLOOD SPECIMENOrdering Facility: [facility] Address: [address] [place] [address] Performed By: #### 2 4323-8, 2531-0 ####[facility] LABCLIA [id number] [place] [address] [facility]2023 LDH [Catalytic activity/Vol] 210 U/L Normal 135-225 [facility] Comment on above: Order Comment: Speci men Type: BLOOD SPECIMENOrdering Facility: [facility] Address: [address] [place] [address] Result Comment: Hemo lysis present. The origin of the hemolysis, in vitro versus an in vivo hemolytic process, cannot be distinguished via this assay alone. In vitro hemolysis may lead to non-physiological (spurious) elevation in lactate dehydrogenase (LDH) results. The result should be interpreted in context of the clinical setting and other test results. Suggest reorder as clinically indicated. Performed By: #### 2 4323-8, 2532-0 ####[facility] LABCLIA [id number] [place] [address] PSA SerPl-ncon 02-24-2023 Prostate specific Ag [Mass/Vol] 0.40 ng/mL Normal <2.60 [facility] Comment on above: Order Comment: Speci men Type: BLOOD SPECIMENOrdering Facility: [facility] Address: [address] [place] [address] Result Comment: Tota terrence PSA test methodology used is the Electrochemiluminescence Immunoassay by [employer]. Total PSA values by differing methodologies cannot be interchanged. 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 Henson and normally has a PET scan done prior to follow-ups. Asking if this order can be placed, or if this is not needed. Requesting response back:[phone] (home) [phone] (cell) Duration of symptoms: N/A Patient has been identified by name and birthdate. Kayleen Gardner February 08, 2023 Marissa Montgomery RN 02/09/2023 12:41 PM Signed Called and spoke with . Regarding scans before up coming annual f/u. Told Sydnee that reviewed Dr. Hardy last note and CT scan was not needed before f/u on . Weight loss?: Noted that patient has nearly a 10 lb weight loss in last year. Night sweats?:and had 1 episode of drenching night sweats recently Fever?: noted one episode of feeling very hot to the touch Any new lumps or bumps?: since the Parkinson's Diagnosis I don't think he has been checking. 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 2 CAPSULES DAILY - meloxicam (MOBIC) 15 mg tablet Take 15 mg by mouth once daily. - POTASSIUM-99 ORAL Take 20 mEq by mouth once daily. - Omeprazole 40 mg capsule Take 40 mg by mouth once daily. 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 Senile incipient cataract, bilateral [H25.093] 12/28/2019 02/16/2020 Radiation induced cataract [H26.8] 12/28/2019 Preoperative examination [Z01.818] 02/15/2020 Combined forms of age-related cataract of both *02/15/2020 02/16/2020 Personal history of lymphoma [Z85.72] 02/15/2020 Parkinson disease ([facility]) [G20.A1] 03/19/2021 Prostate CA ([facility]) [C61] 04/2020 GERD (gastroesophageal reflux disease) [K21.9] 03/19/2021 Encounter Status:Closed by KAYLEEN GARDNER on 03/15/23 Normal [facility] Consultation Noteon 09-06-19 23 Consultation Note [id number]:127 Normal [facility] RAD - CT Reporton 09-05-2022 RAD - CT Report [id number]:127 Normal [facility] Reminderson 09-05-2022 Reminders - From: Maegan Gunter To: KAMERON - PA - Results; Sent: 08/25/2022 09:16:55 EDT Show up: 09/24/2022 09:16:00 EDT Subject: CT results Due Date/Time: 09/24/2022 09:16:00 EDT Pt should be getting CT AP wo con to check for renal/bladder stones. Please check for these results and call pt with them. addressed in separate message. Normal [facility] Calculus Analysison 09-02-19 Calcium oxalate monohydrate (Stone) [Mass fraction] 100 % Invalid Interpretation Code [facility] Comment on above: Performed By: #### 1 [id number] ####[facility] [address] [place] [address] Color (Stone) Brown Invalid Interpretation Code [facility] Comment on above: Performed By: #### 1 [id number] ####[facility] [address] [place] [address] Composition Comment Invalid Interpretation Code [facility] Comment on above: Result Comment: Perc entage (Represents the % composition) Performed By: #### 1 [id number] ####[facility] [address] [place] [address] Disclaimer: Comment Invalid Interpretation Code [facility] Comment on above: Result Comment: This test was developed and its performance characteristics determined by [employer]. It has not been cleared or approved by the Food and Drug Administration. Performed at: [facility] [id number] PhD Alec Tesfaye Performed By: #### 1 [id number] ####[facility] [address] [place] [address] Laboratory comment Alex (Report) Comment Invalid Interpretation Code [facility] Comment on above: Result Comment: Page hurst questions regarding Calculi Analysis [facility] at: [phone]. Performed By: #### 1 [id number] ####[address] [place] [address] Please Note: Comment Invalid Interpretation Code [facility] Comment on above: Result Comment: Calc siena report will follow via computer, mail or environmental adviser delivery. Performed By: #### 1 [id number] ####[facility] [address] [place] [address] Size (Stone) [Entitic vol] 6x7 Invalid Interpretation Code [facility] Comment on above: Result Comment: Sing le piece received. Performed By: #### 1 [id number] ####[address] [place] [address] Specimen source subject Nom Comment Invalid Interpretation Code [facility] Comment on above: Result Comment: Not provided Performed By: #### 1 [id number] ####[facility] [address] [place] [address] Stone Photo Comment Invalid Interpretation Code [facility] Comment on above: Result Comment: Phot ograph will follow under a separate cover Performed By: #### 1 [id number] ####[facility] [address] [place] [address] Weight (Stone) 151 mg Invalid Interpretation Code [facility] Comment on above: Performed By: #### 1 [id number] ####[facility] [address] [place] [address] CT ABD/PEL WO IVCONon 2022 CT ABD/PEL WO IVCON * * *Final Report* * * DATE OF EXAM: Aug 28 2022 8:47AM [facility] 0531 - CT ABD/PEL WO IVCON / PROCEDURE REASON: lt flank pain; bladder stone * * * * Physician Interpretation * * * * RESULT: EXAMINATION: CT ABDOMEN AND PELVIS WITHOUT IV CONTRAST CLINICAL HISTORY: Left flank pain. Bladder stone. TECHNIQUE: Non-IV contrast imaging of the abdomen and pelvis was performed using standard technique, scanning from just above the dome of the diaphragm to the symphysis pubis. Unenhanced imaging is limited for the evaluation of some intra-abdominal and pelvic pathology. MQ: CTAPWO_3 Contrast: IV: None CT Radiation dose: Integrated Dose-length product (DLP) for this visit = 655 mGy*cm. CT Dose Reduction Employed: Automated exposure control (AEC) COMPARISON: CT abdomen/pelvis 12/06/2020; 12/25/2019 RESULT: The absence of intravenous contrast precludes optimal evaluation of the solid and hollow viscera. Abdomen / Pelvis: Liver: Unchanged liver morphology. A 1 cm cyst within hepatic segment 5 is unchanged. Biliary: No biliary ductal dilatation. The gallbladder is nondilated. Spleen: No splenomegaly. Pancreas: Unremarkable. Adrenals: No mass. Kidneys: There are bilateral subcentimeter nonobstructive renal stones, measuring up to 0.6 cm within the left renal lower pole. No ureteral stone or hydronephrosis. GI Tract: The bowel is normal in caliber and without evidence of wall thickening or obstruction. There are sigmoid colonic diverticula, without associated inflammation. The appendix is normal. Lymph Nodes: No lymphadenopathy. Mesentery/peritoneum: No ascites. Retroperitoneum: No mass. Vasculature: Arterial atherosclerotic disease without aneurysm. Pelvis: No mass or ascites. Multiple prostate brachytherapy seeds are in place. The rectum is unremarkable. There is a 0.4 cm calculus within the posterior urinary bladder. Bones/Soft Tissues: Degenerative changes involve the lumbar spine. No destructive lytic or blastic osseous abnormality. There is laxity of the midline anterior abdominal wall with rectus diastases and a small fat-containing umbilical hernia. Lower thorax: Unchanged elevation of the right hemidiaphragm. Unchanged right basilar subpleural interstitial and groundglass opacities. There is partially imaged right inferior perihilar peribronchial thickening. Health Consultant (topogram) images: No additional finding. IMPRESSION: 1. No acute abnormality within the abdomen/pelvis, within the confines of a noncontrast examination. 2. Subcentimeter bilateral nonobstructive renal stones. No ureteral stone or hydronephrosis. 3. Unchanged subcentimeter calculus within the dependent urinary bladder. 4. Unchanged elevation of the right hemidiaphragm, right basilar subpleural interstitial and groundglass opacities. Partially imaged right perihilar peribronchial thickening. If warranted, consider further assessment with chest CT. Transcribe Date/Time: Aug 28 2022 3:49P Dictated by: GRACE AU MD This examination was interpreted and the report reviewed and electronically signed by: GRACE AU MD on Aug 28 2022 3:58PM EST Thank you for allowing us to participate in the care of your patient. Should there be any questions regarding this interpretation, please call [phone]. If you are unable to reach us at the number above, please feel free to contact [facility] eRadiology at [phone]. [id number] Normal [facility] Screenson 08-26-2022 Screens [id number] Normal [facility] Ambulatory Visit Summaryon 0 08-25-2022 Ambulatory Visit Summary DAMARIS, LUIS ALBERTO Thomas :1945 Visit Date:08/25/2022 Ambulatory Visit Instructions Your Diagnosis Prostate cancer BPH with obstruction/lower urinary tract symptoms OAB (overactive bladder) History of bladder stone Tests Performed CT Abdomen/Pelvis w/o Contrast -- Results Pending -- Please visit your patient portal for your results or contact your primary care physician. Your Care Team Attending Physician - Dakotah PELAYO MD Primary Care Physician - Luis Daniel Galicia MD This Is Your Medications List Contact prescribing physician if questions or concerns carbidopa-levodopa (carbidopa-levodopa 25 mg-100 mg Tab) meloxicam mirabegron (Myrbetriq 50 mg oral tablet, extended release) multivitamin (Vitamin B Complex oral capsule) omeprazole (omeprazole 40 mg Cap-DR) potassium chloride (Potassium Chloride (Eqv-K-Tab) 20 mEq oral tablet, extended release) vitamin E Procedures Performed Transurethral insertion of prostatic urethral lift implant (01/12/2022), Cystoscopy (10/09/2021), Cystoscopy and lithotripsy of calculus of bladder using laser (10/09/2021), Cystoscope (07/21/2021), Brachytherapy (06/26/2020), Transrectal biopsy of prostate using ultrasound (US) guidance (04/15/2020), Cataract (01/30/2020), Hernia (12/31/2019), Colonoscopy, Tonsillectomy. Discharge Vitals Heart Rate (Peripheral) 84 Respiratory Rate 16 Blood Pressure 127/83 Height 190 cm Height 75 in Weight 100 kg Weight 220 lb BMI 27.7 What to do next Scheduled Follow-Up Appointments Wednesday 11:00 AM EST With: Dakotah PELAYO MD Where: [facility] 08-25-2022 CNOV Office Visit (RADTSA ) -- LUIS ALBERTO OCAMPO ([id number]) 1945 M Date Time Provider Department 08/25/22 4:00 PM Dillan [facility] During your visit today, we recorded the following information about you: Temperature Pulse Respiration Blood pressure 98.3 degrees 91/minute 16/minute 133/84 Weight 98.2 kg Dillan Kaiser MD 09/02/2022 3:22 PM Signed Radiation Oncology - Follow Up Note PATIENT NAME: Luis Alberto Ocampo PATIENT DIAGNOSIS: 1. Prostate adenocarcinoma, initial PSA 5.51, biopsy Elham score 3 + 3 = 6 (grade group 1), clinical stage T1c, N0, M0, stage I [pT2, N0, M0, PSA <10, GG 1] (AJCC 8th ed.), s/p TRUS Random biopsy. 2. 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 Is undergoing management of kidney stone, has CT abdomen pelvis within the next week. Denies current hematuria though has had previously. Denies other new problems. 02/25/22:Underwent urolift. Still with urinary urgency, episodic, better last 2 days. 02/25/21: Urinary urgency has improved. Did undergo cystoscopy with Dr. Dickens without remarkable findings. No hematuria. He is having intermittent incontinence although improved recently. PSA HISTORY: PSA (ng/mL) Date Value 08/19/2022 0.52 02/10/2022 0.29 08/21/2021 0.73 02/18/2021 1.26 12/06/2020 1.67 11/19/2020 2.09 08/02/2020 4.29 ALLERGIES Allergen Reactions Erythromycin Itching Iodine And Iodide C* Other: See Comments Pt passed out from milogram test on spinal cord carbidopa-levodopa (SINEMET 25-100) 25-100 mg per tablet Take 1 tablet by mouth three times daily. Acetaminophen 500 mg cap Take 500 mg by mouth once daily. 2 CAPSULES DAILY meloxicam (MOBIC) 15 mg tablet Take 15 mg by mouth once daily. POTASSIUM-99 ORAL Take 20 mEq by mouth once daily. Omeprazole 40 mg capsule Take 40 mg by mouth once daily. REVIEW OF SYSTEMS: D/N = 6/2-3 Hematuria: none Dysuria: Yes Incontinence: yes urge related Urgency: moderate Catheter use: No Medications to aid urination: yes Difficulty maintaining erections currently not using Viagra etc. - Total AUA Score: 20 Bowel movement frequency: 1/day Bowel movement quality: normal Blood per rectum: No PHYSICAL EXAM: BP 133/84 Pulse 91 Temp 36.8 ?C (98.3 ?F) Resp 16 Wt 98.2 kg (216 lb 9.6 oz) SpO2 97% BMI 26.72 kg/m? KPS: 100 General appearance: Alert and oriented. No acute distress. Abdomen: Normal abdominal exam, Abdomen soft, non-tender. No masses, organomegaly. Rectal exam def Extremities: No deformities, edema, skin discoloration, clubbing or cyanosis. Lymph Nodes: No cervical lymphadenopathy, No supraclavicular lymphadenopathy, No axillary lymphadenopathy. Skin: Skin color, texture, turgor normal, no suspicious rashes or lesions. ASSESSMENT/PLAN: Prostate adenocarcinoma, initial PSA 5.51, biopsy Elham score 3 + 3 = 6 (grade group 1), clinical stage T1c, N0, M0, stage I [pT2, N0, M0, PSA <10, GG 1] (AJCC 8th ed.) status post prostate brachytherapy 06/26/2020. Doing well, PSA remains low. Has some issues including nephrolithiasis, has active follow-up with Dr. Pelayo. Plan to see patient back in 6 months with PSA. Signed by: Dillan Kaiser MD cc: MD Dr. Pierce Brooks Portions of the above note extracted and edited from previous visit as well as active information included in the EMR. Nicolasa Varela LPN 09/02/2022 3:22 PM Signed AUA=20 Allergies As of Date: 08/25/2022 Noted Allergy Reaction ERYTHROMYCIN 04/11/2021 9 - Itching IODINE AND IODIDE CONTAINING PROD*07/19/2020 14 - Other: See Comments Comments: Pt passed out from milogram test on spinal cord Date Reviewed: 08/25/2022 Reviewed by: Nicolasa Varela LPN - Fully Assessed Reason for Visit: Prostate Cancer [590] Primary Visit Diagnosis:Malignant neoplasm of prostate (HCC) [C61] Order(s):PSA/PROSTSPECAG DIAG [SQPSA] Order #: [id number] FUTURE Prescriptions as of 09/02/2022 - carbidopa-levodopa (SINEMET 25-100) 25-100 mg per tablet Take 1 tablet by mouth three times daily. - Acetaminophen 500 mg cap Take 500 mg by mouth once daily. 2 CAPSULES DAILY - meloxicam (MOBIC) 15 mg tablet Take 15 mg by mouth once daily. - POTASSIUM-99 ORAL Take 20 mEq by mouth once daily. - Omeprazole 40 mg capsule Take 40 mg by mouth once daily. 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 Normal [facility] Patient Educationon 08-26-19 Patient Education Oncology Cancer Screening for Men A cancer screening is a test or exam that checks for cancer. Your health care provider will recommend specific cancer screenings based on your age, medical history (including risk factors), and family history of cancer. Work with your health care provider to create a cancer screening schedule that protects your health. Who should have screening? All men should be considered for screening of certain cancers, including colorectal cancer, prostate cancer, lung cancer, and skin cancer. Your health care provider may recommend screenings for other types of cancer if: ? You had cancer before. ? You have a family member with cancer. ? You have abnormal genes that could increase the risk of cancer. ? You have risk factors for certain cancers, such as current or past use of tobacco products, or being overweight. When you should be screened for cancer depends on: ? Your age. ? Your medical history and your family's medical history. ? Certain lifestyle factors, such as smoking or other use of tobacco products. ? Environmental exposure, such as to asbestos. How is screening done? Colorectal cancer All adults should have screenings starting at age 45 and continuing until age 75. Your health care provider may recommend screening before age 45. You will have tests every 1?10 years, depending on your results and the type of screening test. People at increased risk should start screening at an earlier age. Talk with your health care provider about which screening test is right for you and how often you should be screened. Colorectal cancer screening looks for cancer or for growths called polyps that often form before cancer starts. Tests to look for cancer or polyps include: ? Colonoscopy or flexible sigmoidoscopy. For these procedures, a flexible tube with a small camera is inserted into the rectum. ? CT colonography. This test uses X-rays and a contrast dye to check the colon for polyps. If a polyp is found, you may need to have a colonoscopy so the polyp can be located and removed. Tests to look for cancer in the stool (feces) include: ? Guaiac-based fecal occult blood test (FOBT). This test can find blood in stool. It can be done at home with a kit. ? Fecal immunochemical test (FIT). This test can find blood in stool. For this test, you will need to collect stool samples at home. ? Stool DNA test. This test looks for blood in stool and any changes in DNA that can lead to colon cancer. For this test, you will need to collect a stool sample at home and send it to a lab. Prostate cancer Prostate cancer screening for men with average risk may start at age 50. Men with risk factors may need to be screened earlier, at ages 40?45. Talk with your health care provider about whether screening is right for you and, if so, how often you should be screened. Prostate cancer screening is done with blood tests and a digital rectal exam. During this exam, a health care provider uses a gloved finger to check prostate size. You may need to be screened for prostate cancer if: ? You have risk factors for prostate cancer, such as being or having a close family member with prostate cancer. ? You have had gene changes or a genetic condition that was passed on to you from a parent (inherited). These gene changes or genetic conditions include BRCA1 or BRCA2 gene mutations or Richards syndrome. ? You have symptoms of prostate cancer, such as problems urinating or problems getting or keeping an erection (erectile dysfunction). When you have been screened for prostate cancer, future screening may be recommended based on the results of your blood tests. Lung cancer Lung cancer screening is done with a CT scan that looks for abnormal changes in the lungs. Discuss lung cancer screening with your health care provider if you are 50?80 years old and if any of the following apply to you: ? You currently smoke. ? You used to smoke heavily. ? You have a smoking history of 1 pack of cigarettes a day for 20 years or 2 packs a day for 10 years. ? You have quit smoking within the past 15 years. You may need to be screened every year if you smoke heavily or if you used to smoke. Skin cancer Skin cancer screening is done by checking the skin for unusual moles or spots and any changes in existing moles. Your health care provider should check your skin for signs of skin cancer at every physical exam. You should check your skin every month and tell your health care provider right away if anything looks unusual. Men with a yalram-ueyf-cpgymn risk for skin cancer may want to see a esthetician/skin therapist (director business travel) for an annual body check. What are the benefits of screening? Cancer screening is done to look for cancer in the very early stages, before it spreads and becomes harder to treat and before you would start to notice symptoms. Finding cancer early improves the chances of successful treatment. It ma (more content not included)... Normal [facility] Urology Office/Clinic Noteon 08-25-2022 Urology Office/Clinic Note Chief Complaint 3 month f/u HPI Staff Pt is a 77 yr old Male here today for a 3 month f/u. Pts previous DX; bladder calculus, BPH with obstruction/lower urinary tract symptoms (Urolift 01/12/22), elevated PSA, nocturia, post-void dribbling, prostate cancer (Brachytherapy 06/26/20), urge incontinence, urgency of urination, urinary frequency. Pt is currently taking Myrbetriq 50mg QD. Pt passed some stones last night and a large one today. Dysuria: only a little last night when he was passing stones Incomplete bladder emptying: pt feels that he is emptying now that he got the large stone out Hematuria: no Frequency: every 2 hours normally Urgency: yes Nocturia: 2x with the exception of last night due to passing stones was up 8x Stream: good steady flow Leaking: yes if he has to wait too long Post void dripping: a little Wearing pads/ Depends: no Urge incontinence: not for a long time and states that it only has happened a couple of times Stress incontinence: no Incontinence without Sensory Awareness: no Abdominal pain: yesterday but states now that he passed the stones the pain is gone Flank pain: both sides yesterday but is gone now Sexual complaints: no History of Present Illness Tests reviewed: reviewed none. I have reviewed the previous health record information and history for this patient from Dr. Pelayo. I have reviewed and verified the staff HPI to be accurate for this encounter. There have been no associated fever, chills, flank pain, or blood in the urine. Denies any urinary infections since last encounter. Review of Systems PHQ Score Initial Depression Screen Score: 0 ROS - Provider Constitutional: denies weight loss, denies hot flashes. Eyes: denies eye problems. Gastrointestinal: denies nausea, denies vomiting. Cardiovascular: denies chest pain or angina. Integumentary: no dryness Musculoskeletal: denies musculoskeletal symptoms. ENMT: denies otolaryngeal symptoms. Respiratory: no shortness of breath. Heme/Lymph: denies easy bleeding tendency, denies easy bruising tendency. Psychiatric: no confusion, no anxiety. Genitourinary: See HPI. Physical Exam Vitals & Measurements HR: 84(Peripheral) RR: 16 BP: 127/83 HT: 75 in HT: 190 cm WT: 100 kg WT: 220 lb BMI: 27.7 General Appearance: alert, no distress, well nourished, well developed male. Genitourinary: normal scrotum, normal testes, normal urethra, normal epididymis, normal vas deferens/spermatic cord. Flank Pain: none. Bladder: nonpalpable. Assessment/Plan 1. Prostate cancer (C61: Malignant neoplasm of prostate) PSA (monitored by Dr. Kaiser): 02/18/21 - 1.26 08/21/21 - 0.73 recent level - 0.52 per pt TRUS/bx by RITU 04/15/20 - T1C, [place] 6 (3+3). S/P Brachytherapy 06/26/20. Has appt with Dr. Kaiser today. Cont PSA monitoring with Martha. He has an appointment today 2. BPH with obstruction/lower urinary tract symptoms (N40.1: Benign prostatic hyperplasia with lower urinary tract symptoms) S/P UroLift 01/12/22. No sample provided for UA today. IPSS 18 (21). 3. OAB (overactive bladder) (N32.81: Overactive bladder) Started Myrbetriq 50 mg ER qd at prior OV. Took for 2-3 mos, did not make a difference so pt stopped taking. No rec. for continued script for this. 4. History of bladder stone (Z87.448: Personal history of other diseases of urinary system) Cysto, laser litho of bladder calculus by DLS 10/09/21. Stone analysis 10/09/21 - 90% Ca Ox mono, 10% Ca Ox di. Passed large stone yesterday. Has passed tiny stones in the past. Voiding much better after passing stone. Unclear whether stone originated from kidney or bladder. Discussed imaging to clarify if pt has kidney stones or bladder stones. Had L flank pain for 24 hours. Educated pt that bladder stones usually form due to incomplete bladder emptying. Possible stone from Sep was a kidney stone based on stone analysis. Follow up 6 mos or sooner if needed. Pt understands and agrees with plan. -CT AP wo con soon. Will call pt with results. Pt would like [facility] at [facility]. -Send stone for analysis. Overall the patient does have a history of bladder calculus. Previous analysis is as noted above. This is somewhat suspicious for a prior kidney stone which ended up in the bladder. His current episode did involve some left-sided flank pain. This is suspicious for passage of a left sided ureteral calculus which then became lodged in the urinary channel and then he had problems passing this out. Stone is obtained and this is quite large. He will be sent for analysis. This may prompt recommendation for metabolic work-up in the future. Currently CT scan will be obtained to evaluate for urolithiasis both within the kidney and any remaining stones which could be in the bladder. I feel this is a better test as opposed to cystoscopic evaluation which would only evaluate the lower tract. He agrees with that plan. Tentative plan for a 6-month follow-up. Follow-up With When Contact Informat (more content not included)... Normal [facility] Comment on above: Result Comment: Elec tronically Signed By: Dakotah PELAYO MD\.br\Date and Time Signed: 08/25/22 09:19 EDT\.br\Electronically Co-Signed By: Maegan Gunter\.br\Date and Time Co-Signed: 08/25/22 09:16 EDT\.br\Electronically Co-Signed By: Maegan Gunter\.br\Date and Time Co-Signed: 08/25/22 09:17 EDT PSA Markyl-mCnatalyon 08-19-2022 Prostate specific Ag [Mass/Vol] 0.52 ng/mL Normal <2.60 [facility] Comment on above: Order Comment: Speci men Type: BLOOD SPECIMENOrdering Facility: [facility] Address: [address] [id number] Result Comment: Tota l PSA test methodology used is the Electrochemiluminescence Immunoassay by [employer]. Total PSA values by differing methodologies cannot be interchanged. Performed By: #### 2 [id number] ####[facility] LABCLIA [id number] [facility] [id number] [place], [place] [id number] [place] NM BRAIN TREMOR SPECT/CTon 0 05-06-2022 NM BRAIN TREMOR SPECT/CT * * *Final Report* * * DATE OF EXAM: May 06 2022 2:54PM [place] 0088 - NM BRAIN TREMOR SPECT/CT / PROCEDURE REASON: Other symptoms and signs involving the nervous system * * * * Physician Interpretation * * * * I-123-BRAIN DaTSCAN CLINICAL HISTORY: Tremor. Parkinsonism. TECHNIQUE: The patient's medications and allergies were reviewed in electronic medical record and reconciled to the proposed procedure/treatment. The patient was pretreated with 4 drops of SSKI orally, followed by injection of 5 mCi I-123 Ioflupane, IV. SPECT CT images of the brain was acquired in 3-[address] Radiation dose: Integrated Dose-length product (DLP) for this visit = 441 mGy*cm. CT Dose Reduction Employed: Automatic exposure control used (AED) CORRELATION: None. RESULT: Topogram review: Unremarkable, no acute findings. The tracer uptake in the caudate head and anterior striatum are symmetric. The uptake in the left caudate head and anterior striatum: normal. The uptake in the right caudate head and anterior striatum: normal. The tracer uptake in the putamen and posterior striatum are asymmetric. The uptake in the left putamen and posterior striatum : normal. The uptake in the right putamen and posterior striatum: Slightly decreased. CT of head and brain: the images were acquired mainly for attenuation correction, suboptimal for diagnosis purpose. No gross acute abnormal findings. 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 REFERENCE: Lainey Pradhan, MRCP ([place]), Ozzy Haro, PhD, Supa Gonzales, BSc, MD, FRCP Accurate Differentiation of Parkinsonism and Essential Tremor Using Visual Assessment of [123I]-FP-CIT SPECT Imaging: The [123I]-FP-CIT Study Group. Movement Disorders Vol. 15, No. 3, 1999, pp. 503-510 Carousel Attendant: HAI Transcribe Date/Time: May 06 2022 5:13P Dictated by : MARIA ANTONIA ANDERSON MD This examination was interpreted and the report reviewed and electronically signed by: MARIA ANTONIA ANDERSON MD on May 06 2022 5:22PM EST [id number] Normal [facility] INSULINon 04-07-2022 Insulin 5.3 uIU/mL Normal 2.6-24.9 [facility] Comment on above: Performed By: #### I NSULIN #### [facility] [address] [place] [address] Dr. Gabbi Cummings CBC AUTO DIFFon 04-06-2022 BASO # 0.1 103/ul Normal 0.0-0.1 [facility] Comment on above: Performed By: #### C BC #### [facility] [address] [place] [address] Dr. Gabbi Cummings Basophils/100 WBC (Bld) 0.8 % Normal 0.2-2.0 [facility] Comment on above: Result Comment: Prev iously reported as: 0.9 On 04/06/2022 08:01 By RC01 Performed By: #### C BC #### [facility] [address] [place] [address] Dr. Gabbi Cummings EO # 0.2 103/ul Normal 0.0-0.7 [facility] Comment on above: Performed By: #### C BC #### [facility] [address] [place] [address] Dr. Gabbi Cummings Eosinophils/100 WBC (Bld) 2.8 % Normal 0.9-7.0 [facility] Comment on above: Result Comment: Prev iously reported as: 3.5 On 04/06/2022 08:01 By RC01 Performed By: #### C BC #### [facility] [address] [place] [address] Dr. Gabbi Cummings Erythrocyte distribution width (RBC) [Ratio] 13.9 % Normal 11.0-15.0 [facility] Comment on above: Result Comment: Prev iously reported as: 1.0 On 04/06/2022 08:01 By RC01 Performed By: #### C BC #### [facility] [address] [place] [address] Dr. Gabbi Cummings Hematocrit (Bld) [Volume fraction] 42.9 % Normal 42.0-54.0 [facility] Comment on above: Result Comment: Prev iously reported as: 20.4 On 04/06/2022 08:01 By RC01 Performed By: #### C BC #### [facility] [address] [place] [address] Dr. Gabbi Cummings Hemoglobin (Bld) [Mass/Vol] 15.5 g/dL Normal 14.0-18.0 [facility] Comment on above: Result Comment: Prev iously reported as: 15.1 On 04/06/2022 08:01 By RC01 Performed By: #### C BC #### [facility] [address] [place] [address] Dr. Gabbi Cummings IG # 0.06 10e3/ul Critically high 0.00-0.03 [facility] Comment on above: Result Comment: Prev iously reported as: 0.04 On 04/06/2022 08:01 By RC01 Performed By: #### C BC #### [facility] [address] [place] [address] Dr. Gabbi Cummings IG % 0.9 % Critically high 0.0-0.5 [facility] Comment on above: Result Comment: Prev iously reported as: 0.7 On 04/06/2022 08:01 By RC01 Performed By: #### C BC #### [facility] [address] [place] [address] Dr. Gabbi Cummings LYMPH # 0.9 103/ul Critically low 1.2-3.8 [facility] Comment on above: Result Comment: Prev iously reported as: 0.8 On 04/06/2022 08:01 By RC01 Performed By: #### C BC #### [facility] [address] [place] [address] Dr. Gabbi Cummings Lymphocytes/100 WBC (Bld) 13.9 % Critically low 20.5-60.0 [facility] Comment on above: Result Comment: Prev iously reported as: 14.6 On 04/06/2022 08:01 By RC01 Performed By: #### C BC #### [facility] [address] [place] [address] Dr. Gabbi Cummings MANUAL DIFF REQ NO Normal [facility] Comment on above: Performed By: #### C BC #### [facility] [address] [place] [address] Dr. Gabbi Cummings MCH (RBC) [Entitic mass] 38.4 pg Critically high 25.9-34.0 [facility] Comment on above: Result Comment: Prev iously reported as: 84.8 On 04/06/2022 08:01 By RC01 Performed By: #### C BC #### [facility] [address] [place] [address] Dr. Gabbi Cummings MCHC (RBC) [Mass/Vol] 36.1 g/dL Critically high 29.9-35.2 [facility] Comment on above: Result Comment: Prev iously reported as: 74.0 On 04/06/2022 08:01 By RC01 Performed By: #### C BC #### [facility] [address] [place] [address] Dr. Gabbi Cummings MCV (RBC) [Entitic vol] 106.2 fL Critically high 80.0-94.0 [facility] Comment on above: Result Comment: Prev iously reported as: 114.6 On 04/06/2022 08:01 By RC01 Performed By: #### C BC #### [facility] [address] [place] [address] Dr. Gabbi Cummings MONO # 0.4 103/ul Normal 0.3-0.8 [facility] Comment on above: Performed By: #### C BC #### [facility] [address] [place] [address] Dr. Gabbi Cummings Monocytes/100 WBC (Bld) 6.3 % Normal 1.7-12.0 [facility] Comment on above: Performed By: #### C BC #### [facility] [address] [place] [address] Dr. Gabbi Cummings NEUT # 4.8 103/ul Normal 1.4-6.5 [facility] Comment on above: Result Comment: Prev iously reported as: 4.2 On 04/06/2022 08:01 By RC Performed By: #### C BC #### [facility] [address] [place] [address] Dr. Gabbi Cummings Neutrophils/100 WBC (Bld) 75.3 % Critically high 43.0-75.0 [facility] Comment on above: Result Comment: Prev iously reported as: 74.0 On 04/06/2022 08:01 By RC01 Performed By: #### C BC #### [facility] [address] [place] [address] Dr. Gabbi Cummings Platelet mean volume (Bld) [Entitic vol] 9.9 fL Normal 9.5-13.5 [facility] Comment on above: Result Comment: Prev iously reported as: 10.2 On 04/06/2022 08:01 By RC01 Performed By: #### C BC #### [facility] [address] [place] [address] Dr. Gabbi Cummings PLT 217 103/ul Normal 150-450 [facility] Comment on above: Result Comment: Prev iously reported as: 194 On 04/06/2022 08:01 By RC01 Performed By: #### C BC #### [facility] [address] [place] [address] Dr. Gabbi Cummings RBC 4.04 106/ul Critically low 4.70-6.10 [facility] Comment on above: Result Comment: Prev iously reported as: 1.78 On 04/06/2022 08:01 By RC01 Performed By: #### C BC #### [facility] [address] [place] [address] Dr. Gabbi Cummings WBC 6.3 103/ul Normal 4.0-11.0 [facility] Comment on above: Result Comment: Prev iously reported as: 5.7 On 04/06/2022 08:01 By RC01 Performed By: #### C BC #### [facility] [address] [place] [address] Dr. Gabbi Cummings FREE THYROXINE INDEX T7on FTI 2.70 Normal 1.30-4.50 [facility] Comment on above: Performed By: #### T SH, T7, CMP, LIPID, URIC #### [facility] [address] [place] [address] Dr. Gabbi Cummings T3U 38.0 % Normal 33.0-40.0 [facility] Comment on above: Performed By: #### T SH, T7, CMP, LIPID, URIC #### [facility] [address] [place] [address] Dr. Gabbi Cummings T4 [Mass/Vol] 7.10 ug/dL Normal 4.50-12.10 [facility] Comment on above: Performed By: #### T SH, T7, CMP, LIPID, URIC #### [facility] [address] [place] [address] Dr. Gabbi Cummings GLYCOHEMOGLOBIN A1Con 2022 ADA RECOMMENDATION SEE BELOW Normal [facility] Comment on above: Result Comment: ADA RECOMMENDED LIMIT 4.0 - 6.0 ADA THERAPEUTIC TARGET < 7.0 ACTION SUGGESTED > 7.0 Performed By: #### A 1C #### [facility] [address] [place] [address] Dr. Gabbi Cummings Glucose [Mass/Vol] 100 mg/dL Normal [facility] Comment on above: Performed By: #### A 1C #### [facility] [address] [place] [address] Dr. Gabbi Cummings HbA1c (Bld) [Mass fraction] 5.1 % Normal 4.5-6.2 [facility] Comment on above: Performed By: #### A 1C #### [facility] [address] [place] [address] Dr. Gabbi Cummings LIPID PROFILEon 04-06-2022 CHOL-HDL RATIO NORM SEE BELOW Normal [facility] Comment on above: Result Comment: 3.3 - 4.4 LOW RISK 4.4 - 7.1 AVERAGE RISK 7.1 - 11.0 MODERATE RISK >11.0 HIGH RISK Performed By: #### T SH, T7, CMP, LIPID, URIC #### [facility] [address] [address] [address] Gabbi Cummings Cholesterol [Mass/Vol] 90 mg/dL Normal <=200 [facility] Comment on above: Performed By: #### T SH, T7, CMP, LIPID, URIC #### [facility] [address] [place] [address] Dr. Gabbi Cummings Cholesterol in HDL [Mass/Vol] 37 mg/dL Critically low 40-60 [facility] Comment on above: Performed By: #### T SH, T7, CMP, LIPID, URIC #### [facility] [address] [place] [address] Dr. Gabbi Cummings Cholesterol in LDL [Mass/Vol] 35.0 mg/dL Normal [facility] Comment on above: Performed By: #### T SH, T7, CMP, LIPID, URIC #### [facility] [address] [address] [address] Gabbi Cummings Cholesterol.total/Ch olesterol in HDL [Mass ratio] 2.4 {ratio} Normal [facility] Comment on above: Performed By: #### T SH, T7, CMP, LIPID, URIC #### [facility] [address] [place] [address] Dr. Gabbi Cummings HDL NORMAL > or = 60 mg/dl - LO W CARDIOVASCULAR RISK <40 mg/dl - HIGH CARDIOVASCULAR RISK Normal [facility] Comment on above: Performed By: #### T SH, T7, CMP, LIPID, URIC #### [facility] [address] [address] [address] Gabbi Cummings LDL CALC NORMAL SEE BELOW Normal [facility] Comment on above: Result Comment: <100 mg/dl OPTIMAL 100 - 129 mg/dl NEAR OR ABOVE OPTIMAL 130 - 159 mg/dl BORDERLINE HIGH 160 - 189 mg/dl HIGH >190 mg/dl VERY HIGH Performed By: #### T SH, T7, CMP, LIPID, URIC #### [facility] [address] [address] [address] Gabbi Cummings Triglyceride [Mass/Vol] 90 mg/dL Normal <=150 [facility] Comment on above: Performed By: #### T SH, T7, CMP, LIPID, URIC #### [facility] [address] [address] [address] Gabbi Cummings VLDL CALC 18.0 mg/dL Normal [facility] Comment on above: Performed By: #### T SH, T7, CMP, LIPID, URIC #### [facility] [address] [address] [address] Gabbi Cummings PERIPHERAL SMEARon 3 Pathologist Cyto stain Nom (Cvx/Vag) [ID] DR. YVONNE ALONZO Normal [facility] Comment on above: Result Comment: LYMP HOPENIA OF UNCERTAIN ETIOLOGY; REACTIVE FORMATION PRESENT Performed By: #### P ERSMR #### [facility] [address] [place] [address] Dr. Gabbi Cummings PROF 14(COMP METB)on 023 Albumin [Mass/Vol] 4.1 g/dL Normal 3.4-5.0 [facility] Comment on above: Performed By: #### T SH, T7, CMP, LIPID, URIC #### [facility] [address] [address] [address] Gabbi Cummings Albumin/Globulin [Mass ratio] 1.2 {ratio} Normal [facility] Comment on above: Performed By: #### T SH, T7, CMP, LIPID, URIC #### [facility] [address] [address] [address] Gabbi Cummings ALP [Catalytic activity/Vol] 100 U/L Normal 46-116 [facility] Comment on above: Performed By: #### T SH, T7, CMP, LIPID, URIC #### [facility] [address] [place] [address] Dr. Gabbi Cummings ALT [Catalytic activity/Vol] 43 U/L Normal 16-63 [facility] Comment on above: Performed By: #### T SH, T7, CMP, LIPID, URIC #### [facility] [address] [place] [address] Dr. Gabbi Cummings Anion gap [Moles/Vol] 11.2 mmol/L Normal [facility] Comment on above: Performed By: #### T SH, T7, CMP, LIPID, URIC #### [facility] [address] [place] [address] Dr. Gabbi Cummings AST [Catalytic activity/Vol] 20 U/L Normal 15-37 [facility] Comment on above: Performed By: #### T SH, T7, CMP, LIPID, URIC #### [facility] [address] [place] [address] Dr. Gabbi Cummings Bilirubin [Mass/Vol] 1.6 mg/dL Critically high 0.2-1.0 [facility] Comment on above: Performed By: #### T SH, T7, CMP, LIPID, URIC #### [facility] [address] [place] [address] Dr. Gabbi Cummings Calcium [Mass/Vol] 9.1 mg/dL Normal 8.5-10.1 [facility] Comment on above: Performed By: #### T SH, T7, CMP, LIPID, URIC #### [facility] [address] [place] [address] Dr. Gabbi Cummings Chloride [Moles/Vol] 105 mmol/L Normal 98-107 [facility] Comment on above: Performed By: #### T SH, T7, CMP, LIPID, URIC #### [facility] [address] [place] [address] Dr. Gabbi Cummings CO2 [Moles/Vol] 28.8 mmol/L Normal 21.0-32.0 [facility] Comment on above: Performed By: #### T SH, T7, CMP, LIPID, URIC #### [facility] [address] [address] [address] Gabbi Cummings Creatinine [Mass/Vol] 0.97 mg/dL Normal 0.70-1.30 [facility] Comment on above: Performed By: #### T SH, T7, CMP, LIPID, URIC #### [facility] [address] [address] [address] Gabbi Cummings EGFR-AF GIBRALTARIAN >60 Normal >=60 [facility] Comment on above: Performed By: #### T SH, T7, CMP, LIPID, URIC #### [facility] [address] [place] [address] Dr. Gabbi Cummings EGFR-NON AF GIBRALTARIAN >60 Normal >=60 [facility] Comment on above: Performed By: #### T SH, T7, CMP, LIPID, URIC #### [facility] [address] [place] [address] Dr. Gabbi Cummings Globulin (S) [Mass/Vol] 3.4 g/dL Normal [facility] Comment on above: Performed By: #### T SH, T7, CMP, LIPID, URIC #### [facility] [address] [place] [address] Dr. Gabbi Cummings Glucose [Mass/Vol] 109 mg/dL Critically high 74-106 [facility] Comment on above: Performed By: #### T SH, T7, CMP, LIPID, URIC #### [facility] [address] [place] [address] Dr. Gabbi Cummings Potassium [Moles/Vol] 4.0 mmol/L Normal 3.5-5.1 [facility] Comment on above: Performed By: #### T SH, T7, CMP, LIPID, URIC #### [facility] [address] [place] [address] Dr. Gabbi Cummings Protein [Mass/Vol] 7.5 g/dL Normal 6.4-8.2 [facility] Comment on above: Performed By: #### T SH, T7, CMP, LIPID, URIC #### [facility] [address] [place] [address] Dr. Gabbi Cummings Sodium [Moles/Vol] 141 mmol/L Normal 136-145 [facility] Comment on above: Performed By: #### T SH, T7, CMP, LIPID, URIC #### [facility] [address] [address] [address] Gabbi Cummings Urea nitrogen [Mass/Vol] 17.0 mg/dL Normal 7.0-18.0 [facility] Comment on above: Performed By: #### T SH, T7, CMP, LIPID, URIC #### [facility] [address] [address] [address] Gabbi Cummings Urea nitrogen/Creatinine [Mass ratio] 17.5 mg/mg Normal [facility] Comment on above: Performed By: #### T SH, T7, CMP, LIPID, URIC #### [facility] [address] [place] [address] Dr. Gabbi Cummings TSHon 04-06-2022 TSH 0.655 uIU/mL Normal 0.358-3.740 [facility] Comment on above: Performed By: #### T SH, T7, CMP, LIPID, URIC #### [facility] [address] [address] [address] Gabbi Cummings URIC ACID SERUMon 04-06-2022 Urate [Mass/Vol] 5.1 mg/dL Normal 3.5-7.2 [facility] Comment on above: Performed By: #### T SH, T7, CMP, LIPID, URIC #### [facility] [address] [place] [address] Dr. Gabbi Cummings COAGULATIONOrdered By: Yakelin Patel on 10-09-2021 aPTT Coag (PPP) [Time] 51.9 s High 25.1 - 36.5 second(s) [facility] INR Coag (PPP) [Relative time] 1.1 {INR} Invalid Interpretation Code [facility] PT Coag (PPP) [Time] 12.7 s Normal 10.2 - 12.9 second(s) [facility] ECHOCARDIO M/2D COMPLETEon 0 09-09-2021 ECHOCARDIO M/2D COMPLETE Patient: LUIS ALBERTO OCAMPOJesus Exam Date: 09/09/2021 : 1945 Gender:M Ordering : ELAINE MONTERO Admission #: [id number] Family : DR LUIS DANIEL GALICIA . Order #: [id number] CLICK HERE TO VIEW EXAM ECHOCARDIOGRAM REPORT PROCEDURE: CARDIO PULMONARY ECHOCARDIO M/2D COMP INDICATIONS: Right Bundle Branch Block COMPARISON: None. DESCRIPTION: COMPLETE ECHOCARDIOGRAM Real-time transthoracic echocardiography with 2D, M-mode, spectral and color flow Doppler performed. QUALITY: Technical quality was good. LEFT VENTRICLE: Normal chamber size. Mild concentric left ventricular hypertrophy. LV EF: Normal left ventricular ejection fraction, (>55%). DIASTOLIC: Normal diastolic function. ATRIAL SEPTUM: LEFT ATRIUM: Normal chamber size. RIGHT ATRIUM: Normal chamber size. RIGHT VENTRICLE: Normal chamber size. Normal right ventricular systolic function. TRICUSPID VALVE: Normal mobility and thickness. No stenosis with mild regurgitation. No evidence of pulmonary hypertension. RVSP 30 mmHg MITRAL VALVE: Normal mobility and thickness. No evidence of mitral valve stenosis. Mild mitral annular calcification. Mild mitral regurgitation. AORTIC VALVE: Normal trileaflet appearance. Mildly calcified aortic valve. Normal leaflet mobility. No evidence of aortic valve stenosis. No aortic regurgitation. AORTIC ROOT: Normal diameter and appearance. PULMONIC VALVE: Not well visualized. No stenosis. No regurgitation. PERICARDIUM: No evidence of pericardial effusion. IVC: Not well visualized. PLEURA: CONCLUSION: 1. Mild concentric left ventricular hypertrophy. Normal ventricular systolic function. LVEF is 60%. 2. Mild mitral and tricuspid regurgitation. 3. Mildly calcified aortic valve with no stenosis. 4. Normal right-sided pressures. 5. No pericardial effusion. Adult Echocardiography Procedure Report Left Ventricle LVEDD (3.7 - 5.6 cm): 4.10 cm LVESD (2.2 - 4.0 cm): 2.76 cm LVIVS thickness (0.6 - 1.2 cm): 1.01 cm LVPW thickness (0.5 - 1.0 cm): 1.26 cm e': 8.77 cm/s E - e': 7.30 LVOT Area (cm2): 3.46 cm2 LVOT Diameter 2.10 cm Left Ventricular Ejection Fraction: 60 % Left Atrium LA Volume Index (2D A2C): 25.80 ml/m2 Left Atrium Systolic Dimension: 3.60 cm Left Atrium Systolic Area(A2C): 19.70 cm2 Left Atrium Systolic Area(A4C): 14.40 cm2 Left Atrium Systolic Volume(A2C): 37182 mm3 Left Atrium Systolic Volume(A4C): 93127 mm3 Mitral Valve MV E to A Ratio: 0.70 Mitral Valve A-Wave Peak Velocity: 91.30 cm/s Mitral Valve E-Wave Peak Velocity: 63.70 cm/s Deceleration Time: 240 ms Right Ventricle Aorta AO Root Diam: 3.70 cm Aortic Valve AoV Area (Peak Diaz): 2.94 cm2 Peak Velocity(Antegrade Flow): 120.00 cm/s Peak Gradient(Antegrade Flow): 6 mm[Hg] Tricuspid Valve Peak Velocity (Regurgitant Flow): 244.00 cm/s Pulmonic Valve Peak Velocity: 88.20 cm/s Peak Gradient: 3 mm[Hg] Right Atrium Dictated by: Nate Thapa M.D. on 09/09/2021 at 18:33 Approved by: Nate Thapa M.D. on 09/09/2021 at 18:36 Normal [facility] CHEMISTRYOrdered By: SYSTEM SYSTEM on 08-11-2021 Anion gap [Moles/Vol] 15 mmol/L Normal 6 - 16 mEq/L [facility] Calcium [Mass/Vol] 9.4 mg/dL Normal 8.9 - 11. 1 mg/dL [facility] Chloride [Moles/Vol] 105 mmol/L Normal 101 - 1 11 mmol/L [facility] CO2 [Moles/Vol] 24 mmol/L Normal 21 - 31 mmol/L [facility] Creatinine [Mass/Vol] 1.1 mg/dL Normal 0.5 - 1.3 mg/dL [facility] GFR/1.73 sq M.predicted among blacks MDRD (S/P/Bld) [Vol rate/Area] mL/min/1.73 m2 Normal >=59mL/min/ 1.73 m2 [facility] S GFR/1.73 sq M.predicted among non-blacks MDRD (S/P/Bld) [Vol rate/Area] mL/min/1.73 m2 Normal >=59mL/min/ 1.73 m2 [facility] Chem S Glucose [Mass/Vol] 122 mg/dL Normal 55 - 199 mg/dL [facility] Remisol Potassium [Moles/Vol] 4.7 mmol/L Normal 3.5 - 5.3 mmol/L [facility] Remisol Sodium [Moles/Vol] 139 mmol/L Normal 135 - 145 mmol/L [facility] Remisol Urea nitrogen [Mass/Vol] 22 mg/dL High 5 - 21 mg/dL [facility] Remisol Urea nitrogen/Creatinine [Mass ratio] 20 mg/mg Normal 10 - 20 [facility] Remisol COAGULATIONOrdered By: Yakelin Santana on 08-11-2021 aPTT Coag (PPP) [Time] 56.7 s High 25.1 - 36.5 second(s) [facility] Auto [facility]ag INR Coag (PPP) [Relative time] 1.1 {INR} Invalid Interpretation Code [facility] PT Coag (PPP) [Time] 12.9 s Normal 10.2 - 12.9 second(s) [facility] HEMATOLOGYOrdered By: SYSTEM SYSTEM on 08-11-2021 Basophils/100 WBC (Bld) 0.4 % Normal 0.0 - 2.0 % [facility] HemeAutoSS Basophils/Leukocytes Auto (Bld) [Pure # fraction] 0.0 E9/L Normal 0.0 - 0.2 E9/L [facility]eAuto[facility] Eosinophils/100 WBC (Bld) 3.1 % Normal 0.0 - 8.0 % [facility]eAutoSS Eosinophils/Leukocyt es Auto (Bld) [Pure # fraction] 0.2 E9/L Normal 0.0 - 0.5 E9/L [facility] Lymphocytes/100 WBC (Bld) 10.8 % Low 14.0 - 50.0 % [facility]eAuto[facility] Lymphocytes/Leukocyt es Auto (Bld) [Pure # fraction] 0.6 E9/L Low 1.0 - 4.0 E9/L [facility] Monocytes/100 WBC (Bld) 6.4 % Normal 4.0 - 14.0 % [facility]eAutoSS Monocytes/Leukocytes Auto (Bld) [Pure # fraction] 0.4 E9/L Normal 0.2 - 1.0 E9/L [facility] Neutrophils/100 WBC (Bld) 79.3 % High 36.0 - 75.0 % [facility]eAuto[facility] Neutrophils/Leukocyt es Auto (Bld) [Pure # fraction] 4.7 E9/L Normal 2.0 - 7.5 E9/L [facility] HEMATOLOGYOrdered By: Ginny Man on 08-11-2021 Erythrocyte distribution width (RBC) [Ratio] 13.9 % Normal 10.9 - 14.2 % [facility] Hematocrit (Bld) [Volume fraction] 42.3 % Normal 37.7 - 49.0 % [facility] Hemoglobin (Bld) [Mass/Vol] 14.8 g/dL Normal 13.5 - 17.5 gm/dL [facility] MCH (RBC) [Entitic mass] 35.4 pg High 27.0 - 34.0 pg [facility] MCHC (RBC) [Mass/Vol] 34.9 g/dL Normal 31.4 - 36.0 gm/dL [facility] MCV (RBC) [Entitic vol] 101.6 fL High 80.0 - 100.0 fL [facility] Platelet mean volume (Bld) [Entitic vol] 7.6 fL Normal 6.4 - 10.8 fL [facility] Platelets (Bld) [#/Vol] 205.0 E9/L Normal 150.0 - 500.0 E9/L [facility] RBC (Bld) [#/Vol] 4.2 E12/L Low 4.3 - 5.9 E12/L [facility] WBC corrected for nucl RBC Auto (Bld) [#/Vol] 5.9 E9/L Normal 4.0 - 11.0 E9/L [facility] Comment on above: Result Comment: Spec imen warmed for presence of strong cold agglutinin. URINALYSISOrdered By: Sari Santana on 08-11-2021 Bilirubin Ql (U) Negative (08/11/21 7:44 AM) Normal Negative [facility] UA Auto SS Clarity (U) Clear (08/11/21 7:44 AM) Normal Clear [facility]A Auto SS Color (U) Yellow (08/11/21 7:44 AM) Normal Yellow [facility] UA Auto SS Epithelial cells.squamous LM.HPF (Urine sed) [#/Area] 0-2 /HPF Normal 0-2/HPF [facility]A Auto SS Glucose Test strip (U) [Mass/Vol] Negative (08/11/21 7:44 AM) Normal Negative [facility]A Auto SS Hemoglobin Ql (U) Negative (08/11/21 7:44 AM) Normal Negative [facility] Auto SS Ketones (U) [Mass/Vol] Negative (08/11/21 7:44 AM) Normal Negative [facility] UA Auto SS S[place].plasma/Lithi um.RBC (Bld) [Mass ratio] 0-3 /HPF Normal 0-3/HPF [facility]A Auto SS Mucus Ql (Urine sed) 2+ (08/11/21 7:44 AM) Normal [facility]A Auto SS Nitrite Ql (U) Negative (08/11/21 7:44 AM) Normal Negative [facility]A Auto SS pH (U) 6.0 *NA* (08/11/21 7:44 AM) Invalid Interpretation Code 5.0 - 9.0 [facility] SS Protein (U) [Mass/Vol] Negative (08/11/21 7:44 AM) Normal Negative [facility]A Auto SS Specific gravity (U) [Rel density] 1.025 *NA* (08/11/21 7:44 AM) Invalid Interpretation Code 1.005 - 1.030 [facility] Auto SS UA Spec Desc Clean Catch (08/11/21 7:44 AM) Normal [facility] UA Auto SS Urobilinogen Qn (U) 1.1068920 {June'U}/dL Normal 0.0 - 1.0 EU/dL [facility] Auto SS WBC Auto Ql (U) Negative (08/11/21 7:44 AM) Normal Negative [facility] UA Auto SS WBC casts LM.LPF (Urine sed) [#/Area] 0-3 (08/11/21 7:44 AM) Normal [facility] UA Auto SS WBC LM.HPF (Urine sed) [#/Area] 0-5 /HPF Normal 0-5/HPF [facility] Auto SS COVID-19 [facility] 06-08-19 21 SARS-CoV-2 (COVID-19) RNA RYNE+probe Ql (Unsp spec) Not detected Normal Not Detected [facility] Comment on above: Order Comment: Healt hcare Worker?: N Result Comment: This nucleic acid amplification test was developed and its performance characteristics determined by [facility]. Nucleic acid amplification tests include RT- PCR and TMA. This test has not been FDA cleared or approved. This test has been authorized by FDA under an Emergency Use Authorization (EUA). This test is only authorized for the duration of time the declaration that circumstances exist justifying the authorization of the emergency use of in vitro diagnostic tests for detection of SARS-CoV-2 virus and/or diagnosis of COVID-19 infection under section 564(b)(1) of the Act, 21 U.S.C. 360bbb-3(b) (1), unless the authorization is terminated or revoked sooner. When diagnostic testing is negative, the possibility of a false negative result should be considered in the context of a patient's recent exposures and the presence of clinical signs and symptoms consistent with COVID-19. An individual without symptoms of COVID-19 and who is not shedding SARS-CoV-2 virus would expect to have a negative (not detected) result in this assay. PERFORMED BY: [address] [place] [address] PATHOLOGIST [employer] LUZ MARINA RAYO M.D. Performed By: #### C ORONAVIRUS #### [facility] , No Panel Information [facility] Vital Signs Date Time Vital Sign Value Performing Clinician Facility 03-31-2023 15:00-0500 Blood Pressure Location [facility] 03-31-2023 15:00-0500 Diastolic blood pressure 70 mm[Hg] [facility] 03-31-2023 15:00-0500 Heart rate 100 /min [facility] 03-31-2023 15:00-0500 Systolic blood pressure 124 mm[Hg] [facility] 08-25-2022 16:00-0400 Body temperature 98.29 [degF] CHACHO Kaiser MD Work Phone: [facility] 08-25-2022 16:00-0400 Body weight 98.25 kg CHACHO Kaiser MD Work Phone: [facility] 08-25-2022 16:00-0400 Diastolic blood pressure 84 mm[Hg] CHACHO Kaiser MD Work Phone: [facility] 08-25-2022 16:00-0400 Heart rate 91 /min CHACHO Kaiser MD Work Phone: [facility] 08-25-2022 16:00-0400 SaO2% (BldA) [Mass fraction] 97 % CHACHO Kaiser MD Work Phone: [facility] 08-25-2022 16:00-0400 Systolic blood pressure 133 mm[Hg] CHACHO Kaiser MD Work Phone: [facility] 08-25-2022 08:47-0400 Blood Pressure Location [facility] 08-25-2022 08:47-0400 Diastolic blood pressure 83 mm[Hg] [facility] PELAYO [facility] 08-25-2022 08:47-0400 Heart rate 84 /min Dakotah PELAYO [facility] 08-25-2022 08:47-0400 Respiratory rate 16 /min Dakotah PELAYO [facility] 08-25-2022 08:47-0400 Systolic blood pressure 127 mm[Hg] Dakotah PELAYO [facility] 04-16-2022 15:54-0500 Diastolic blood pressure 77 mm[Hg] Jigar Stanford DO Work Phone: [facility] 04-16-2022 15:54-0500 Heart rate 87 /min Jigar Stanford DO Work Phone: [facility] 04-16-2022 15:54-0500 Systolic blood pressure 149 mm[Hg] Jigar Stanford DO Work Phone: [facility] 03-16-2022 08:25-0500 Blood Pressure Location Dakotah PELAYO [facility] 03-16-2022 08:25-0500 Diastolic blood pressure 97 mm[Hg] Dakotah PELAYO [facility] 03-16-2022 08:25-0500 Heart rate 92 /min Dakotah PELAYO [facility] 03-16-2022 08:25-0500 Systolic blood pressure 149 mm[Hg] Dakotah PELAYO [facility] 02-25-2022 15:41-0500 Body temperature 97.59 [degF] NA Martha CORONADO Work Phone: [facility] 02-25-2022 15:41-0500 Body weight 103.87 kg CHACHO Kaiser MD Work Phone: [facility] 02-25-2022 15:41-0500 Diastolic blood pressure 80 mm[Hg] CHACHO Kaiser MD Work Phone: [facility] 02-25-2022 15:41-0500 Heart rate 91 /min CHACHO Kaiser MD Work Phone: [facility] 02-25-2022 15:41-0500 Respiratory rate 16 /min CHACHO Kaiser MD Work Phone: [facility] 02-25-2022 15:41-0500 SaO2% (BldA) [Mass fraction] 98 % CHACHO Kaiser MD Work Phone: [facility] 02-25-2022 15:41-0500 Systolic blood pressure 137 mm[Hg] CHACHO Kaiser MD Work Phone: [facility] 02-03-2022 15:36-0500 Blood Pressure Location Dakotah PELAYO [facility] 02-03-2022 15:36-0500 Diastolic blood pressure 87 mm[Hg] Dakotah PELAYO [facility] 02-03-2022 15:36-0500 Heart rate 76 /min Dakotah PELAYO [facility] 02-03-2022 15:36-0500 Respiratory rate 16 /min Dakotah PELAYO [facility] 02-03-2022 15:36-0500 Systolic blood pressure 135 mm[Hg] Dakotah PELAYO [facility] 12-11-2021 09:46-0400 Body temperature 98.1 [degF] Larry Henson MD, PhD Work Phone: [facility] 12-11-2021 09:46-0400 Body weight 104.92 kg Larry Henson MD, PhD Work Phone: [facility] 12-11-2021 09:46-0400 Diastolic blood pressure 85 mm[Hg] Larry Henson MD, PhD Work Phone: [facility] 12-11-2021 09:46-0400 Heart rate 71 /min Larry Henson MD, PhD Work Phone: [facility] 12-11-2021 09:46-0400 Respiratory rate 18 /min Larry Henson MD, PhD Work Phone: [facility] 12-11-2021 09:46-0400 SaO2% (BldA) [Mass fraction] 96 % Larry Henson MD, PhD Work Phone: [facility] 12-11-2021 09:46-0400 Systolic blood pressure 147 mm[Hg] Larry Henson MD, PhD Work Phone: [facility] 10-09-2021 11:54-0400 Blood Pressure Location [facility] 10-09-2021 11:54-0400 Diastolic blood pressure 81 mm[Hg] [facility] 10-09-2021 11:54-0400 Heart rate 71 /min [facility] 10-09-2021 11:54-0400 Mean blood pressure 104 mm[Hg] [facility] 10-09-2021 11:54-0400 Respiratory rate 20 /min [facility] 10-09-2021 11:54-0400 SaO2% (BldA) [Mass fraction] 93 % [facility] 10-09-2021 11:54-0400 Systolic blood pressure 149 mm[Hg] [facility] 10-09-2021 11:00-0400 Blood Pressure Location [facility] 10-09-2021 11:00-0400 Diastolic blood pressure 85 mm[Hg] [facility] 10-09-2021 11:00-0400 Heart rate 73 /min [facility] 10-09-2021 11:00-0400 Mean blood pressure 107 mm[Hg] [facility] 10-09-2021 11:00-0400 Respiratory rate 20 /min [facility] 10-09-2021 11:00-0400 SaO2% (BldA) [Mass fraction] 93 % [facility] 10-09-2021 11:00-0400 Systolic blood pressure 151 mm[Hg] [facility] 10-09-2021 10:55-0400 Body temperature 98.78 [degF] [facility] 10-09-2021 10:55-0400 Diastolic blood pressure 81 mm[Hg] [facility] 10-09-2021 10:55-0400 Heart rate 71 /min [facility] 10-09-2021 10:55-0400 Respiratory rate 11 /min [facility] 10-09-2021 10:55-0400 SaO2% (BldA) [Mass fraction] 93 % [facility] 10-09-2021 10:55-0400 Systolic blood pressure 141 mm[Hg] [facility] 10-09-2021 10:45-0400 Respiratory rate 16 /min [facility] 10-09-2021 10:40-0400 Respiratory rate 11 /min [facility] 10-09-2021 10:30-0400 Blood Pressure Location [facility] 10-09-2021 10:30-0400 Body temperature 99.32 [degF] [facility] 10-09-2021 10:25-0400 Respiratory rate 8 /min [facility] 10-09-2021 08:24-0400 Mean blood pressure 100 mm[Hg] [facility] 10-09-2021 08:23-0400 Body temperature 97.7 [degF] [facility] 10-09-2021 08:23-0400 Heart rate 76 /min [facility] 08-28-2021 14:01-0400 Body temperature 98.71 [degF] CHACHO Kaiser MD Work Phone: [facility] 08-28-2021 14:01-0400 Body weight 102.24 kg CHACHO Kaiser MD Work Phone: [facility] 08-28-2021 14:01-0400 Diastolic blood pressure 85 mm[Hg] CHACHO Kaiser MD Work Phone: [facility] 08-28-2021 14:01-0400 Heart rate 102 /min CHACHO Kaiser MD Work Phone: [facility] 08-28-2021 14:01-0400 Respiratory rate 18 /min CHACHO Kaiser MD Work Phone: [facility] 08-28-2021 14:01-0400 SaO2% (BldA) [Mass fraction] 96 % CHACHO Kaiser MD Work Phone: [facility] 08-28-2021 14:01-0400 Systolic blood pressure 141 mm[Hg] CHACHO Kaiser MD Work Phone: [facility] 08-11-2021 07:17-0400 Blood Pressure Location [facility] 08-11-2021 07:17-0400 Body temperature 98.24 [degF] [facility] 08-11-2021 07:17-0400 Diastolic blood pressure 74 mm[Hg] [facility] 08-11-2021 07:17-0400 Heart rate 84 /min [facility] 08-11-2021 07:17-0400 Mean blood pressure 89 mm[Hg] [facility] 08-11-2021 07:17-0400 SaO2% (BldA) [Mass fraction] 96 % [facility] 08-11-2021 07:17-0400 Systolic blood pressure 119 mm[Hg] [facility] 08-11-2021 07:16-0400 Blood Pressure Location [facility] 08-11-2021 07:16-0400 BP/Pulse Patient Position [facility] 08-11-2021 07:16-0400 Diastolic blood pressure 78 mm[Hg] [facility] 08-11-2021 07:16-0400 Heart rate 93 /min [facility] 08-11-2021 07:16-0400 Mean blood pressure 96 mm[Hg] [facility] 08-11-2021 07:16-0400 Respiratory rate 18 /min [facility] 08-11-2021 07:16-0400 Systolic blood pressure 132 mm[Hg] [facility] 06-23-2021 11:18-0400 Blood Pressure Location [facility] 06-23-2021 11:18-0400 Diastolic blood pressure 89 mm[Hg] [facility] 06-23-2021 11:18-0400 Heart rate 87 /min [facility] 06-23-2021 11:18-0400 Respiratory rate 16 /min [facility] 06-23-2021 11:18-0400 Systolic blood pressure 135 mm[Hg] [facility] Encounters Encounter Date Encounter Type Care Provider Facility Start: 03-28-2024 ambulatory Dakotah PELAYO Facility :[facility] Start: 11-11-2023 End: 11-11-2023 ambulatory [facility] Start: 10-01-2023 End: 10-01-2023 ambulatory [facility] Start: 08-31-2023 End: 08-31-2023 ambulatory WHITNEY PHIPPS Not Available Start: 08-05-2023 End: 08-05-2023 ambulatory [facility] Start: 07-07-2023 ambulatory LUIS DANIEL [facility] Start: 06-30-2023 End: 06-30-2023 ambulatory [facility] Start: 06-29-2023 End: 06-29-2023 ambulatory WHITNEY Osorio BEJ Not Available Start: 06-17-2023 End: 06-17-2023 ambulatory COLEEN M [facility] Start: 04-21-2023 Telephone encounter [facility] Provider [place]eth [place] Comment on above: Appointment Start: 04-16-2023 End: 04-16-2023 ambulatory LUIS DANIEL GALICIA Facility:[facility] Start: 04-16-2023 End: 04-16-2023 Subsequent hospital visit by physician Arrival Time Radiology Work Phone: Radiology Pet CT Comment on above: 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 Start: 03-31-2023 End: 03-31-2023 Patient encounter procedure Ivy X Orzech [facility] [employer] Start: 03-02-2023 End: 03-03-2023 ambulatory LUIS DANIEL M GRAYSON Facility:[facility] Start: 02-24-2023 End: 02-24-2023 ambulatory LUIS DANIEL M Y Facility:[facility] Start: 02-16-2023 End: 02-17-2023 ambulatory Dakotah PELAYO Facility:[facility] Start: 02-16-2023 End: 02-16-2023 Patient encounter procedure Dakotah PELAYO [facility] [place] Start: 11-16-2022 End: 11-16-2022 ambulatory LUIS DANIEL M HOY Facility:[facility] Start: 11-16-2022 End: 11-16-2022 Patient encounter procedure Freda Hendrix OD Work Phone: Ophthalmology Comment on above: S/P YAG capsulotomy, bilateral (Primary Dx); Pseudophakia; Insufficiency of tear film of both eyes Start: 11-05-2022 End: 11-05-2022 ambulatory LINDSEY HUGO Facility:[facility] Start: 11-05-2022 End: 11-05-2022 Office outpatient new 45 minutes Lindsey Hugo MD Work Phone: Ophthalmology Comment on above: 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); Pseudophakia; Insufficiency of tear film of both eyes Start: 09-30-2022 Refill Jigar little DO Work Phone: [facility] Comment on above: Refill Request Start: 08-28-2022 End: 08-28-2022 ambulatory LUIS DANIEL GALICIA Facility:[facility] Start: 08-25-2022 End: 08-26-2022 ambulatory LUIS DANIEL GALICIA Facility:[facility] Start: 08-25-2022 End: 08-25-2022 Lab Drop off Dakotah PELAYO [facility] Start: 08-25-2022 End: 08-26-2022 Patient encounter procedure Dakotah PELAYO [facility] Comment on above: Malignant neoplasm o f prostate (HCC) (Primary Dx) Start: 08-21-2022 End: 08-21-2022 ambulatory ODETTE BARRETT Facility:[facility] Start: 08-19-2022 End: 08-19-2022 ambulatory LUIS DANIEL GALICIA Facility:[facility] Start: 07-20-2022 End: 07-21-2022 ambulatory Dakotah PELAYO Facility:[facility] Start: 05-26-2022 End: 05-26-2022 ambulatory JIGAR STANFORD Facility:[facility] Start: 05-26-2022 End: 05-26-2022 ambulatory Jigar Stanford DO Work Phone: [facility] Comment on above: Primary parkinsonism (HCC) (Primary Dx); Tremor Start: 05-26-2022 End: 05-26-2022 Telemedicine consultation with patient Jigar Stanford DO Work Phone: [facility] Start: 05-08-2022 ambulatory Jigar little DO Work Phone: Neurology Comment on above: Just on May 06 Start: 05-06-2022 End: 05-06-2022 ambulatory JIGAR STANFORD Facility:[facility] Start: 04-20-2022 Telephone encounter Joy Zuñiga (Pss) ent [facility] Comment on above: nm vijay scan Start: 04-16-2022 End: 04-16-2022 Patient encounter procedure Jigar Stanford DO Work Phone: Neurology Comment on above: Tremor (Primary Dx); Other symptoms and signs involving the nervous system Start: 04-06-2022 End: 04-07-[address] LUIS DANIEL GALICIA Facility: Start: 03-16-2022 End: 03-16-2022 Patient encounter procedure Dakotah PELAYO [facility] Start: 02-25-2022 End: 02-25-2022 Patient encounter procedure Dillan Kaiser MD Work Phone: Radiation Oncology Comment on above: Malignant neoplasm o f prostate (HCC) (Primary Dx) Start: 02-03-2022 End: 02-03-2022 Patient encounter procedure Dakotah PELAYO [facility] Start: 01-14-2022 End: 01-14-2022 Patient encounter procedure SONIDO NERI [facility] Start: 01-12-2022 End: 01-12-2022 Patient encounter procedure Dakotah PELAYO [facility] Start: 12-11-2021 End: 12-11-2021 ambulatory Larry Henson MD, PhD Work Phone: Hematology/Oncology Comment on above: Tremor (Primary Dx); Extranodal marginal zone B-cell lymphoma (HCC) Start: 12-11-2021 End: 12-11-2021 Patient encounter procedure Larry Henson MD, PhD Work Phone: [facility] Start: 11-18-2021 End: 11-18-2021 Patient encounter procedure Dakotah Krueger PIERCE [facility] Start: 10-21-2021 Telephone encounter Larry agarwal MD, PhD Work Phone: Hematology/Oncology Comment on above: Care Coordination (N eurologist Referral ) Start: 10-09-2021 End: 10-09-2021 Admission to same day surgery center [facility] Start: 09-09-2021 End: 09-10-2021 ambulatory [facility] Facility: Start: 08-28-2021 End: 08-28-2021 Patient encounter procedure Dillan Kaiser MD Work Phone: Radiation Oncology Comment on above: Malignant neoplasm o f prostate (HCC) (Primary Dx) Start: 08-11-2021 End: 08-11-2021 Patient encounter procedure [facility] Start: 08-11-2021 End: 08-11-2021 Preprocedural examination done [facility] Start: 07-21-2021 End: 07-21-2021 Patient encounter procedure [facility] Start: 06-23-2021 End: 06-23-2021 Patient encounter procedure 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) Start: 05-28-2021 Telephone encounter Odette Asher amos OD Work Phone: Ophthalmology Comment on above: Patient Question Start: 02-15-2020 Preprocedural examin ation done Marissa Leija MD Work Phone: [facility] Work Phone: Procedures Date Procedure Procedure Detail Performing Clinician Start: 06-17-2023 Follow-up visit Follow-up COLEEN HAYWARD Start: 04-16-2023 Ct abdomen & pelvis w/contrast material Larry Henson MD, PhD Work Phone: Start: 04-16-2023 Ct thorax w/contrast material Larry Henson MD, PhD Work Phone: Start: 11-05-2022 End: 11-05-2022 Post-cataract laser surgery Lindsey Hugo MD Work Phone: Start: 01-12-2022 Transurethral insert ion of prostatic urethral lift implant Dakotah PELAYO Start: 10-09-2021 Cystoscopy Dakotah GONZALEZ Comment on above: extraction of calcul us from bladder Start: 10-09-2021 Cystoscopy and litho tripsy of calculus of bladder using laser [facility] Start: 08-25-2021 Adult depression scr eening assessment CHACHO Kaiser MD Work Phone: Start: 07-21-2021 Cystoscope, device (physical object) [facility] Start: 06-06-2021 Visual field xm uni/ bi w/interp intermed exam Marissa Leija MD Work Phone: Start: 02-24-2021 Adult depression scr eening assessment Marissa Leija MD Work Phone: Start: 06-26-2020 Brachytherapy [facility]iel Jr[facility] Start: 04-15-2020 Transrectal biopsy o f prostate using ultrasound guidance [facility] Start: 01-30-2020 Cataract (morphologi c abnormality) [facility] Start: 12-31-2019 Hernia of abdominal cavity (disorder) [facility] Colonoscopy Supa Lee Tonsillectomy Supa mora Plan of Treatment Date Care Activity Detail Author Start: 02-24-2026 Diabetes Screening Diabetes Screenin [facility] Start: 12-11-2024 DIABETES SCREEN DIABETES SCREEN [facility] Start: 12-11-2024 Diabetes Screening Diabetes Screenin [facility] Start: 03-02-2024 End: 03-02-2024 ambulatory 03/02/2024 3:45 PM EST Results Only [facility] [address] [place] [address] [place] [address] [facility] Start: 03-02-2024 End: 03-02-2024 Patient encounter procedure 03/02/2024 1:30 PM EST Office Visit Radiation Oncology [address] [place] [address] Dillan Kaiser MD [address] [place] [address] [place] [address] 1yr f/u Radiation Oncology Comment on above: 1yr f/u Start: 11-20-2023 DIABETES SCREEN DIABETES SCREEN [facility] Start: 11-19-2023 End: 11-19-2023 Patient encounter procedure 11/19/2023 2:45 PM EDT Office Visit [facility] [address] [place], [place] [id number] Odette Barrett, OD [address] [place], [place] [id number] 1 year full exam Ophthalmology Comment on above: 1 year full exam Start: 10-31-2023 Covid-19 Vaccine () Covid-19 Vaccine () [facility] Start: 10-31-2023 Influenza vaccination Influenza Vacc ine (#1) [facility] Start: 03-01-2023 Advance Directive Discussion Advance Directive Discussion [facility] Start: 03-01-2023 Depression Assessment Depression Ass essment [facility] Start: 02-24-2023 End: 04-26-2023 Prostate specific Ag [Mass/volume] in Serum or Plasma PSA/PROSTSPECAG DIAG Lab Routine Malignant neoplasm of prostate (HCC) Expected: 02/24/2023, Expires: 04/26/2023 [facility] Work Phone: Comment on above: Expected: 02/24/2023 , Expires: 04/26/2023 Start: 10-30-2022 Covid-19 Vaccine () Covid-19 Vaccine () [facility] Start: 10-30-2022 Influenza vaccination C [facility] Start: 08-26-2022 End: 10-26-2022 Prostate specific Ag [Mass/volume] in Serum or Plasma PSA/PROSTSPECAG DIAG Lab Routine Malignant neoplasm of prostate (HCC) Expected: 08/26/2022, Expires: 10/26/2022 [facility] Work Phone: Comment on above: Expected: 08/26/2022 , Expires: 10/26/2022 Start: 08-25-2022 Adult depression screening assessment DEPRESSION SCREENING [facility] Start: 03-01-2022 ADVANCE DIRECTIVE DISCUSSION ADVANCE DIRECTIVE DISCUSSION [facility] Start: 03-01-2022 DEPRESSION ASSESSMENT DEPRESSION ASS ESSMENT [facility] Start: 02-27-2022 End: 04-29-2022 Prostate specific Ag [Mass/volume] in Serum or Plasma PSA/PROSTSPECAG DIAG Lab Routine Malignant neoplasm of prostate (HCC) Expected: 02/27/2022, Expires: 04/29/2022 [facility] Work Phone: Comment on above: Expected: 02/27/2022 , Expires: 04/29/2022 Start: 02-24-2022 Adult depression screening assessment DEPRESSION SCREENING [facility] Start: 10-30-2021 Influenza vaccination INFLUENZA (#1) [facility] Start: 03-01-2021 ADVANCE DIRECTIVE DISCUSSION ADVANCE DIRECTIVE DISCUSSION [facility] Start: 03-01-2021 DEPRESSION ASSESSMENT DEPRESSION ASS ESSMENT [facility] Start: 02-14-2021 COVID-19 VACCINE (5 - Booster) COVID-19 VACCINE (5 - Booster) [facility] Start: 12-10-2020 COVID-19 VACCINE (3 - Booster for Aisha series) COVID-19 VACCINE (3 - Booster for Aisha series) [facility] Start: 12-10-2020 COVID-19 VACCINE (3 - Aisha risk series) COVID-19 VACCINE (3 - Aisha risk series) [facility] Start: 06-08-2012 PNEUMOVAX AGE 65 AND OVER WITH 5YR LOOKBACK (#1) PNEUMOVAX AGE 65 AND OVER WITH 5YR LOOKBACK (#1) [facility] Start: 2007 RSV Vaccine (1 - 1-d ose 60+ series) RSV Vaccine (1 - 1-dose 60+ series) [facility] Start: 06-08-1997 SHINGRIX VACCINE (1 of 2) SHINGRIX VACCINE (1 of 2) [facility] Start: 06-08-1992 COLOGUARD (FIT-DNA) COLOGUARD (FIT-D NA) [facility] Start: 06-08-1992 Colonoscopy COLONOSCOPY [facility] Start: 06-08-1992 COLORECTAL CANCER SCREENING COLORECTAL CANCER SCREENING [facility] Start: 06-08-[address] COLONOGRAPHY [facility] Start: 06-08-1992 FECAL OCCULT BLOOD FECAL OCCULT BLOO D [facility] Start: 06-08-1992 Screening for malign ant neoplasm of colon [facility] Start: 06-08-1992 SIGMOIDOSCOPY SIGMOIDOSCOPY [facility] Start: 06-08-1982 Lipid 1996 panel - Serum or Plasma Lipid Screening [facility] Start: 06-08-1982 Lipid panel Lipid Screening [facility] Start: 06-08-1982 LIPID SCREEN LIPID SCREEN [facility] Start: 06-08-1966 SHINGRIX VACCINE (1 of 2) SHINGRIX VACCINE (1 of 2) [facility] Start: 06-08-1966 Urine microalbumin profile [facility] Start: 06-08-1965 Anxiety Screening Anxiety Screening [facility] Start: 06-08-1965 Depression Screening Depression Scre ening [facility] Start: 06-08-1953 Pneumococcal Vaccine : 65+ (1 - PCV) Pneumococcal Vaccine: 65+ (1 - PCV) [facility] Start: 06-08-1953 Pneumococcal Vaccine : 65+ (1 of 2 - PCV) Pneumococcal Vaccine: 65+ (1 of 2 - PCV) [facility] Start: 06-08-1953 PNEUMOCOCCAL: 65+ (1 - PCV) PNEUMOCOCCAL: 65+ (1 - PCV) [facility] Start: 1947 ABDOMINAL AORTIC ANEURYSM SCREENING ABDOMINAL AORTIC ANEURYSM SCREENING [facility] End: 05-15-2023 NM BRAIN SPECT NM BRAIN SPECT Radiology Routine Other symptoms and signs involving the nervous system 1 Occurrences starting 04/16/2022 until 05/15/2023 [facility] Work Phone: Comment on above: 1 Occurrences starti ng 04/16/2022 until 05/15/2023 End: 05-20-2024 SPIROMETRY - BASELINE AND POST DILATOR SPIROMETRY - BASELINE AND POST DILATOR PFT Routine Bronchiectasis without acute exacerbation (HCC) 1 Occurrences starting 04/21/2023 until 05/20/2024 [facility] Comment on above: 1 Occurrences starti ng 04/21/2023 until 05/20/2024 [facility] ASC RUSSELL [facility] Immunizations Immunization Date Immunization Notes Care Provider Bettie ratliffrebel 12-30-2022 influenza virus vaccine, unspecified formulation Ivy Waters [facility] 12-09-2020 influenza virus vaccine, unspecified formulation Dakotah PELAYO [facility] 12-09-2020 influenza, high-dose , quadrivalent vaccine (FLUZONE HIGH DOSE QUADRIVALENT) Marissa Leija MD Work Phone: [facility] 12-05-2020 influenza nasal, unspecified formulation CHACHO Kaiser MD Work Phone: [facility] 12-05-2020 influenza virus vaccine, unspecified formulation [facility] [facility] 10-15-2020 SARS-CoV-2 (COVID-19 ) Ad26 vaccine, recombinant Supa Dickens JrJesus [facility] 09-05-2020 SARS-CoV-2 (COVID-19 ) Ad26 vaccine, recombinant Supa Dickens JrJesus [facility] 05-24-2020 SARS-CoV-2 (COVID-19 ) mRNA-1273 vaccine Supa Dickens Jr. [facility] 05-20-2020 SARS-CoV-2 (COVID-19 ) mRNA-1273 vaccine Dakotah PELAYO [facility] 05-03-2020 SARS-CoV-2 (COVID-19 ) mRNA-1273 vaccine Dakotah PELAYO [facility] 04-26-2020 SARS-CoV-2 (COVID-19 ) mRNA-1273 vaccine Supa Maninder Juarez [facility] 12-29-2019 influenza virus vaccine, unspecified formulation Dakotah PIERCE [facility] 12-29-2019 Seasonal trivalent influenza vaccine, adjuvanted, preservative free Marissa Leija MD Work Phone: [facility] 12-13-2019 influenza virus vaccine, unspecified formulation Dakotah PELAYO [facility] 12-13-2019 influenza, seasonal, injectable Marissa Leija MD Work Phone: [facility] 12-15-2018 influenza virus vaccine, unspecified formulation Dakotah PELAYO [facility] 12-15-2018 influenza, high dose seasonal, preservative-free Marissa Leija MD Work Phone: [facility] 11-23-2018 influenza virus vaccine, live, attenuated, for intranasal use Marissa Leija MD Work Phone: [facility] 12-22-2016 influenza virus vaccine, unspecified formulation Dakotah PELAYO [facility] 12-22-2016 influenza, high dose seasonal, preservative-free Marissa Leija MD Work Phone: [facility] 11-26-2014 influenza virus vaccine, unspecified formulation Dakotah PELAYO [facility] 11-26-2014 influenza, high dose seasonal, preservative-free Marissa Leija MD Work Phone: [facility] Payers Date Payer Category Payer Medicare MEDICARE MEDICAR E A AND B [id number] 2014-Present [phone] [place] [address] Medicare [id number] 2014 Medicare MEDICARE MEDICAR E A AND B [id number] 2014-Present [phone] [place] [address] Medicare [id number] 2014 Unknown [employer] [employer] [place] MEDICARE SUPPLEMENT [id number] 2014-Present [phone] [id number] [employer] [place] [facility] [facility] [place] [address] Indemnity [id number] 2014 Unknown [employer] [place] [employer] [place] MEDICARE SUPPLEMENT [id number] 2014-Present [phone] 3300 [employer] [place] [employer] [facility] [place] [address] Indemnity [id number] 2014 Unknown [id number] 1959 Medicare [id number] 1959 Unknown [id number] 1947 Unknown [id number] 3 1947 Unknown [id number] 3 1947 Unknown [id number] 2.16.840.1.274423.3.579.2.72 7 1947 Unknown [id number] 2.16.840.1.592030.3.579.2.72 7 1947 Unknown [id number] 2.16.840.1.707617.3.579.2.72 7 1947 Unknown [id number] 2.16.840.1.314991.3.579.2.72 7 1947 Unknown [id number] 2.16.840.1.542516.3.579.2.72 7 1947 Unknown [id number] 2.16.840.1.790548.3.579.2.72 7 1947 Unknown [id number] 2.16.840.1.589264.3.579.2.12 59 1947 Unknown [id number] 2.16.840.1.560966.3.579.2.12 59 1947 Unknown [id number] 2.16.840.1.742039.3.579.2.12 86 1947 Unknown [id number] 2.16.840.1.715329.3.579.2.12 86 1947 Unknown [id number] 2.16.840.1.424434.3.579.2.12 86 1947 Unknown [id number] 2.16.840.1.958093.3.579.2.12 86 1947 Unknown [id number] 2.16.840.1.785385.3.579.2.12 86 1947 Unknown [id number] 2.16.840.1.091325.3.579.2.12 86 1947 Unknown [id number] [id number] 86 1947 Unknown [id number] 86 Social History Date Type Detail Facility Start: 06-23-2021 End: 02-25-2022 Tobacco smoking status IDIS Ex-smoker [facility] Start: 03-01-1969 End: 03-01-2004 History of tobacco use Current smoker [facility] Work Phone: Start: 03-01-1969 End: 03-01-2004 History of tobacco use Cigarette Smoker [facility] Work Phone: Start: 06-06-2021 End: 03-02-2023 Alcohol intake Current drinker of alcohol (finding) [facility] Start: 03-19-2021 History SDOH Alcohol Comment 1 beer per week. [facility] Start: 1945 Sex Assigned At Male [facility] Start: 05-03-2021 End: 08-28-2021 Exposure to SARS-CoV-2 (event) Not sure [facility] Start: 08-19-2022 End: 08-25-2022 Sex Assigned At Male [facility] Start: 07-11-2014 End: 08-19-2022 Cigarettes smoked current (pack per day) - Reported 2 [facility] Start: 07-11-2014 End: 02-25-2022 Tobacco use and exposure Smokeless tobacco non-user [facility] Tobacco smoking status Never [facility] Start: 05-13-2020 Gender identity Identifies as male gender (finding) [facility] Start: 05-13-2020 Sexual orientation Heterosexual (fin fara) [facility] Medical Equipment Procedure Code Equipment Code Equipment Origin al Text Equipment Identifier Dates Lens Iol 0d +20 Jarvis Uv Abs - [id number] Start: 02-15-2020 Comment on above: Description: -0.23 Lens Iol 0d +20 Jarvis Uv Abs - [id number] Start: 06-11-2020 Comment on above: Description: -0.09 Functional Status Date Assessment Result Facility 03-31-2023 Functional Status N/A [facility] 08-25-2022 Functional Status N/A [facility] 03-16-2022 Functional Status N/A [facility] 02-03-2022 Functional Status N/A [facility] 12-29-2021 Functional Status N/A [facility] 11-18-2021 Functional Status N/A [facility] 08-11-2021 Functional Status No [facility] Clinical Notes 02-15-2020 to 04-21-2023 Telephone Encounter - Bhavani Clements - 04/21/2023 12:14 PM Frandy Robles RN - 04/16/2023 7:45 AM Lizzie Henderson RT(R) - 04/16/2023 7:45 AM Freda Aernas OD - 11/16/2022 4:03 PM EDT Note Date & Type Note Facility 04-21-2023 Miscellaneous Notes Patient is requesting an appointment closer to home and not at main campus: Referring physician: Dr. Larry Henson Address: Internal Phone: Fax: Diagnosis: Bronchiectasis Are there epic records: Yes Are there care everywhere records: Yes Has a referral form been faxed: Yes Has patient been added to spreadsheet: No Routing: Please route to Olivia Quintero documented in this encounter [facility] 04-16-2023 Note HNO ID: [id number] Author: LIZZIE MAC RT(R) Service: ? Author Type: Technologist Type: Progress Notes Filed: 04/16/2023 08:29 Note Text: Radiology Service Progress Note PATIENT NAME: Luis Alberto Ocampo DATE OF SERVICE: April 16, 2023 TIME: 7:50 AM PATIENT IDENTITY VERIFICATION COMPLETED USING TWO (2) IDENTIFIERS: Name and Date of confirmed by patient verbally. FALL SCREENING: Has the patient had 2 falls in the last year or 1 fall with injury or currently using an Ambulatory Assistive Device (Walker, Cane, Wheelchair, Crutches, etc.)? No PATIENT GENDER DATA: Male PATIENT RELEVANT IMPLANT DATA REVIEWED: Not Applicable PATIENT PRESENTS WITH AN IMPLANTABLE OR ATTACHED AIRCRAFT PART ASSEMBLER: No RADIOLOGY DEPARTMENT: CT; Exam(s) Completed: Chest Abdomen Pelvis With IV and Oral contrast PERIPHERAL IV DATA: Site assessment: Clean,Dry and Intact, Site disposition Discontinued SIGNED BY: Lizzie Mac RT(R) April 16, 2023 7:50 AM [facility] 04-16-2023 Note HNO ID: [id number] Author: FRANDY SKINNER RN Service: ? Author Type: Registered Nurse Type: Progress Notes Filed: 04/16/2023 07:41 Note Text: Radiology Service Progress Note DATE OF SERVICE: April 16, 2023 TIME: 7:41 AM PATIENT WEIGHT: 216LBS PATIENT IDENTITY VERIFICATION COMPLETED USING TWO (2) STANDARD IDENTIFIERS: Name and Date of confirmed by patient verbally. FALL SCREENING: Has the patient had 2 falls in the last year or 1 fall with injury or currently using an Ambulatory Assistive Device (Walker, Cane, Wheelchair, Crutches, etc.)? No PATIENT GENDER DATA: Male ALLERGIES: Reviewed and unchanged CONTRAST ALLERGY: No EXAM: CT -CONTRAST INDUCED NEPHROPATHY RISK FACTORS: Patient age > 60 years CREATININE: Creatinine Date Value Ref Range Status 02/24/2023 1.00 0.73 - 1.22 mg/dL Final 12/11/2021 1.01 0.73 - 1.22 mg/dL Final 11/19/2020 1.27 (H) 0.73 - 1.22 mg/dL Final Estimated Glomerular Filtration Rate Date Value Ref Range Status 02/24/2023 78 >=60 mL/min/1.73m? Final Comment: Estimated Glomerular Filtration Rate (eGFR) is calculated using the 2020 CKD-EPI creatinine equation. This equation utilizes serum creatinine, sex, and age as parameters. The creatinine assay has traceable calibration to isotope dilution-mass spectrometry. Refer to KDIGO guidelines for clinical interpretation. In patients with unstable renal function, e.g. those with acute kidney injury, the eGFR may not accurately reflect actual GFR. eGFR- Date Value Ref Range Status 11/19/2020 >60 Final P.O.C.T. RESULTS: POC done: Yes, See Lab Tab April 16, 2023 TREATMENT: N/A IV SITE: Ambulatory: A peripheral IV was started in the Right antecubital site with a Angio cath: 20 gauge. IV SITE APPEARANCE: Clean,Dry and Intact SIGNATURE: Frandy Skinner RN PATIENT NAME: Luis Alberto Ocampo DATE: April 16, 2023 TIME: 7:41 AM [facility] 04-16-2023 History of Present illness Narrative Radiology Service Progress Note DATE OF SERVICE: April 16, 2023 TIME: 7:41 AM PATIENT WEIGHT: 216LBS PATIENT IDENTITY VERIFICATION COMPLETED USING TWO (2) STANDARD IDENTIFIERS: Name and Date of confirmed by patient verbally. FALL SCREENING: Has the patient had 2 falls in the last year or 1 fall with injury or currently using an Ambulatory Assistive Device (Walker, Cane, Wheelchair, Crutches, etc.)? No PATIENT GENDER DATA: Male ALLERGIES: Reviewed and unchanged CONTRAST ALLERGY: No EXAM: CT -CONTRAST INDUCED NEPHROPATHY RISK FACTORS: Patient age > 60 years CREATININE: Creatinine Date Value Ref Range Status 02/24/2023 1.00 0.73 - 1.22 mg/dL Final 12/11/2021 1.01 0.73 - 1.22 mg/dL Final 11/19/2020 1.27 (H) 0.73 - 1.22 mg/dL Final Estimated Glomerular Filtration Rate Date Value Ref Range Status 02/24/2023 78 >=60 mL/min/1.73m Final Comment: Estimated Glomerular Filtration Rate (eGFR) is calculated using the 2020 CKD-EPI creatinine equation. This equation utilizes serum creatinine, sex, and age as parameters. The creatinine assay has traceable calibration to isotope dilution-mass spectrometry. Refer to KDIGO guidelines for clinical interpretation. In patients with unstable renal function, e.g. those with acute kidney injury, the eGFR may not accurately reflect actual GFR. eGFR- Date Value Ref Range Status 11/19/2020 >60 Final P.O.C.T. RESULTS: POC done: Yes, See Lab Tab April 16, 2023 TREATMENT: N/A IV SITE: Ambulatory: A peripheral IV was started in the Right antecubital site with a Angio cath: 20 gauge. IV SITE APPEARANCE: Clean,Dry and Intact SIGNATURE: Frandy Skinner RN PATIENT NAME: Luis Alberto Ocampo DATE: April 16, 2023 TIME: 7:41 AM Radiology Service Progress Note PATIENT NAME: Luis Alberto Ocampo DATE OF SERVICE: April 16, 2023 TIME: 7:50 AM PATIENT IDENTITY VERIFICATION COMPLETED USING TWO (2) IDENTIFIERS: Name and Date of confirmed by patient verbally. FALL SCREENING: Has the patient had 2 falls in the last year or 1 fall with injury or currently using an Ambulatory Assistive Device (Walker, Cane, Wheelchair, Crutches, etc.)? No PATIENT GENDER DATA: Male PATIENT RELEVANT IMPLANT DATA REVIEWED: Not Applicable PATIENT PRESENTS WITH AN IMPLANTABLE OR ATTACHED AIRCRAFT PART ASSEMBLER: No RADIOLOGY DEPARTMENT: CT; Exam(s) Completed: Chest Abdomen Pelvis With IV and Oral contrast PERIPHERAL IV DATA: Site assessment: Clean,Dry and Intact, Site disposition Discontinued SIGNED BY: RT Linnea(R) April 16, 2023 7:50 AM documented in this encounter [facility] 04-01-2023 Note HNO ID: [id number] Author: LARRY HENSON MD, PhD Service: ? 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 1. 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 - Return in one year for history, physical exam, and laboratory studies and CT imaging 2. Shallow breathing - depending on the results of his chest CT, he may benefit from referral to pulmonology. 3. 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 Parkinson's Disease - Referral to neurology for second opinion per patient request _ ONCOLOGIC HISTORY April, He developed right sided iritis. Chest X-ray showed a right lung consolidation. Further assesment with chest CT showed this area to be a 7.5 x 5.0 x 3.6 cm area of consolidation in the posterior right lung base, with air bronchogram. He was seen by Dr. Luis Daniel Galicia at [place] and underwent a transthoracic CT guided needle biopsy on April 17, 2014. Pathology revealed lymphoid tissue with rare fragments of respiratory epithelium, and it was negative for malignancy. May, Repeat chest CT showed persistent abnormality. Bronchoscopy with biopsy showed a lymphoid infiltrate with plasmacytoid differentiation. Flow cytometry was notable for a CD20+/CD19+ positive monoclonal lambda-restricted B-cell population that was CD5 negative, CD10 negative suggestive of marginal zone lymphoma. He had no cough, denies fevers, chills, nightsweats, early satiety or unintentional weight loss. July, Due to a suspicion for MALT lymphoma, the patient underwent an upper endoscopy. The EGD revealed mucosal changes suspicious for Cardoso's esophagus, an area of salmon-colored mucosa at the GE junction, and mildly erythematous mucosa in the first part of the duodenum, biopsies were negative for malignancy August-2014 He completed 4 doses of Rituximab. October 2014 CT chest :Demonstrated interval regression without resolution of the previously idenitified right long consolidation; March 2015 Asymptomatic; Doing well without any major complaints except iritis. May, Chest CT with stable right lung infiltrate with no significant interval change. 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 November, Serum protein electrophoresis and light chain showed increase in free kappa levels. Chest CT with interval reduction in consolidation in right lung base. May 2016 Doing well overall, unfortunately fatigued as undergoing a divorce after 40 years of marriage Laboratory studies notable for stable serum kappa level. CT scan of the chest/abdomen/pelvis with stable right lung infiltrate. November, Had recurrence of right iritis. 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 Noted symptoms improved with eye drops, but still feels irritation. March, Diagnosed with preseptal cellulitis of the right eye. April - April 2017 Developed right eye ptosis and cellulitis CT scans of the orbit showed soft tissue nearly circumferentially surrounding the right globe and involving the adjacent right orbital contents CT scan of the chest/abdomen/pelvis with no change in the consolidative opacities in the right lower lung. Referred to Dr. Davis and noted to have right eye superonasal conjunctival lesion consistent with lymphoma. Biopsy confirmed extranodal marginal zone lymphoma. May - Jun, 2017 Completed 12 sessions of radiation therapy Had mild residual upper lid swelling and eye dryness for which he uses artificial tears. January, Doing well. Asymptomatic. CT scan of the chest/abdomen/pelvis without evidence of active disease. Laboratory studies notable for CBC, CMP, LDH within normal limits May, Clinically stable. November, Saw Dr. Davis. Was noted to have regression of previously discernable ocular lesion. May, Developed a pruritic.rash on his arms, legs and back. Otherwise doing well. No fevers, chills, nightsweats, early satiety or unintentional weight loss. November 2019 Energy level is good and he is able to participate in all of his normal activities of daily living without difficulty or restriction. Has some ptosis of the (more content not included)... [facility] 03-31-2023 Hospital Discharge instructions Patient Education 03/31/2023 19:17:54 Dietary Guidelines to Help Prevent Kidney Stones Dietary Guidelines to Help Prevent Kidney Stones Kidney stones are deposits of minerals and salts that form inside your kidneys. Your risk of developing kidney stones may be greater depending on your diet, your lifestyle, the medicines you take, and whether you have certain medical conditions. Most people can lower their risks of developing kidney stones by following these dietary guidelines. Your dietitian may give you more specific instructions depending on your overall health and the type of kidney stones you tend to develop. What are tips for following this plan? Reading food labels Choose foods with no salt added or low-salt labels. Limit your salt (sodium) intake to less than 1,500 mg a day. Choose foods with calcium for each meal and snack. Try to eat about 300 mg of calcium at each meal. Foods that contain 200 500 mg of calcium a serving include: ?8 oz (237 mL) of milk, pfdiqmm-jgtrxplkuyyr-scbft milk, and calcium-fortifiedfruit juice. Calcium-fortified means that calcium has been added to these drinks. ?8 oz (237 mL) of kefir, yogurt, and soy yogurt. ?4 oz (114 g) of tofu. ?1 oz (28 g) of cheese. ?1 cup (150 g) of dried figs. ?1 cup (91 g) of cooked broccoli. ?One 3 oz (85 g) can of sardines or mackerel. Most people need 1,000 1,500 mg of calcium a day. Talk to your dietitian about how much calcium is recommended for you. Shopping Buy plenty of fresh fruits and vegetables. Most people do not need to avoid fruits and vegetables, even if these foods contain nutrients that may contribute to kidney stones. When shopping for convenience foods, choose: ?Whole pieces of fruit. ?Pre-made salads with dressing on the side. ?Low-fat fruit and yogurt smoothies. Avoid buying frozen meals or prepared deli foods. These can be high in sodium. Look for foods with live cultures, such as yogurt and kefir. Choose high-fiber grains, such as whole-wheat breads, oat bran, and wheat cereals. Cooking Do not add salt to food when cooking. Place a salt shaker on the table and allow each person to add their own salt to taste. Use vegetable protein, such as beans, textured vegetable protein (TVP), or tofu, instead of meat in pasta, casseroles, and soups. Meal planning Eat less salt, if told by your dietitian. To do this: ?Avoid eating processed or pre-made food. ?Avoid eating fast food. Eat less animal protein, including cheese, meat, poultry, or fish, if told by your dietitian. To do this: ?Limit the number of times you have meat, poultry, fish, or cheese each week. Eat a diet free of meat at least 2 days a week. ?Eat only one serving each day of meat, poultry, fish, or seafood. ?When you prepare animal proteins, cut pieces into small portion sizes. For most meat and fish, one serving is about the size of the palm of your hand. Eat at least five servings of fresh fruits and vegetables each day. To do this: ?Keep fruits and vegetables on hand for snacks. ?Eat one piece of fruit or a handful of berries with breakfast. ?Have a salad and fruit at lunch. ?Have two kinds of vegetables at dinner. You may be told to limit foods that are high in a substance called oxalate. These include: ?Spinach (cooked), rhubarb, beets, sweet potatoes, and Italian chard. ?Peanuts. ?Potato chips, burkinan fries, and baked potatoes with skin on. ?Nuts and nut products. ?Chocolate. If you regularly take a diuretic medicine, make sure to eat at least 1 or 2 servings of fruits or vegetables that are high in potassium each day. These include: ?Avocado. ?Banana. ?[place], prune, carrot, or tomato juice. ?Baked potato. ?Cabbage. ?Beans and split peas. Lifestyle Drink enough fluid to keep your urine pale yellow. This is the most important thing you can do. Spread your fluid intake throughout the day. If you drink alcohol: ?Limit how much you have to: ?0 1 drink a day for women who are not . ?0 2 drinks a day for men. ?Know how much alcohol is in your drink. In the [place] one drink equals one 12 oz bottle of beer (355 mL), one 5 oz glass of wine (148 mL), or one 1 oz glass of hard liquor (44 mL). Lose weight if told by your health care provider. Work with your dietitian to find an eating plan and weight loss strategies that work best for you. General information Talk to your health care provider and dietitian about taking daily supplements. Depending on your health and the cause of your kidney stones, you may be told: ?Do not take high-dose supplements of vitamin C (1,000 mg a day or more). ?To take a calcium supplement. ?To take a daily probiotic supplement. ?To take other supplements such as magnesium, fish oil, or vitamin B6. Take yyep-rrv-hhgrrsp and prescription medicines only as told by your health care provider. These include supplements. What foods should I limit? Limit your intake of the following foods, or eat them as told by your dietitian. Vegetables Spinach. Rhubarb. Beets. Canned vegetables. Pickles. Olives. Baked potatoes with skin. Grains Wheat bran. Baked goods. Salted crackers. Cereals high in sugar. Meats and other proteins Nuts. Nut butters. Large portions of meat, poultry, or fish. Salted, precooked, or cured meats, such as sausages, meat loaves, and hot dogs. Dairy Cheeses. Beverages Regular soft drinks. Regular vegetable juice. Seasonings and condiments Seasoning blends with salt. Salad dressings. Soy sauce. Ketchup. Barbecue sauce. Other foods Canned soups. Canned pasta sauce. Casseroles. Pizza. Lasagna. Frozen meals. Potato chips. Bengali fries. The items listed above may not be a complete list of foods and beverages you should limit. Contact a dietitian for more information. What foods should I avoid? Talk to your dietitian about specific foods you should avoid based on the type of kidney stones you have and your overall health. Fruits Grapefruit. The item listed above may not be a complete list of foods and beverages you should avoid. Contact a dietitian for more information. Summary Kidney stones are deposits of minerals and salts that form inside your kidneys. You can lower your risk of kidney stones by making changes to your diet. The most important thing you can do is drink enough fluid. Drink enough fluid to keep your urine pale yellow. Talk to your dietitian about how much calcium you should have each day, and eat less salt and animal protein as told by your dietitian. This information is not intended to replace advice given to you by your health care provider. Make sure you discuss any questions you have with your health care provider. Document Revised: 05/28/2022 Document Reviewed: 05/28/2022 [employer] Patient Education 2022 [place] Therap[employer]. 03/31/2023 19:17:52 Kidney Stones, Nqfm-tj-[id number] Kidney Stones Kidney stones are rock-like masses that form inside of the kidneys. Kidneys are organs that make pee (urine). A kidney stone may move into other parts of the urinary tract, including: The tubes that connect the kidneys to the bladder (ureters). The bladder. The tube that carries urine out of the body (urethra). Kidney stones can cause very bad pain and can block the flow of pee. The stone usually leaves your body (passes) through your pee. You may need to have a doctor take out the stone. What are the causes? Kidney stones may be caused by: A condition in which certain glands make too much parathyroid hormone (primary hyperparathyroidism). A buildup of a type of crystals in the bladder made of a chemical called uric acid. The body makes uric acid when you eat certain foods. Narrowing (stricture) of one or both of the ureters. A kidney blockage that you were born with. Past surgery on the kidney or the ureters, such as gastric bypass surgery. What increases the risk? You are more likely to develop this condition if: You have had a kidney stone in the past. You have a family history of kidney stones. You do not drink enough water. You eat a diet that is high in protein, salt (sodium), or sugar. You are overweight or very overweight (obese). What are the signs or symptoms? Symptoms of a kidney stone may include: Pain in the side of the belly, right below the ribs (flank pain). Pain usually spreads (radiates) to the groin. Needing to pee often or right away (urgently). Pain when going pee (urinating). Blood in your pee (hematuria). Feeling like you may vomit (nauseous). Vomiting. Fever and chills. How is this treated? Treatment depends on the size, location, and makeup of the kidney stones. The stones will often pass out of the body through peeing. You may need to: Drink more fluid to help pass the stone. In some cases, you may be given fluids through an IV tube put into one of your veins at the hospital. Take medicine for pain. Make changes in your diet to help keep kidney stones from coming back. Sometimes, medical procedures are needed to remove a kidney stone. This may involve: A procedure to break up kidney stones using a beam of light (laser) or shock waves. Surgery to remove the kidney stones. Follow these instructions at home: Medicines Take yavu-xzf-bdxtxdj and prescription medicines only as told by your doctor. Ask your doctor if the medicine prescribed to you requires you to avoid driving or using heavy machinery. Eating and drinking Drink enough fluid to keep your pee pale yellow. You may be told to drink at least 8 10 glasses of water each day. This will help you pass the stone. If told by your doctor, change your diet. This may include: ?Limiting how much salt you eat. ?Eating more fruits and vegetables. ?Limiting how much meat, poultry, fish, and eggs you eat. Follow instructions from your doctor about eating or drinking restrictions. General instructions Collect pee samples as told by your doctor. You may need to collect a pee sample: ?24 hours after a stone comes out. ?8 12 weeks after a stone comes out, and every 6 12 months after that. Strain your pee every time you pee (urinate), for as long as told. Use the strainer that your doctor recommends. Do not throw out the stone. Keep it so that it can be tested by your doctor. Keep all follow-up visits as told by your doctor. This is important. You may need follow-up tests. How is this prevented? To prevent another kidney stone: Drink enough fluid to keep your pee pale yellow. This is the best way to prevent kidney stones. Eat healthy foods. Avoid certain foods as told by your doctor. You may be told to eat less protein. Stay at a healthy weight. Where to find more information National Kidney Foundation (NKF): www.kidney.org [facility] [employer] ([facility]): www.urologyhealth.org Contact a doctor if: You have pain that gets worse or does not get better with medicine. Get help right away if: You have a fever or chills. You get very bad pain. You get new pain in your belly (abdomen). You pass out (faint). You cannot pee. Summary Kidney stones are rock-like masses that form inside of the kidneys. Kidney stones can cause very bad pain and can block the flow of pee. The stones will often pass out of the body through peeing. Drink enough fluid to keep your pee pale yellow. This information is not intended to replace advice given to you by your health care provider. Make sure you discuss any questions you have with your health care provider. Document Revised: 10/20/2021 Document Reviewed: 10/20/2021 [employer] Patient Education 2022 [place] [employer]. 03/31/2023 19:17:39 Benign Prostatic Hyperplasia Benign Prostatic Hyperplasia Benign prostatic hyperplasia (BPH) is an enlarged prostate gland that is caused by the normal aging process. The prostate may get bigger as a man gets older. The condition is not caused by cancer. The prostate is a walnut-sized gland that is involved in the production of semen. It is located in front of the rectum and below the bladder. The bladder stores urine. The urethra carries stored urine out of the body. An enlarged prostate can press on the urethra. This can make it harder to pass urine. The buildup of urine in the bladder can cause infection. Back pressure and infection may progress to bladder damage and kidney (renal) failure. What are the causes? This condition is part of the normal aging process. However, not all men develop problems from this condition. If the prostate enlarges away from the urethra, urine flow will not be blocked. If it enlarges toward the urethra and compresses it, there will be problems passing urine. What increases the risk? This condition is more likely to develop in men older than 50 years. What are the signs or symptoms? Symptoms of this condition include: Getting up often during the night to urinate. Needing to urinate frequently during the day. Difficulty starting urine flow. Decrease in size and strength of your urine stream. Leaking (dribbling) after urinating. Inability to pass urine. This needs immediate treatment. Inability to completely empty your bladder. Pain when you pass urine. This is more common if there is also an infection. Urinary tract infection (UTI). How is this diagnosed? This condition is diagnosed based on your medical history, a physical exam, and your symptoms. Tests will also be done, such as: A post-void bladder scan. This measures any amount of urine that may remain in your bladder after you finish urinating. A digital rectal exam. In a rectal exam, your health care provider checks your prostate by putting a lubricated, gloved finger into your rectum to feel the back of your prostate gland. This exam detects the size of your gland and any abnormal lumps or growths. An exam of your urine (urinalysis). A prostate specific antigen (PSA) screening. This is a blood test used to screen for prostate cancer. An ultrasound. This test uses sound waves to electronically produce a picture of your prostate gland. Your health care provider may refer you to a specialist in kidney and prostate diseases (urologist). How is this treated? Once symptoms begin, your health care provider will monitor your condition (active surveillance or watchful waiting). Treatment for this condition will depend on the severity of your condition. Treatment may include: Observation and yearly exams. This may be the only treatment needed if your condition and symptoms are mild. Medicines to relieve your symptoms, including: ?Medicines to shrink the prostate. ?Medicines to relax the muscle of the prostate. Surgery in severe cases. Surgery may include: ?Prostatectomy. In this procedure, the prostate tissue is removed completely through an open incision or with a laparoscope or robotics. ?Transurethral resection of the prostate (TURP). In this procedure, a tool is inserted through the opening at the tip of the penis (urethra). It is used to cut away tissue of the inner core of the prostate. The pieces are removed through the same opening of the penis. This removes the blockage. ?Transurethral incision (TUIP). In this procedure, small cuts are made in the prostate. This lessens the prostate's pressure on the urethra. ?Transurethral microwave thermotherapy (TUMT). This procedure uses microwaves to create heat. The heat destroys and removes a small amount of prostate tissue. ?Transurethral needle ablation (TUNA). This procedure uses radio frequencies to destroy and remove a small amount of prostate tissue. ?Interstitial laser coagulation (ILC). This procedure uses a laser to destroy and remove a small amount of prostate tissue. ?Transurethral electrovaporization (TUVP). This procedure uses electrodes to destroy and remove a small amount of prostate tissue. ?Prostatic urethral lift. This procedure inserts an implant to push the lobes of the prostate away from the urethra. Follow these instructions at home: Take stsx-smt-xpgblgm and prescription medicines only as told by your health care provider. Monitor your symptoms for any changes. Contact your health care provider with any changes. Avoid drinking large amounts of liquid before going to bed or out in public. Avoid or reduce how much caffeine or alcohol you drink. Give yourself time when you urinate. Keep all follow-up visits. This is important. Contact a health care provider if: You have unexplained back pain. Your symptoms do not get better with treatment. You develop side effects from the medicine you are taking. Your urine becomes very dark or has a bad smell. Your lower abdomen becomes distended and you have trouble passing urine. Get help right away if: You have a fever or chills. You suddenly cannot urinate. You feel light-headed or very dizzy, or you faint. There are large amounts of blood or clots in your urine. Your urinary problems become hard to manage. You develop moderate to severe low back or flank pain. The flank is the side of your body between the ribs and the hip. These symptoms may be an emergency. Get help right away. Call 911. Do not wait to see if the symptoms will go away. Do not drive yourself to the hospital. Summary Benign prostatic hyperplasia (BPH) is an enlarged prostate that is caused by the normal aging process. It is not caused by cancer. An enlarged prostate can press on the urethra. This can make it hard to pass urine. This condition is more likely to develop in men older than 50 years. Get help right away if you suddenly cannot urinate. This information is not intended to replace advice given to you by your health care provider. Make sure you discuss any questions you have with your health care provider. Document Revised: 09/03/2021 Document Reviewed: 09/03/2021 [employer] Patient Education 2022 [place] [facility]. 03/31/2023 19:17:29 Prostate Cancer Prostate Cancer The prostate is a small gland that produces fluid that makes up semen (seminal fluid). It is located below the bladder in men, in front of the rectum. Prostate cancer is the abnormal growth of cells in the prostate gland. What are the causes? The exact cause of this condition is not known. What increases the risk? You are more likely to develop this condition if: You are 65 years of age or older. You have a family history of prostate cancer. You have a family history of breast and ovarian cancer. You have genes that are passed from parent to child (inherited), such as BRCA1 and BRCA2. You have Richards syndrome. men and men of descent are diagnosed with prostate cancer at higher rates than other men. The reasons for this are not well understood and are likely due to a combination of genetic and environmental factors. What are the signs or symptoms? Symptoms of this condition include: Problems with urination. This may include: ?A weak or interrupted flow of urine. ?Trouble starting or stopping urination. ?Trouble emptying the bladder all the way. ?The need to urinate more often, especially at night. Blood in urine or semen. Persistent pain or discomfort in the lower back, lower abdomen, or hips. Trouble getting an erection. Weakness or numbness in the legs or feet. How is this diagnosed? This condition can be diagnosed with: A digital rectal exam. For this exam, a health care provider inserts a gloved finger into the rectum to feel the prostate gland. A blood test called a prostate-specific antigen (PSA) test. A procedure in which a sample of tissue is taken from the prostate and checked under a microscope (prostate biopsy). An imaging test called transrectal ultrasonography. Once the condition is diagnosed, tests will be done to determine how far the cancer has spread. This is called staging the cancer. Staging may involve imaging tests, such as a bone scan, CT scan, PET scan, or MRI. Stages of prostate cancer The stages of prostate cancer are as follows: Stage 1 (I). At this stage, the cancer is found in the prostate only. The cancer is not visible on imaging tests, and it is usually found by accident, such as during prostate surgery. Stage 2 (II). At this stage, the cancer is more advanced than it is in stage 1, but the cancer has not spread outside the prostate. Stage 3 (III). At this stage, the cancer has spread beyond the outer layer of the prostate to nearby tissues. The cancer may be found in the seminal vesicles, which are near the bladder and the prostate. Stage 4 (IV). At this stage, the cancer has spread to other parts of the body, such as the lymph nodes, bones, bladder, rectum, liver, or lungs. Prostate cancer grading Prostate cancer is also graded according to how the cancer cells look under a microscope. This is called the Woods Cross score and the total score can range from 6 10, indicating how likely it is that the cancer will spread (metastasize) to other parts of the body. The higher the score, the greater the likelihood that the cancer will spread. Woods Cross 6 or lower: This indicates that the cancer cells look similar to normal prostate cells (well differentiated). Woods Cross 7: This indicates that the cancer cells look somewhat similar to normal prostate cells (moderately differentiated). Woods Cross 8, 9, or 10: This indicates that the cancer cells look very different than normal prostate cells (poorly differentiated). How is this treated? Treatment for this condition depends on several factors, including the stage of the cancer, your age, personal preferences, and your overall health. Talk with your health care provider about treatment options that are recommended for you. Common treatments include: Observation for early stage prostate cancer (active surveillance). This involves having exams, blood tests, and in some cases, more biopsies. For some men, this is the only treatment needed. Surgery. Types of surgeries include: ?Open surgery (radical prostatectomy). In this surgery, a larger incision is made to remove the prostate. ?A laparoscopic radical prostatectomy. This is a surgery to remove the prostate and lymph nodes through several small incisions. It is often referred to as a minimally invasive surgery. ?A robotic radical prostatectomy. This is laparoscopic surgery to remove the prostate and lymph nodes with the help of robotic arms that are controlled by the surgeon. ?Cryoablation. This is surgery to freeze and destroy cancer cells. Radiation treatment. Types of radiation treatment include: ?External beam radiation. This type aims beams of radiation from outside the body at the prostate to destroy cancerous cells. ?Brachytherapy. This type uses radioactive needles, seeds, wires, or tubes that are implanted into the prostate gland. Like external beam radiation, brachytherapy destroys cancerous cells. An advantage is that this type of radiation limits the damage to surrounding tissue and has fewer side effects. Chemotherapy. This treatment kills cancer cells or stops them from multiplying. It kills both cancer cells and normal cells. Targeted therapy. This treatment uses medicines to kill cancer cells without damaging normal cells. Hormone treatment. This treatment involves taking medicines that act on testosterone, one of the male hormones, by: ?Stopping your body from producing testosterone. ?Blocking testosterone from reaching cancer cells. Follow these instructions at home: Lifestyle Do not use any products that contain nicotine or tobacco. These products include cigarettes, chewing tobacco, and vaping devices, such as e-cigarettes. If you need help quitting, ask your health care provider. Eat a healthy diet. To do this: ?Eat foods that are high in fiber. These include beans, whole grains, and fresh fruits and vegetables. ?Limit foods that are high in fat and sugar. These include fried or sweet foods. Treatment for prostate cancer may affect sexual function. If you have a partner, continue to have intimate moments. This may include touching, holding, hugging, and caressing your partner. Get plenty of sleep. Consider joining a support group for men who have prostate cancer. Meeting with a support group may help you learn to manage the stress of having cancer. General instructions Take ufhe-yil-mimklfs and prescription medicines only as told by your health care provider. If you have to go to the hospital, notify your cancer specialist (oncologist). Keep all follow-up visits. This is important. Where to find more information [place] [employer]: www.cancer.org [place] [employer]: www.cancer.net [employer] Cancer [place]: www.cancer.gov Contact a health care provider if: You have new or increasing trouble urinating. You have new or increasing blood in your urine. You have new or increasing pain in your hips, back, or chest. Get help right away if: You have weakness or numbness in your legs. You cannot control urination or your bowel movements (incontinence). You have chills or a fever. Summary The prostate is a small gland that is involved in the production of semen. It is located below a man's bladder, in front of the rectum. Prostate cancer is the abnormal growth of cells in the prostate gland. Treatment for this condition depends on the stage of the cancer, your age, personal preferences, and your overall health. Talk with your health care provider about treatment options that are recommended for you. Consider joining a support group for men who have prostate cancer. Meeting with a support group may help you learn to manage the stress of having cancer. This information is not intended to replace advice given to you by your health care provider. Make sure you discuss any questions you have with your health care provider. Document Revised: 05/14/2021 Document Reviewed: 05/14/2021 [employer] Patient Education 2022 [place] [employer]. [facility] 03-02-2023 Note HNO ID: [id number] Author: Dillan KAISER MD Service: ? Author Type: Physician Type: Progress Notes Filed: 03/05/2023 15:59 Note Text: Radiation Oncology - Follow Up Note PATIENT NAME: Luis Alberto Ocampo PATIENT DIAGNOSIS: 1. Prostate adenocarcinoma, initial PSA 5.51, biopsy Woods Cross score 3 + 3 = 6 (grade group 1), clinical stage T1c, N0, M0, stage I [pT2, N0, M0, PSA <10, GG 1] (AJCC 8th ed.), s/p TRUS Random biopsy. 2. 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 Denies any new problems. 02/25/22:Underwent urolift. Still with urinary urgency, episodic, better last 2 days. 02/25/21: Urinary urgency has improved. Did undergo cystoscopy with Dr. Dickens without remarkable findings. No hematuria. He is having intermittent incontinence although improved recently. PSA HISTORY: PSA (ng/mL) Date Value 02/24/2023 0.40 08/19/2022 0.52 02/10/2022 0.29 08/21/2021 0.73 02/18/2021 1.26 12/06/2020 1.67 11/19/2020 2.09 08/02/2020 4.29 ALLERGIES Allergen Reactions Erythromycin Itching Iodine And Iodide C* Other: See Comments Pt passed out from milogram test on spinal cord Acetaminophen 500 mg cap Take 500 mg by mouth once daily. 2 CAPSULES DAILY meloxicam (MOBIC) 15 mg tablet Take 15 mg by mouth once daily. POTASSIUM-99 ORAL Take 20 mEq by mouth once daily. Omeprazole 40 mg capsule Take 40 mg by mouth once daily. carbidopa-levodopa (SINEMET 25-100) 25-100 mg per tablet Take 1 tablet by mouth three times daily. REVIEW OF SYSTEMS: D/N = 6/2-3 Hematuria: none Dysuria: Yes Incontinence: yes urge related Urgency: moderate Catheter use: No Medications to aid urination: yes Difficulty maintaining erections currently not using Viagra etc. - Total AUA Score: 16 Bowel movement frequency: 1/day Bowel movement quality: normal Blood per rectum: No PHYSICAL EXAM: BP 155/82 Pulse 86 Temp 36.2 ?C (97.2 ?F) Resp 18 Wt 96.9 kg (213 lb 10 oz) SpO2 95% BMI 26.35 kg/m? KPS: 100 General appearance: Alert and oriented. No acute distress. Rectal exam def Extremities: No deformities, edema, skin discoloration, clubbing or cyanosis. Skin: Skin color, texture, turgor normal, no suspicious rashes or lesions. ASSESSMENT/PLAN: Prostate adenocarcinoma, initial PSA 5.51, biopsy Elham score 3 + 3 = 6 (grade group 1), clinical stage T1c, N0, M0, stage I [pT2, N0, M0, PSA <10, GG 1] (AJCC 8th ed.) status post prostate brachytherapy 06/26/2020. Doing well, PSA remains low. Plan to see patient back in one year he continues with PSA. Urologic follow-up with Dr. Pelayo. Signed by: Dillan Kaiser MD cc: MD Dr. Pierce Brooks Portions of the above note extracted and edited from previous visit as well as active information included in the EMR. [facility] 11-16-2022 Note HNO ID: [id number] Author: Freda Hendrix OD Service: ? Author Type: SALES FLOOR MANAGER Type: Progress Notes Filed: 11/16/2022 4:05 PM Note Text: ASSESSMENT/PLAN: 1. S/P YAG capsulotomy, bilateral - ICD9: V45.89, ICD10: Z98.890 (primary diagnosis) Doing well. Happy with improved vision. Floaters resolved. Declines Rx - happy with OTC readers 2. Pseudophakia - ICD9: V43.1, ICD10: Z96.1 3. 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 Freda Hendrix, EVAN I have confirmed and edited as necessary the relevant ophthalmic history, ROS, and the exam findings as obtained by others. I have seen and examined this patient. I have discussed the case and the management of this patient's care with the resident or fellow as appropriate. I also have reviewed and agree with the assessment and plan as stated above and agree with all of its relevant components. Freda Hendrix, OD November 16, 2022 4:03 PM [facility] 11-16-2022 History of Present illness Narrative ASSESSMENT/PLAN: 1. S/P YAG capsulotomy, bilateral - ICD9: V45.89, ICD10: Z98.890 (primary diagnosis) Doing well. Happy with improved vision. Floaters resolved. Declines Rx - happy with OTC readers 2. Pseudophakia - ICD9: V43.1, ICD10: Z96.1 3. 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 Freda Hendrix, OD I have confirmed and edited as necessary the relevant ophthalmic history, ROS, and the exam findings as obtained by others. I have seen and examined this patient. I have discussed the case and the management of this patient's care with the resident or fellow as appropriate. I also have reviewed and agree with the assessment and plan as stated above and agree with all of its relevant components. Freda Hendrix, EVAN November 16, 2022 4:03 PM documented in this encounter [facility] 11-05-2022 Note HNO ID: [id number] Author: Lindsey Hugo V, MD Service: ? Author Type: Physician Type: Progress Notes Filed: 11/05/2022 3:35 PM Note Text: The documentation for this note was completed by Leydi Card, COA acting as a scribe for Lindsey HUGO MD. 11/05/2022 3:30 PM. ASSESSMENT / PLAN: 1. Posterior capsular opacity Both eyes -YAG capsulotomy Both eyes today -Patient educated on posterior capsular opacity following cataract surgery. The risks, benefits, alternatives, personnel, and possible complications related to yttrium aluminum garnet (YAG) capsulotomy discussed with patient. Explained that risks include but are not limited to: increase in intraocular pressure, retinal tears/detachment, dislocation of the intraocular lens, and/or need for further procedures. Patient expresses understanding and elects to proceed with YAG capsulotomy of Both eyes performed by Dr. Hugo. Informed consent form signed by physician and patient. Literature regarding signs and symptoms of retinal detachment offered. -The patient was offered a surgery/procedure at a [facility] facility. The surgeon/proceduralist and patient have discussed in detail the risk of exposure to and/or potential harm posed by the COVID-19 virus with having a surgery/procedure at this time versus the risk of delaying the surgery/procedure. It is not possible to know either the risk of delaying the surgery or procedure or chance of getting an infection with perfect accuracy, but a joint decision was made between the patient and the surgeon/proceduralist to proceed at this time with the scheduled surgery/procedure as indicated on the consent form. -F/U 1 week with patient transportation driver (Franki) The documentation recorded by the scribe accurately reflects the service I personally performed and the decisions made by me. I have confirmed and edited as necessary the relevant ophthalmic history, ROS, and the exam findings as obtained by others. I have seen and examined Luis Alberto Ocampo. I also have reviewed and agree with the assessment and plan as stated above and agree with all of its relevant components. Lindsey HUGO MD November 05, 2022 3:30 PM [facility] 11-05-2022 Note HNO ID: [id number] Author: Freda Hendrix OD Service: ? Author Type: SALES FLOOR MANAGER Type: Progress Notes Filed: 11/05/2022 3:35 PM Note Text: ASSESSMENT/PLAN: 1. 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 - ICD9: 366.53, ICD10: H26.493 (primary diagnosis) Pt educated. Eval with AH today. 2. Pseudophakia - ICD9: V43.1, ICD10: Z96.[address] Maryellen Davis 3. 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 Freda Hendrix, EVAN I have confirmed and edited as necessary the relevant ophthalmic history, ROS, and the exam findings as obtained by others. I have seen and examined this patient. I have discussed the case and the management of this patient's care with the resident or fellow as appropriate. I also have reviewed and agree with the assessment and plan as stated above and agree with all of its relevant components. Freda Hendrix, EVAN November 05, 2022 2:59 PM [facility] 11-05-2022 History of Present illness Narrative The documentation for this note was completed by ADITYA Alarcon acting as a scribe for Lindsey HUGO MD. 11/05/2022 3:30 PM. ASSESSMENT / PLAN: 1. Posterior capsular opacity Both eyes -YAG capsulotomy Both eyes today -Patient educated on posterior capsular opacity following cataract surgery. The risks, benefits, alternatives, personnel, and possible complications related to yttrium aluminum garnet (YAG) capsulotomy discussed with patient. Explained that risks include but are not limited to: increase in intraocular pressure, retinal tears/detachment, dislocation of the intraocular lens, and/or need for further procedures. Patient expresses understanding and elects to proceed with YAG capsulotomy of Both eyes performed by Dr. Hugo. Informed consent form signed by physician and patient. Literature regarding signs and symptoms of retinal detachment offered. -The patient was offered a surgery/procedure at a [facility] facility. The surgeon/proceduralist and patient have discussed in detail the risk of exposure to and/or potential harm posed by the COVID-19 virus with having a surgery/procedure at this time versus the risk of delaying the surgery/procedure. It is not possible to know either the risk of delaying the surgery or procedure or chance of getting an infection with perfect accuracy, but a joint decision was made between the patient and the surgeon/proceduralist to proceed at this time with the scheduled surgery/procedure as indicated on the consent form. -F/U 1 week with patient transportation driver (Franki) The documentation recorded by the scribe accurately reflects the service I personally performed and the decisions made by me. I have confirmed and edited as necessary the relevant ophthalmic history, ROS, and the exam findings as obtained by others. I have seen and examined Luis Alberto Ocampo. I also have reviewed and agree with the assessment and plan as stated above and agree with all of its relevant components. Lindsey HUGO MD November 05, 2022 3:30 PM ASSESSMENT/PLAN: 1. 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 - ICD9: 366.53, ICD10: H26.493 (primary diagnosis) Pt educated. Eval with today. 2. Pseudophakia - ICD9: V43.1, ICD10: Z96.[address] Maryellen Davis 3. 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 Freda Hendrix, OD I have confirmed and edited as necessary the relevant ophthalmic history, ROS, and the exam findings as obtained by others. I have seen and examined this patient. I have discussed the case and the management of this patient's care with the resident or fellow as appropriate. I also have reviewed and agree with the assessment and plan as stated above and agree with all of its relevant components. Freda Hendrix, EVAN November 05, 2022 2:59 PM documented in this encounter [facility] 09-30-2022 Miscellaneous Notes Last appt 05/26/22 [facility] Requested Prescriptions Pending Prescriptions Disp Refills carbidopa-levodopa (SINEMET 25-100) 25-100 mg per tablet 270 tablet 3 Sig: Take 1 tablet by mouth three times daily. documented in this encounter [facility] 08-28-2022 Note HNO ID: [id number] Author: RT Linnea(Mila) Service: ? Author Type: Technologist Type: Progress Notes Filed: 08/28/2022 8:49 AM Note Text: Radiology Service Progress Note PATIENT NAME: Luis Alberto Ocampo DATE OF SERVICE: August 28, 2022 TIME: 8:49 AM PATIENT IDENTITY VERIFICATION COMPLETED USING TWO (2) IDENTIFIERS: Name and Date of confirmed by patient verbally. FALL SCREENING: Has the patient had 2 falls in the last year or 1 fall with injury or currently using an Ambulatory Assistive Device (Walker, Cane, Wheelchair, Crutches, etc.)? No PATIENT GENDER DATA: Male PATIENT RELEVANT IMPLANT DATA REVIEWED: Not Applicable RADIOLOGY DEPARTMENT: CT; Exam(s) Completed: Abdomen/Pelvis PERIPHERAL IV DATA: Not applicable SIGNED BY: RT Linnea(R) August 28, 2022 8:49 AM [facility] 08-25-2022 Note HNO ID: [id number] Author: Dillan Kaiser MD Service: ? Author Type: Physician Type: Progress Notes Filed: 09/02/2022 3:22 PM Note Text: Radiation Oncology - Follow Up Note PATIENT NAME: Luis Alberto Ocampo PATIENT DIAGNOSIS: 1. Prostate adenocarcinoma, initial PSA 5.51, biopsy Elham score 3 + 3 = 6 (grade group 1), clinical stage T1c, N0, M0, stage I [pT2, N0, M0, PSA <10, GG 1] (AJCC 8th ed.), s/p TRUS Random biopsy. 2. 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 Is undergoing management of kidney stone, has CT abdomen pelvis within the next week. Denies current hematuria though has had previously. Denies other new problems. 02/25/22:Underwent urolift. Still with urinary urgency, episodic, better last 2 days. 02/25/21: Urinary urgency has improved. Did undergo cystoscopy with Dr. Dickens without remarkable findings. No hematuria. He is having intermittent incontinence although improved recently. PSA HISTORY: PSA (ng/mL) Date Value 08/19/2022 0.52 02/10/2022 0.29 08/21/2021 0.73 02/18/2021 1.26 12/06/2020 1.67 11/19/2020 2.09 08/02/2020 4.29 ALLERGIES Allergen Reactions Erythromycin Itching Iodine And Iodide C* Other: See Comments Pt passed out from milogram test on spinal cord carbidopa-levodopa (SINEMET 25-100) 25-100 mg per tablet Take 1 tablet by mouth three times daily. Acetaminophen 500 mg cap Take 500 mg by mouth once daily. 2 CAPSULES DAILY meloxicam (MOBIC) 15 mg tablet Take 15 mg by mouth once daily. POTASSIUM-99 ORAL Take 20 mEq by mouth once daily. Omeprazole 40 mg capsule Take 40 mg by mouth once daily. REVIEW OF SYSTEMS: D/N = 6/2-3 Hematuria: none Dysuria: Yes Incontinence: yes urge related Urgency: moderate Catheter use: No Medications to aid urination: yes Difficulty maintaining erections currently not using Viagra etc. - Total AUA Score: 20 Bowel movement frequency: 1/day Bowel movement quality: normal Blood per rectum: No PHYSICAL EXAM: BP 133/84 Pulse 91 Temp 36.8 ?C (98.3 ?F) Resp 16 Wt 98.2 kg (216 lb 9.6 oz) SpO2 97% BMI 26.72 kg/m? KPS: 100 General appearance: Alert and oriented. No acute distress. Abdomen: Normal abdominal exam, Abdomen soft, non-tender. No masses, organomegaly. Rectal exam def Extremities: No deformities, edema, skin discoloration, clubbing or cyanosis. Lymph Nodes: No cervical lymphadenopathy, No supraclavicular lymphadenopathy, No axillary lymphadenopathy. Skin: Skin color, texture, turgor normal, no suspicious rashes or lesions. ASSESSMENT/PLAN: Prostate adenocarcinoma, initial PSA 5.51, biopsy [place] score 3 + 3 = 6 (grade group 1), clinical stage T1c, N0, M0, stage I [pT2, N0, M0, PSA <10, GG 1] (AJCC 8th ed.) status post prostate brachytherapy 06/26/2020. Doing well, PSA remains low. Has some issues including nephrolithiasis, has active follow-up with Dr. Pelayo. Plan to see patient back in 6 months with PSA. Signed by: Dillan Kaiser MD cc: MD Dr. Pierce Brooks Portions of the above note extracted and edited from previous visit as well as active information included in the EMR. [facility] 08-25-2022 Nurse Note AUA=20 documented in this encounter [facility] 08-25-2022 History of Present illness Narrative Radiation Oncology - Follow Up Note PATIENT NAME: Luis Alberto Ocampo PATIENT DIAGNOSIS: 1. Prostate adenocarcinoma, initial PSA 5.51, biopsy [place] score 3 + 3 = 6 (grade group 1), clinical stage T1c, N0, M0, stage I [pT2, N0, M0, PSA <10, GG 1] (AJCC 8th ed.), s/p TRUS Random biopsy. 2. 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 Is undergoing management of kidney stone, has CT abdomen pelvis within the next week. Denies current hematuria though has had previously. Denies other new problems. 02/25/22:Underwent urolift. Still with urinary urgency, episodic, better last 2 days. 02/25/21: Urinary urgency has improved. Did undergo cystoscopy with Dr. Dickens without remarkable findings. No hematuria. He is having intermittent incontinence although improved recently. PSA HISTORY: PSA (ng/mL) Date Value 08/19/2022 0.52 02/10/2022 0.29 08/21/2021 0.73 02/18/2021 1.26 12/06/2020 1.67 11/19/2020 2.09 08/02/2020 4.29 ALLERGIES Allergen Reactions Erythromycin Itching Iodine And Iodide C* Other: See Comments Pt passed out from milogram test on spinal cord carbidopa-levodopa (SINEMET 25-100) 25-100 mg per tablet Take 1 tablet by mouth three times daily. Acetaminophen 500 mg cap Take 500 mg by mouth once daily. 2 CAPSULES DAILY meloxicam (MOBIC) 15 mg tablet Take 15 mg by mouth once daily. POTASSIUM-99 ORAL Take 20 mEq by mouth once daily. Omeprazole 40 mg capsule Take 40 mg by mouth once daily. REVIEW OF SYSTEMS: D/N = 6/2-3 Hematuria: none Dysuria: Yes Incontinence: yes urge related Urgency: moderate Catheter use: No Medications to aid urination: yes Difficulty maintaining erections currently not using Viagra etc. - Total AUA Score: 20 Bowel movement frequency: 1/day Bowel movement quality: normal Blood per rectum: No PHYSICAL EXAM: BP 133/84 Pulse 91 Temp 36.8 C (98.3 F) Resp 16 Wt 98.2 kg (216 lb 9.6 oz) SpO2 97% BMI 26.72 kg/m KPS: 100 General appearance: Alert and oriented. No acute distress. Abdomen: Normal abdominal exam, Abdomen soft, non-tender. No masses, organomegaly. Rectal exam def Extremities: No deformities, edema, skin discoloration, clubbing or cyanosis. Lymph Nodes: No cervical lymphadenopathy, No supraclavicular lymphadenopathy, No axillary lymphadenopathy. Skin: Skin color, texture, turgor normal, no suspicious rashes or lesions. ASSESSMENT/PLAN: Prostate adenocarcinoma, initial PSA 5.51, biopsy Elham score 3 + 3 = 6 (grade group 1), clinical stage T1c, N0, M0, stage I [pT2, N0, M0, PSA <10, GG 1] (AJCC 8th ed.) status post prostate brachytherapy 06/26/2020. Doing well, PSA remains low. Has some issues including nephrolithiasis, has active follow-up with Dr. Pelayo. Plan to see patient back in 6 months with PSA. Signed by: Dillan Kaiser MD cc: MD Dr. Pierce Brooks Portions of the above note extracted and edited from previous visit as well as active information included in the EMR. documented in this encounter [facility] 08-25-2022 Hospital Discharge instructions Patient Education 08/25/2022 09:02:15 Cancer Screening for Men Cancer Screening for Men A cancer screening is a test or exam that checks for cancer. Your health care provider will recommend specific cancer screenings based on your age, medical history (including risk factors), and family history of cancer. Work with your health care provider to create a cancer screening schedule that protects your health. Who should have screening? All men should be considered for screening of certain cancers, including colorectal cancer, prostate cancer, lung cancer, and skin cancer. Your health care provider may recommend screenings for other types of cancer if: You had cancer before. You have a family member with cancer. You have abnormal genes that could increase the risk of cancer. You have risk factors for certain cancers, such as current or past use of tobacco products, or being overweight. When you should be screened for cancer depends on: Your age. Your medical history and your family's medical history. Certain lifestyle factors, such as smoking or other use of tobacco products. Environmental exposure, such as to asbestos. How is screening done? Colorectal cancer All adults should have screenings starting at age 45 and continuing until age 75. Your health care provider may recommend screening before age 45. You will have tests every 1 10 years, depending on your results and the type of screening test. People at increased risk should start screening at an earlier age. Talk with your health care provider about which screening test is right for you and how often you should be screened. Colorectal cancer screening looks for cancer or for growths called polyps that often form before cancer starts. Tests to look for cancer or polyps include: Colonoscopy or flexible sigmoidoscopy. For these procedures, a flexible tube with a small camera is inserted into the rectum. CT colonography. This test uses X-rays and a contrast dye to check the colon for polyps. If a polyp is found, you may need to have a colonoscopy so the polyp can be located and removed. Tests to look for cancer in the stool (feces) include: Guaiac-based fecal occult blood test (FOBT). This test can find blood in stool. It can be done at home with a kit. Fecal immunochemical test (FIT). This test can find blood in stool. For this test, you will need to collect stool samples at home. Stool DNA test. This test looks for blood in stool and any changes in DNA that can lead to colon cancer. For this test, you will need to collect a stool sample at home and send it to a lab. Prostate cancer Prostate cancer screening for men with average risk may start at age 50. Men with risk factors may need to be screened earlier, at ages 40 45. Talk with your health care provider about whether screening is right for you and, if so, how often you should be screened. Prostate cancer screening is done with blood tests and a digital rectal exam. During this exam, a health care provider uses a gloved finger to check prostate size. You may need to be screened for prostate cancer if: You have risk factors for prostate cancer, such as being or having a close family member with prostate cancer. You have had gene changes or a genetic condition that was passed on to you from a parent (inherited). These gene changes or genetic conditions include BRCA1 or BRCA2 gene mutations or Richards syndrome. You have symptoms of prostate cancer, such as problems urinating or problems getting or keeping an erection (erectile dysfunction). When you have been screened for prostate cancer, future screening may be recommended based on the results of your blood tests. Lung cancer Lung cancer screening is done with a CT scan that looks for abnormal changes in the lungs. Discuss lung cancer screening with your health care provider if you are 50 80 years old and if any of the following apply to you: You currently smoke. You used to smoke heavily. You have a smoking history of 1 pack of cigarettes a day for 20 years or 2 packs a day for 10 years. You have quit smoking within the past 15 years. You may need to be screened every year if you smoke heavily or if you used to smoke. Skin cancer Skin cancer screening is done by checking the skin for unusual moles or spots and any changes in existing moles. Your health care provider should check your skin for signs of skin cancer at every physical exam. You should check your skin every month and tell your health care provider right away if anything looks unusual. Men with a zgutsc-xnkw-[id number] risk for skin cancer may want to see a esthetician/skin therapist (director business travel) for an annual body check. What are the benefits of screening? Cancer screening is done to look for cancer in the very early stages, before it spreads and becomes harder to treat and before you would start to notice symptoms. Finding cancer early improves the chances of successful treatment. It may save your life. Where to find more information [place] [employer]: www.cancer.org Centers for Disease Control and Prevention: www.cdc.gov National Cancer [place]: www.cancer.gov Contact a health care provider if: You have concerns about any signs or symptoms of cancer. These may include: Skin problems. You may have: ?Moles of an unusual shape or color. ?Changes in existing moles. ?A sore on your skin that does not heal. Tiredness (fatigue) that does not go away. Losing weight without trying. Blood in your urine or stool. Problems with urination. You may have: ?Changes in urination habits. ?Painful urination. Painful ejaculation. Problems with coughing or breathing. These may include: ?Coughing or trouble breathing that does not go away. ?Coughing up blood. Frequent pain or cramping in your abdomen. Summary Your health care provider will recommend specific cancer screenings based on your age, medical history, and family history of cancer. Work with your health care provider to create a cancer screening schedule that protects your health. Finding cancer early improves the chances of successful treatment. It may save your life. Contact a health care provider if you have concerns about any signs or symptoms of cancer. This information is not intended to replace advice given to you by your health care provider. Make sure you discuss any questions you have with your health care provider. Document Revised: 07/14/2021 Document Reviewed: 01/12/2020 [employer] Patient Education 2022 [place] [facility]. Follow Up Care 07/28/2022 15:36:43 With:PIERCE CORONADO, Dakotah Krueger, URL Address: [facility] [employer] [address] [place] [id number] When: Unknown [facility] 08-21-2022 Note HNO ID: [id number] Author: Odette Barrett, EVAN Service: ? 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 Hugo Yag consult The nature of the patient's eye disease, its relationship to systemic health, its genetic components, and its prognosis have been explained to the patient/family. The treatment options/risks/benefits have been discussed. Questions answered. I have interviewed and examined Luis Alberto Ocampo. I have confirmed and edited as necessary the chief complaint, history of present illness, past medical history, medications, family history, social history, review of systems, and exam findings as obtained by others. I agree with the assessment and plan as stated above,and have discussed them in detail with the patient. Odette Barrett, OD August 21, 2022 3:51 PM [facility] 05-26-2022 Note HNO ID: [id number] Author: Jigar Stanford, DO Service: ? Author Type: Physician Type: Progress Notes Filed: 05/27/2022 8:22 AM Note Text: VIRTUAL VISIT PROGRESS NOTE This is a virtual visit using Moe Delo video visit. It required patient-provider interaction for the medical decision making as documented below. I have communicated my name and active licensure. The patient's identity and physical location were verified at the time of this visit. Either the patient or their legal screening representative has been informed of the risks and benefits of -- and alternatives to -- treatment through a remote evaluation and consents to proceed with the evaluation remotely. Luis Alberto Ocampo is a 76 year old male seen for abnormal VIJAY scan. There is mild grade 1 loss. He continues to have tremor. Tried Sinemet at [facility] w/o benefit before. Unsure of need to start. Tremor is nondisabling. 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 Davis TONSILLECTOMY HX TONSILLECTOMY PRIMARY/SECONDARY Tonsillectomy FAMILY HISTORY Problem Relation Age of Onset Breast Cancer Mother at 57 y/o Alzheimer's Disease Father in his late 70's None Sister None Sister Anesthesia Problems No Family History Social History Tobacco Use Smoking status: Former Packs/day: 2.00 Years: 35.00 Pack years: 70.00 Types: Cigarettes Quit date: 03/01/2004 Years since quittin.2 Smokeless tobacco: Never Vaping Use Vaping Use: Never used Substance Use Topics Alcohol use: Yes Comment: 1 beer per week. Drug use: No Comment: denies tx for drug/alcohol abuse in the past. Current Outpatient Medications Medication Sig carbidopa-levodopa (SINEMET 25-100) 25-100 mg per tablet Take 1 tablet by mouth three times daily. ibuprofen (MOTRIN) 400 mg tablet Take 400 mg by mouth every 6 hours as needed. Acetaminophen 500 mg cap Take 500 mg by mouth once daily. 2 CAPSULES DAILY meloxicam (MOBIC) 15 mg tablet Take 15 mg by mouth once daily. POTASSIUM-99 ORAL Take 20 mEq by mouth once daily. dextran/hypromellose/glycerin (GENTEAL TEARS MODERATE OPHTHALMIC) Use 1 Drop in eyes three times daily. Omeprazole 40 mg capsule Take 40 mg by mouth once daily. No current facility-administered medications for this visit. ALLERGIES Allergen Reactions Erythromycin Itching Iodine And Iodide C* Other: See Comments Pt passed out from milogram test on spinal cord REVIEW OF SYSTEMS: NEURO: no numbness or paresthesias and no weakness of the extremities PHYSICAL EXAMINATION: VIDEO EXAM: (if completed, performed via video enabled technology) No exam performed ASSESSMENT: (G20) Primary parkinsonism (HCC) (primary encounter diagnosis) (R25.1) Tremor PLAN: Restart Sinemet TID Patient Instructions Sinemet 25/100 (generally yellow tablet) instructions: 8AM 12PM 4PM 1 week 1 0 0 1 week 1 1 0 Continue 1 1 1 a. Take Sinemet 30 minutes before meals or 60 minutes after meals. Avoid taking this medication with high protein meals. b. If nausea develops, try taking Sinemet with crackers or bread. c. If nausea still persists, please call. Avoid taking anti-nausea medications before speaking with us. Avoid Reglan, Compazine or Phenergan. I spent a total of 15 minutes on the date of the service which included preparing to see the patient, [id number] patient care, completing clinical documentation, obtaining and/or reviewing separately obtained history, counseling and educating the patient/family/caregiver, and communicating results to the patient/family/caregiver Jigar Stanford DO [facility] 05-26-2022 Instructions Jigar Stanford DO - 05/26/2022 3:49 PM EDT Sinemet 25/100 (generally yellow tablet) instructions: 8AM 12PM 4PM 1 week 1 0 0 1 week 1 1 0 Continue 1 1 1 a. Take Sinemet 30 minutes before meals or 60 minutes after meals. Avoid taking this medication with high protein meals. b. If nausea develops, try taking Sinemet with crackers or bread. c. If nausea still persists, please call. Avoid taking anti-nausea medications before speaking with us. Avoid Reglan, Compazine or Phenergan. documented in this encounter [facility] 05-26-2022 History of Present illness Narrative VIRTUAL VISIT PROGRESS NOTE This is a virtual visit using Moe Delo video visit. It required patient-provider interaction for the medical decision making as documented below. I have communicated my name and active licensure. The patient's identity and physical location were verified at the time of this visit. Either the patient or their legal screening representative has been informed of the risks and benefits of -- and alternatives to -- treatment through a remote evaluation and consents to proceed with the evaluation remotely. Luis Alberto Ocampo is a 76 year old male seen for abnormal VIJAY scan. There is mild grade 1 loss. He continues to have tremor. Tried Sinemet at [facility] w/o benefit before. Unsure of need to start. Tremor is nondisabling. 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 Davis TONSILLECTOMY HX TONSILLECTOMY PRIMARY/SECONDARY <AGE 12 Tonsillectomy FAMILY HISTORY Problem Relation Age of Onset Breast Cancer Mother at 57 y/o Alzheimer's Disease Father in his late 70's None Sister None Sister Anesthesia Problems No Family History Social History Tobacco Use Smoking status: Former Packs/day: 2.00 Years: 35.00 Pack years: 70.00 Types: Cigarettes Quit date: 03/01/2004 Years since quittin.2 Smokeless tobacco: Never Vaping Use Vaping Use: Never used Substance Use Topics Alcohol use: Yes Comment: 1 beer per week. Drug use: No Comment: denies tx for drug/alcohol abuse in the past. Current Outpatient Medications Medication Sig carbidopa-levodopa (SINEMET 25-100) 25-100 mg per tablet Take 1 tablet by mouth three times daily. ibuprofen (MOTRIN) 400 mg tablet Take 400 mg by mouth every 6 hours as needed. Acetaminophen 500 mg cap Take 500 mg by mouth once daily. 2 CAPSULES DAILY meloxicam (MOBIC) 15 mg tablet Take 15 mg by mouth once daily. POTASSIUM-99 ORAL Take 20 mEq by mouth once daily. dextran/hypromellose/glycerin (GENTEAL TEARS MODERATE OPHTHALMIC) Use 1 Drop in eyes three times daily. Omeprazole 40 mg capsule Take 40 mg by mouth once daily. No current facility-administered medications for this visit. ALLERGIES Allergen Reactions Erythromycin Itching Iodine And Iodide C* Other: See Comments Pt passed out from milogram test on spinal cord REVIEW OF SYSTEMS: NEURO: no numbness or paresthesias and no weakness of the extremities PHYSICAL EXAMINATION: VIDEO EXAM: (if completed, performed via video enabled technology) No exam performed ASSESSMENT: (G20) Primary parkinsonism (HCC) (primary encounter diagnosis) (R25.1) Tremor PLAN: Restart Sinemet TID Patient Instructions Sinemet 25/100 (generally yellow tablet) instructions: 8AM 12PM 4PM 1 week 1 0 0 1 week 1 1 0 Continue 1 1 1 a. Take Sinemet 30 minutes before meals or 60 minutes after meals. Avoid taking this medication with high protein meals. b. If nausea develops, try taking Sinemet with crackers or bread. c. If nausea still persists, please call. Avoid taking anti-nausea medications before speaking with us. Avoid Reglan, Compazine or Phenergan. I spent a total of 15 minutes on the date of the service which included preparing to see the patient, [id number] patient care, completing clinical documentation, obtaining and/or reviewing separately obtained history, counseling and educating the patient/family/caregiver, and communicating results to the patient/family/caregiver Jigar Stanford DO documented in this encounter [facility] 05-06-2022 Note HNO ID: [id number] Author: RT Sam(R) Service: Nuclear Medicine Author Type: Technologist Type: Progress Notes Filed: 05/06/2022 11:11 AM Note Text: RADIOLOGY SERVICE PROGRESS NOTE SERVICE DATE: 05/06/2022 SERVICE TIME: 11:09 AM PATIENT IDENTITY VERIFICATION COMPLETED USING TWO (2) STANDARD IDENTIFIERS: Name and Date of confirmed by patient verbally FALL SCREENING: Has the patient had 2 falls in the last year or 1 fall with injury or currently using an Ambulatory Assistive Device (Walker, Cane, Wheelchair, Crutches, etc.)? No PATIENT GENDER DATA: .male ALLERGIES: Reviewed and unchanged MEDICATIONS REVIEWED: Yes IV SITE: Ambulatory: A peripheral IV was started in the Right with a Angio cath: 22 gauge. POST EXAM PIV STATUS: Discontinued PROCEDURE TYPE: NM INJECT: NM BRAIN TREMOR - DATSCAN. 5.0 mCi I 123 DatScan. Lugol's solution was not giving to patient. Patient is allergic to Iodine. Ok per Dr. Anderson.. ADMINISTRATION TIME: 1050 PATIENT DISCHARGED TO: Ambulatory patient, left [place] department area. A Diagnostic radioactive procedure has taken place, with no further precautions necessary other than routine body substance precautions. More information regarding radiation safety can be found using this link: [email or web address] [email or web address] SIGNATURE: RT Sam(R) PATIENT NAME: Luis Alberto Ocampo DATE: May 06, 2022 TIME: 11:09 AM PAGER/CONTACT #: [facility] 04-20-2022 Miscellaneous Notes Name: Luis Alberto Ocampo AGE: [id number] year old Weight: Last 1 Encounter Wt Readings: Date: Wt: 02/25/2022 103.9 kg (229 lb) Is this appointment for a WBC scan? No. Clinical Scan VIJAY SCAN Scheduled for - Date: 05/06 Time: 1030 Study can ONLY be done Wednesday thru Wednesday Scanned into Syngo: N/A Additional Comments: Route to [facility] Special Studies ([id number]) Are all orders present for scheduling? Yes Appointment Scheduled: Date: 05/06 Time: 1030 Pitch Gatherer Notes: N/A Route to P [facility] SPECIAL STUDIES [[id number]] documented in this encounter [facility] 04-16-2022 Instructions Jigar Stanford DO - 04/16/2022 4:44 PM EST Radiology will contact the patient OR call [phone] option 3 to schedule documented in this encounter [facility] 04-16-2022 History of Present illness Narrative [facility] - NEW PATIENT EVALUATION Luis Daniel Galicia MD, [address] [facility] [id number] Luis Alberto Ocampo is a 76 year old left-handed male who is seen in consultation for evaluation of tremor. He is seen with his . History of Present Illness: The reports a >20 year history of tremor. It is mostly in the right hand and to a lesser extent in the left hand. The the tremor will worsen when he gets anxious. He has radiation implants for prostate cancer which is doing well. The tremor does not stop him from doing anything. The tremor is worse when he holds a fork or spoon. Handwriting has scratchier. He saw a neurologist in [place] who diagnosed him with PD and started Sinemet. There was no benefit. Father with tremor. The patient reports a history of 3 cancers. He has a lung nodule and prostate cancer. 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 This cancer was treated with radiation. The patient denies any recent illness or infections. The patient denies any hospitalization since the last office visit. The patient denies any changes to their medical history or new diagnoses. The patient denies any surgery/procedure since their last visit. The patient denies any headache, chest pain, palpitations, shortness of breath or abdominal pain. The patient denies any seizures, numbness/tingling, lightheadedness or vertiginous symptoms. The patient denies any recent suicidal ideation or attempts to harm themselves or others. The patient denies any new pain. Movement Disorders Medications Schedule: NONE Review of Systems Respiratory: Negative for difficulty breathing and shortness of breath. Cardiovascular: Negative for chest pain. Gastrointestinal: Negative for abdominal pain. All other systems reviewed and are negative. ALLERGIES Allergen Reactions Erythromycin Itching Iodine And Iodide C* Other: See Comments Pt passed out from milogram test on spinal cord Current Outpatient Medications Medication Sig ibuprofen (MOTRIN) 400 mg tablet Take 400 mg by mouth every 6 hours as needed. Acetaminophen 500 mg cap Take 500 mg by mouth once daily. 2 CAPSULES DAILY meloxicam (MOBIC) 15 mg tablet Take 15 mg by mouth once daily. POTASSIUM-99 ORAL Take 20 mEq by mouth once daily. dextran/hypromellose/glycerin (GENTEAL TEARS MODERATE OPHTHALMIC) Use 1 Drop in eyes three times daily. Omeprazole 40 mg capsule Take 40 mg by mouth once daily. No current facility-administered medications for this visit. 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 He has no past medical history of Awareness under anesthesia, Hard to intubate, Motion sickness, or Sleep apnea. has a past surgical history that includes tonsillectomy primary/secondary <age 12; conjunctival surgery unlisted (Right, 05/03/2017); eye surgery hx (Left, 08/05/2018); tonsillectomy hx; hernia repair hx; colon surgery hx; and remv cataract extracap,insert lens (Bilateral). In addition, the patient denies a history of exposure to dopamine receptor blocking agents, denies history of encephalitis/meningitis and denies significant exposure to insecticides/ pesticides/ heavy metals/ carbon monoxide Social History Tobacco Use Smoking status: Former Packs/day: 2.00 Years: 35.00 Pack years: 70.00 Types: Cigarettes Quit date: 03/01/2004 Years since quittin.1 Smokeless tobacco: Never Vaping Use Vaping Use: Never used Substance Use Topics Alcohol use: Yes Comment: 1 beer per week. Drug use: No Comment: denies tx for drug/alcohol abuse in the past. Family History: family history includes Alzheimer's Disease in his father; Breast Cancer in his mother; None in his sister and sister. In addition, the patient denies any family history of PD/parkinsonism, tremor, other involuntary movement disorders. Objective: Vital Signs: BP 149/77 (BP Site: Left Arm, BP Position: Sitting, BP Cuff Size: Large Adult) Pulse 87 General Medical Examination: General Description of Patient: Well appearing, comfortable Head:normocephalic, atraumatic Neck:No bruits, full range of movement, supple Cardiac: Regular rate and rhythm, no murmur Extremities: No leg edema, pulses intact, no rash or venous stasis changes. Neurological Exam Mental Status Oriented to person, place and time. Recent and remote memory are intact. Speech is normal. Language is fluent with no aphasia. Fund of knowledge is appropriate for level of education. Cranial Nerves CN II: Visual acuity is normal. Visual brewster full to confrontation. CN III, IV, : Extraocular movements intact bilaterally. Pupils equal round and reactive to light bilaterally. CN V: Facial sensation is normal. CN VII: Full and symmetric facial movement. CN VIII: Hearing is normal. CN IX, X: Palate elevates symmetrically CN XI: Shoulder shrug strength is normal. CN XII: Tongue midline without atrophy or fasciculations. Motor No fasciculations present. Strength is 5/5 throughout all four extremities. Sensory Sensation is intact to light touch, pinprick, vibration and proprioception in all four extremities. Reflexes Right Left Brachioradialis 2+ 2+ Biceps 2+ 2+ Triceps 2+ 2+ Patellar 2+ 2+ Right pathological reflexes: Mike's absent. Left pathological reflexes: Mike's absent. Coordination Right: [id number]-vk-tvdk normal. Rapid alternating movement normal.Left: Tuuazz-ac-ajsf normal. Rapid alternating movement normal. Gait Casual gait is normal including stance, stride, and arm swing. The patient did not require assistive devices to ambulate. Movement Disorders There is right mild rest tremor. The patient has bilateral mild bilateral mild action tremor. The patient has no postural tremor. The patient does not have a vocal or lingual tremor. An orthostatic tremor is not noted bilaterally. There is no rigidity on examination. There is no bradykinesia on examination. There is no reptilian stare. Hypophonia was not present. The patient's penmobilesh sample reveals significant tremulousness without micrographia. Assessment and Plan: Mr. Ocampo is a left-handed 76 year old male with tremor. The following are the current problems noted and addressed during this visit: Tremor (primary encounter diagnosis) Other symptoms and signs involving the nervous system Plan: The patient examination and history are concerning for both parkinsonism and essential tremor. At this time I would recommend that he undergo a DaTscan Return in about 3 months (around 07/14/2022). Medical decision making was high complexity due to patient's, multiple symptoms, advancing disease, newly diagnosed Neurologic disease and counseling about [place] [facility] implications, counseling and review of mutliple symptoms and significant problems of which treatment limited, counseling, and development of a treatment plan concerning patients cognitvie difficulty, safety risks, caregiver involvement, review of extensive historical data and prior medical records The total time spent on the patient care was 40 minutes with greater than 50% of the time spent on counseling regarding preparing to see the patient, [id number] patient care, completing clinical documentation, obtaining and/or reviewing separately obtained history, performing a medically appropriate examination, counseling and educating the patient/family/caregiver, ordering medications, tests, or procedures, and communicating results to the patient/family/caregiver. I tried to answer all of the patient's questions and concerns during this visit. Jigar Stanford DO Senior Staff Neurologist - [facility] documented in this encounter [facility] 03-16-2022 Hospital Discharge instructions Patient Education 03/16/2022 08:23:24 Prostate Cancer Prostate Cancer The prostate is a walnut-sized gland that is involved in the production of semen. It is located below a man's bladder, in front of the rectum. Prostate cancer is the abnormal growth of cells in the prostate gland. What are the causes? The exact cause of this condition is not known. What increases the risk? This condition is more likely to develop in men who: Are older than age 65. Are -Tog[place]. Are obese. Have a family history of prostate cancer. Have a family history of breast cancer. What are the signs or symptoms? Symptoms of this condition include: A need to urinate often. Weak or interrupted flow of urine. Trouble starting or stopping urination. Inability to urinate. Pain or burning during urination. Painful ejaculation. Blood in urine or semen. Persistent pain or discomfort in the lower back, lower abdomen, hips, or upper thighs. Trouble getting an erection. Trouble emptying the bladder all the way. How is this diagnosed? This condition can be diagnosed with: A digital rectal exam. For this exam, a health care provider inserts a gloved finger into the rectum to feel the prostate gland. A blood test called a prostate-specific antigen (PSA) test. An imaging test called transrectal ultrasonography. A procedure in which a sample of tissue is taken from the prostate and examined under a microscope (prostate biopsy). Once the condition is diagnosed, tests will be done to determine how far the cancer has spread. This is called staging the cancer. Staging may involve imaging tests, such as: A bone scan. A CT scan. A PET scan. An MRI. The stages of prostate cancer are as follows: Stage I. At this stage, the cancer is found in the prostate only. The cancer is not visible on imaging tests and it is usually found by accident, such as during a prostate surgery. Stage II. At this stage, the cancer is more advanced than it is in stage I, but the cancer has not spread outside the prostate. Stage III. At this stage, the cancer has spread beyond the outer layer of the prostate to nearby tissues. The cancer may be found in the seminal vesicles, which are near the bladder and the prostate. Stage IV. At this stage, the cancer has spread other parts of the body, such as the lymph nodes, bones, bladder, rectum, liver, or lungs. How is this treated? Treatment for this condition depends on several factors, including the stage of the cancer, your age, personal preferences, and your overall health. Talk with your health care provider about treatment options that are recommended for you. Common treatments include: Observation for early stage prostate cancer (active surveillance). This involves having exams, blood tests, and in some cases, more biopsies. For some men, this is the only treatment needed. Surgery. Types of surgeries include: ?Open surgery. In this surgery, a larger incision is made to remove the prostate. ?A laparoscopic prostatectomy. This is a surgery to remove the prostate and lymph nodes through several, small incisions. It is often referred to as a minimally invasive surgery. ?A robotic prostatectomy. This is a surgery to remove the prostate and lymph nodes with the help of a robotic arm that is controlled by a computer. ?Orchiectomy. This is a surgery to remove the testicles. ?Cryosurgery. This is a surgery to freeze and destroy cancer cells. Radiation treatment. Types of radiation treatment include: ?External beam radiation. This type aims beams of radiation from outside the body at the prostate to destroy cancerous cells. ?Brachytherapy. This type uses radioactive needles, seeds, wires, or tubes that are implanted into the prostate gland. Like external beam radiation, brachytherapy destroys cancerous cells. An advantage is that this type of radiation limits the damage to surrounding tissue and has fewer side effects. High-intensity, focused ultrasonography. This treatment destroys cancer cells by delivering high-energy ultrasound waves to the cancerous cells. Chemotherapy medicines. This treatment kills cancer cells or stops them from multiplying. Hormone treatment. This treatment involves taking medicines that act on one of the male hormones (testosterone): ?By stopping your body from producing testosterone. ?By blocking testosterone from reaching cancer cells. Follow these instructions at home: Take qimq-psu-rguenqh and prescription medicines only as told by your health care provider. Maintain a healthy diet. Get plenty of sleep. Consider joining a support group for men who have prostate cancer. Meeting with a support group may help you learn to cope with the stress of having cancer. Keep all follow-up visits as told by your health care provider. This is important. If you have to go to the hospital, notify your cancer specialist (oncologist). Treatment for prostate cancer may affect sexual function. Continue to have intimate moments with your partner. This may include touching, holding, hugging, and caressing. Contact a health care provider if: You have trouble urinating. You have blood in your urine. You have pain in your hips, back, or chest. Get help right away if: You have weakness or numbness in your legs. You cannot control urination or your bowel movements (incontinence). You have trouble breathing. You have sudden chest pain. You have chills or a fever. Summary The prostate is a walnut-sized gland that is involved in the production of semen. It is located below a man's bladder, in front of the rectum. Prostate cancer is the abnormal growth of cells in the prostate gland. Treatment for this condition depends on several factors, including the stage of the cancer, your age, personal preferences, and your overall health. Talk with your health care provider about treatment options that are recommended for you. Consider joining a support group for men who have prostate cancer. Meeting with a support group may help you learn to cope with the stress of having cancer. This information is not intended to replace advice given to you by your health care provider. Make sure you discuss any questions you have with your health care provider. Document Released: 02/15/2006 Document Revised: 01/28/2018 Document Reviewed: 10/26/2016 [employer] Patient Education [email or web address]. Follow Up Care 02/26/2022 11:42:07 With:PIERCE CORONADO, Dakotah Krueger, URL Address: [facility] [place] [address]- When: Unknown [facility] 02-25-2022 History of Present illness Narrative Radiation Oncology - Follow Up Note PATIENT NAME: Luis Alberto Ocampo PATIENT DIAGNOSIS: 1. Prostate adenocarcinoma, initial PSA 5.51, biopsy Elham score 3 + 3 = 6 (grade group 1), clinical stage T1c, N0, M0, stage I [pT2, N0, M0, PSA <10, GG 1] (AJCC 8th ed.), s/p TRUS Random biopsy. 2. 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 Still with urinary urgency, episodic, better last 2 days. 02/25/21: Urinary urgency has improved. Did undergo cystoscopy with Dr. Dickens without remarkable findings. No hematuria. He is having intermittent incontinence although improved recently. PSA HISTORY: PSA (ng/mL) Date Value 02/10/2022 0.29 08/21/2021 0.73 02/18/2021 1.26 12/06/2020 1.67 11/19/2020 2.09 08/02/2020 4.29 ALLERGIES Allergen Reactions Erythromycin Itching Iodine And Iodide C* Other: See Comments Pt passed out from milogram test on spinal cord Terazosin HCl (HYTRIN) 10 mg capsule Take 10 mg by mouth daily at bedtime. neomycin/polymyxin b/dexametha(MAXITROL 3.5 MG/G-10,000 UNIT/G-0.1 % EYE OINTMENT) Use twice a day to affected eyelid x 2 wks white petrolatum-mineral oil (GENTEAL TEARS SEVERE,PETROLAT,) 94-3 % ophthalmic ointment Use 1 application in both eyes at bedtime as needed. sildenafil (VIAGRA) 50 mg tablet TAKE 1 TABLET BY MOUTH EVERY DAY NEEDED tamsulosin (FLOMAX) 0.4 mg Take 1 capsule by mouth twice daily. ibuprofen (MOTRIN) 400 mg tablet Take 400 mg by mouth every 6 hours as needed. cyanocobalamin (VITAMIN B-12) 1,000 mcg tab Take 1,000 mcg by mouth once daily. Acetaminophen 500 mg cap Take 500 mg by mouth once daily. 2 CAPSULES DAILY meloxicam (MOBIC) 15 mg tablet Take 15 mg by mouth once daily. POTASSIUM-99 ORAL Take 20 mEq by mouth once daily. dextran/hypromellose/glycerin (GENTEAL TEARS MODERATE OPHTHALMIC) Use 1 Drop in eyes three times daily. Omeprazole 40 mg capsule Take 40 mg by mouth once daily. REVIEW OF SYSTEMS: D/N = 6/2-3 Hematuria: none Dysuria: Yes Incontinence: yes urge related Urgency: moderate Catheter use: No Medications to aid urination: yes Difficulty maintaining erections currently not using Viagra etc. - Total AUA Score: na Bowel movement frequency: 1/day Bowel movement quality: normal Blood per rectum: No PHYSICAL EXAM: BP 137/80 Pulse 91 Temp 36.4 C (97.6 F) Resp 16 Wt 103.9 kg (229 lb) SpO2 98% BMI 28.25 kg/m KPS: 100 General appearance: Alert and oriented. No acute distress. Abdomen: Normal abdominal exam, Abdomen soft, non-tender. No masses, organomegaly. Rectal exam def Extremities: No deformities, edema, skin discoloration, clubbing or cyanosis. Lymph Nodes: No cervical lymphadenopathy, No supraclavicular lymphadenopathy, No axillary lymphadenopathy. Skin: Skin color, texture, turgor normal, no suspicious rashes or lesions. ASSESSMENT/PLAN: Prostate adenocarcinoma, initial PSA 5.51, biopsy [place] score 3 + 3 = 6 (grade group 1), clinical stage T1c, N0, M0, stage I [pT2, N0, M0, PSA <10, GG 1] (AJCC 8th ed.) status post prostate brachytherapy 06/26/2020. PSA remains very low. Still with urgency related urinary issues, actively seeing Dr. Pelayo. Recent diagnosis Parkinsons, has worsening tremor, has consult at [facility] with neurology. continues to decline. Considering UroLift given persistent urinary complaints. He is continue follow-up with Dr. Henson regarding his prior NHL diagnosis and treatment. No recent issues related to that. Plan to see patient back in 6 months with PSA. Signed by: Dillan Kaiser MD cc: MD Dr. Maninder Brooks Portions of the above note extracted and edited from previous visit as well as active information included in the EMR. documented in this encounter [facility] 02-03-2022 Hospital Discharge instructions Patient Education 02/03/2022 16:31:28 Benign Prostatic Hyperplasia Benign Prostatic Hyperplasia Benign prostatic hyperplasia (BPH) is an enlarged prostate gland that is caused by the normal aging process and not by cancer. The prostate is a walnut-sized gland that is involved in the production of semen. It is located in front of the rectum and below the bladder. The bladder stores urine and the urethra is the tube that carries the urine out of the body. The prostate may get bigger as a man gets older. An enlarged prostate can press on the urethra. This can make it harder to pass urine. The build-up of urine in the bladder can cause infection. Back pressure and infection may progress to bladder damage and kidney (renal) failure. What are the causes? This condition is part of a normal aging process. However, not all men develop problems from this condition. If the prostate enlarges away from the urethra, urine flow will not be blocked. If it enlarges toward the urethra and compresses it, there will be problems passing urine. What increases the risk? This condition is more likely to develop in men over the age of 50 years. What are the signs or symptoms? Symptoms of this condition include: Getting up often during the night to urinate. Needing to urinate frequently during the day. Difficulty starting urine flow. Decrease in size and strength of your urine stream. Leaking (dribbling) after urinating. Inability to pass urine. This needs immediate treatment. Inability to completely empty your bladder. Pain when you pass urine. This is more common if there is also an infection. Urinary tract infection (UTI). How is this diagnosed? This condition is diagnosed based on your medical history, a physical exam, and your symptoms. Tests will also be done, such as: A post-void bladder scan. This measures any amount of urine that may remain in your bladder after you finish urinating. A digital rectal exam. In a rectal exam, your health care provider checks your prostate by putting a lubricated, gloved finger into your rectum to feel the back of your prostate gland. This exam detects the size of your gland and any abnormal lumps or growths. An exam of your urine (urinalysis). A prostate specific antigen (PSA) screening. This is a blood test used to screen for prostate cancer. An ultrasound. This test uses sound waves to electronically produce a picture of your prostate gland. Your health care provider may refer you to a specialist in kidney and prostate diseases (urologist). How is this treated? Once symptoms begin, your health care provider will monitor your condition (active surveillance or watchful waiting). Treatment for this condition will depend on the severity of your condition. Treatment may include: Observation and yearly exams. This may be the only treatment needed if your condition and symptoms are mild. Medicines to relieve your symptoms, including: ?Medicines to shrink the prostate. ?Medicines to relax the muscle of the prostate. Surgery in severe cases. Surgery may include: ?Prostatectomy. In this procedure, the prostate tissue is removed completely through an open incision or with a laparoscope or robotics. ?Transurethral resection of the prostate (TURP). In this procedure, a tool is inserted through the opening at the tip of the penis (urethra). It is used to cut away tissue of the inner core of the prostate. The pieces are removed through the same opening of the penis. This removes the blockage. ?Transurethral incision (TUIP). In this procedure, small cuts are made in the prostate. This lessens the prostate's pressure on the urethra. ?Transurethral microwave thermotherapy (TUMT). This procedure uses microwaves to create heat. The heat destroys and removes a small amount of prostate tissue. ?Transurethral needle ablation (TUNA). This procedure uses radio frequencies to destroy and remove a small amount of prostate tissue. ?Interstitial laser coagulation (ILC). This procedure uses a laser to destroy and remove a small amount of prostate tissue. ?Transurethral electrovaporization (TUVP). This procedure uses electrodes to destroy and remove a small amount of prostate tissue. ?Prostatic urethral lift. This procedure inserts an implant to push the lobes of the prostate away from the urethra. Follow these instructions at home: Take [id number] and prescription medicines only as told by your health care provider. Monitor your symptoms for any changes. Contact your health care provider with any changes. Avoid drinking large amounts of liquid before going to bed or out in public. Avoid or reduce how much caffeine or alcohol you drink. Give yourself time when you urinate. Keep all follow-up visits as told by your health care provider. This is important. Contact a health care provider if: You have unexplained back pain. Your symptoms do not get better with treatment. You develop side effects from the medicine you are taking. Your urine becomes very dark or has a bad smell. Your lower abdomen becomes distended and you have trouble passing your urine. Get help right away if: You have a fever or chills. You suddenly cannot urinate. You feel lightheaded, or very dizzy, or you faint. There are large amounts of blood or clots in the urine. Your urinary problems become hard to manage. You develop moderate to severe low back or flank pain. The flank is the side of your body between the ribs and the hip. These symptoms may represent a serious problem that is an emergency. Do not wait to see if the symptoms will go away. Get medical help right away. Call your local emergency services (911 in the [place] Do not drive yourself to the hospital. Summary Benign prostatic hyperplasia (BPH) is an enlarged prostate that is caused by the normal aging process and not by cancer. An enlarged prostate can press on the urethra. This can make it hard to pass urine. This condition is part of a normal aging process and is more likely to develop in men over the age of 50 years. Get help right away if you suddenly cannot urinate. This information is not intended to replace advice given to you by your health care provider. Make sure you discuss any questions you have with your health care provider. Document Released: 02/15/2006 Document Revised: 01/10/2019 Document Reviewed: 03/22/2017 [employer] Patient Education 2020 [place] [facility]. Follow Up Care 01/14/2022 12:19:47 With:PIERCE CORONADO, Dakotah Krueger, URL Address: [address] [address]- When:3 months [facility] 01-12-2022 Hospital Discharge instructions Patient Education 01/12/2022 13:28:51 [facility] - Urolift Discharge Instructions (Custom) Urolift Some men may experience discomfort after the procedure. On occasion, some bloody discharge may be apparent from the penis. You may have soreness in the lower abdomen, and it may be uncomfortable to sit. You may experience the need to urinate more frequently and with greater urgency. These are all normal reactions to the procedure. It is important to take care of yourself the next couple of days to facilitate a speedy recovery. The following are some suggestions: -Have someone drive you home after the procedure. -Drink plenty of water; 8 10oz glasses per day. If your urine looks dark yellow, you are probably not drinking enough water. -Take your medications as prescribed -If you have a catheter placed, do not engage in strenuous activity until your catheter has been removed. You may take a shower but avoid a bath while you have a catheter. - In the event you have to go home with a catheter, you may notice leakage of urine and/or yellow discharge/blood around the catheter. This is normal and no cause to be alarmed; UNLESS you are having significant pain associated with the leakage or the leakage does not stop. -You can use Tylenol or Advil for discomfort. Use AZO (over the counter) for burning with urination It is normal to have some blood in your urine after surgery. One day it may be clear, and the next day it might be bloody. Do not be alarmed, this can last a week and sometimes longer. It is normal to feel like you have to urinate very often but nothing comes out. You may feel like you have to urinate again, or feel pressure in the pelvic area, even right after you just urinated. You may leak and not make it to the bathroom. These are called bladder spasms and are common after the procedure. It is normal to have some discomfort after the procedure. This can last up to 4 weeks and includes: pelvic ache, urinary frequency, and urinary urgency. Most patients report symptoms getting better within 2 weeks. Finish the antibiotic which you have already started If you were given drugs to make you drowsy or pain medication follow these instructions: -You should spend the remainder of the day and evening resting -You should not attempt to walk, including going to the bathroom without assistance. You may be lightheaded from the medication you received. -Eat light today to avoid nausea. You should be able to return to your normal diet 24 to 36 hours after your procedure. -For the next 24 hours, do not consume alcohol, attempt to drive, use power tools, sign important documents or make important decisions. After that only do so if you feel perfectly normal and alert. -Follow carefully any verbal or written instructions your surgeon may give you. You should contact your physician if you experience any of the following: -Temperature above 101.5 -Excessive urinary bleeding or bleeding from the penis -Continuous bladder spasms -Painful, swollen and/or inflated testicle(s) or scrotum. -Unable to void spontaneously or the indwelling catheter is not draining urine or is blocked -Bright lobo red urine that does not stop after 3 days -Unable to urinate after 7-8 hours or bladder feeling full and you can t urinate -If you have excessive or persistent pain, swelling, bleeding, nausea, vomiting, or any problems, you should first call your surgeon for advice. If you are unable to contact your surgeon, seek help from a hospital emergency room. If your doctor suggests that you go to the emergency room for catheterization for inability to urinate, be sure to tell the facility personnel to use a Coude (pronounced coordinate measuring machine technician-day) tipped catheter. Follow Up Care 11/18/2021 10:03:06 With:Dakotah PELAYO Address: [address] [address] [facility] (1) When: Unknown Comments:Call for followup appointment. Please make arrangements to follow-up on Wednesday morning so we can remove the catheter. [facility] 12-11-2021 Nurse Note Additional intake questions: Has the patient had fever, nausea, vomiting, diarrhea, constipation, fatigue for > 1 week? No Does the patient have a decreased appetite? No Does patient want to see a Script Writer? No (yes to any of above refer patient to schedulers for dietitian appointment) ) Does patient have any new or increased numbness or tingling of extremities? No Is patient interested in fertility information? No Does patient need any prescription refills? No Does patient have an advanced directive in place? No, Patient refused referral to Social Work or Resource Center documented in this encounter [facility] 12-11-2021 History of Present illness Narrative Images from the original note were not included. [facility] DEPARTMENT OF HEMATOLOGY AND MEDICAL ONCOLOGY ASSESSMENT AND PLAN 76 year old male with 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 1. 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 - Can decrease the frequency of CT scanning to every other year - Return in one year for history, physical exam, and laboratory studies and CT imaging 2. Nephrolithiasis, asymptomatic - He continues to take tamsulosin 3. 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 Parkinson's Disease - Referral to neurology for second opinion per patient request ONCOLOGIC HISTORY April, He developed right sided iritis. Chest X-ray showed a right lung consolidation. Further assesment with chest CT showed this area to be a 7.5 x 5.0 x 3.6 cm area of consolidation in the posterior right lung base, with air bronchogram. He was seen by Dr. Luis Daniel Galicia at [place] and underwent a transthoracic CT guided needle biopsy on April 17, 2014. Pathology revealed lymphoid tissue with rare fragments of respiratory epithelium, and it was negative for malignancy. May, Repeat chest CT showed persistent abnormality. Bronchoscopy with biopsy showed a lymphoid infiltrate with plasmacytoid differentiation. Flow cytometry was notable for a CD20+/CD19+ positive monoclonal lambda-restricted B-cell population that was CD5 negative, CD10 negative suggestive of marginal zone lymphoma. He had no cough, denies fevers, chills, nightsweats, early satiety or unintentional weight loss. July, Due to a suspicion for MALT lymphoma, the patient underwent an upper endoscopy. The EGD revealed mucosal changes suspicious for Cardoso's esophagus, an area of salmon-colored mucosa at the GE junction, and mildly erythematous mucosa in the first part of the duodenum, biopsies were negative for malignancy August-2014 He completed 4 doses of Rituximab. October 2014 CT chest :Demonstrated interval regression without resolution of the previously idenitified right long consolidation; March 2015 Asymptomatic; Doing well without any major complaints except iritis. May, Chest CT with stable right lung infiltrate with no significant interval change. 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 November, Serum protein electrophoresis and light chain showed increase in free kappa levels. Chest CT with interval reduction in consolidation in right lung base. May 2016 Doing well overall, unfortunately fatigued as undergoing a divorce after 40 years of marriage Laboratory studies notable for stable serum kappa level. CT scan of the chest/abdomen/pelvis with stable right lung infiltrate. November, Had recurrence of right iritis. 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 Noted symptoms improved with eye drops, but still feels irritation. March, Diagnosed with preseptal cellulitis of the right eye. April - April 2017 Developed right eye ptosis and cellulitis CT scans of the orbit showed soft tissue nearly circumferentially surrounding the right globe and involving the adjacent right orbital contents CT scan of the chest/abdomen/pelvis with no change in the consolidative opacities in the right lower lung. Referred to Dr. Davis and noted to have right eye superonasal conjunctival lesion consistent with lymphoma. Biopsy confirmed extranodal marginal zone lymphoma. May - Jun, 2017 Completed 12 sessions of radiation therapy Had mild residual upper lid swelling and eye dryness for which he uses artificial tears. January, Doing well. Asymptomatic. CT scan of the chest/abdomen/pelvis without evidence of active disease. Laboratory studies notable for CBC, CMP, LDH within normal limits May, Clinically stable. November, Saw Dr. Davis. Was noted to have regression of previously discernable ocular lesion. May, Developed a pruritic.rash on his arms, legs and back. Otherwise doing well. No fevers, chills, nightsweats, early satiety or unintentional weight loss. November 2019 Energy level is good and he is able to participate in all of his normal activities of daily living without difficulty or restriction. Has some ptosis of the right eyelid. No fevers, chills, nightsweats, early satiety or unintentional weight loss. Laboratory studies notable for CBC, CMP, LDH within normal limits CT scan of the chest/abdomen/pelvis without evidence of lymphoma. Note made of bilateral nephrolithiasis. April 2020 Diagnosed with Elham 6 (3+3) [id number] prostate cancer. Underwent brachytherapy with appropriate decrement in PSA. November, Mr. Ocampo is well today. He has completed brachytherapy for his prostate cancer, and unfortunately is dealing with ongoing urinary frequency and nocturia. He denies any specific retention, dysuria, or hematuria. He continues to have some issues with fatigue, but this is unchanged compared to prior and he thinks it is due to his nocturia. He denies fever, night sweats, weight loss, early satiety, new lymphadenopathy. INTERVAL HISTORY AND PERTINENT DATA (December 11, 2021) Patient reports feeling well overall. No increasing fatigue, fever, chills, night sweats, weight loss, or appetite loss. He Reports being diagnosed with Parkinson's disease and was started on carbidopa-levodopa. CBC, CMP, LDH within normal limits. PERTINENT MEDICAL HISTORY: Extranodal marginal zone lymphoma, as above Elham 6 (3+3) prostate cancer ([id number]), low risk; treated with brachytherapy Parkinson's Disease PERTINENT SOCIAL HISTORY: Works at [employer] PHYSICAL EXAM: BP 147/85 Pulse 71 Temp 36.7 C (98.1 F) (Temporal) Resp 18 Wt 104.9 kg (231 lb 4.8 oz) SpO2 96% BMI 28.53 kg/m ECO, fully active, able to carry on all pre-disease performance without restriction GENERAL: No acute distress PSYCH: Alert and oriented x 3 HEENT: Neck supple LYMPH NODES: There is no cervical, axillary, supraclavicular or inguinal lymphadenopathy. CARDIAC: Warm, well perfused RESPIRATORY: Non-labored breathing, no audible wheezing ABDOMEN: Soft, nondistended, nontender. EXTREMITIES: normal range of motion NEURO: grossly intact SKIN: no rash December 11, 2021 Patient was seen and discussed in clinic with Staff Dr. Larry Henson MD, PhD Jimi Simons M.D. Hematology & Oncology Fellow PGY-4 HEMATOLOGY/MEDICAL ONCOLOGY STAFF STAFF PHYSICIAN NOTE OF PERSONAL INVOLVEMENT IN CARE I have personally performed a face to face assessment of the patient and have reviewed the progress note obtained and documented by the licensed independent practitioner. I personally participated in the ramírez components. I have discussed the case and management of the patient's care with the licensed independent practitioner. The following comments revise or confirm relevant ramírez components of the licensed independent practitioner's note. IMPRESSION/PLAN: Mr. Ocampo is doing well. No fevers, chills, nightsweats, early satiety or unintentional weight loss. He continues to work 40 hours/week. He was diagnosed with Parkinson's disease due to tremor, but he reports that this is chronic and the medication he has been on for treatment has not changed his symptoms. He would like a second opinion regarding this diagnosis. Will refer to neurology. Return to clinic in 6 months for interval history, physical exam, laboratory studies. Plan for CT scan in 12 months. December 11, 2021 Larry Henson M.D., Ph.D. Staff Physician [facility] [address] [place] [address] Office Office Appointments Authenticated by responsible provider. documented in this encounter [facility] 11-18-2021 Hospital Discharge instructions Patient Education 11/18/2021 09:46:35 Urodynamic Testing Urodynamic Testing What is urodynamic testing? Urodynamic tests are done to determine how well your lower urinary tract is working. The lower urinary tract includes your bladder and the part of your body that drains urine from the bladder (urethra). When your kidneys filter your blood, urine is stored in your bladder until you feel the urge to urinate. Urination requires coordination between the nerves and muscles of your bladder and urethra. When your lower urinary tract is working well, you should be able to: Start urinating when your bladder is full. Empty your bladder completely. Control the flow of your urine. Why do I need urodynamic testing? You may need urodynamic testing to help find the cause of any of these problems: Leaking urine (incontinence). Problems starting or stopping your urine flow. Frequent or painful urination. Frequent urinary tract infections. Being unable to empty your bladder completely. Having strong urges to pass urine (urgency). Having a weak flow of urine. How do I prepare for the tests? Ask your health care provider about changing or stopping your regular medicines. This is especially important if you are taking diabetes medicines or blood thinners. You may be asked to avoid urinating before coming to the test so that you arrive with a full bladder. Tell a health care provider about: ?Any allergies you have. ?All medicines you are taking, including vitamins, herbs, eye drops, creams, and [id number] medicines. ?Whether you are or may be . What are the risks of this testing? Generally, these tests are safe. However, some of the tests have risks, including: Discomfort. Frequent urge to urinate. Bleeding. Infection. Allergic reactions to medicines or dyes (contrast material). How is urodynamic testing done? You may have various urodynamic tests. The tests may be done separately or may all be done during one testing visit. You may be given an antibiotic medicine before or after testing to help prevent infection. The types of tests that may be done include: Uroflowmetry This test measures how much urine you pass and how long it takes to pass. You will urinate into a certain type of toilet or device (flowmeter). The device will measure the volume and the time of your urine flow. These measurements will be sent to a computer that creates a graph of your urine flow. Postvoid residual measurement This test measures how much urine is left in your bladder after you urinate. The test may be done with ultrasound. In this method, sound waves and a computer will be used to create an image of your bladder. The test can also be done by inserting a thin, flexible tube (catheter) into your bladder after you urinate. The remaining urine will be removed through the catheter so it can be measured. Remaining urine will be measured in milliliters (mL). If you have more than 100 mL left in your bladder after you urinate, your bladder is not emptying as it should. Cystometric testing This test uses a type of bladder catheter that can measure pressure. You may be given a medicine to numb the area (local anesthetic). The area around the opening of your urethra will be cleaned. A urinary catheter will be passed through your urethra into your bladder and used to empty your bladder completely. Then a measuring catheter will be placed, and your bladder will be filled with warm, germ-free (sterile) water. Pressure measurements will be taken: ?As your bladder fills. ?When you feel the need to urinate. ?As your bladder is emptied. You may be asked to cough or bear down to check for leakage. In some cases, your bladder may be filled with a material that shows up on X-rays (contrast material) so that X-ray pictures can be taken during the test. Electromyogram This test measures the electrical activity of the nerves and muscles of your bladder and the opening of your urethra. Sticky patches (electrodes) will be placed near your rectum and urethra to measure electrical activity. The measurements will show how well your nerves are communicating with your muscles. What happens after the testing? You should be able to go home right away and do your usual activities. You may be told to drink a glass of water every 30 minutes for the first 2 hours after testing. Taking a warm bath or using warm, wet cloths (warm compresses) may relieve any discomfort near your urethra. Contact your health care provider if you have: ?Pain. ?Blood in your urine. ?Chills. ?Fever. What do the results mean? Talk with your health care provider about what your results mean. Some common causes for abnormal results from urodynamic tests include: Enlarged prostate in men. Overactive bladder. Urinary tract infection. Nervous system diseases. Spinal cord damage. Questions to ask your health care provider Ask your health care provider, or the department that is doing the test: When will my results be ready? How will I get my results? What are my treatment options? What other tests do I need? What are my next steps? Summary Urodynamic tests are done to determine how well your lower urinary tract is working. The lower urinary tract includes your bladder and urethra. You may need urodynamic testing to help find the cause of various problems with urination, such as leaking urine (incontinence) or problems starting or stopping your urine flow. You may have various urodynamic tests. The tests may be done separately or may all be done during one testing visit. Talk with your health care provider about what your results mean. Contact your health care provider if you have pain, chills, a fever, or blood in your urine. This information is not intended to replace advice given to you by your health care provider. Make sure you discuss any questions you have with your health care provider. Document Released: 12/13/2007 Document Revised: 06/06/2019 Document Reviewed: 12/20/2017 [employer] Patient Education 2020 [employer] Follow Up Care 11/05/2021 14:26:12 With:Dakotah PELAYO MD, URL Address: [address] [address]- When: Unknown With:Dakotah PELAYO MD, URL Address: [address] [address]- When: Unknown [facility] 10-23-2021 Miscellaneous Notes Returned patient's call regarding referral to Neurology. The patient verbalized that he has seen his PCP regarding the hand tremors and was referred to a neurologist at [facility]. He has seen this neurologist twice and verbalized that he is not comfortable he would like a referral to a [facility] Neurologist. Dr. Henson notified of the above. Zo Kingsley RN Patient is calling back to follow-up on request for referral to neurology. States he would like to be seen as close to [place] as possible. Requesting response back: [phone] Luis Alberto Thomas Damaris('s) is calling Larry Henson MD, PhD today regarding Care Coordination (Neurologist Referral ) Patient has been identified by name and birthdate. Requesting response back: [phone] (home) [phone] (cell) Pt called stating that he has been a Pt of Dr. Henson's and is requesting if Dr. Henson could provide him with a referral for a neurologist. Pt stated that he has started to to experience his hands trembling, and he is kind of concerned with possible on set of alzheimer. Pt is requesting a return call. Radha Ogden October 21, 2021 documented in this encounter [facility] 10-09-2021 Evaluation + Plan note Diagnostic Tests PendingCalculi Analysis Urinary 10/09/21 [facility] 10-09-2021 Hospital Discharge instructions Patient Education 10/09/2021 11:21:03 Lithotripsy, Care After Lithotripsy, Care After This sheet gives you information about how to care for yourself after your procedure. Your health care provider may also give you more specific instructions. If you have problems or questions, contact your health care provider. What can I expect after the procedure? After the procedure, it is common to have: Some blood in your urine. This should only last for a few days. Soreness in your back, sides, or upper abdomen for a few days. Blotches or bruises on your back where the pressure wave entered the skin. Pain, discomfort, or nausea when pieces (fragments) of the kidney stone move through the tube that carries urine from the kidney to the bladder (ureter). Stone fragments may pass soon after the procedure, but they may continue to pass for up to 4 8 weeks. ?If you have severe pain or nausea, contact your health care provider. This may be caused by a large stone that was not broken up, and this may mean that you need more treatment. Some pain or discomfort during urination. Some pain or discomfort in the lower abdomen or (in men) at the base of the penis. Follow these instructions at home: Medicines Take jnzs-rxd-cegsjlu and prescription medicines only as told by your health care provider. If you were prescribed an antibiotic medicine, take it as told by your health care provider. Do not stop taking the antibiotic even if you start to feel better. Do not drive for 24 hours if you were given a medicine to help you relax (sedative). Do not drive or use heavy machinery while taking prescription pain medicine. Eating and drinking Drink enough water and fluids to keep your urine clear or pale yellow. This helps any remaining pieces of the stone to pass. It can also help prevent new stones from forming. Eat plenty of fresh fruits and vegetables. Follow instructions from your health care provider about eating and drinking restrictions. You may be instructed: ?To reduce how much salt (sodium) you eat or drink. Check ingredients and nutrition facts on packaged foods and beverages. ?To reduce how much meat you eat. Eat the recommended amount of calcium for your age and gender. Ask your health care provider how much calcium you should have. General instructions Get plenty of rest. Most people can resume normal activities 1 2 days after the procedure. Ask your health care provider what activities are safe for you. Your health care provider may direct you to lie in a certain position (postural drainage) and tap firmly (percuss) over your kidney area to help stone fragments pass. Follow instructions as told by your health care provider. If directed, strain all urine through the strainer that was provided by your health care provider. ?Keep all fragments for your health care provider to see. Any stones that are found may be sent to a medical lab for examination. The stone may be as small as a grain of salt. Keep all follow-up visits as told by your health care provider. This is important. Contact a health care provider if: You have pain that is severe or does not get better with medicine. You have nausea that is severe or does not go away. You have blood in your urine longer than your health care provider told you to expect. You have more blood in your urine. You have pain during urination that does not go away. You urinate more frequently than usual and this does not go away. You develop a rash or any other possible signs of an allergic reaction. Get help right away if: You have severe pain in your back, sides, or upper abdomen. You have severe pain while urinating. Your urine is very dark red. You have blood in your stool (feces). You cannot pass any urine at all. You feel a strong urge to urinate after emptying your bladder. You have a fever or chills. You develop shortness of breath, difficulty breathing, or chest pain. You have severe nausea that leads to persistent vomiting. You faint. Summary After this procedure, it is common to have some pain, discomfort, or nausea when pieces (fragments) of the kidney stone move through the tube that carries urine from the kidney to the bladder (ureter). If this pain or nausea is severe, however, you should contact your health care provider. Most people can resume normal activities 1 2 days after the procedure. Ask your health care provider what activities are safe for you. Drink enough water and fluids to keep your urine clear or pale yellow. This helps any remaining pieces of the stone to pass, and it can help prevent new stones from forming. If directed, strain your urine and keep all fragments for your health care provider to see. Fragments or stones may be as small as a grain of salt. Get help right away if you have severe pain in your back, sides, or upper abdomen or have severe pain while urinating. This information is not intended to replace advice given to you by your health care provider. Make sure you discuss any questions you have with your health care provider. Document Released: 03/06/2008 Document Revised: 05/29/2019 Document Reviewed: 01/06/2017 [employer] Patient Education 2020 [place] [employer]. 10/09/2021 11:21:03 Cystoscopy Cystoscopy Cystoscopy is a procedure that is used to help diagnose and sometimes treat conditions that affect the lower urinary tract. The lower urinary tract includes the bladder and the urethra. The urethra is the tube that drains urine from the bladder. Cystoscopy is done using a thin, tube-shaped instrument with a light and camera at the end (cystoscope). The cystoscope may be hard or flexible, depending on the goal of the procedure. The cystoscope is inserted through the urethra, into the bladder. Cystoscopy may be recommended if you have: Urinary tract infections that keep coming back. Blood in the urine (hematuria). An inability to control when you urinate (urinary incontinence) or an overactive bladder. Unusual cells found in a urine sample. A blockage in the urethra, such as a urinary stone. Painful urination. An abnormality in the bladder found during an intravenous pyelogram (IVP) or CT scan. Cystoscopy may also be done to remove a sample of tissue to be examined under a microscope (biopsy). Tell a health care provider about: Any allergies you have. All medicines you are taking, including vitamins, herbs, eye drops, creams, and zvsj-bos-dwgzpmn medicines. Any problems you or family members have had with anesthetic medicines. Any blood disorders you have. Any surgeries you have had. Any medical conditions you have. Whether you are or may be . What are the risks? Generally, this is a safe procedure. However, problems may occur, including: Infection. Bleeding. Allergic reactions to medicines. Damage to other structures or organs. What happens before the procedure? Ask your health care provider about: ?Changing or stopping your regular medicines. This is especially important if you are taking diabetes medicines or blood thinners. ?Taking medicines such as aspirin and ibuprofen. These medicines can thin your blood. Do not take these medicines unless your health care provider tells you to take them. ?Taking umcm-xrt-gxuutem medicines, vitamins, herbs, and supplements. Follow instructions from your health care provider about eating or drinking restrictions. Ask your health care provider what steps will be taken to help prevent infection. These may include: ?Washing skin with a germ-killing soap. ?Taking antibiotic medicine. You may have an exam or testing, such as: ? X-rays of the bladder, urethra, or kidneys. ?Urine tests to check for signs of infection. Plan to have someone take you home from the hospital or clinic. What happens during the procedure? You will be given one or more of the following: ?A medicine to help you relax (sedative). ?A medicine to numb the area (local anesthetic). The area around the opening of your urethra will be cleaned. The cystoscope will be passed through your urethra into your bladder. Germ-free (sterile) fluid will flow through the cystoscope to fill your bladder. The fluid will stretch your bladder so that your health care provider can clearly examine your bladder ch. Your doctor will look at the urethra and bladder. Your doctor may take a biopsy or remove stones. The cystoscope will be removed, and your bladder will be emptied. The procedure may vary among health care providers and hospitals. What can I expect after the procedure? After the procedure, it is common to have: Some soreness or pain in your abdomen and urethra. Urinary symptoms. These include: ?Mild pain or burning when you urinate. Pain should stop within a few minutes after you urinate. This may last for up to 1 week. ?A small amount of blood in your urine for several days. ?Feeling like you need to urinate but producing only a small amount of urine. Follow these instructions at home: Medicines Take avau-tun-dtuqusj and prescription medicines only as told by your health care provider. If you were prescribed an antibiotic medicine, take it as told by your health care provider. Do not stop taking the antibiotic even if you start to feel better. General instructions Return to your normal activities as told by your health care provider. Ask your health care provider what activities are safe for you. Do not drive for 24 hours if you were given a sedative during your procedure. Watch for any blood in your urine. If the amount of blood in your urine increases, call your health care provider. Follow instructions from your health care provider about eating or drinking restrictions. If a tissue sample was removed for testing (biopsy) during your procedure, it is up to you to get your test results. Ask your health care provider, or the department that is doing the test, when your results will be ready. Drink enough fluid to keep your urine pale yellow. Keep all follow-up visits as told by your health care provider. This is important. Contact a health care provider if you: Have pain that gets worse or does not get better with medicine, especially pain when you urinate. Have trouble urinating. Have more blood in your urine. Get help right away if you: Have blood clots in your urine. Have abdominal pain. Have a fever or chills. Are unable to urinate. Summary Cystoscopy is a procedure that is used to help diagnose and sometimes treat conditions that affect the lower urinary tract. Cystoscopy is done using a thin, tube-shaped instrument with a light and camera at the end. After the procedure, it is common to have some soreness or pain in your abdomen and urethra. Watch for any blood in your urine. If the amount of blood in your urine increases, call your health care provider. If you were prescribed an antibiotic medicine, take it as told by your health care provider. Do not stop taking the antibiotic even if you start to feel better. This information is not intended to replace advice given to you by your health care provider. Make sure you discuss any questions you have with your health care provider. Document Released: 02/12/2001 Document Revised: 02/07/2019 Document Reviewed: 02/07/2019 [employer] Patient Education 2020 [employer] 10/09/2021 11:21:03 Post Op Patient Instructions - FT (CUSTOM) Follow Up Care 09/17/2021 14:25:14 With:Supa Dickens Address: [facility] [address] [place] [address]- Business (1) When:6 weeks Comments:PVR with next visitCall for followup appointmentCall for any problems. [facility] 08-28-2021 History of Present illness Narrative Radiation Oncology - Follow Up Note PATIENT NAME: Luis Alberto Ocampo PATIENT DIAGNOSIS: 1. Prostate adenocarcinoma, initial PSA 5.51, biopsy Elham score 3 + 3 = 6 (grade group 1), clinical stage T1c, N0, M0, stage I [pT2, N0, M0, PSA <10, GG 1] (AJCC 8th ed.), s/p TRUS Random biopsy. 2. 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 Still some intermittent obstructive and urgency issues. 02/25/21: Urinary urgency has improved. Did undergo cystoscopy with Dr. Dickens without remarkable findings. No hematuria. He is having intermittent incontinence although improved recently. PSA HISTORY: PSA (ng/mL) Date Value 08/21/2021 0.73 02/18/2021 1.26 12/06/2020 1.67 11/19/2020 2.09 08/02/2020 4.29 ALLERGIES Allergen Reactions Erythromycin Itching Iodine And Iodide C* Other: See Comments Pt passed out from milogram test on spinal cord Terazosin HCl (HYTRIN) 10 mg capsule Take 10 mg by mouth daily at bedtime. neomycin/polymyxin b/dexametha(MAXITROL 3.5 MG/G-10,000 UNIT/G-0.1 % EYE OINTMENT) Use twice a day to affected eyelid x 2 wks swnjjlcv-utg-ubzdg-vit K-lycop (ONE-A-DAY MEN'S 50 PLUS) 400-20-370 mcg tab Take 1 tablet by mouth once daily. white petrolatum-mineral oil (GENTEAL TEARS SEVERE,PETROLAT,) 94-3 % ophthalmic ointment Use 1 application in both eyes at bedtime as needed. carbidopa-levodopa (SINEMET 25-100) 25-100 mg per tablet Take 1 tablet by mouth twice daily. sildenafil (VIAGRA) 50 mg tablet TAKE 1 TABLET BY MOUTH EVERY DAY NEEDED tamsulosin (FLOMAX) 0.4 mg Take 1 capsule by mouth twice daily. ibuprofen (MOTRIN) 400 mg tablet Take 400 mg by mouth every 6 hours as needed. cyanocobalamin (VITAMIN B-12) 1,000 mcg tab Take 1,000 mcg by mouth once daily. Acetaminophen 500 mg cap Take 500 mg by mouth once daily. 2 CAPSULES DAILY meloxicam (MOBIC) 15 mg tablet Take 15 mg by mouth once daily. POTASSIUM-99 ORAL Take 20 mEq by mouth once daily. dextran/hypromellose/glycerin (GENTEAL TEARS MODERATE OPHTHALMIC) Use 1 Drop in eyes three times daily. Omeprazole 40 mg capsule Take 40 mg by mouth once daily. REVIEW OF SYSTEMS: D/N = 6/2-3 Hematuria: none Dysuria: Yes Incontinence: No Urgency: moderate Catheter use: No Medications to aid urination: yes Difficulty maintaining erections currently not using Viagra etc. - Total AUA Score: 23 Bowel movement frequency: 1/day Bowel movement quality: normal Blood per rectum: No PHYSICAL EXAM: BP 141/85 Pulse 102 Temp 37.1 C (98.7 F) (Temporal) Resp 18 Wt 102.2 kg (225 lb 6.4 oz) SpO2 96% BMI 27.80 kg/m KPS: 100 General appearance: Alert and oriented. No acute distress. Abdomen: Normal abdominal exam, Abdomen soft, non-tender. No masses, organomegaly. Rectal exam def Extremities: No deformities, edema, skin discoloration, clubbing or cyanosis. Lymph Nodes: No cervical lymphadenopathy, No supraclavicular lymphadenopathy, No axillary lymphadenopathy. Skin: Skin color, texture, turgor normal, no suspicious rashes or lesions. ASSESSMENT/PLAN: Prostate adenocarcinoma, initial PSA 5.51, biopsy Elham score 3 + 3 = 6 (grade group 1), clinical stage T1c, N0, M0, stage I [pT2, N0, M0, PSA <10, GG 1] (AJCC 8th ed.) status post prostate brachytherapy 06/26/2020. PSA remains continues to decline. Considering UroLift given persistent urinary complaints. Yes prostate pelvis next week he has continued follow-up with Dr. Dickens regarding urinary issues. He is continue follow-up with Dr. Henson regarding his prior NHL diagnosis and treatment. Plan to see patient back in 6 months with PSA. Signed by: Dillan Kaiser MD cc: MD Dr. Maninder Brooks Portions of the above note extracted and edited from previous visit as well as active information included in the EMR. documented in this encounter [facility] 07-21-2021 Hospital Discharge instructions Patient Education 07/21/2021 13:29:56 Urinary Incontinence Urinary Incontinence Urinary incontinence refers to a condition in which a person is unable to control where and when to pass urine. A person with this condition will urinate when he or she does not mean to (involuntarily). What are the causes? This condition may be caused by: Medicines. Infections. Constipation. Overactive bladder muscles. Weak bladder muscles. Weak pelvic floor muscles. These muscles provide support for the bladder, intestine, and, in women, the uterus. Enlarged prostate in men. The prostate is a gland near the bladder. When it gets too big, it can pinch the urethra. With the urethra blocked, the bladder can weaken and lose the ability to empty properly. Surgery. Emotional factors, such as anxiety, stress, or post-traumatic stress disorder (PTSD). Pelvic organ prolapse. This happens in women when organs shift out of place and into the vagina. This shift can prevent the bladder and urethra from working properly. What increases the risk? The following factors may make you more likely to develop this condition: Older age. Obesity and physical inactivity. and childbirth. Menopause. Diseases that affect the nerves or spinal cord (neurological diseases). Long-term (chronic) coughing. This can increase pressure on the bladder and pelvic floor muscles. What are the signs or symptoms? Symptoms may vary depending on the type of urinary incontinence you have. They include: A sudden urge to urinate, but passing urine involuntarily before you can get to a bathroom (urge incontinence). Suddenly passing urine with any activity that forces urine to pass, such as coughing, laughing, exercise, or sneezing (stress incontinence). Needing to urinate often, but urinating only a small amount, or constantly dribbling urine (overflow incontinence). Urinating because you cannot get to the bathroom in time due to a physical disability, such as arthritis or injury, or communication and thinking problems, such as Alzheimer disease (functional incontinence). How is this diagnosed? This condition may be diagnosed based on: Your medical history. A physical exam. Tests, such as: ?Urine tests. ?X-rays of your kidney and bladder. ?Ultrasound. ?CT scan. ?Cystoscopy. In this procedure, a health care provider inserts a tube with a light and camera (cystoscope) through the urethra and into the bladder in order to check for problems. ?Urodynamic testing. These tests assess how well the bladder, urethra, and sphincter can store and release urine. There are different types of urodynamic tests, and they vary depending on what the test is measuring. To help diagnose your condition, your health care provider may recommend that you keep a log of when you urinate and how much you urinate. How is this treated? Treatment for this condition depends on the type of incontinence that you have and its cause. Treatment may include: Lifestyle changes, such as: ?Quitting smoking. ?Maintaining a healthy weight. ?Staying active. Try to get 150 minutes of moderate-intensity exercise every week. Ask your health care provider which activities are safe for you. ?Eating a healthy diet. ?Avoid high-fat foods, like fried foods. ?Avoid refined carbohydrates like white bread and white rice. ?Limit how much alcohol and caffeine you drink. ?Increase your fiber intake. Foods such as fresh fruits, vegetables, beans, and whole grains are healthy sources of fiber. Pelvic floor muscle exercises. Bladder training, such as lengthening the amount of time between bathroom breaks, or using the bathroom at regular intervals. Using techniques to suppress bladder urges. This can include distraction techniques or controlled breathing exercises. Medicines to relax the bladder muscles and prevent bladder spasms. Medicines to help slow or prevent the growth of a man's prostate. Botox injections. These can help relax the bladder muscles. Using pulses of electricity to help change bladder reflexes (electrical nerve stimulation). For women, using a medical operations supervisor to prevent urine leaks. This is a small, tampon-like, disposable device that is inserted into the urethra. Injecting collagen or carbon beads (bulking agents) into the urinary sphincter. These can help thicken tissue and close the bladder opening. Surgery. Follow these instructions at home: Lifestyle Limit alcohol and caffeine. These can fill your bladder quickly and irritate it. Keep yourself clean to help prevent odors and skin damage. Ask your doctor about special skin creams and cleansers that can protect the skin from urine. Consider wearing pads or adult diapers. Make sure to change them regularly, and always change them right after experiencing incontinence. General instructions Take xyyn-aca-kliulnj and prescription medicines only as told by your health care provider. Use the bathroom about every 3 4 hours, even if you do not feel the need to urinate. Try to empty your bladder completely every time. After urinating, wait a minute. Then try to urinate again. Make sure you are in a relaxed position while urinating. If your incontinence is caused by nerve problems, keep a log of the medicines you take and the times you go to the bathroom. Keep all follow-up visits as told by your health care provider. This is important. Contact a health care provider if: You have pain that gets worse. Your incontinence gets worse. Get help right away if: You have a fever or chills. You are unable to urinate. You have redness in your groin area or down your legs. Summary Urinary incontinence refers to a condition in which a person is unable to control where and when to pass urine. This condition may be caused by medicines, infection, weak bladder muscles, weak pelvic floor muscles, enlargement of the prostate (in men), or surgery. The following factors increase your risk for developing this condition: older age, obesity, and childbirth, menopause, neurological diseases, and chronic coughing. There are several types of urinary incontinence. They include urge incontinence, stress incontinence, overflow incontinence, and functional incontinence. This condition is usually treated first with lifestyle and behavioral changes, such as quitting smoking, eating a healthier diet, and doing regular pelvic floor exercises. Other treatment options include medicines, bulking agents, medical devices, electrical nerve stimulation, or surgery. This information is not intended to replace advice given to you by your health care provider. Make sure you discuss any questions you have with your health care provider. Document Released: 03/25/2005 Document Revised: 02/25/2018 Document Reviewed: 05/27/2017 [employer] Patient Education 2020 [employer] Follow Up Care 06/26/2021 12:54:28 With:Maninder Juarez MD, Supa Viveros, URO Address: [facility] [address] , [place] [address]- When: Unknown Comments:Cysto Lithopathy & bladder stone urolift [facility] 06-23-2021 Hospital Discharge instructions Patient Education 06/23/2021 11:49:38 Overactive Bladder, Adult Overactive Bladder, Adult Overactive bladder refers to a condition in which a person has a sudden need to pass urine. The person may leak urine if he or she cannot get to the bathroom fast enough (urinary incontinence). A person with this condition may also wake up several times in the night to go to the bathroom. Overactive bladder is associated with poor nerve signals between your bladder and your brain. Your bladder may get the signal to empty before it is full. You may also have very sensitive muscles that make your bladder squeeze too soon. These symptoms might interfere with daily work or social activities. What are the causes? This condition may be associated with or caused by: Urinary tract infection. Infection of nearby tissues, such as the prostate. Prostate enlargement. Surgery on the uterus or urethra. Bladder stones, inflammation, or tumors. Drinking too much caffeine or alcohol. Certain medicines, especially medicines that get rid of extra fluid in the body (diuretics). Muscle or nerve weakness, especially from: ?A spinal cord injury. ?Stroke. ?Multiple sclerosis. ?Parkinson's disease. Diabetes. Constipation. What increases the risk? You may be at greater risk for overactive bladder if you: Are an older adult. Smoke. Are going through menopause. Have prostate problems. Have a neurological disease, such as stroke, dementia, Parkinson's disease, or multiple sclerosis (MS). Eat or drink things that irritate the bladder. These include alcohol, spicy food, and caffeine. Are overweight or obese. What are the signs or symptoms? Symptoms of this condition include: Sudden, strong urge to urinate. Leaking urine. Urinating 8 or more times a day. Waking up to urinate 2 or more times a night. How is this diagnosed? Your health care provider may suspect overactive bladder based on your symptoms. He or she will diagnose this condition by: A physical exam and medical history. Blood or urine tests. You might need bladder or urine tests to help determine what is causing your overactive bladder. You might also need to see a health care provider who specializes in urinary tract problems (urologist). How is this treated? Treatment for overactive bladder depends on the cause of your condition and whether it is mild or severe. You can also make lifestyle changes at home. Options include: Bladder training. This may include: ?Learning to control the urge to urinate by following a schedule that directs you to urinate at regular intervals (timed voiding). ?Doing Kegel exercises to strengthen your pelvic floor muscles, which support your bladder. Toning these muscles can help you control urination, even if your bladder muscles are overactive. Special devices. This may include: ?Biofeedback, which uses sensors to help you become aware of your body's signals. ?Electrical stimulation, which uses electrodes placed inside the body (implanted) or outside the body. These electrodes send gentle pulses of electricity to strengthen the nerves or muscles that control the bladder. ?Women may use a plastic device that fits into the vagina and supports the bladder (pessary). Medicines. ?Antibiotics to treat bladder infection. ?Antispasmodics to stop the bladder from releasing urine at the wrong time. ?Tricyclic antidepressants to relax bladder muscles. ?Injections of botulinum toxin type A directly into the bladder tissue to relax bladder muscles. Lifestyle changes. This may include: ?Weight loss. Talk to your health care provider about weight loss methods that would work best for you. ?Diet changes. This may include reducing how much alcohol and caffeine you consume, or drinking fluids at different times of the day. ?Not smoking. Do not use any products that contain nicotine or tobacco, such as cigarettes and e-cigarettes. If you need help quitting, ask your health care provider. Surgery. ?A device may be implanted to help manage the nerve signals that control urination. ?An electrode may be implanted to stimulate electrical signals in the bladder. ?A procedure may be done to change the shape of the bladder. This is done only in very severe cases. Follow these instructions at home: Lifestyle Make any diet or lifestyle changes that are recommended by your health care provider. These may include: ?Drinking less fluid or drinking fluids at different times of the day. ?Cutting down on caffeine or alcohol. ?Doing Kegel exercises. ?Losing weight if needed. ?Eating a healthy and balanced diet to prevent constipation. This may include: ?Eating foods that are high in fiber, such as fresh fruits and vegetables, whole grains, and beans. ?Limiting foods that are high in fat and processed sugars, such as fried and sweet foods. General instructions Take ypfh-wrw-kyswulb and prescription medicines only as told by your health care provider. If you were prescribed an antibiotic medicine, take it as told by your health care provider. Do not stop taking the antibiotic even if you start to feel better. Use any implants or pessary as told by your health care provider. If needed, wear pads to absorb urine leakage. Keep a journal or log to track how much and when you drink and when you feel the need to urinate. This will help your health care provider monitor your condition. Keep all follow-up visits as told by your health care provider. This is important. Contact a health care provider if: You have a fever. Your symptoms do not get better with treatment. Your pain and discomfort get worse. You have more frequent urges to urinate. Get help right away if: You are not able to control your bladder. Summary Overactive bladder refers to a condition in which a person has a sudden need to pass urine. Several conditions may lead to an overactive bladder. Treatment for overactive bladder depends on the cause and severity of your condition. Follow your health care provider's instructions about lifestyle changes, doing Kegel exercises, keeping a journal, and taking medicines. This information is not intended to replace advice given to you by your health care provider. Make sure you discuss any questions you have with your health care provider. Document Released: 12/12/2009 Document Revised: 06/08/2019 Document Reviewed: 03/03/2018 [employer] Patient Education 2019 [place] [facility]. 06/23/2021 11:49:37 Brachytherapy for Prostate Cancer Brachytherapy for Prostate Cancer Brachytherapy for prostate cancer is radiation treatment that is placed inside of the prostate (prostate gland). There are several types of brachytherapy: Low-dose rate (LDR) therapy. This may involve temporary implants or permanent radioactive seed or pellet implants. The radiation does not travel far from the prostate, which means that healthy, noncancerous tissues around the prostate receive only a small dose of radiation. This helps to protect those tissues from injury. This type of treatment may be followed by a course of external beam radiation. ?Temporary low-dose implants are left in the prostate for 1 7 days. The implants are needles, applicators, or thin, plastic tubes (catheters) that contain radioactive material. You will need to stay in the hospital while the implant is in place. ?Permanent low-dose implants (seeds or pellets) are injected into the prostate, and they work for up to one year after they are inserted. They are left in place and are not removed. High-dose rate (HDR) therapy. This is given through needles, applicators, or catheters that contain radioactive material. The tubes are removed after treatment, and no radiation is left in the prostate. This type of treatment may be followed by a course of external beam radiation. Tell a health care provider about: Any allergies you have. All medicines you are taking, including vitamins, herbs, eye drops, creams, and bkxi-mty-ctjifuj medicines. Any problems you or family members have had with anesthetic medicines. Any surgeries you have had. Any blood disorders you have. Any medical conditions you have. What are the risks? Generally, this is a safe procedure. However, problems may occur, including: Inflammation of the rectum. Problems getting or keeping an erection (erectile dysfunction). Trouble urinating. Diarrhea. Bleeding. Loss of bowel control. What happens before the procedure? Staying hydrated Follow instructions from your health care provider about hydration, which may include: Up to 2 hours before the procedure you may continue to drink clear liquids, such as water, clear fruit juice, black coffee, and plain tea. Eating and drinking Follow instructions from your health care provider about eating and drinking, which may include: 8 hours before the procedure stop eating heavy meals or foods such as meat, fried foods, or fatty foods. 6 hours before the procedure stop eating light meals or foods, such as toast or cereal. 6 hours before the procedure stop drinking milk or drinks that contain milk. 2 hours before the procedure stop drinking clear liquids. Medicines Ask your health care provider about: ?Changing or stopping your regular medicines. This is especially important if you are taking diabetes medicines or blood thinners. ?Taking medicines such as aspirin and ibuprofen. These medicines can thin your blood. Do not take these medicines before your procedure if your health care provider instructs you not to. You may be given antibiotic medicine to help prevent infection. General instructions Plan to have someone take you home from the hospital or clinic. If you will be going home right after the procedure, plan to have someone with you for 24 hours. You may have imaging tests done, including an ultrasound, CT scan, or MRI. You may have blood tests done. You may have a test to check the electrical signals in your heart (electrocardiogram). You may need to take medicine to clean out your bowel (bowel prep). What happens during the procedure? To lower your risk of infection: ?Your health care team will wash or sanitize their hands. ?Your skin will be washed with soap. ?Hair may be removed from the surgical area. An IV will be inserted into one of your veins. You will be given one or more of the following: ?A medicine to help you relax (sedative). ?A medicine to numb the area (local anesthetic). ?A medicine to make you fall asleep (general anesthetic). You may have a thin, plastic tube (catheter) inserted to drain your bladder. If you are receiving brachytherapy with implants: ?A needle, applicator, or catheter will be inserted into the prostate. It will be inserted through a body cavity, such as the rectum, or through the tissue between the testicles and the anus (perineum). ?An X-ray, ultrasound, MRI, or CT scan will be used to guide the catheter or applicator toward the prostate. ?Radioactive seeds, wires, or ribbons will be fed through the catheter or applicator. ?If the high-dose method is used: ?The radioactive wires or ribbons will be left in for a few minutes and then removed. ?Once the treatment is finished, the catheter or applicator will be removed. ?If the low-dose method is used, the implant will stay in place for 1 7 days. ?You will remain in the hospital while the implant is in place. ?Once the treatment is finished, the radioactive material and catheter will be removed. If you are receiving permanent, low-dose brachytherapy: ?Small, radioactive seeds or pellets will be injected into your prostate. This may be done through a catheter, needle, or applicator. ?The catheter or applicator will be removed, leaving the seeds in the prostate. The procedure may vary among health care providers and hospitals. What happens after the procedure? Your blood pressure, heart rate, breathing rate, and blood oxygen level will be monitored until the medicines you were given have worn off. Do not drive for 24 hours if you were given a sedative. Summary Brachytherapy for prostate cancer is radiation treatment placed inside of the prostate (prostate gland). There are several types of brachytherapy for prostate cancer, including low-dose temporary treatment, low-dose permanent treatment, and high-dose temporary treatment. Temporary low-dose implants are left in the prostate for 1 7 days. Permanent low-dose implants are injected into the prostate and left in place. They work for up to one year after they are inserted. Permanent high-dose therapy is given through tubes that contain radioactive material. The tubes are removed after treatment, and no radiation is left in the prostate. This information is not intended to replace advice given to you by your health care provider. Make sure you discuss any questions you have with your health care provider. Document Released: 07/26/2006 Document Revised: 01/28/2018 Document Reviewed: 02/24/2017 [employer] Patient Education 2020 [place] [employer]. Follow Up Care 04/21/2021 09:38:11 With:Maninder Juarez MD, Supa Viveros, URO Address: [facility] [address] , [place] [address]- When: Unknown [facility] 06-06-2021 Instructions Marissa Leija MD - 06/06/2021 2:41 PM EDT Patient has brow ptosis lower than orbital rims, especially laterally -Without brow lift there will be suboptimal improvement of heavy upper lids. Discussed options: - Can consider direct brow lift (will leave a scar) - Can consider Botox for brow lift (lasts 3 mo, also cosmetic). Botox takes 1 week to set in lasts 3-4 mo, cost $12.50/unit, typical dose 25-35 units $300-450 Discussed risk of bruising, spread to cause droopy eyelid,double vision, rare allergic reaction, rare generalized weakness with neurological disorders eg. Eaton Lambert syndrome Consider bilateral upper lid blepharoplasty, will still have some heaviness 2/2 brow ptosis, but hopefully improved. Need certain amt of skin to close eyes. + dermatitis left lateral canthus 2/2 dermatochalasis Maxitrol ointment to affected lid(s) twice daily x 2 weeks. Discussed risk of developing cataracts or glaucoma with long-term use. Discussed risk of infection with concomitant use of CLs. Plan: Left direct brow lift Left upper lid blepharoplasty Mac 30 min Avoid aspirin, ibuprofen, nsaids, vitamin e , fish oil 2 wks prior and 1 wk post Stop motrin, mobic, multivitamin, 2 wks prior and 1 wk post Nothing to eat or drink 8 hrs prior to surgery except medicines day of with small sip of water Will need hazardous materials driver if having sedation surgery For surgery at [place] or [place], call . The patient was offered a surgery/procedure at a [facility] facility. The surgeon/proceduralist and patient have discussed in detail the risk of exposure to and/or potential harm posed by the COVID-19 virus with having a surgery/procedure at this time versus the risk of delaying the surgery/procedure. It is not possible to know either the risk of delaying the surgery or procedure or chance of getting an infection with perfect accuracy, but a joint decision was made between the patient and the surgeon/proceduralist to proceed at this time with the scheduled surgery/procedure as indicated on the consent form. An extensive discussion of the risks, benefits, alternatives of the above surgeries was conducted with the patient. The patient understood the risks including, but not limited to: bleeding, infection, scarring, asymmetry, need for future additional surgery, poor cosmesis, worsening dry eyes, orbital hemorrhage causing loss of vision, nerve damage, muscle damage, double vision, complications of anesthesia including loss of life. Discussed with patient these surgeries in most cases are performed with resident and/or fellow participation at the level deemed fit by Dr. Leija. Patient verbalizes an understanding. The patient wished to proceed with surgery. Post operative course reviewed. 1-2 wks of bruising and swelling. Ice compresses (ie: frozen peas in Ziploc bag with cloth between bag and skin) for15 min every hour for the first 3 days after surgery; then warm compresses as needed for bruising (from post op days 3-7) Avoid blood thinners including aspirin, Advil, Motrin, Aleve, vitamin E, fish oil at least 2 wks prior to surgery. Antibiotic ointment to eyes and incisions four times a day after surgery for 1 week. No heavy lifting over 15 lbs or any strenuous exercise for 1 wk after surgery. Walking is okay after surgery. documented in this encounter [facility] 06-06-2021 History of Present illness Narrative Pt states more towards the end of the day he will notice the Left upper lid will start to close and it will effect his vision at all distance. Using Refresh 2 times a day No risk of fall A/P: 1. Heavy upper eyelids L>R s/p BILATERAL cml ptosis repair 8+2 both eyes 04/04/2021 Feels that left eyelid blocks vision and sees better when lifted especially when driving and reading No double vision No issues eating/swallowing No H/o contact lens use Exam: Brow ptosis L>R + skin on lashes left AL: 30, 32 LF: 15,15 Margin to reflex distance 1: 4,4 Ptosis visual field diff: 21 left eye Pupils symmetric Dermatitis left lateral canthus Sle: Cornea clear both eyes , no Superficial punctate keratopathy (SPK) No conjunctival injection both eyes No a/c reaction both eyes Iris within normal limits both eyes Patient has brow ptosis lower than orbital rims, especially laterally -Without brow lift there will be suboptimal improvement of heavy upper lids. Discussed options: - Can consider direct brow lift (will leave a scar) - Can consider Botox for brow lift (lasts 3 mo, also cosmetic). Botox takes 1 week to set in lasts 3-4 mo, cost $12.50/unit, typical dose 25-35 units $300-450 Discussed risk of bruising, spread to cause droopy eyelid,double vision, rare allergic reaction, rare generalized weakness with neurological disorders eg. Eaton Lambert syndrome Consider bilateral upper lid blepharoplasty, will still have some heaviness 2/2 brow ptosis, but hopefully improved. Need certain amt of skin to close eyes. + dermatitis left lateral canthus 2/2 dermatochalasis Maxitrol ointment to affected lid(s) twice daily x 2 weeks. Discussed risk of developing cataracts or glaucoma with long-term use. Discussed risk of infection with concomitant use of CLs. Plan: Left direct brow lift Left upper lid blepharoplasty Mac 30 min Avoid aspirin, ibuprofen, nsaids, vitamin e , fish oil 2 wks prior and 1 wk post Stop motrin, mobic, multivitamin, 2 wks prior and 1 wk post Nothing to eat or drink 8 hrs prior to surgery except medicines day of with small sip of water Will need hazardous materials driver if having sedation surgery For surgery at [place] or [place], call . The patient was offered a surgery/procedure at a [facility] facility. The surgeon/proceduralist and patient have discussed in detail the risk of exposure to and/or potential harm posed by the COVID-19 virus with having a surgery/procedure at this time versus the risk of delaying the surgery/procedure. It is not possible to know either the risk of delaying the surgery or procedure or chance of getting an infection with perfect accuracy, but a joint decision was made between the patient and the surgeon/proceduralist to proceed at this time with the scheduled surgery/procedure as indicated on the consent form. An extensive discussion of the risks, benefits, alternatives of the above surgeries was conducted with the patient. The patient understood the risks including, but not limited to: bleeding, infection, scarring, asymmetry, need for future additional surgery, poor cosmesis, worsening dry eyes, orbital hemorrhage causing loss of vision, nerve damage, muscle damage, double vision, complications of anesthesia including loss of life. Discussed with patient these surgeries in most cases are performed with resident and/or fellow participation at the level deemed fit by Dr. Leija. Patient verbalizes an understanding. The patient wished to proceed with surgery. Post operative course reviewed. 1-2 wks of bruising and swelling. Ice compresses (ie: frozen peas in Ziploc bag with cloth between bag and skin) for15 min every hour for the first 3 days after surgery; then warm compresses as needed for bruising (from post op days 3-7) Avoid blood thinners including aspirin, Advil, Motrin, Aleve, vitamin E, fish oil at least 2 wks prior to surgery. Antibiotic ointment to eyes and incisions four times a day after surgery for 1 week. No heavy lifting over 15 lbs or any strenuous exercise for 1 wk after surgery. Walking is okay after surgery. The documentation for this note was completed by Thomas Mckeon APRN, CNP acting as a scribe for Marissa Leija MD. 06/06/2021 2:38 PM. I have confirmed and edited as necessary the relevant ophthalmic history, ROS, and the neuro exam findings as obtained by others. I have seen and examined Luis Alberto Ocampo. I have discussed the case and the management of this patient's care with the Resident/Fellow, if applicable. I also have reviewed and agree with the assessment and plan as stated above and agree with all of its relevant components. I, Marissa Leija MD, personally performed the services described in this documentation. All medical record entries made by the scribe were at my direction and in my presence. I have reviewed the chart and discharge instructions (if applicable) and agree that the record reflects my personal performance and is accurate and complete. Electronically Signed: Marissa Leija MD, June 06, 2021 2:38 PM. documented in this encounter [facility] 05-30-2021 Nurse Note AUA=[id number] documented in this encounter [facility] 05-28-2021 Miscellaneous Notes Called patient and LVM for him to call back and schedule a follow up appointment with Dr. Leija. Patient wanting a call back from Dr. Barrett because he hasnt heard from Dr. Leija or Dr. Barrett about some results. He can be reached at [phone]. 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 documented as of this encounter (statuses as of 06/06/2021) [facility] History of Past illness Narrative* Problem Noted Date Resolved Date Combined 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 02/15/2020 02/16/2020 Senile incipient cataract, bilateral 12/28/2019 02/16/2020 Dry eye syndrome of bilateral lacrimal glands 12/28/2019 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 documented as of this encounter (statuses as of 2021) [facility] of Past illness Narrative* Problem Noted Date Resolved Date Combined 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 02/15/2020 02/16/2020 Senile incipient cataract, bilateral 12/28/2019 02/16/2020 Dry eye syndrome of bilateral lacrimal glands 12/28/2019 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 documented as of this encounter (statuses as of 08/16/2021) [facility] Narrative* Problem Noted Date Resolved Date Combined 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 02/15/2020 02/16/2020 Senile incipient cataract, bilateral 12/28/2019 02/16/2020 Dry eye syndrome of bilateral lacrimal glands 12/28/2019 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 documented as of this encounter (statuses as of 09/02/2021) [facility] Narrative* Problem Noted Date Resolved Date Combined 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 02/15/2020 02/16/2020 Senile incipient cataract, bilateral 12/28/2019 02/16/2020 Dry eye syndrome of bilateral lacrimal glands 12/28/2019 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 documented as of this encounter (statuses as of 10/23/2021) [facility] Narrative* Problem Noted Date Resolved Date Combined 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 02/15/2020 02/16/2020 Senile incipient cataract, bilateral 12/28/2019 02/16/2020 Dry eye syndrome of bilateral lacrimal glands 12/28/2019 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 documented as of this encounter (statuses as of 12/12/2021) [facility] Narrative* Problem Noted Date Resolved Date Combined 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 02/15/2020 02/16/2020 Senile incipient cataract, bilateral 12/28/2019 02/16/2020 Dry eye syndrome of bilateral lacrimal glands 12/28/2019 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 documented as of this encounter (statuses as of 03/04/2022) [facility] Narrative* Problem Noted Date Resolved Date Combined 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 02/15/2020 02/16/2020 Senile incipient cataract, bilateral 12/28/2019 02/16/2020 Dry eye syndrome of bilateral lacrimal glands 12/28/2019 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 documented as of this encounter (statuses as of 04/17/2022) [facility] Narrative* Problem Noted Date Resolved Date Combined 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 02/15/2020 02/16/2020 Senile incipient cataract, bilateral 12/28/2019 02/16/2020 Dry eye syndrome of bilateral lacrimal glands 12/28/2019 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 documented as of this encounter (statuses as of 04/21/2022) [facility] Narrative* Problem Noted Date Resolved Date Combined 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 02/15/2020 02/16/2020 Senile incipient cataract, bilateral 12/28/2019 02/16/2020 Dry eye syndrome of bilateral lacrimal glands 12/28/2019 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 documented as of this encounter (statuses as of 05/08/2022) [facility] Narrative* Problem Noted Date Resolved Date Combined 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 02/15/2020 02/16/2020 Senile incipient cataract, bilateral 12/28/2019 02/16/2020 Dry eye syndrome of bilateral lacrimal glands 12/28/2019 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 documented as of this encounter (statuses as of 05/27/2022) [facility] Narrative* Problem Noted Date Resolved Date Combined 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 02/15/2020 02/16/2020 Senile incipient cataract, bilateral 12/28/2019 02/16/2020 Dry eye syndrome of bilateral lacrimal glands 12/28/2019 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 documented as of this encounter (statuses as of 09/03/2022) [facility] Narrative* Problem Noted Date Diagnosed Date Resolved Date Combined forms of age-relate d cataract of both eyes 02/15/2020 02/16/2020 Senile incipient cataract, bilateral 12/28/2019 02/16/2020 Dry eye syndrome of bilateral lacrimal glands 11/17/19 18 12/28/2019 Malignant neoplasm of right conjunctiva (HCC) 09/03/19 18 12/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 documented as of this encounter (statuses as of 09/30/2022) [facility] of [facility] Narrative* Problem Noted Date Diagnosed Date Resolved Date Combined forms of age-relate d cataract of both eyes 02/15/2020 02/16/2020 Senile incipient cataract, bilateral 12/28/2019 02/16/2020 Dry eye syndrome of bilateral lacrimal glands 11/17/19 18 12/28/2019 Malignant neoplasm of right conjunctiva (HCC) 09/03/19 18 12/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 documented as of this encounter (statuses as of 11/06/2022) [facility] of [facility] Narrative* Problem Noted Date Diagnosed Date Resolved Date Combined forms of age-relate d cataract of both eyes 02/15/2020 02/16/2020 Senile incipient cataract, bilateral 12/28/2019 02/16/2020 Dry eye syndrome of bilateral lacrimal glands 11/17/19 18 12/28/2019 Malignant neoplasm of right conjunctiva (HCC) 09/03/19 18 12/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 documented as of this encounter (statuses as of 11/17/2022) [facility] of [facility] Narrative* Problem Noted Date Diagnosed Date Resolved Date Combined forms of age-relate d cataract of both eyes 02/15/2020 02/16/2020 Senile incipient cataract, bilateral 12/28/2019 02/16/2020 Dry eye syndrome of bilateral lacrimal glands 11/17/19 18 12/28/2019 Malignant neoplasm of right conjunctiva (HCC) 09/03/19 18 12/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 documented as of this encounter (statuses as of 04/21/2023) [facility] No data available for this section [facility] Evaluation + Plan note Future Appointments Appointment Date:08/14/2021 11:45:00 AM Scheduled Provider: Location:[facility] Future Appointments Appointment Date:01/05/2022 07:45:00 AM Scheduled Provider: Location:[facility] Appointment Type:Urology CALL PAT FT Appointment Date:01/12/2022 01:00:00 PM Scheduled Provider: Location:[facility] Appointment Type:Urology FT [facility] Evaluation + Plan note Future Appointments Appointment Date:01/14/2022 11:30:00 AM Scheduled Provider: Location:[facility] Appointment Type:URO [facility] Future Appointments Appointment Date:02/03/2022 03:30:00 PM Scheduled Provider:Dakotah PELAYO MD [facility] Type:[facility]O Office Visit [facility] evaluation + Plan note Future Appointments Appointment Date:05/05/2022 03:15:00 PM Scheduled Provider:Dakotah PELAYO MD [facility] Appointment Type:URO Office Visit [facility] evaluation + Plan note Future Appointments Appointment Date:02/16/2023 11:00:00 AM Scheduled Provider:Dakotah PELAYO MD [facility] Appointment Type:URO Office Visit [facility] Evaluation + Plan note Future Appointments Appointment Date:02/16/2023 11:00:00 AM Scheduled Provider:Dakotah PELAYO MD Location:[facility] Appointment Type:URO Office Visit Diagnostic Tests Pending * Calculi Analysis Urinary 08/25/22 [facility] Future Appointments Appointment Date:03/28/2024 03:15:00 PM Scheduled Provider:Dakotah PELAYO MD Location:[facility] Appointment Type:URO Office Visit [facility] evaluation note* Diagnosis 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 [facility] [place] [facility] Diagnosis Dermatochalasis of both upper eyelids- Primary Brow ptosis, left [facility] [place] [facility]* Diagnosis Malignant neoplasm of prostate (HCC)- Primary Malignant neoplasm of prostate [facility] [place] [facility]* Diagnosis Tremor- Primary Abnormal involuntary movements Extranodal marginal zone B-cell lymphoma (HCC) Marginal zone lymphoma, unspecified site, extranodal and solid organ sites [facility] Diagnosis Malignant neoplasm of prostate (HCC)- Primary Malignant neoplasm of prostate [facility] [place] [facility] Diagnosis Tremor- Primary Abnormal involuntary movements Other symptoms and signs involving the nervous system [facility] [place] [facility]* Diagnosis Primary parkinsonism (HCC)- Primary Paralysis agitans Tremor Abnormal involuntary movements [facility] [place] [facility]* Diagnosis Malignant neoplasm of prostate (HCC)- Primary Malignant neoplasm of prostate [facility] [place] [facility]* Diagnosis Primary parkinsonism (HCC) Paralysis agitans [facility] [place] [facility]* Diagnosis 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- Primary Pseudophakia Lens replaced by other means Insufficiency of tear film of both eyes [facility] [place] [facility]* Diagnosis S/P YAG capsulotomy, bilateral- Primary Pseudophakia Lens replaced by other means Insufficiency of tear film of both eyes [facility] [place] [facility]* Diagnosis Bronchiectasis without acute exacerbation (HCC)- Primary Bronchiectasis without acute exacerbation [facility] [place] [facility]* Diagnosis Preop examination- Primary Preoperative examination, unspecified Myogenic ptosis of eyelid of both eyes Myogenic ptosis Personal history of lymphoma Personal history of other lymphatic and hematopoietic neoplasm Parkinson disease (HCC) Paralysis agitans Gastroesophageal reflux disease, unspecified whether esophagitis present Prostate CA (HCC) Malignant neoplasm of prostate Extranodal marginal zone B-cell lymphoma (HCC) Marginal zone lymphoma, unspecified site, extranodal and solid organ sites [facility] No data available for this section [facility] No data available for this section [facility] (narrative)* Outpatient Procedure (Routine) - Authorized Specialty Diagnoses / Procedures Referred By Juliet t Referred To Contact [facility] Diagnoses Bronchiectasis without acute exacerbation (HCC) Procedures SPIROMETRY - BASELINE AND POST DILATOR BRNCDILAT RSPSE SPMTRY PRE&POST-BRNCDILAT ADMN Pulm [address] [place] [address] Respiratory [place] [address] [place] [address] Referral ID Status Reason Start Date Expiration Date Visits Requested Visits Authorized [id number] Authorized Auto-Generat ed Referral 04/21/2023 05/20/2024 1 1 [facility] Summary Purpose Family History No Family History Records FoundNo Family History Records Found No data available for this section No data available for this section No Family History Records FoundNo Family History Records FoundNo Family History Records FoundNo Family History Records FoundNo Family History Records Found Advance Directives No Advanced Directives Records FoundDocuments on File Type Date Recorded Patient Ben Day 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 Expl 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 Advance Directive(s) 04/04/2021 9:46 AM Advance Directive(s) 03/18/2021 9:27 AM Advance Directive(s) 06/11/2020 8:10 AM Advance Directive(s) 02/03/2020 10:24 AM Advance Directive(s) 08/05/2018 8:47 AM Advance Directive(s) 05/03/2017 10:53 AM Reason for Referral Specialty Diagnoses / Procedures Referred By Juliet gold Referred To Contact CT IMAGING Diagnoses Extranodal marginal zone B-cell lymphoma (HCC) Procedures CT CHEST W IVCON DIAGNOSTIC COMPUTED TOMOGRAPHY THORAX W/[place] [address] [place] [address] Ct Imaging [facility] Referral ID Status Reason Start Date Expiration Date V isits Requested Visits Authorized [id number] Closed Auto-Generate d Referral 04/01/2023 04/30/2024 1 1 Specialty Diagnoses / Procedures Referred By Juliet gold Referred To Contact CT IMAGING Diagnoses Extranodal marginal zone B-cell lymphoma (HCC) Procedures CT ABD/PEL W IVCON CT ABD & PELVIS W/[place] [address] [place] [address] [place] [id number] Referral ID Status Reason Start Date Expiration Date V isits Requested Visits Authorized [id number] Closed Auto-Generate d Referral 04/01/2023 04/30/2024 1 1 Specialty Diagnoses / Procedures Referred By Juliet t Referred To Contact Diagnoses Primary parkinsonism (HCC) Procedures PROVIDER ORDERED FOLLOW UP OFFICE/OUTPATIENT [facility] 60-74 MINUTES Jigar Stanford, DO [address] [place] [address] Referral ID Status Reason Start Date Expiration Date V isits Requested Visits Authorized [id number] Authorized 11/26/2022 02/24/2023 1 1 Specialty Diagnoses / Procedures Referred By José Miguelac t Referred To Contact Diagnoses Tremor Procedures PROVIDER ORDERED FOLLOW UP OFFICE/OUTPATIENT [facility] 60-74 MINUTES Jigar Stanford, DO [address] [place] [address] Referral ID Status Reason Start Date Expiration Date Visits Requested Visits Authorized [id number] Authorized PCP Requested Referral 07/14/2022 07/15/2022 1 1 Specialty Diagnoses / Procedures Referred By Juliet t Referred To Contact MOLECULAR & FUNCTIONAL IMAGING Diagnoses Other symptoms and signs involving the nervous system Procedures NM BRAIN SPECT RP LOCLZJ MARANDA SPECT 1 AREA SINGLE DAY IMAGING Jigar Stanford DO [address] [place] [address] Molecular & Functional Imaging [address] [place] [address] Referral ID Status Reason Start Date Expiration Date Visits Requested Visits Authorized [id number] Pending Review Auto-Generat ed Referral 04/16/2022 05/16/2023 1 1 Specialty Diagnoses / Procedures Referred By uJliet t Referred To Contact Neurology Diagnoses Tremor Procedures CONSULT TO NEUROLOGY OFFICE/OUTPATIENT [facility] 60-74 [place]UTES [place] [address] [place] [id number] Referral ID Status Reason Start Date Expiration Date Visits Requested Visits Authorized [id number] Authorized PCP Requested Referral 12/11/2022 1 1 Additional Source Comments (unrecognized sect ion and content) No Status Records FoundNo Status Records FoundNo Status Records FoundNo Status Records FoundNo Status Records FoundNo Status Records FoundNo Status Records Found INFORMATION SOURCE (unrecogn ized section and content) DATE CREATED AUTHOR 04/24/2021 [facility] DATE CREATED AUTHOR AUTHOR'S ORGANIZ ATION 04/09/2022 [facility] DATE CREATED AUTHOR AUTHOR'S ORGANIZ ATION 04/29/2023 [facility] DATE CREATED AUTHOR AUTHOR'S ORGANIZ ATION 05/13/2023 [facility] DATE CREATED AUTHOR AUTHOR'S ORGANIZ ATION 09/02/2023 [facility] DATE CREATED AUTHOR AUTHOR'S ORGANIZ ATION 10/05/2023 [facility] DATE CREATED AUTHOR AUTHOR'S ORGANIZ ATION 11/13/2023 [facility] Comments (unrecognize d section and content) In the event this informatio n is protected by the Federal Confidentiality of Alcohol and Drug Abuse Patient Records regulations: The Federal rules restrict any use of the information to criminally investigate or prosecute any alcohol or drug abuse patient.[facility] the event this information is protected by the Federal Confidentiality of Alcohol and Drug Abuse Patient Records regulations: The Federal rules restrict any use of the information to criminally investigate or prosecute any alcohol or drug abuse patient.[facility] the event this information is protected by the Federal Confidentiality of Alcohol and Drug Abuse Patient Records regulations: The Federal rules restrict any use of the information to criminally investigate or prosecute any alcohol or drug abuse patient.[facility] the event this information is protected by the Federal Confidentiality of Alcohol and Drug Abuse Patient Records regulations: The Federal rules restrict any use of the information to criminally investigate or prosecute any alcohol or drug abuse patient.[facility] the event this information is protected by the Federal Confidentiality of Alcohol and Drug Abuse Patient Records regulations: The Federal rules restrict any use of the information to criminally investigate or prosecute any alcohol or drug abuse patient.[facility] the event this information is protected by the Federal Confidentiality of Alcohol and Drug Abuse Patient Records regulations: The Federal rules restrict any use of the information to criminally investigate or prosecute any alcohol or drug abuse patient.[facility] the event this information is protected by the Federal Confidentiality of Alcohol and Drug Abuse Patient Records regulations: The Federal rules restrict any use of the information to criminally investigate or prosecute any alcohol or drug abuse patient.[facility] the event this information is protected by the Federal Confidentiality of Alcohol and Drug Abuse Patient Records regulations: The Federal rules restrict any use of the information to criminally investigate or prosecute any alcohol or drug abuse patient.[facility] the event this information is protected by the Federal Confidentiality of Alcohol and Drug Abuse Patient Records regulations: The Federal rules restrict any use of the information to criminally investigate or prosecute any alcohol or drug abuse patient.[facility]In the event this information is protected by the Federal Confidentiality of Alcohol and Drug Abuse Patient Records regulations: The Federal rules restrict any use of the information to criminally investigate or prosecute any alcohol or drug abuse patient.[facility] the event this information is protected by the Federal Confidentiality of Alcohol and Drug Abuse Patient Records regulations: The Federal rules restrict any use of the information to criminally investigate or prosecute any alcohol or drug abuse patient.[facility] the event this information is protected by the Federal Confidentiality of Alcohol and Drug Abuse Patient Records regulations: The Federal rules restrict any use of the information to criminally investigate or prosecute any alcohol or drug abuse patient.[facility] the event this information is protected by the Federal Confidentiality of Alcohol and Drug Abuse Patient Records regulations: The Federal rules restrict any use of the information to criminally investigate or prosecute any alcohol or drug abuse patient.[facility] the event this information is protected by the Federal Confidentiality of Alcohol and Drug Abuse Patient Records regulations: The Federal rules restrict any use of the information to criminally investigate or prosecute any alcohol or drug abuse patient.[facility] HospitalIn the event this information is protected by the Federal Confidentiality of Alcohol and Drug Abuse Patient Records regulations: The Federal rules restrict any use of the information to criminally investigate or prosecute any alcohol or drug abuse patient.[facility] HospitalIn the event this information is protected by the Federal Confidentiality of Alcohol and Drug Abuse Patient Records regulations: The Federal rules restrict any use of the information to criminally investigate or prosecute any alcohol or drug abuse patient.[facility]In the event this information is protected by the Federal Confidentiality of Alcohol and Drug Abuse Patient Records regulations: The Federal rules restrict any use of the information to criminally investigate or prosecute any alcohol or drug abuse patient.[facility] Reason for Visit (unrecogniz ed section and content) Reason Comments Established Patient Specialty Diagnoses / Procedures Referred By Juliet gold Referred To Contact Diagnoses Tremor Procedures PROVIDER ORDERED FOLLOW UP OFFICE/OUTPATIENT NEW HIGH MDM 60-74 MINUTES Jigar Stanford, DO [address] [place] [address] Referral ID Status Reason Start Date Expiration Date V isits Requested Visits Authorized [id number] Closed PCP Requested Referral 07/14/2022 07/15/2022 1 1 Reason Comments Dermatochalasis Follow Up JENSEN Reason Comments Patient Question Reason Comments Prostate Cancer follow up Reason Comments Care Coordination Neurologist Referral Reason Comments Prostate Cancer Reason Comments New Patient Reason Comments nm vijay scan Reason Onset Date Comments Refill Request 09/30/2022 Reason Comments Posterior Capsule Opacification Evaluati on Reason Comments yag post-op Reason Comments Appointment Reason Comments Radiology CT Specialty Diagnoses / Procedures Referred By Juliet gold Referred To Contact CT IMAGING Diagnoses Extranodal marginal zone B-cell lymphoma (HCC) Procedures CT CHEST W IVCON DIAGNOSTIC COMPUTED TOMOGRAPHY THORAX W/[place] [address] [place] [address] [place] [id number] Referral ID Status Reason Start Date Expiration Date V isits Requested Visits Authorized [id number] Closed Auto-Generate d Referral 04/01/2023 04/30/2024 1 1 Care Teams (unrecognized sec tion and content) Manager Business Management Relationship Specialty Start Date End Date Luis Daniel Galicia MD [address] [place] [address] PCP - General Family Practice 02/17/18 Alexandria Camargo, RN Specialty Windows Server Engineer Radiation Oncology 06/17/17 Manager Business Management Relationship Specialty Start Date End Date Luis Daniel Galicia MD [address] [place] [address] PCP - General Family Practice 02/17/18 Alexandria Camargo RN Specialty Windows Server Engineer Radiation Oncology 06/17/17 Manager Business Management Relationship Specialty Start Date End Date Luis Daniel Galicia MD [address] [place] [id number] PCP - General Family Practice 02/17/18 Alexandria Camargo RN Specialty Windows Server Engineer Radiation Oncology 06/17/17 Manager Business Management Relationship Specialty Start Date End Date Luis Daniel Galicia MD [address] [place] [address] PCP - General Family Practice 02/17/18 Alexandria Camargo, RN Specialty Windows Server Engineer Radiation Oncology 06/17/17 Manager Business Management Relationship Specialty Start Date End Date Luis Daniel Galicia MD [address] [place] [address] PCP - General Family Practice 02/17/18 Alexandria Camargo, RN Specialty Windows Server Engineer Radiation Oncology 06/17/17 Manager Business Management Relationship Specialty Start Date End Date Luis Daniel Galicia MD [address] [place] [id number] PCP - General Family Medicine 02/17/18 Alexandria Camargo, RN Specialty Windows Server Engineer Radiation Oncology 06/17/17 Manager Business Management Relationship Specialty Start Date End Date Luis Daniel Galicia MD [address] [place] [id number] PCP - General Family Medicine 02/17/18 Alexandria Camargo, RN Specialty Windows Server Engineer Radiation Oncology 06/17/17 Manager Business Management Relationship Specialty Start Date End Date Luis Daniel Galicia MD [address] [place] [id number] PCP - General Family Medicine 02/17/18 Alexandria Camargo, RN Specialty Windows Server Engineer Radiation Oncology 06/17/17 Manager Business Management Relationship Specialty Start Date End Date Luis Daniel Galicia MD [address] [place] [address] PCP - General Family Medicine 02/17/18 Alexandria Camargo, RN Specialty Windows Server Engineer Radiation Oncology 06/17/17 Manager Business Management Relationship Specialty Start Date End Date Luis Daniel Galicia MD PCP - General Family Medicine 02/17/18 Alexandria Camargo, RN Specialty Windows Server Engineer Radiation Oncology 06/17/17 Manager Business Management Relationship Specialty Start Date End Date Luis Daniel Galicia MD PCP - General Family Medicine 02/17/18 Alexandria Camargo, RN Specialty Windows Server Engineer Radiation Oncology 06/17/17 Manager Business Management Relationship Specialty Start Date End Date Luis Daniel Galicia MD PCP - General Family Medicine 02/17/18 Alexandria Camargo, RN Specialty Windows Server Engineer Radiation Oncology 06/17/17 Manager Business Management Relationship Specialty Start Date End Date Luis Daniel Galicia MD PCP - General Family Medicine 02/17/18 Alexandria Camargo, RN Specialty Windows Server Engineer Radiation Oncology 06/17/17 Manager Business Management Relationship Specialty Start Date End Date Luis Daniel Galicia MD PCP - General Family Medicine 02/17/18 Alexandria Camargo, RN Specialty Windows Server Engineer Radiation Oncology 06/17/17 Manager Business Management Relationship Specialty Start Date End Date Luis Daniel Galicia MD PCP - General Family Medicine 02/17/18 Alexandria Camargo, RN Specialty Windows Server Engineer Radiation Oncology 06/17/17 Jigar Stanford DO [address] [id number] Specialty Search Engineer Neurology 02/17/23 Manager Business Management Relationship Specialty Start Date End Date Luis Daniel Galicia MD PCP - General Family Medicine 02/17/18 Alexandria Camargo, RN Specialty Windows Server Engineer Radiation Oncology 06/17/17 Jigar Stanford [address] [id number] Specialty Search Engineer Neurology 02/17/23 FOR RECORDS PERTAINING TO PATIENTS WHO ARE OR HAVE BEEN ENROLLED IN A CHEMICAL DEPENDENCY/SUBSTANCEABUSE PROGRAM, SOME INFORMATION MAY BE OMITTED. This clinical summary was aggregated from multiple sources. Caution should be exercised in using it in the provision of clinical care. This summary normalizes information from multiple sources, and as a consequence, information in this document may materially change the coding, format and clinical context of patient data. In addition, data may be omitted in some cases. CLINICAL DECISIONS SHOULD BE BASED ON THE PRIMARY CLINICAL RECORDS. [email or web address] provides no warranty or guarantee of the accuracy or completeness of information in this document.
== END 2023-11-15 09:36 | disposition home or self-care (01) ==
LOC: RAD 09:37
PROVIDERS: PCP Family Medicine; Visit Provider Family Medicine
DX: K58.9 Irritable bowel syndrome, unspecified (principal)
CPT/HCPCS: 74022

== ENCOUNTER 2024-02-12 09:16 | Outpatient (OUT) | payer MEDICARE, OTHER, SELFPAY ==
--- OUTSIDE RECORDS SUMMARY | 2024-02-12 09:21 | XMS_ITS | CCD ---
Author Organization [facility] CliniSyid Care Team Providers Care Transit Survey Worker Name Role Phone Alexandria Camargo RN Unavailable Unavailable Luis Daniel Galicia MD Primary Care Provider Luis Daniel Galicia Primary Care Physician Alexandria Camargo RN Unavailable Unavailable Luis Daniel Galciia MD Primary Care Provider Luis Daniel Galicia [...] Camargo RN Unavailable Unavailable Jigar Stanford DO T Unavailable Dakotah PELAYO Attending Unavailable Dakotah PELAYO Admitting Unavailable Dakotah PELAYO Attending Unavailable Dakotah PELAYO Attending Unavailable Ivy Waters Attending Unavailable Dakotah PELAYO Attending Unavailable Dakotah PELAYO Attending Unavailable WHITNEY PHIPPS Attending Unavailable WHITNEY PHIPPS Attending Unavailable COLEEN HAYWARD Attending Unavailable COLEEN HAYWARD Referring Unavailable HOY, LUIS DANIEL M Primary Care Unavailable COLEEN HAYWARD Attending Unavailable COLEEN HAYWARD Referring Unavailable HOY, LUIS DANIEL M Primary Care Unavailable WHITNEY PHIPPS Referring Unavailable HOY, LUIS DANIEL M Primary Care Unavailable COLEEN HAYWARD Attending Unavailable COLEEN HAYWARD Referring Unavailable HOY, LUIS DANIEL M Primary Care Unavailable Luis Daniel Galicia MD Primary Care Provider [phone] COLEEN HAYWARD Attending Unavailable HOY, LUIS DANIEL M Referring Unavailable HOY, LUIS DANIEL M Primary Care Unavailable HOY, LUIS DANIEL M Referring Unavailable HOY, LUIS DANIEL M Primary Care Unavailable MAINORCOLEEN Attending Unavailable HOY, LUIS DANIEL M Referring Unavailable HOY, LUIS DANIEL M Primary Care Unavailable MAINORCOLEEN Attending Unavailable HOY, LUIS DANIEL M Referring Unavailable HOY, LUIS DANIEL M Primary Care Unavailable Dillan [facility] Referring Unavailable HOY, LUIS DANIEL M Primary Care Unavailable ODETTE BARRETT Attending Unavailable FREDA HENDRIX Referring Unavailable HOY, LUIS DANIEL M Primary Care Unavailable HOY, LUIS DANIEL M Primary Care Unavailable LARRY HENSON Referring Unavailable HOY, LUIS DANIEL M Primary Care Unavailable LARRY HENSON Attending Unavailable HOY, LUIS DANIEL M Primary Care Unavailable Dillan [facility] Attending Unavailable Allergies Allergy Classification Reported Allergen(s) Allergy Type Date of Onset Reaction(s) Facility (20 sources) Erythromycin; Translations: [ERYTHROMYCIN] Drug Allergy 2 Itching [facility] Work Phone: (20 sources) Iodine And Iodide Containing Products; Translations: [IODINE AND IODIDE CONTAINING PRODUCTS] Propensity to adverse reactions to drug 1 Other: See Comments [facility] (12 sources) Contrast media; Translations: [Contrast Dye] Drug allergy Loss of consciousness [facility] (1 source) Iodine (And Iodine Containting Drugs) Drug allergy (disorder) [facility] Repository (1 source) Acetaminophen; Translations: [acetaminophen] Drug Allergy [facility] Repository (1 source) No Known Medication Allergies; Translations: [No Known Medication Allergies] Propensity to adverse reactions (disorder) [facility] Repository Medications Current Medications Medication Drug Class(es) Dates Sig (Normalized) Sig (Original) acetaminophen 500 mg oral capsule (19 sources) take 2 capsules by mouth once daily Acetaminophen 500 mg cap Take 500 mg by mouth once daily. 2 CAPSULES DAILY Active Comment on above: Take 500 mg by mouth once daily. 2 CAPSULES DAILY acetaminophen 325 mg / HYDROcodone bitartrate 7.5 mg oral tablet (6 sources) Opioid Agonist Start: 11-18-2021 Drayton 325 mg-7.5 mg oral tablet See Instructions, 1 tab(s), Refill(s) 0, Take 1 tablet 1 hour before procedure., [facility] #[id number], 190, cm, 11/18/21 9:22:00 EDT, Height/Length Dosing, 102, kg, 11/18/21 9:22:00 EDT, Weight Dosing Start Date: 11/18/21 Status: Ordered acetaminophen 325 mg / traMADol hydrochloride 37.5 mg oral tablet (6 sources) Opioid Agonist Start: 11-18-2021 Ultracet 325 mg-37.5 mg Tab 1 tab(s), Oral, As Directed, 20 tab(s), Refill(s) 0, Take 1 tablet every 4 hours as needed for pain., [facility] #[id number], 190, cm, 11/18/21 9:22:00 EDT, Height/Length Dosing, 102, kg, 11/18/21 9:22:00 EDT, Weight Dosing Start Date: 11/18/21 Status: Ordered benoxinate hydrochloride 4 mg/ml / fluorescein sodium 3 mg/ml ophthalmic solution (2 sources) Diagnostic Dye Start: 11-19-2023 End: 11-20-2023 fluorescein-benoxin ate 0.3-0.4 % 1 Drop (FLURESS) Start: 11-19-2023 End: 11-20-2023 1 Drop, BOTH EYES, DIRECT ED, Starting on 11/19/23 at 1500, Until 11/20/23 at 0259, Administer for applanation tonometry. In the event of a Fluress shortage, administer 1 drop of Charisse-Fluor into both eyes as directed for applanation tonometry., [facility] MED ORDERS Celebrate Multivitamin (2 sources) Start: 09-16-2018 Celebrate Multivitamin Daily, Refill(s) 0 Start Date: 09/16/18 Status: Ordered cephalexin 500 mg oral capsule (1 source) Cephalosporin Antibacterial Start: 10-09-2021 End: 10-14-2021 take 1 capsule by mouth every twelve hours Keflex 500 mg Cap 500 mg = 1 cap(s), Oral, q12hr, X 5 day(s), # 10 cap(s), Refills(s) 0, Pharmacy: [facility] #[id number], 190, cm, 09/24/21 8:06:00 EDT, Height/Length Dosing, 102.5, kg, 09/24/21 8:06:00 EDT, Weight Dosing Start Date: 10/09/21 Stop Date: 10/14/21 Status: Ordered ciprofloxacin 500 mg oral tablet (8 sources) Quinolone Antimicrobial Start: 11-18-2021 take 1 tablet by mouth twice daily Cipro 500 mg Tab 500 mg = 1 tab(s), Oral, BID, Start 3 days prior to procedure., # 14 tab(s), Refills(s) 0, Pharmacy: [facility] #[id number], 190, cm, 11/18/21 9:22:00 EDT, Height/Length Dosing, 102, kg, 11/18/21 9:22:00 EDT, Weight Dosing Start Date: 11/18/21 Status: Ordered Start: 06-23-2021 Cipro 500 mg T ab 500 mg = 1 tab(s), Oral, As Directed, # 2 tab(s), Refills(s) 0, Pharmacy: [facility], 190, cm, 06/23/21 11:19:00 EDT, Height/Length Dosing, 102, kg, 06/23/21 11:19:00 EDT, Weight Dosing Start Date: 06/23/21 Status: Ordered diazePAM 10 mg oral tablet (6 sources) Benzodiazepine Start: 11-18-2021 Valium 10 mg Tab See Instructions, Take 1 tab 1 hour before procdure., # 1 tab(s), Refills(s) 0, Pharmacy: [facility] #[id number], 190, cm, 11/18/21 9:22:00 EDT, Height/Length Dosing, 102, kg, 11/18/21 9:22:00 EDT, Weight Dosing Start Date: 11/18/21 Status: Ordered hyoscyamine sulfate 0.125 mg oral tablet (1 source) Start: 10-09-2021 take 1 tablet by mouth four times daily as needed for muscle spasms Levsin 0.125 mg SL Tab 0.125 mg = 1 tab(s), Oral, QID, PRN Spasm, # 20 tab(s), Refills(s) 0, [id number], 190, cm, 09/24/21 8:06:00 EDT, Height/Length Dosing, 102.5, kg, 09/24/21 8:06:00 EDT, Weight Dosing Start Date: 10/09/21 Status: Ordered meloxicam 15 mg oral tablet (20 sources) Nonsteroidal Anti-inflammatory Drug Start: 09-16-2018 meloxicam Oral, Daily, Refills(s) 0 Start Date: 09/16/18 Status: Ordered Start: 08-30-2018 take 1 tablet by maren th once daily meloxicam (MOBIC) 15 mg tablet Take 15 mg by mouth once daily. 1 08/30/2018 Active Comment on above: Take 15 mg by mouth once daily. methylPREDNISolone 4 mg oral tablet (1 source) Corticosteroid Start: End: Medrol Dosepack 4 mg Tab = 1 packet(s), Oral, As Directed, as directed on package labeling, X 6 day(s), # 21 tab(s), Refills(s) 0, [facility]: [facility] #[id number], 190, cm, 02/03/22 15:48:00 EST, Height/Length Dosing, [...] Daily, # 30 tab(s), Refills(s) 11, [facility]: [facility] #[id number], 190, cm, 03/16/22 8:29:00 EST, Height/Length Dosing, [...] Refills(s) 0 Start Date: 04/15/20 Status: Ordered phenylephrine hydrochloride 25 mg/ml ophthalmic solution (2 sources) alpha-1 Adrenergic Agonist Start: End: PHENYLephrine 2.5 % 1 Drop (AK-DILATE, ALVARO-SYNEPHRINE) Start: 11-19-2023 End: 11-20-2023 1 Drop, BOTH EYES, DIRECT ED, Starting on Wed11/19/23 at 1500, Until 11/20/23 at 0259, Administer for dilation PROTECT FROM LIGHT, [facility]HT CLINIC MED ORDERS Potassium Acetate (2 sources) Start: 09-16-2018 potassium acet ate Refills(s) 0 Start Date: 09/16/18 Status: Ordered POTASSIUM-99 ORAL (19 sources) take 20 mEq by mouth once [...] day(s), # 30 cap(s), Refills(s) 11, [facility]: [facility] #[id number], 190, cm, 03/31/23 15:07:00 EST, Height/Length Dosing, [...] 10 mg by mouth daily at bedtime. tropicamide 10 mg/ml ophthalmic solution (2 sources) Anticholinergic Start: 11-19-2023 End: 11-20-2023 tropicamide 1 % 1 Drop (MYDRIACYL) Start: 11-19-2023 End: 11-20-2023 1 Drop, BOTH EYES, DIRECT ED, Starting on Wed11/19/23 at 1500, Until 11/20/23 at 0259, Administer for dilation, [facility] CLINIC MED ORDERS Vitamin B Complex oral capsule (13 sources) [...] Drug Class(es) Dates Sig (Normalized) Sig (Original) carbidopa 25 mg / levodopa 100 mg oral tablet (20 sources) Aromatic Amino Acid Decarboxylation Inhibitor, Aromatic Amino Acid Start: 04-21-2021 End: 09-30-2023 take 1 tablet by mouth three times daily carbidopa-levodopa (SINEMET 25-100) 25-100 mg per tablet Indications: Primary parkinsonism (HCC) Take 1 tablet by mouth three times daily. 270 tablet 3 05/26/2022 09/30/2022 Discontinued Start: 04-21-2021 carbidopa-levo dopa 25 mg-100 mg Tab Refill(s) 0 Start Date: 04/21/21 Status: Ordered End: 12-12-2021 take 1 tablet by mouth twice daily carbidopa-levodopa (SINEMET 25-100) 25-100 mg per tablet Take 1 tablet by mouth twice daily. 0 12/12/2021 Discontinued Comment on above: Take 1 tablet by maren th twice daily. Take 1 tablet by maren th three times daily. dexamethasone 0.001 mg/mg / neomycin 0.0035 mg/mg / polymyxin b 10 unt/mg ophthalmic ointment (11 sources) Aminoglycoside Antibacterial, Polymyxin-class Antibacterial, Corticosteroid Start: 04-11-19 22 End: 04-16-19 23 neomycin/polymyxin b/dexametha(MAXITROL 3.5 MG/G-10,000 UNIT/G-0.1 % EYE OINTMENT) Use twice a day to affected eyelid x 2 wks 3.5 g 0 04/11/2021 04/16/2022 Discontinued (Other) Comment on above: Use twice a day to a ffected eyelid x 2 wks dextran/hypromellose/g lycerin (GENTEAL TEARS MODERATE OPHTHALMIC) (12 sources) End: 08-26-19 23 take 1 drop(s) into the eye(s) three times daily dextran/hypromellose /glycerin (GENTEAL TEARS MODERATE OPHTHALMIC) Use 1 Drop [...] in both eyes at bedtime as needed. bguhimyi-vaj-zzedc- vit K-lycop (ONE-A-DAY MEN'S 50 PLUS) 400-20-370 mcg tab (6 sources) End: take 50-400 tablets by mouth once daily frvfdsik-gqi-kdkhh-v it K-lycop (ONE-A-DAY MEN'S 50 PLUS) 400-20-370 mcg tab Take 1 tablet by mouth once daily. 0 12/12/2021 Discontinued take 50-400 tablets by mouth once daily hwbdrgut-peu-wnbyj-vit K-lycop (ONE-A-DA Y MEN'S 50 PLUS) 400-20-370 mcg tab Take 1 tablet by mouth once daily. 0 Active Comment on above: Take 1 tablet by maren th once daily. oxybutynin chloride 5 mg oral tablet (4 sources) Cholinergic Muscarinic Antagonist Start: oxybutynin 5 mg Tab 5 mg = 1 tab(s), Oral, As Directed, 1 Tablet PRN for urinary discomfort, # 5 tab(s), Refills(s) 0, [facility]acy: [facility] #[id number], 190, cm, 11/18/21 9:22:00 EDT, Height/Length Dosing, [...] Comment on above: TAKE 1 TABLET BY MAREN TH EVERY DAY NEEDED tamsulosin hydrochloride 0.4 mg oral capsule (8 sources) alpha-Adrenergic Rocio Start: End: take 1 capsule by mouth twice daily tamsulosin (FLOMAX) 0.4 mg Take 1 capsule by mouth twice daily. 60 capsule 2 11/27/2020 04/16/2022 Discontinued (Other) Comment on above: Take 1 capsule by mo uth twice daily. vitamin b12 1 mg oral tablet (8 sources) Vitamin B12 End: 023 take 1 tablet by mouth once daily cyanocobalamin (VITAMIN B-12) 1,000 mcg tab Take 1,000 mcg by mouth once daily. 0 04/16/2022 Discontinued (Other) Comment on above: Take 1,000 mcg by mo uth once daily. Problems Active Problems Problem Classification Problem Date Documented Date Episodic/Chronic Abdominal hernia (13 sources) Right inguinal hernia 12-11-2019 Episodic Calculus of urinary tract (16 sources) Urinary bladder stone; Translations: [Calculus in bladder] Onset: 07-21-2021 Episodic Cancer of bone and connective tissue (19 sources) Malignant tumor of soft tissue of [...] [HYPERLIPIDEMIA UNSPECIFIED] Onset: 04-08-2022 Chronic Esophageal disorders (19 sources) Gastroesophageal reflux disease; Translations: [Gastro-esophageal reflux [...] right upper eyelid] Episodic Other eye disorders (3 sources) Ptosis of left eyebrow; Translations: [Brow ptosis, left] Onset: 11-19-2023 Episodic Other eye disorders (2 sources) Tear film insufficiency of bilateral eyes; Translations: [Dry eye syndrome of bilateral lacrimal glands] 11-05-2022 Episodic Other eye disorders (5 sources) Disorder of lacrimal gland; Translations: [Dry eye syndrome of bilateral lacrimal glands] Onset: 11-16-2017 Resolved: 12-28-2019 12-28-2019 Episodic Other hereditary and degenerative nervous system [...] Residual codes; unclassified (1 source) History of bsdvuzo-wkfxnxpa-qfpfu t (YAG) laser capsulotomy of lens; Translations: [Other specified postprocedural states] 11-16-2022 Episodic Screening and history of mental health and substance abuse codes (13 sources) Ex-smoker 09-16-2018 Episodic Past or Other Problems Problem Classification Problem Date Documented Date Episodic/Chronic Cancer; other and unspecified primary (3 sources) Malignant tumor of conjunctiva; 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 [...] of transmission] Onset: 06-30-2023 Episodic Non-Hodgkin`s lymphoma (20 sources) History of malignant lymphoma; Translations: [Personal history of non-Hodgkin lymphomas] Onset: 02-15-2020 02-15-2020 Episodic Nutritional deficiencies (1 source) Pyridoxine deficiency; 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] Onset: 06-30-2023 Episodic Other connective tissue disease (1 source) Myalgia, unspecified site; Translations: [Myalgia, unspecified site] Onset: 06-30-2023 Episodic Other eye disorders (3 sources) Exophthalmos; 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] Onset: 04-27-2017 Resolved: 12-28-2019 12-28-2019 Chronic Other eye disorders (19 sources) Entropion of left lower eyelid; Translations: [Unspecified entropion of left lower eyelid] Onset: 06-16-2018 06-16-2018 Episodic Other lower respiratory disease (19 sources) Lung mass; Translations: [Other nonspecific abnormal finding of lung field] Onset: 07-16-2014 07-16-2014 Episodic Other lower respiratory disease (2 sources) Other nonspecific abnormal finding of lung field; Translations: [Other nonspecific abnormal finding of lung field] Onset: 06-17-2023 Episodic Other nervous system disorders (19 sources) 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 FINDINGS: No pleural or pericardial effusion. [...] Pablo Kevin MD on 10/04/2023 9:37 AM [facility] CT CHEST WO CONTon CT CHEST WO [...] Celio Lawrence MD on 07/01/2023 9:07 AM Mikael Graham DO have personally reviewed the image(s) and agree with and/or edited the report Finalized by Mkiael Cohen DO on 07/01/2023 11:24 AM Normal [facility] THYROID PROFILEon 06-30-2023 Free T4 [Mass/Vol] 1.03 ng/dL Normal 0.61-1.60 [facility] Comment on above: Performed By: #### T HYR #### [facility] ([id number]) [address], [address] [place] [address] TSH 0.25 uIU/mL Low 0.49-4.67 [facility] Comment on above: Performed By: #### T HYR #### [facility] ([id number]) [address], [address] [place] [address] Reminderson 05-11-2023 Reminders - From: Radha Barbosa [...] Caller Name: LUIS ALBERTO OCAMPO; Caller Number: h , M From: NANDO Waters APRN, [place] X To: EU - Recalls Pierce; Sent: 03/31/2023 15:55:05 EST Subject: 1 yr KUB/YOHANNES Due Date/Time: 03/20/2024 15:55:00 EST Caller Name: DAMARISLUIS ALBERTO; Caller Number: h , M f/u scheduled 03/28/24 w/ KUB/YOHANNES Orders placed today. Please schedule w/ pt prior to appt and fax orders. He said he would prefer [facility] if they are able to do these tests. [facility] KEZIAEmily 04-21-2023 KEZIAN Telephone (PULTOMI) -- LUIS ALBERTO OCAMPO ([id number]) 1945 M Date Time Provider Department 04/21/23 [facility] PROVIDER ANDRE During your visit today, we recorded the [...] No Routing: Please route to Olivia Quintero Allergies As of Date: 04/21/2023 Noted Allergy Reaction ERYTHROMYCIN 04/11/2021 9 - Itching IODINE AND IODIDE CONTAINING PROD*07/19/2020 14 - Other: See Comments Comments: Pt passed out from milogram test on spinal cord Date Reviewed: 03/02/2023 Reviewed by: Nicolasa Varela LPN - Fully Assessed Reason for Visit: Appointment [186] Primary Visit Diagnosis:Bronchiectasis without acute exacerbation (HCC) [J47.9] Order(s):SPIROMETRY - BASELINE AND POST DILATOR [0974653] Order #: [id number]: 1 FUTURE RESPIRATORY THERAPY OP [facility] A90 [[id number]] Order #: [id number]: 1 Prescriptions as of 04/21/2023 - Acetaminophen [...] Encounter Status:Closed by OLIVIA QUINTERO on 04/21/23 Normal [facility] CT ABD/PEL W IVCONon 024 CT ABD/PEL W IVCON * * *Final Report* * * DATE OF EXAM: Apr 16 2023 8:33AM [facility] 0530 - CT ABD/PEL W IVCON [...] chest CT performed will be reported separately. Interior Horticulturist (topogram) images: No additional findings. IMPRESSION: 1. [...] any questions regarding this interpretation, please call [phone]. If you are unable to reach us at the number above, please feel free to contact [facility] eRadiology at [phone]. [id number] Normal [facility] CT Abdomen and Pelvis W [...] any questions regarding this interpretation, please call [phone]. If you are unable to reach us at the number above, please feel free to contact [facility] at [phone]. DIVISION OF RADIOLOGY * * *Final Report* * * DATE OF EXAM: Apr 16 2023 8:33AM [facility] 0530 - CT ABD/PEL W IVCON [...] chest CT performed will be reported separately. Interior Horticulturist (topogram) images: No additional findings. DIVISION OF RADIOLOGY Provider, [facility] - 04/16/2023 * * *Final Report* * * DATE OF EXAM: Apr 16 2023 8:33AM [facility] 0530 - CT ABD/PEL W IVCON [...] chest CT performed will be reported separately. Interior Horticulturist (topogram) images: No additional findings. IMPRESSION IMPRESSION: [...] any questions regarding this interpretation, please call [phone]. If you are unable to reach us at the number above, please feel free to contact [facility] at [phone]. [facility] CT CHEST W IVCONon 4 CT CHEST W IVCON * * *Final Report* * * DATE OF EXAM: Apr 16 2023 8:33AM [facility] 0539 - CT CHEST W IVCON [...] CT scan report for the abdomen findings. Interior Horticulturist (topogram) images: No additional findings. IMPRESSION: 1. [...] any questions regarding this interpretation, please call [phone]. If you are unable to reach us at the number above, please feel free to contact [facility] at [phone]. [id number] Normal [facility] CT Chest W contrast Jenna [...] any questions regarding this interpretation, please call [phone]. If you are unable to reach us at the number above, please feel free to contact [facility] at [phone]. DIVISION OF RADIOLOGY * * *Final Report* * * DATE OF EXAM: Apr 16 2023 8:33AM [facility] 0539 - CT CHEST W IVCON [...] CT scan report for the abdomen findings. Interior Horticulturist (topogram) images: No additional findings. DIVISION OF RADIOLOGY Provider, [facility] - 04/16/2023 * * *Final Report* * * DATE OF EXAM: Apr 16 2023 8:33AM [facility] 0539 - CT CHEST W IVCON [...] CT scan report for the abdomen findings. Interior Horticulturist (topogram) images: No additional findings. IMPRESSION IMPRESSION: [...] any questions regarding this interpretation, please call [phone]. If you are unable to reach us at the number above, please feel free to contact [facility] at [phone]. [facility] No Panel InformationOrdered By: [facility] Provider on 04-16-2023 [facility] No Panel Informationon 04-16 Radiology Study observation (narrative) [facility] Lab Reportson 04-02-2023 Lab Reports [id number] Normal [facility] Screenson 04-02-2023 Screens [id number] Normal [facility] CNOVSPon 04-01-2023 CNOVSP Visit (SP) Office (H EMAMN) -- LUIS ALBERTO OCAMPO ([id number]) 1945 M Date Time Provider Department 04/01/23 3:15 PM LARRY HENSON During your visit today, we recorded the following information about you: Temperature Pulse Respiration Blood pressure 97.5 degrees 89/minute 20/minute 133/75 Weight 94.6 kg Larry Henson MD, PhD 04/01/2023 4:06 PM Signed [facility] [place] DEPARTMENT OF HEMATOLOGY AND MEDICAL ONCOLOGY ASSESSMENT [...] seen by Dr. Luis Daniel Galicia at [facility] and underwent a transthoracic CT guided needle [...] of right iritis. 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 Noted symptoms improved with eye drops, but [...] a pruritic.rash (more content not included)... Normal [facility] Ambulatory Visit Summaryon 0 03-31-2023 Ambulatory Visit Summary LUIS ALBERTO OCAMPO :1945 Visit Date:03/31/2023 Ambulatory Visit Instructions Your Diagnosis BPH with obstruction/lower urinary tract symptoms Prostate cancer OAB (overactive bladder) History of bladder stone Your Care Team Attending Physician - NANDO Waters APRN, Ivy Romero Primary Care Physician - Luis [...] CORONADO, Dakotah Krueger Where: [facility] Patient Educationon 03-31-19 24 Patient Education Nephrology [...] ? 8 oz (237 mL) of milk, mbckvkl-gkxjhboztnwm-hqrle milk, and calcium-fortifiedfruit juice. Calcium-fortified means that [...] Spinach (cooked), rhubarb, beets, sweet potatoes, and [place] chard. ? Peanuts. ? Potato chips, northern irish fries, and baked potatoes with skin on. ? Nuts and nut products. ? Chocolate. ? If you regularly take a diuretic medicine, make sure to eat at least 1 or 2 servings of fruits or vegetables that are high in potassium each day. These include: ? Avocado. ? Banana. ? [place], prune, carrot, or tomato juice. ? Baked [...] fish oil, or vitamin B6. ? Take fasd-yaz-omlbmgt and prescription medicines only as told by your health care provider. These include supplements. What foods sh (more content not included)... Normal [facility] Urology Office/Clinic Noteon 03-31-2023 Urology Office/Clinic [...] prostate) TRUS/bx by RITU 04/15/20 - T1C, [place] 6 (3+3). S/P Brachytherapy 06/26/20. [1] PSA [...] day(s), # 30 cap(s), Refills(s) 11, Pharmacy: [facility] #[id number], 190, cm, 03/31/23 15:07:00 EST, Height/Length Dosing, 95.7, kg, 03/31/23 15:07:00 EST, Weight Dosing 06778 Measure Post Void residual urine and/or bladder [...] pass them. Will (more content not included)... Normal [facility] Comment on above: Result Comment: Elec tronically Signed By: NANDO Waters APRN, Ivy Romero\.br\Date and Time Signed: 03/31/23 19:18 EST Consultation Noteon 03-09-19 24 Consultation Note [id number]#[id number] Normal [facility] CNOVon 03-02-2023 CNOV Office Visit (RADTSA ) -- LUIS ALBERTO OCAMPO ([id number]) 1945 M Date Time Provider Department 03/02/23 [...] 1. Prostate adenocarcinoma, initial PSA 5.51, biopsy Lutcher score 3 + 3 = 6 (grade [...] (HCC) [C61] Order(s):PSA/PROSTSPECAG DIAG [SQPSA] Order #: [id number] FUTURE Prescriptions as of 03/05/2023 - Acetaminophen [...] induced catar (more content not included)... Normal [facility] CBC W Auto Differential pane l (Bld)on 02-24-2023 Basophils (Bld) [#/Vol] 0.04 10*3/uL Normal <0.11 [facility] [facility] Comment on above: Order Comment: Speci men Type: BLOOD SPECIMEN Ordering Facility: [facility] Address: [address] [place] [address] Performed By: #### 5 7021-8 #### [facility] CLIA [id number] [address] [place] [address] 85051 Basophils/100 WBC (Bld) 0.7 % Normal [facility] Comment on above: Order Comment: Speci men Type: BLOOD SPECIMEN Ordering Facility: [facility] Address: [address] [place] [id number] Performed By: #### 5 7021-8 #### [facility] CLIA [id number] [address] [place] [address] 16518 Differential cell count method Nom (Bld) Auto Normal [facility] Comment on above: Order Comment: Speci men Type: BLOOD SPECIMEN Ordering Facility: [facility] Address: [address] [place] [address] Performed By: #### 5 7021-8 #### [facility] CLIA [id number] [address] [place] [address] 48438 Eosinophils (Bld) [#/Vol] 0.23 10*3/uL Normal <0.46 [facility] Comment on above: Order Comment: Speci men Type: BLOOD SPECIMEN Ordering Facility: [facility] Address: [address] [place] [address] Performed By: #### 5 7021-8 #### [facility] CLIA [id number] [address] [place] [address] 14123 Eosinophils/100 WBC (Bld) 3.9 % Normal [facility] Comment on above: Order Comment: Speci men Type: BLOOD SPECIMEN Ordering Facility: [facility] Address: [address] [place] [address] Performed By: #### 5 7021-8 #### [facility] CLIA [id number] [address] [place] [address] 72808 Erythrocyte distribution width (RBC) [Ratio] 13.0 % Normal 11.5-15.0 [facility] Comment on above: Order Comment: Speci men Type: BLOOD SPECIMEN Ordering Facility: [facility] Address: [address] [place] [address] Performed By: #### 5 7021-8 #### [facility] CLIA [id number] [address] [place] [address] 79104 Hematocrit (Bld) [Volume fraction] 40.5 % Normal 39.0-51.0 [facility] Comment on above: Order Comment: Speci men Type: BLOOD SPECIMEN Ordering Facility: [facility] Address: [address] [place] [address] Performed By: #### 5 7021-8 #### [facility] CLIA [id number] [address] [place] [address] 49768 Hemoglobin (Bld) [Mass/Vol] 14.0 g/dL Normal 13.0-17.0 [facility] Comment on above: Order Comment: Speci men Type: BLOOD SPECIMEN Ordering Facility: [facility] Address: [address] [place] [address] Performed By: #### 5 7021-8 #### [facility] CLIA [id number] [address] [place] [address] 72550 Immature granulocytes (Bld) [#/Vol] 0.04 10*3/uL Normal <0.10 [facility] Comment on above: Order Comment: Speci men Type: BLOOD SPECIMEN Ordering Facility: [facility] Address: [address] [place] [address] Performed By: #### 5 7021-8 #### [facility] CLIA [id number] [address] [place] [address] 36109 Immature granulocytes/100 WBC (Bld) 0.7 % Normal [facility] Comment on above: Order Comment: Speci men Type: BLOOD SPECIMEN Ordering Facility: [facility] Address: [address] [place] [address] Performed By: #### 5 7021-8 #### [facility] CLIA [id number] [address] [place] [address] 27725 Lymphocytes (Bld) [#/Vol] 0.84 10*3/uL Low 1.00-4.00 [facility] Comment on above: Order Comment: Speci men Type: BLOOD SPECIMEN Ordering Facility: [facility] Address: [address] [place] [address] Performed By: #### 5 7021-8 #### [facility] CLIA [id number] [address] [place] [address] 35283 Lymphocytes/100 WBC (Bld) 14.3 % Normal [facility] Comment on above: Order Comment: Speci men Type: BLOOD SPECIMEN Ordering Facility: [facility] Address: [address] [place] [address] Performed By: #### 5 7021-8 #### [facility] CLIA [id number] [address] [place] [address] 71033 MCH (RBC) [Entitic mass] 35.1 pg High 26.0-34.0 [facility] Comment on above: Order Comment: Speci men Type: BLOOD SPECIMEN Ordering Facility: [facility] Address: [address] [place] [address] Performed By: #### 5 7021-8 #### [facility] CLIA [id number] [address] [place] [address] 58229 MCHC (RBC) [Mass/Vol] 34.6 g/dL Normal 30.5-36.0 [facility] Comment on above: Order Comment: Speci men Type: BLOOD SPECIMEN Ordering Facility: [facility] Address: [address] [place] [address] Performed By: #### 5 7021-8 #### [facility] CLIA [id number] [address] [place] [address] 29534 MCV (RBC) [Entitic vol] 101.5 fL High 80.0-100.0 [facility] Comment on above: Order Comment: Speci men Type: BLOOD SPECIMEN Ordering Facility: [facility] Address: [address] [place] [address] Performed By: #### 5 7021-8 #### [facility] CLIA [id number] [address] [place] [address] 97521 Monocytes (Bld) [#/Vol] 0.62 10*3/uL Normal <0.87 [facility] Comment on above: Order Comment: Speci men Type: BLOOD SPECIMEN Ordering Facility: [facility] Address: [address] [place] [address] Performed By: #### 5 7021-8 #### [facility] CLIA [id number] [address] [place] [address] 99579 Monocytes/100 WBC (Bld) 10.6 % Normal [facility] Comment on above: Order Comment: Speci men Type: BLOOD SPECIMEN Ordering Facility: [facility] Address: [address] [place] [address] Performed By: #### 5 7021-8 #### [facility] CLIA [id number] [address] [place] [address] 97116 Neutrophils (Bld) [#/Vol] 4.09 10*3/uL Normal 1.45-7.50 [facility] Comment on above: Order Comment: Speci men Type: BLOOD SPECIMEN Ordering Facility: [facility] Address: [address] [place] [address] Performed By: #### 5 7021-8 #### [facility] CLIA [id number] [address] [place] [address] 56328 Neutrophils/100 WBC (Bld) 69.8 % Normal [facility] Comment on above: Order Comment: Speci men Type: BLOOD SPECIMEN Ordering Facility: [facility] Address: [address] [place] [address] Performed By: #### 5 7021-8 #### [facility] CLIA [id number] [address] [place] [address] 41624 Nucleated RBC (Bld) [#/Vol] 10*3/uL Normal <0.01 [facility] Comment on above: Order Comment: Speci men Type: BLOOD SPECIMEN Ordering Facility: [facility] Address: [address] [place] [address] Performed By: #### 5 7021-8 #### [facility] CLIA [id number] [address] [place] [address] 64050 Nucleated RBC/100 WBC (Bld) [Ratio] 0.0 /100 WBC Normal [facility] Comment on above: Order Comment: Speci men Type: BLOOD SPECIMEN Ordering Facility: [facility] Address: [address] [place] [address] Performed By: #### 5 7021-8 #### [facility] CLIA [id number] [address] [place] [address] Platelet mean volume (Bld) [Entitic vol] 9.2 fL Normal 9.0-12.7 [facility] Comment on above: Order Comment: Speci men Type: BLOOD SPECIMEN Ordering Facility: [facility] Address: [address] [place] [address] Performed By: #### 5 7021-8 #### [facility] CLIA [id number] [address] [place] [address] 09967 Platelets (Bld) [#/Vol] 224 10*3/uL Normal 150-400 [facility] Comment on above: Order Comment: Speci men Type: BLOOD SPECIMEN Ordering Facility: [facility] Address: [address] [place] [address] Performed By: #### 5 7021-8 #### [facility] CLIA [id number] [address] [place] [address] 09088 RBC (Bld) [#/Vol] 3.99 10*6/uL Low 4.20-6.00 [facility] Comment on above: Order Comment: Speci men Type: BLOOD SPECIMEN Ordering Facility: [facility] Address: [address] [place] [address] Performed By: #### 5 7021-8 #### [facility] CLIA [id number] [address] [place] [address] 58924 WBC (Bld) [#/Vol] 5.86 10*3/uL Normal 3.70-11.00 [facility] Comment on above: Order Comment: Speci men Type: BLOOD SPECIMEN Ordering Facility: [facility] Address: [address] [place] [address] Performed By: #### 5 7021-8 #### [facility] CLIA [id number] [address] [place] [address] 45569 Comprehensive metabolic 2000 panelon 02-24-2023 Albumin [Mass/Vol] 4.4 g/dL Normal 3.9-4.9 [facility] Comment on above: Order Comment: Speci men Type: BLOOD SPECIMEN Ordering Facility: [facility] Address: [address] [place] [address] Performed By: #### 2 532-0, #### [facility] CLIA [id number] [address] [place] [address] 06524 ALP [Catalytic activity/Vol] 96 U/L Normal 38-113 [facility] Comment on above: Order Comment: Speci men Type: BLOOD SPECIMEN Ordering Facility: [facility] Address: [address] [place] [address] Performed By: #### 2 532-0, #### [facility] CLIA [id number] [address] [place] [address] 91920 ALT [Catalytic activity/Vol] 23 U/L Normal 10-54 [facility] Comment on above: Order Comment: Speci men Type: BLOOD SPECIMEN Ordering Facility: [facility] Address: [address] [place] [address] Performed By: #### 2 532-0, #### [facility] CLIA [id number] [address] [place] [address] 15747 Anion gap [Moles/Vol] 9 mmol/L Normal 9-18 [facility] Comment on above: Order Comment: Speci men Type: BLOOD SPECIMEN Ordering Facility: [facility] Address: [address] [place] [address] Performed By: #### 2 532-0, #### [facility] CLIA [id number] [address] [place] [address] 60272 AST [Catalytic activity/Vol] 22 U/L Normal 14-40 [facility] Comment on above: Order Comment: Speci men Type: BLOOD SPECIMEN Ordering Facility: [facility] Address: [address] [place] [address] Performed By: #### 2 532-0, #### [facility] CLIA [id number] [address] [place] [address] 61917 Bilirubin [Mass/Vol] 1.3 mg/dL Normal 0.2-1.3 [facility] Comment on above: Order Comment: Speci men Type: BLOOD SPECIMEN Ordering Facility: [facility] Address: [address] [place] [id number] Performed By: #### 2 532-0, #### [facility] CLIA [id number] [address] [place] [address] 70608 Calcium [Mass/Vol] 9.9 mg/dL Normal 8.5-10.2 [facility] Comment on above: Order Comment: Speci men Type: BLOOD SPECIMEN Ordering Facility: [facility] Address: [address] [place] [address] Performed By: #### 2 532-0, #### [facility] CLIA [id number] [address] [place] [address] 01025 Chloride [Moles/Vol] 104 mmol/L Normal 97-105 [facility] Comment on above: Order Comment: Speci men Type: BLOOD SPECIMEN Ordering Facility: [facility] Address: [address] [place] [address] Performed By: #### 2 532-0, #### [facility] CLIA [id number] [address] [place] [address] 41897 CO2 [Moles/Vol] 29 mmol/L Normal 22-30 [facility] Comment on above: Order Comment: Speci men Type: BLOOD SPECIMEN Ordering Facility: [facility] Address: [address] [place] [address] Performed By: #### 2 532-0, 70394-1 #### [facility] CLIA [id number] [address] [place] [address] 16683 Creatinine [Mass/Vol] 1.00 mg/dL Normal 0.73-1.22 [facility] Comment on above: Order Comment: Speci men Type: BLOOD SPECIMEN Ordering Facility: [facility] Address: [address] [place] [address] Performed By: #### 2 532-0, 59838-1 #### [facility] CLIA [id number] [address] [place] [address] 84851 Creatinine and Glomerular filtration rate.predicted panel (S/P/Bld) 78 mL/min/1.73m??? Normal >=60 [facility] Comment on above: Order Comment: July sawyer Type: BLOOD SPECIMEN Ordering Facility: [facility] Address: [address] [place] [address] Result Comment: Jessica mated Glomerular Filtration Rate [...] reflect actual GFR. Performed By: #### 2 532-0, 83517-0 #### [facility] CLIA [id number] [address] [place] [address] 66491 Glucose [Mass/Vol] 105 mg/dL High 74-99 [facility] Comment on above: Order Comment: July sawyer Type: BLOOD SPECIMEN Ordering Facility: [facility] Address: [address] [place] [address] Result Comment: The [place] [employer] (ADA) provides guidance for cutoff [...] Standards of Medical Care in Diabetes 2016, [place] [employer]. Diabetes Care. 2016.39(Suppl 1). Performed By: #### 2 532-0, 06912-7 #### [facility] CLIA [id number] [address] [place] [address] 16481 Potassium [Moles/Vol] 4.1 mmol/L Normal 3.7-5.1 [facility] Comment on above: Order Comment: Speci men Type: BLOOD SPECIMEN Ordering Facility: [facility] Address: [address] [place] [address] Performed By: #### 2 532-0, 49417-9 #### [facility] CLIA [id number] [address] [place] [address] 19505 Protein [Mass/Vol] 7.1 g/dL Normal 6.3-8.0 [facility] Comment on above: Order Comment: Speci men Type: BLOOD SPECIMEN Ordering Facility: [facility] Address: [address] [place] [address] Performed By: #### 2 532-0, 58084-1 #### [facility] CLIA [id number] [address] [place] [address] 21525 Sodium [Moles/Vol] 142 mmol/L Normal 136-144 [facility] Comment on above: Order Comment: Speci men Type: BLOOD SPECIMEN Ordering Facility: [facility] Address: [address] [place] [address] Performed By: #### 2 532-0, #### [facility] CLIA [id number] [address] [place] [address] 51910 Urea nitrogen [Mass/Vol] 25 mg/dL High 9-24 [facility] Comment on above: Order Comment: Speci men Type: BLOOD SPECIMEN Ordering Facility: [facility] Address: [address] [place] [address] Performed By: #### 2 532-0, 84154-6 #### [facility] CLIA [id number] [address] [place] [address] 05976 LDH SerPl-cCncon 02-24-2023 LDH [Catalytic activity/Vol] 210 U/L Normal 135-225 [facility] Comment on above: Order Comment: Speci men Type: BLOOD SPECIMEN Ordering Facility: [facility] Address: [address] [place] [address] Result Comment: Hemo lysis present. The origin of the hemolysis, in vitro versus an in vivo hemolytic process, cannot be distinguished via this assay alone. In vitro hemolysis may lead to non-physiological (spurious) elevation in lactate dehydrogenase (LDH) results. The result should be interpreted in context of the clinical setting and other test results. Suggest reorder as clinically indicated. Performed By: #### 2 532-0, 71020-1 #### [facility] CLIA [id number] [address] [place] [address] PSA [facility] 02-24-2023 Prostate specific Ag [Mass/Vol] 0.40 ng/mL Normal <2.60 [facility] Comment on above: Order Comment: Speci men Type: BLOOD SPECIMEN Ordering Facility: [facility] Address: [address] [place] [address] Result Comment: Tota l PSA test methodology used is the Electrochemiluminescence Immunoassay by [employer]. Total PSA values by differing methodologies cannot be interchanged. Performed By: #### 2 857-1 #### [facility] CLIA [id number] [address] [place] [address] [place] Lab Reportson 02-11-2023 Lab Reports [id number]#[id number] [facility] Oswaldo 02-08-2023 CNPN Telephone (HEMAMN) -- LUIS ALBERTO OCAMPO ([id number]) 1945 M Date Time Provider Department 02/08/23 LARRY HENSON During your visit today, we recorded the following information about you: Kayleen Gardner 02/08/2023 10:20 AM Signed Luis Alberto Ocampo is calling Larry Henson MD, PhD today regarding Leather Leveler - Other (PET Scan) Vinayak states that he has an appointment scheduled in April with Dr. Henson and normally has a PET scan done prior to follow-ups. Asking if this order can be placed, or if this is not needed. Requesting response back:[phone] (home) [phone] (cell) Duration of symptoms: N/A Patient has [...] OD - Fully Assessed Reason for Visit: Leather Leveler - Other [3602] Cmt: PET Scan Prescriptions [...] Status:Closed by KAYLEEN GARDNER on 03/15/23 Normal [facility] Consultation Noteon 09-06-19 Consultation Note [id number]#[id number]:127 Normal [facility] RAD - CT Reporton 09-05-2022 RAD - CT Report [id number]#[id number]:127 [facility] Reminderson 09-05-2022 Reminders - From: Maegan Gunter To: KAMERON Faustin PA - Results; Sent: 08/25/2022 09:16:55 EDT Show up: 09/24/2022 09:16:00 EDT Subject: CT results Due Date/Time: 09/24/2022 09:16:00 EDT Pt should be getting CT AP wo con to check for renal/bladder stones. Please check for these results and call pt with them. addressed in separate message. Normal [facility] Calculus Analysison 09-02-19 23 Calcium oxalate monohydrate (Stone) [Mass fraction] 100 % Invalid Interpretation Code [facility] Comment on above: Performed By: #### 1 [id number] ####[facility] [address] [place] [address] Color (Stone) Brown Invalid Interpretation Code [facility] Comment on above: Performed By: #### 1 [id number] ####[facility] [address] [place] [address] Composition Comment Invalid Interpretation Code [facility] Comment on above: Result Comment: Perc entage (Represents the % composition) Performed By: #### 1 [id number] ####[address] [place] [address] Disclaimer: Comment Invalid Interpretation Code [facility] Comment on above: Result Comment: This test was developed and its performance characteristics determined by [facility]. It has not been cleared or approved by the Food and Drug Administration. Performed at: [address] [id number] PhD Alec Tesfaye Performed By: #### 1 [id number] ####[facility] [address] [place] [address] Laboratory comment Alex (Report) Comment Invalid Interpretation Code [facility] Comment on above: Result Comment: Page hurst questions regarding Calculi Analysis contact [facility] at: [phone]. Performed By: #### 1 [id number] ####[facility] [address] [place] [address] Please Note: Comment Invalid Interpretation Code [facility] Comment on above: Result Comment: Calc siena report will follow via computer, mail or centrifugal extractor operator delivery. Performed By: #### 1 [id number] ####[facility] [address] [place] [address] Size (Stone) [Entitic vol] 6x7 Invalid Interpretation Code [facility] Comment on above: Result Comment: Sing le ge received. Performed By: #### 1 [id number] ####[facility] [address] [place] [address] Specimen source subject Nom Comment Invalid Interpretation Code [facility] Comment on above: Result Comment: Not provided Performed By: #### 1 [id number] ####[facility] [address] [place] [address] Stone Photo Comment Invalid Interpretation Code [facility] Comment on above: Result Comment: Phot ograph will follow under a separate cover Performed By: #### 1 [id number] ####[facility] [address] [place] [address] Weight (Stone) 151 mg Invalid Interpretation Code [facility] Comment on above: Performed By: #### 1 [id number] ####[address] [place] [address] Screenson 08-26-2022 Screens [id number]:127 Normal [facility] Ambulatory Visit Summaryon 0 08-25-2022 Ambulatory Visit Summary LUIS ALBERTO OCAMPO :1945 Visit Date:08/25/2022 Ambulatory Visit Instructions Your [...] Dakotah PELAYO MD Where: [facility] Patient Educationon 08-26-19 23 Patient Education Oncology Cancer Screening for Men [...] if anything looks unusual. Men with a wtqxix-xkmt-iyhuud risk for skin cancer may want to see a hide and skin classer (electrode turner and finisher) for an annual body check. What are the benefits of screening? Cancer screening is done to look for cancer in the very early stages, before it spreads and becomes harder to treat and before you would start to notice symptoms. Finding cancer early improves the chances of successful treatment. It ma (more content not included)... 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 S/P Brachytherapy 06/26/20. Has appt [...] Cysto, laser litho of bladder calculus by [facility] 10/09/21. Stone analysis 10/09/21 - 90% Ca [...] Pt would like CT at [facility]. -Send stone for analysis. Overall the patient [...] Contact In[employer] (more content not included)... Normal [facility] Comment on above: Result Comment: Elec tronically Signed By: Dakotah PELAYO MD\.br\Date and Time Signed: 08/25/22 09:19 EDT\.br\Electronically Co-Signed By: Maegan Gunter P\.br\Date and Time Co-Signed: 08/25/22 09:16 EDT\.br\Electronically Co-Signed By: Maegan Gunter P\.br\Date and Time Co-Signed: 08/25/22 09:17 EDT INSULINon 04-07-2022 Insulin 5.3 uIU/mL Normal 2.6-24.9 [facility] Comment on above: Performed By: #### I NSULIN #### [facility] [address] [place] [address] Dr. Gabbi Cummings CBC AUTO DIFFon 04-06-2022 BASO # 0.1 103/ul Normal 0.0-0.1 [facility] Comment on above: Performed By: #### C BC #### [facility] [address] [place] [address] Dr. Gabbi Cummings Basophils/100 WBC (Bld) 0.8 % Normal 0.2-2.0 [facility] Comment on above: Result Comment: Prev iously reported as: 0.9 On 04/06/2022 08:01 By RC01 Performed By: #### C BC #### [facility] [address] [place] [address] Dr. Gabbi Cummings EO # 0.2 103/ul Normal 0.0-0.7 [facility] Comment on above: Performed By: #### C BC #### [facility] [address] [place] [address] Dr. Gabbi Cummings Eosinophils/100 WBC (Bld) 2.8 % Normal 0.9-7.0 [facility] Comment on above: Result Comment: Prev iously reported as: 3.5 On 04/06/2022 08:01 By RC01 Performed By: #### C BC #### [facility] [address] [place] [address] Dr. Gabbi Cummings Erythrocyte distribution width (RBC) [Ratio] 13.9 % Normal 11.0-15.0 [facility] Comment on above: Result Comment: Prev iously reported as: 1.0 On 04/06/2022 08:01 By RC01 Performed By: #### C BC #### [facility] [address] [place] [address] Dr. Gabbi Cummings Hematocrit (Bld) [Volume fraction] 42.9 % Normal 42.0-54.0 [facility] Comment on above: Result Comment: Prev iously reported as: 20.4 On 04/06/2022 08:01 By RC01 Performed By: #### C BC #### [facility] [address] [place] [address] Dr. Gabbi Cummings Hemoglobin (Bld) [Mass/Vol] 15.5 g/dL Normal 14.0-18.0 [facility] Comment on above: Result Comment: Prev iously reported as: 15.1 On 04/06/2022 08:01 By RC01 Performed By: #### C BC #### [facility] [address] [place] [address] Dr. Gabbi Cummings IG # 0.06 10e3/ul Critically high 0.00-0.03 [facility] Comment on above: Result Comment: Prev iously reported as: 0.04 On 04/06/2022 08:01 By RC01 Performed By: #### C BC #### [facility] [address] [place] [address] Dr. Gabbi Cummings IG % 0.9 % Critically high 0.0-0.5 [facility] Comment on above: Result Comment: Prev iously reported as: 0.7 On 04/06/2022 08:01 By RC01 Performed By: #### C BC #### [facility] [address] [place] [address] Dr. Gabbi Cummings LYMPH # 0.9 103/ul Critically low 1.2-3.8 [facility] Comment on above: Result Comment: Prev iously reported as: 0.8 On 04/06/2022 08:01 By RC01 Performed By: #### C BC #### [facility] [address] [place] [address] Dr. Gabbi Cummings Lymphocytes/100 WBC (Bld) 13.9 % Critically low 20.5-60.0 [facility] Comment on above: Result Comment: Prev iously reported as: 14.6 On 04/06/2022 08:01 By RC01 Performed By: #### C BC #### [facility] [address] [place] [address] Dr. Gabbi Cummings MANUAL DIFF REQ NO Normal [facility] Comment on above: Performed By: #### C BC #### [facility] [address] [place] [address] Dr. Gabbi Cummings MCH (RBC) [Entitic mass] 38.4 pg Critically high 25.9-34.0 [facility] Comment on above: Result Comment: Prev iously reported as: 84.8 On 04/06/2022 08:01 By RC01 Performed By: #### C BC #### [facility] [address] [place] [address] Dr. Gabbi Cummings MCHC (RBC) [Mass/Vol] 36.1 g/dL Critically high 29.9-35.2 [facility] Comment on above: Result Comment: Prev iously reported as: 74.0 On 04/06/2022 08:01 By RC01 Performed By: #### C BC #### [facility] [address] [place] [address] Dr. Gabbi Cummings MCV (RBC) [Entitic vol] 106.2 fL Critically high 80.0-94.0 [facility] Comment on above: Result Comment: Prev iously reported as: 114.6 On 04/06/2022 08:01 By RC01 Performed By: #### C BC #### [facility] [address] [place] [address] Dr. Gabbi Cummings MONO # 0.4 103/ul Normal 0.3-0.8 [facility] Comment on above: Performed By: #### C BC #### [facility] [address] [place] [address] Dr. Gabbi Cummings Monocytes/100 WBC (Bld) 6.3 % Normal 1.7-12.0 [facility] Comment on above: Performed By: #### C BC #### [facility] [address] [place] [address] Dr. Gabbi Cummings NEUT # 4.8 103/ul Normal 1.4-6.5 [facility] Comment on above: Result Comment: Prev iously reported as: 4.2 On 04/06/2022 08:01 By RC01 Performed By: #### C BC #### [facility] [address] [place] [address] Dr. Gabbi Cummings Neutrophils/100 WBC (Bld) 75.3 % Critically high 43.0-75.0 [facility] Comment on above: Result Comment: Prev iously reported as: 74.0 On 04/06/2022 08:01 By RC01 Performed By: #### C BC #### [facility] [address] [place] [address] Dr. Gabbi Cummings Platelet mean volume (Bld) [Entitic vol] 9.9 fL Normal 9.5-13.5 [facility] Comment on above: Result Comment: Prev iously reported as: 10.2 On 04/06/2022 08:01 By RC01 Performed By: #### C BC #### [facility] [address] [place] [address] Dr. Gabbi Cummings PLT 217 103/ul Normal 150-450 [facility] Comment on above: Result Comment: Prev iously reported as: 194 On 04/06/2022 08:01 By RC01 Performed By: #### C BC #### [facility] [address] [place] [address] Dr. Gabbi Cummings RBC 4.04 106/ul Critically low 4.70-6.10 [facility] Comment on above: Result Comment: Prev iously reported as: 1.78 On 04/06/2022 08:01 By RC01 Performed By: #### C BC #### [facility] [address] [place] [address] Dr. Gabbi Cummings WBC 6.3 103/ul Normal 4.0-11.0 [facility] Comment on above: Result Comment: Prev iously reported as: 5.7 On 04/06/2022 08:01 By RC01 Performed By: #### C BC #### [facility] [address] [place] [address] Dr. Gabbi Cummings FREE THYROXINE INDEX T7on FTI 2.70 Normal 1.30-4.50 [facility] Comment on above: Performed By: #### T SH, T7, CMP, LIPID, URIC #### [facility] [address] [place] [address] Dr. Gabbi Cummings T3U 38.0 % Normal 33.0-40.0 [facility] Comment on above: Performed By: #### T SH, T7, CMP, LIPID, URIC #### [facility] [address] [address] [address] Gabbi Cummings T4 [Mass/Vol] 7.10 ug/dL Normal 4.50-12.10 [facility] [place] Comment on above: Performed By: #### T SH, T7, CMP, LIPID, URIC #### [facility] [address] [address] [address] Gabbi Cummings GLYCOHEMOGLOBIN A1Con 2022 ADA RECOMMENDATION SEE BELOW Normal [facility] Comment on above: Result Comment: ADA RECOMMENDED LIMIT 4.0 - 6.0 ADA THERAPEUTIC TARGET < 7.0 ACTION SUGGESTED > 7.0 Performed By: #### A 1C #### [facility] [address] [place] [address] Dr. Gabbi Cummings Glucose [Mass/Vol] 100 mg/dL Normal [facility] Comment on above: Performed By: #### A 1C #### [facility] [address] [place] [address] Dr. Gabbi Cummings HbA1c (Bld) [Mass fraction] 5.1 % Normal 4.5-6.2 [facility] Comment on above: Performed By: #### A 1C #### [facility] [address] [place] [address] Dr. Gabbi Cummings LIPID PROFILEon 04-06-2022 CHOL-HDL RATIO NORM SEE BELOW Normal [facility] Comment on above: Result Comment: 3.3 - 4.4 LOW RISK 4.4 - 7.1 AVERAGE RISK 7.1 - 11.0 MODERATE RISK >11.0 HIGH RISK Performed By: #### T SH, T7, CMP, LIPID, URIC #### [facility] [address] [place] [address] Dr. Gabbi Cummings Cholesterol [Mass/Vol] 90 mg/dL Normal <=200 [facility] Comment on above: Performed By: #### T SH, T7, CMP, LIPID, URIC #### [facility] [address] [place] [address] Dr. Gabbi Cummings Cholesterol in HDL [Mass/Vol] 37 mg/dL Critically low 40-60 [facility] Comment on above: Performed By: #### T SH, T7, CMP, LIPID, URIC #### [facility] [address] [address] [address] Gabbi Cummings Cholesterol in LDL [Mass/Vol] 35.0 mg/dL Normal [facility] Comment on above: Performed By: #### T SH, T7, CMP, LIPID, URIC #### [facility] [address] [address] [address] Gabbi Cummings Cholesterol.total/Ch olesterol in HDL [Mass ratio] 2.4 {ratio} Normal [facility] Comment on above: Performed By: #### T SH, T7, CMP, LIPID, URIC #### [facility] [address] [address] [address] Gabbi Cummings HDL NORMAL > or = 60 mg/dl - LO W CARDIOVASCULAR RISK <40 mg/dl - HIGH CARDIOVASCULAR RISK Normal [facility] Comment on above: Performed By: #### T SH, T7, CMP, LIPID, URIC #### [facility] [address] [address] [address] Gabbi Cummings LDL CALC NORMAL SEE BELOW Normal [facility] Comment on above: Result Comment: <100 mg/dl OPTIMAL 100 - 129 mg/dl NEAR OR ABOVE OPTIMAL 130 - 159 mg/dl BORDERLINE HIGH 160 - 189 mg/dl HIGH >190 mg/dl VERY HIGH Performed By: #### T SH, T7, CMP, LIPID, URIC #### [facility] [address] [address] [address] Gabbi Cummings Triglyceride [Mass/Vol] 90 mg/dL Normal <=150 [facility] Comment on above: Performed By: #### T SH, T7, CMP, LIPID, URIC #### [facility] [address] [address] [address] Gabbi Cummings VLDL CALC 18.0 mg/dL Normal [facility] Comment on above: Performed By: #### T SH, T7, CMP, LIPID, URIC #### [facility] [address] [place] [address] Dr. Gabbi Cummings PERIPHERAL SMEARon 3 Pathologist Cyto stain Nom (Cvx/Vag) [ID] DR. YVONNE ALONZO Normal [facility] Comment on above: Result Comment: LYMP HOPENIA OF UNCERTAIN ETIOLOGY; REACTIVE FORMATION PRESENT Performed By: #### P ERSMR #### [facility] [address] [place] [address] Dr. Gabbi Cummings PROF 14(COMP METB)on 023 Albumin [Mass/Vol] 4.1 g/dL Normal 3.4-5.0 [facility] Comment on above: Performed By: #### T SH, T7, CMP, LIPID, URIC #### [facility] [address] [place] [address] Dr. Gabbi Cummings Albumin/Globulin [Mass ratio] 1.2 {ratio} Normal [facility] Comment on above: Performed By: #### T SH, T7, CMP, LIPID, URIC #### [facility] [address] [place] [address] Dr. Gabbi Cummings ALP [Catalytic activity/Vol] 100 U/L Normal 46-116 [facility] Comment on above: Performed By: #### T SH, T7, CMP, LIPID, URIC #### [facility] [address] [place] [address] Dr. Gabbi Cummings ALT [Catalytic activity/Vol] 43 U/L Normal 16-63 [facility] Comment on above: Performed By: #### T SH, T7, CMP, LIPID, URIC #### [facility] [address] [place] [address] Dr. Gabbi Cummings Anion gap [Moles/Vol] 11.2 mmol/L Normal [facility] Comment on above: Performed By: #### T SH, T7, CMP, LIPID, URIC #### [facility] [address] [place] [address] Dr. Gabbi Cummings AST [Catalytic activity/Vol] 20 U/L Normal 15-37 [facility] Comment on above: Performed By: #### T SH, T7, CMP, LIPID, URIC #### [facility] [address] [address] [address] Gabbi Cummings Bilirubin [Mass/Vol] 1.6 mg/dL Critically high 0.2-1.0 [facility] Comment on above: Performed By: #### T SH, T7, CMP, LIPID, URIC #### [facility] [address] [address] [address] Gabbi Cummings Calcium [Mass/Vol] 9.1 mg/dL Normal 8.5-10.1 [facility] Comment on above: Performed By: #### T SH, T7, CMP, LIPID, URIC #### [facility] [address] [place] [address] Dr. Gabbi Cummings Chloride [Moles/Vol] 105 mmol/L Normal 98-107 [facility] Comment on above: Performed By: #### T SH, T7, CMP, LIPID, URIC #### [facility] [address] [place] [address] Dr. Gabbi Cummings CO2 [Moles/Vol] 28.8 mmol/L Normal 21.0-32.0 [facility] Comment on above: Performed By: #### T SH, T7, CMP, LIPID, URIC #### [facility] [address] [place] [address] Dr. Gabbi Cummings Creatinine [Mass/Vol] 0.97 mg/dL Normal 0.70-1.30 [facility] Comment on above: Performed By: #### T SH, T7, CMP, LIPID, URIC #### [facility] [address] [place] [address] Dr. Gabbi Cummings EGFR-AF SALVADOREAN >60 Normal >=60 [facility] Comment on above: Performed By: #### T SH, T7, CMP, LIPID, URIC #### [facility] [address] [place] [address] Dr. Gabbi Cummings EGFR-NON AF SALVADOREAN >60 Normal >=60 [facility] Comment on above: Performed By: #### T SH, T7, CMP, LIPID, URIC #### [facility] [address] [place] [address] Dr. Gabbi Cummings Globulin (S) [Mass/Vol] 3.4 g/dL Normal [facility] Comment on above: Performed By: #### T SH, T7, CMP, LIPID, URIC #### [facility] [address] [place] [address] Dr. Gabbi Cummings Glucose [Mass/Vol] 109 mg/dL Critically high 74-106 [facility] Comment on above: Performed By: #### T SH, T7, CMP, LIPID, URIC #### [facility] [address] [place] [address] Dr. Gabbi Cummings Potassium [Moles/Vol] 4.0 mmol/L Normal 3.5-5.1 [facility] Comment on above: Performed By: #### T SH, T7, CMP, LIPID, URIC #### [facility] [address] [place] [address] Dr. Gabbi Cummings Protein [Mass/Vol] 7.5 g/dL Normal 6.4-8.2 [facility] Comment on above: Performed By: #### T SH, T7, CMP, LIPID, URIC #### [facility] [address] [place] [address] Dr. Gabbi Cummings Sodium [Moles/Vol] 141 mmol/L Normal 136-145 [facility] Comment on above: Performed By: #### T SH, T7, CMP, LIPID, URIC #### [facility] [address] [place] [address] Dr. Gabbi Cummings Urea nitrogen [Mass/Vol] 17.0 mg/dL Normal 7.0-18.0 [facility] Comment on above: Performed By: #### T SH, T7, CMP, LIPID, URIC #### [facility] [address] [place] [address] Dr. Gabbi Cummings Urea nitrogen/Creatinine [Mass ratio] 17.5 mg/mg Normal [facility] Comment on above: Performed By: #### T SH, T7, CMP, LIPID, URIC #### [facility] [address] [place] [address] Dr. Gabbi Cummings TSHon 04-06-2022 TSH 0.655 uIU/mL Normal 0.358-3.740 [facility] Comment on above: Performed By: #### T SH, T7, CMP, LIPID, URIC #### [facility] [address], [place] [address] Dr. Gabbi Cummings URIC ACID SERUMon 04-06-2022 Urate [Mass/Vol] 5.1 mg/dL Normal 3.5-7.2 [facility] Comment on above: Performed By: #### T SH, T7, CMP, LIPID, URIC #### [facility] [address], [place] [address] Dr. Gabbi Cummings COAGULATIONOrdered By: Yakelin Patel on 10-09-2021 aPTT Coag (PPP) [Time] 51.9 s High 25.1 - 36.5 second(s) [facility] Auto Coag INR Coag (PPP) [Relative time] 1.1 {INR} Invalid Interpretation Code [facility]ag PT Coag (PPP) [Time] 12.7 s Normal 10.2 - 12.9 second(s) [facility] Coag ECHOCARDIO M/2D COMPLETEon 0 09-09-2021 ECHOCARDIO M/2D COMPLETE Patient: LUIS ALBERTO OCAMPO Exam Date: 09/09/2021 : 1945 Gender:M Ordering : ELAINE MONTERO Admission #: [id number] Family : DR LUIS DANIEL GALICIA . Order #: [id number] CLICK HERE TO VIEW EXAM ECHOCARDIOGRAM REPORT [...] Area(A4C): 14.40 cm2 Left Atrium Systolic Volume(A2C): 42811 mm3 Left Atrium Systolic Volume(A4C): 72663 mm3 Mitral Valve MV E to A [...] Nate Thapa M.D. on 09/09/2021 at 18:36 [facility] CHEMISTRYOrdered By: SYSTEM SYSTEM on [...] rate/Area] mL/min/1.73 m2 Normal >=59mL/min/ 1.73 m2 [facility] Chem S Glucose [Mass/Vol] 122 mg/dL Normal 55 - 199 mg/dL [facility] Remisol Potassium [Moles/Vol] 4.7 mmol/L Normal 3.5 - 5.3 mmol/L [facility] Remisol Sodium [Moles/Vol] 139 mmol/L Normal 135 - 145 mmol/L [facility] Remisol Urea nitrogen [Mass/Vol] 22 mg/dL High 5 - 21 mg/dL [facility] Remisol Urea nitrogen/Creatinine [Mass ratio] 20 mg/mg [...] AM) Normal Negative [facility] UA Auto SS Luck.plasma/Lithi um.RBC (Bld) [Mass ratio] 0-3 /HPF Normal 0-3/HPF [facility] UA Auto SS Mucus Ql (Urine sed) 2+ (08/11/21 7:44 AM) Normal [facility] UA Auto SS Nitrite Ql (U) Negative (08/11/21 7:44 AM) Normal Negative [facility] UA Auto SS pH (U) 6.0 *NA* (08/11/21 7:44 AM) Invalid Interpretation Code 5.0 - 9.0 [facility] UA Auto SS Protein (U) [Mass/Vol] Negative (08/11/21 7:44 AM) Normal Negative [facility] UA Auto SS Specific gravity (U) [Rel density] 1.025 *NA* (08/11/21 7:44 AM) Invalid Interpretation Code 1.005 - 1.030 [facility] UA Auto SS UA Spec Desc Clean Catch (08/11/21 7:44 AM) Normal [facility] UA Auto SS Urobilinogen Qn (U) [id number] {June'U}/dL Normal 0.0 - 1.0 EU/dL [facility] UA Auto SS WBC Auto Ql (U) Negative (08/11/21 7:44 AM) Normal Negative [facility] UA Auto SS WBC casts LM.LPF (Urine sed) [#/Area] 0-3 (08/11/21 7:44 AM) Normal [facility] UA Auto SS WBC LM.HPF (Urine sed) [#/Area] 0-5 /HPF Normal 0-5/HPF [facility] UA Auto SS COVID-19 [facility] 06-08-19 21 SARS-CoV-2 (COVID-19) RNA RYNE+probe Ql (Unsp spec) Not detected Normal Not Detected [facility] Comment on above: Order Comment: Healt hcare Worker?: N Result Comment: This nucleic acid amplification test was developed and its performance characteristics determined by [employer]. Nucleic acid amplification tests include RT- PCR [...] detected) result in this assay. PERFORMED BY: [id number] [place] [address] PATHOLOGIST CAR BLOCKER LUZ MARINA RAYO M.D. Performed By: #### C ORONAVIRUS #### [facility] , No Panel Information [facility] Vital Signs Date Time Vital Sign Value Performing Clinician Facility 03-31-2023 15:00-0500 Blood Pressure Location [facility] 03-31-2023 15:00-0500 Diastolic blood pressure 70 mm[Hg] [facility] 03-31-2023 15:00-0500 Heart rate 100 /min [facility] 03-31-2023 15:00-0500 Systolic blood pressure 124 mm[Hg] [facility] 08-25-2022 16:00-0400 Body temperature 98.29 [degF] CHACHO Kaiser MD Work Phone: [facility] 08-25-2022 16:00-0400 Body weight 98.25 kg CHACHO Kaiser MD Work Phone: [facility] 08-25-2022 16:00-0400 Diastolic blood pressure 84 mm[Hg] CHACHO Kaiser MD Work Phone: [facility] 08-25-2022 16:00-0400 Heart rate 91 /min CHACHO Kaiser MD Work Phone: [facility] 08-25-2022 16:00-0400 SaO2% (BldA) [Mass fraction] 97 % CHACHO Kaiser MD Work Phone: [facility] 08-25-2022 16:00-0400 Systolic blood pressure 133 mm[Hg] CHACHO Kaiser MD Work Phone: [facility] 08-25-2022 08:47-0400 Blood Pressure Location Dakotah PELAYO [facility] 08-25-2022 08:47-0400 Diastolic blood pressure 83 mm[Hg] Dakotah COOK [facility] 08-25-2022 08:47-0400 Heart rate 84 /min Dakotah COOK [facility] 08-25-2022 08:47-0400 Respiratory rate 16 /min Dakotah COOK [facility] 08-25-2022 08:47-0400 Systolic blood pressure 127 mm[Hg] Dakotah COOK [facility] 04-16-2022 15:54-0500 Diastolic blood pressure 77 mm[Hg] Jigar Snjohus Softwaretkowski DO Work Phone: [facility] 04-16-2022 15:54-0500 Heart rate 87 /min Jigar Gostkowski DO Work Phone: [facility] 04-16-2022 15:54-0500 Systolic blood pressure 149 mm[Hg] Jigar Gostkowski DO Work Phone: [facility] 03-16-2022 08:25-0500 Blood Pressure Location Dakotah COOK [facility] 03-16-2022 08:25-0500 Diastolic blood pressure 97 mm[Hg] Dakotah COOK [facility] 03-16-2022 08:25-0500 Heart rate 92 /min Dakotah COOK [facility] 03-16-2022 08:25-0500 Systolic blood pressure 149 mm[Hg] Dakotah COOK [facility] 02-25-2022 15:41-0500 Body temperature 97.59 [degF] CHACHO Kaiser MD Work Phone: [facility] 02-25-2022 15:41-0500 Body weight 103.87 kg CHACHO Kaiser MD Work Phone: [facility] 02-25-2022 15:41-0500 Diastolic blood pressure 80 mm[Hg] CHACHO Kaiser MD Work Phone: [facility] 02-25-2022 15:41-0500 Heart rate 91 /min CHACHO Kaiser MD Work Phone: [facility] 02-25-2022 15:41-0500 Respiratory rate 16 /min CHACHO Kaiser MD Work Phone: [facility] 02-25-2022 15:41-0500 SaO2% (BldA) [Mass fraction] 98 % CHACHO Kaiser MD Work Phone: [facility] 02-25-2022 15:41-0500 Systolic blood pressure 137 mm[Hg] CHACHO Kaiser MD Work Phone: [facility] 02-03-2022 15:36-0500 Blood Pressure Location Dakotah PELAYO [facility] 02-03-2022 15:36-0500 Diastolic blood pressure 87 mm[Hg] Dakotah PELAYO [facility] 02-03-2022 15:36-0500 Heart rate 76 /min Dakotah PELAYO [facility] 02-03-2022 15:36-0500 Respiratory rate 16 /min Dakotah PELAYO [facility] 02-03-2022 15:36-0500 Systolic blood pressure 135 mm[Hg] Dakotah PELAYO [facility] 12-11-2021 09:46-0400 Body temperature 98.1 [degF] Larry Henson MD, PhD Work Phone: [facility] 12-11-2021 09:46-0400 Body weight 104.92 kg Larry Henson MD, PhD Work Phone: [facility] 12-11-2021 09:46-0400 Diastolic blood pressure 85 mm[Hg] Larry Henson MD, PhD Work Phone: [facility] 12-11-2021 09:46-0400 Heart rate 71 /min Larry Henson MD, PhD Work Phone: [facility] 12-11-2021 09:46-0400 Respiratory rate 18 /min Larry Henson MD, PhD Work Phone: [facility] 12-11-2021 09:46-0400 SaO2% (BldA) [Mass fraction] 96 % Larry Henson MD, PhD Work Phone: [facility] 12-11-2021 09:46-0400 Systolic blood pressure 147 mm[Hg] Larry Henson MD, PhD Work Phone: [facility] 10-09-2021 11:54-0400 Blood Pressure Location [facility] 10-09-2021 11:54-0400 Diastolic blood pressure 81 mm[Hg] [facility] 10-09-2021 11:54-0400 Heart rate 71 /min [facility] 10-09-2021 11:54-0400 Mean blood pressure 104 mm[Hg] [facility] 10-09-2021 11:54-0400 Respiratory rate 20 /min [facility] 10-09-2021 11:54-0400 SaO2% (BldA) [Mass fraction] 93 % [facility] 10-09-2021 11:54-0400 Systolic blood pressure 149 mm[Hg] [facility] 10-09-2021 11:00-0400 Blood Pressure Location [facility] 10-09-2021 11:00-0400 Diastolic blood pressure 85 mm[Hg] [facility] 10-09-2021 11:00-0400 Heart rate 73 /min [facility] 10-09-2021 11:00-0400 Mean blood pressure 107 mm[Hg] [facility] 10-09-2021 11:00-0400 Respiratory rate 20 /min [facility] [facility] 10-09-2021 11:00-0400 SaO2% (BldA) [Mass fraction] 93 % [facility] 10-09-2021 11:00-0400 Systolic blood pressure 151 mm[Hg] [facility] 10-09-2021 10:55-0400 Body temperature 98.78 [degF] [facility] 10-09-2021 10:55-0400 Diastolic blood pressure 81 mm[Hg] [facility] 10-09-2021 10:55-0400 Heart rate 71 /min [facility] 10-09-2021 10:55-0400 Respiratory rate 11 /min [facility] 10-09-2021 10:55-0400 SaO2% (BldA) [Mass fraction] 93 % [facility] 10-09-2021 10:55-0400 Systolic blood pressure 141 mm[Hg] [facility] 10-09-2021 10:45-0400 Respiratory rate 16 /min [facility] 10-09-2021 10:40-0400 Respiratory rate 11 /min [facility] 10-09-2021 10:30-0400 Blood Pressure Location [facility] 10-09-2021 10:30-0400 Body temperature 99.32 [degF] [facility] 10-09-2021 10:25-0400 Respiratory rate 8 /min [facility] 10-09-2021 08:24-0400 Mean blood pressure 100 mm[Hg] [facility] 10-09-2021 08:23-0400 Body temperature 97.7 [degF] [facility] 10-09-2021 08:23-0400 Heart rate 76 /min [facility] 08-28-2021 14:01-0400 Body temperature 98.71 [degF] CHACHO Kaiser MD Work Phone: [facility] 08-28-2021 14:01-0400 Body weight 102.24 kg CHACHO Kaiser MD Work Phone: [facility] 08-28-2021 14:01-0400 Diastolic blood pressure 85 mm[Hg] CHACHO Kaiser MD Work Phone: [facility] 08-28-2021 14:01-0400 Heart rate 102 /min CHACHO Kaiser MD Work Phone: [facility] 08-28-2021 14:01-0400 Respiratory rate 18 /min CHACHO Kaiser MD Work Phone: [facility] 08-28-2021 14:01-0400 SaO2% (BldA) [Mass fraction] 96 % CHACHO Kaiser MD Work Phone: [facility] 08-28-2021 14:01-0400 Systolic blood pressure 141 mm[Hg] CHACHO Kaiser MD Work Phone: [facility] 08-11-2021 07:17-0400 Blood Pressure Location [facility] 08-11-2021 07:17-0400 Body temperature 98.24 [degF] [facility] 08-11-2021 07:17-0400 Diastolic blood pressure 74 mm[Hg] [facility] 08-11-2021 07:17-0400 Heart rate 84 /min [facility] 08-11-2021 07:17-0400 Mean blood pressure 89 mm[Hg] [facility] 08-11-2021 07:17-0400 SaO2% (BldA) [Mass fraction] 96 % [facility] 08-11-2021 07:17-0400 Systolic blood pressure 119 mm[Hg] [facility] 08-11-2021 07:16-0400 Blood Pressure Location [facility] 08-11-2021 07:16-0400 BP/Pulse Patient Position [facility] 08-11-2021 07:16-0400 Diastolic blood pressure 78 mm[Hg] [facility] 08-11-2021 07:16-0400 Heart rate 93 /min [facility] 08-11-2021 07:16-0400 Mean blood pressure 96 mm[Hg] [facility] 08-11-2021 07:16-0400 Respiratory rate 18 /min [facility] 08-11-2021 07:16-0400 Systolic blood pressure 132 mm[Hg] [facility] 06-23-2021 11:18-0400 Blood Pressure Location [facility] 06-23-2021 11:18-0400 Diastolic blood pressure 89 mm[Hg] [facility] 06-23-2021 11:18-0400 Heart rate 87 /min [facility] 06-23-2021 11:18-0400 Respiratory rate 16 /min [facility] 06-23-2021 11:18-0400 Systolic blood pressure 135 mm[Hg] 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); Pseudophakia; Brow ptosis, left Start: 11-11-2023 End: 11-11-2023 ambulatory [facility] Start: 10-01-2023 End: 10-01-2023 ambulatory [facility] Start: 08-31-2023 End: 08-31-2023 ambulatory WHITNEY D BEJ Not Available Start: 08-05-2023 End: 08-05-2023 ambulatory [facility] Start: 07-07-2023 ambulatory [facility] Start: 06-30-2023 End: 06-30-2023 ambulatory [facility] Start: 06-29-2023 End: 06-29-2023 ambulatory WHITNEY D BEJ Not Available Start: 06-17-2023 End: 06-17-2023 ambulatory [facility] Start: 04-21-2023 Telephone encounter [facility] Provider [facility] Comment on above: Appointment Start: 04-16-2023 End: 04-16-2023 ambulatory [facility] Facility:[facility] Start: 04-16-2023 End: 04-16-2023 Subsequent hospital visit by physician Arrival Time Radiology Work Phone: Radiology Pet [facility] Comment on above: 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] Start: 04-01-2023 End: 04-01-2023 ambulatory LUIS DANIEL GALICIA Facility:[facility] Start: 03-31-2023 End: 04-01-2023 ambulatory Ivy Waters Facility: [facility] Start: 03-31-2023 End: 03-31-2023 Patient encounter procedure Ivy X Rustyzech [facility] Start: 03-02-2023 End: 03-03-2023 ambulatory LUIS DANIEL GALICIA Facility:[facility] Start: 02-24-2023 End: 02-24-2023 ambulatory Dillan KAISER Facility:[facility] Start: 02-16-2023 End: 02-17-2023 ambulatory Dakotah PELAYO Facility:[facility] Start: 02-16-2023 End: 02-16-2023 Patient encounter procedure Dakotah PELAYO [facility] Start: 11-16-2022 End: 11-16-2022 Patient encounter procedure Freda Hendrix OD Work Phone: Ophthalmology Comment on above: S/P YAG capsulotomy, bilateral (Primary Dx); Pseudophakia; Insufficiency of tear film of both eyes Start: 11-05-2022 End: 11-05-2022 Office outpatient new 45 minutes Lanie Hugo MD Work Phone: Ophthalmology Comment on above: 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); Pseudophakia; Insufficiency of tear film of both eyes Start: 09-30-2022 Refill Jigar little DO Work Phone: [facility] Comment on above: Refill Request Start: 08-28-2022 End: 08-28-2022 Subsequent hospital visit by physician Arrival Time Radiology Work Phone: Radiology [facility] Start: 08-25-2022 End: 08-26-2022 ambulatory Dakotah PELAYO Facility:[facility] Start: 08-25-2022 End: 08-26-2022 ambulatory Dakotah PELAYO Facility:[facility] Start: 08-25-2022 End: 08-25-2022 Lab Drop off Dakotah PELAYO [facility] Start: 08-25-2022 End: 08-26-2022 Patient encounter procedure Dakotah PELAYO [facility] Comment on above: Malignant neoplasm o f prostate (HCC) (Primary Dx) Start: 07-20-2022 End: 07-21-2022 ambulatory Dakotah PELAYO Facility: [facility] Start: 05-26-2022 End: 05-26-2022 ambulatory Jigar Stanford DO Work Phone: [facility] Comment on above: Primary parkinsonism (HCC) (Primary Dx); Tremor Start: 05-26-2022 End: 05-26-2022 Telemedicine consultation with patient Jigar Stanford DO Work Phone: [facility] Start: 05-08-2022 ambulatory Jigar Gold Keiry little DO Work Phone: Neurology Comment on above: Just on May 06 Start: 04-20-2022 Telephone encounter Joy Zuñiga (Pss) ent [facility] Imaging Comment on above: nm vijay scan Start: 04-16-2022 End: 04-16-2022 Patient encounter procedure Jigar Gold Hien DO Work Phone: Neurology Comment on above: Tremor (Primary Dx); Other symptoms and signs involving the nervous system Start: 04-06-2022 End: 04-07-[address] LUIS DANIEL GALICIA Facility: Start: 03-16-2022 End: 03-16-2022 Patient encounter procedure Dakotah PELAYO [facility] Start: 02-25-2022 End: 02-25-2022 Patient encounter procedure Dillan Kaiser MD Work Phone: Radiation Oncology Comment on above: Malignant neoplasm o f prostate (HCC) (Primary Dx) Start: 02-03-2022 End: 02-03-2022 Patient encounter procedure Dakotah PELAYO [facility] [place] Start: 01-14-2022 End: 01-14-2022 Patient encounter procedure SONIDO Raymundo HALLE [facility] Start: 01-12-2022 End: 01-12-2022 Patient encounter procedure Dakotah PELAYO [facility] Start: 12-11-2021 End: 12-11-2021 ambulatory Larry Henson MD, PhD Work Phone: Hematology/Oncology Comment on above: Tremor (Primary Dx); Extranodal marginal zone B-cell lymphoma (HCC) Start: 12-11-2021 End: 12-11-2021 Patient encounter procedure Larry Henson MD, PhD Work Phone: [facility] Start: 11-18-2021 End: 11-18-2021 Patient encounter procedure Dakotah PELAYO [facility] Start: 10-21-2021 Telephone encounter Larry agarwal MD, PhD Work Phone: Hematology/Oncology Comment on above: Care Coordination (N eurologist Referral ) Start: 10-09-2021 End: 10-09-2021 Admission to same day surgery center [facility] Start: 09-09-2021 End: 09-10-2021 ambulatory ELAINE FINNEGANER Facility:[facility] Start: 08-28-2021 End: 08-28-2021 Patient encounter procedure Dillan Kaiser MD Work Phone: Radiation Oncology Comment on above: Malignant neoplasm o f prostate (HCC) (Primary Dx) Start: 08-11-2021 End: 08-11-2021 Patient encounter procedure [facility] Start: 08-11-2021 End: 08-11-2021 Preprocedural examination done [facility] Start: 07-21-2021 End: 07-21-2021 Patient encounter procedure [facility] Jr[facility] Start: 06-23-2021 End: 06-23-2021 Patient encounter procedure 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) Start: 05-28-2021 Telephone encounter Odette amos OD Work Phone: Ophthalmology Comment on above: Patient Question Start: 02-15-2020 Preprocedural examin ation done Marissa Leija MD Work Phone: [facility] Work Phone: Procedures Date Procedure Procedure Detail Performing Clinician Start: 06-17-2023 Follow-up visit Follow-up COLEEN HAYWARD Start: 04-16-2023 Ct abdomen & pelvis w/contrast material Larry Henson MD, PhD Work Phone: Start: 04-16-2023 Ct thorax w/contrast material Larry Henson MD, PhD Work Phone: Start: 11-05-2022 End: 11-05-2022 Post-cataract laser surgery Lanie Hugo MD Work Phone: Start: 01-12-2022 Transurethral insert ion of prostatic urethral lift implant Dakotah PIERCE Start: 10-09-2021 Cystoscopy Dakotah GONZALEZ Comment on [...] Detail Author Start: 02-24-2026 Diabetes Screening [facility] Start: 12-11-2024 DIABETES SCREEN DIABETES SCREEN [facility] Start: 12-11-2024 Diabetes Screening Diabetes Screendebora michaels [facility] Start: 11-20-2024 End: 11-20-2024 Patient encounter procedure 11/20/2024 3:00 PM EDT Office Visit [facility] Ophthalmology [address] [facility] [place] [address] Odette Barrett, OD [address] [place] [address] RTC 1 year Full Ophthalmology Comment on above: RTC 1 year Full Start: 03-02-2024 End: 03-02-2024 ambulatory 03/02/2024 3:45 PM EST Results Only [facility] [address] [place] [address] [place] [address] [facility] Start: 03-02-2024 End: 03-02-2024 Patient encounter procedure 03/02/2024 1:30 PM EST Office Visit Radiation Oncology [address] [place] [address] Dillan Kaiser MD [address] [place] [address] 1yr f/u Radiation Oncology Comment on above: 1yr f/u Start: 11-20-2023 DIABETES SCREEN DIABETES SCREEN [facility] Start: 11-19-2023 End: 11-19-2023 Patient encounter procedure 11/19/2023 2:45 PM EDT Office Visit [facility] Ophthalmology [address] [place] [address] Odette Barrett, OD [address] [place] [address] 1 year full exam Ophthalmology Comment on above: 1 year full exam Start: 10-31-2023 Covid-19 Vaccine () Covid-19 Vaccine () [facility] Start: 10-31-2023 Influenza vaccination Influenza Vacc ine (#1) [facility] Start: 03-01-2023 Advance Directive Discussion Advance Directive Discussion [facility] Start: 03-01-2023 Depression Assessment Depression Ass essment [facility] Start: 02-24-2023 End: 04-26-2023 Prostate specific Ag [Mass/volume] in Serum or Plasma PSA/PROSTSPECAG DIAG Lab Routine Malignant neoplasm of prostate (HCC) Expected: 02/24/2023, Expires: 04/26/2023 [facility] Work Phone: Comment on above: Expected: 02/24/2023 , Expires: 04/26/2023 Start: 10-30-2022 Covid-19 Vaccine () Covid-19 Vaccine () [facility] Start: 10-30-2022 Influenza vaccination [facility] Start: 08-26-2022 End: 10-26-2022 Prostate specific Ag [Mass/volume] in Serum or Plasma PSA/PROSTSPECAG DIAG Lab Routine Malignant neoplasm of prostate (HCC) Expected: 08/26/2022, Expires: 10/26/2022 [facility] Work Phone: Comment on above: Expected: 08/26/2022 , Expires: 10/26/2022 Start: 08-25-2022 Adult depression screening assessment DEPRESSION SCREENING [facility] Start: 03-01-2022 ADVANCE DIRECTIVE DISCUSSION ADVANCE DIRECTIVE DISCUSSION [facility] Start: 03-01-2022 DEPRESSION ASSESSMENT DEPRESSION ASS ESSMENT [facility] Start: 02-27-2022 End: 04-29-2022 Prostate specific Ag [Mass/volume] in Serum or Plasma PSA/PROSTSPECAG DIAG Lab Routine Malignant neoplasm of prostate (HCC) Expected: 02/27/2022, Expires: 04/29/2022 [facility] Work Phone: Comment on above: Expected: 02/27/2022 , Expires: 04/29/2022 Start: 02-24-2022 Adult depression screening assessment DEPRESSION SCREENING [facility] Start: 10-30-2021 Influenza vaccination INFLUENZA (#1) [facility] Start: 03-01-2021 ADVANCE DIRECTIVE DISCUSSION ADVANCE DIRECTIVE DISCUSSION [facility] Start: 03-01-2021 DEPRESSION ASSESSMENT DEPRESSION ASS ESSMENT [facility] Start: 02-14-2021 COVID-19 VACCINE (5 - Booster) COVID-19 VACCINE (5 - Booster) [facility] Start: 12-10-2020 COVID-19 VACCINE (3 - Booster for Aisha series) COVID-19 VACCINE (3 - Booster for Aisha series) [facility] Start: 12-10-2020 COVID-19 VACCINE (3 - Aisha risk series) COVID-19 VACCINE (3 - Aisha risk series) [facility] Start: 06-08-2012 PNEUMOVAX AGE 65 AND OVER WITH 5YR LOOKBACK (#1) PNEUMOVAX AGE 65 AND OVER WITH 5YR LOOKBACK (#1) [facility] Start: 2007 RSV Vaccine (1 - 1-d ose 60+ series) RSV Vaccine (1 - 1-dose 60+ series) [facility] Start: 06-08-1997 SHINGRIX VACCINE (1 of 2) SHINGRIX VACCINE (1 of 2) [facility] Start: 06-08-1992 COLOGUARD (FIT-DNA) COLOGUARD (FIT-D NA) [facility] Start: 06-08-1992 Colonoscopy COLONOSCOPY [facility] Start: 06-08-1992 COLORECTAL CANCER SCREENING COLORECTAL CANCER SCREENING [facility] Start: 06-08-[address] COLONOGRAPHY [facility] Start: 06-08-1992 FECAL OCCULT BLOOD FECAL OCCULT BLOO D [facility] Start: 06-08-1992 Screening for malign ant neoplasm of colon [facility] Start: 06-08-1992 SIGMOIDOSCOPY SIGMOIDOSCOPY [facility] Start: 06-08-1982 Lipid 1996 panel - Serum or Plasma Lipid Screening [facility] Start: 06-08-1982 Lipid panel Lipid Screening [facility] Start: 06-08-1982 LIPID SCREEN LIPID SCREEN [facility] Start: 06-08-1966 SHINGRIX VACCINE (1 of 2) SHINGRIX VACCINE (1 of 2) [facility] Start: 06-08-1966 Urine microalbumin profile [facility] Start: 06-08-1965 Anxiety Screening Anxiety Screening [facility] Start: 06-08-1965 Depression Screening Depression Scre ening [facility] Start: 06-08-1953 Pneumococcal Vaccine : 65+ (1 - PCV) Pneumococcal Vaccine: 65+ (1 - PCV) [facility] Start: 06-08-1953 Pneumococcal Vaccine : 65+ (1 of 2 - PCV) Pneumococcal Vaccine: 65+ (1 of 2 - PCV) [facility] Start: 06-08-1953 PNEUMOCOCCAL: 65+ (1 - PCV) PNEUMOCOCCAL: 65+ (1 - PCV) [facility] Start: 1947 ABDOMINAL AORTIC ANEURYSM SCREENING ABDOMINAL AORTIC ANEURYSM SCREENING [facility] End: 05-15-2023 NM BRAIN SPECT NM BRAIN SPECT Radiology Routine Other symptoms and signs involving the nervous system 1 Occurrences starting 04/16/2022 until 05/15/2023 [facility] Work Phone: Comment on above: 1 Occurrences starti ng 04/16/2022 until 05/15/2023 End: 05-20-2024 SPIROMETRY - BASELINE AND POST DILATOR SPIROMETRY - BASELINE AND POST DILATOR PFT Routine Bronchiectasis without acute exacerbation (HCC) 1 Occurrences starting 04/21/2023 until 05/20/2024 [facility] Comment on above: 1 Occurrences starti ng 04/21/2023 until 05/20/2024 [facility] [place] [facility] Immunizations Immunization Date Immunization Notes Care Provider [facility] 12-30-2022 influenza virus vaccine, unspecified formulation Ivy Waters [facility] 12-09-2020 influenza virus vaccine, unspecified formulation Dakotah PELAYO [facility] 12-09-2020 influenza, high-dose , quadrivalent vaccine (FLUZONE HIGH DOSE QUADRIVALENT) Marissa Leija MD Work Phone: [facility] 12-05-2020 influenza nasal, unspecified formulation CHACHO Kaiser MD Work Phone: [facility] 12-05-2020 influenza virus vaccine, unspecified formulation Sup[facility] Dickens Jr[facility] 10-15-2020 SARS-CoV-2 (COVID-19 ) Ad26 vaccine, recombinant [facility] Jr[facility] 09-05-2020 SARS-CoV-2 (COVID-19 ) Ad26 vaccine, recombinant [facility] Dicknes Jr[facility] 05-24-2020 SARS-CoV-2 (COVID-19 ) mRNA-1273 vaccine [facility] Jr[facility] 05-20-2020 SARS-CoV-2 (COVID-19 ) mRNA-1273 vaccine Dakotah PELAYO [facility] 05-03-2020 SARS-CoV-2 (COVID-19 ) mRNA-1273 vaccine Dakotah PELAYO [facility] 04-26-2020 SARS-CoV-2 (COVID-19 ) mRNA-1273 vaccine Supa Dickens . [facility] 12-29-2019 influenza virus vaccine, unspecified formulation Dakotah PELAYO [facility] 12-29-2019 Seasonal trivalent influenza vaccine, adjuvanted, preservative free Marissa Leija MD Work Phone: [facility] 12-13-2019 influenza virus vaccine, unspecified formulation Dakotah PIERCE [facility] 12-13-2019 influenza, seasonal, injectable Marissa Leija MD Work Phone: [facility] 12-15-2018 influenza virus vaccine, unspecified formulation Dakotah PELAYO [facility] 12-15-2018 influenza, high dose seasonal, preservative-free Marissa Leija MD Work Phone: [facility] 11-23-2018 influenza virus vaccine, live, attenuated, for intranasal use Marissa Leija MD Work Phone: [facility] 12-22-2016 influenza virus vaccine, unspecified formulation Dakotah PELAYO [facility] 12-22-2016 influenza, high dose seasonal, preservative-free Marissa Leija MD Work Phone: [facility] 11-26-2014 influenza virus vaccine, unspecified formulation Dakotah PIERCE [facility] 11-26-2014 influenza, high dose seasonal, preservative-free Marissa Leija MD Work Phone: [facility] Payers Date Payer Category Payer Medicare MEDICARE MEDICAR E A AND B [id number] 2014-Present [phone] [place] [address] Medicare [id number] 2014 Medicare MEDICARE MEDICAR E A AND B [id number] 2014-Present [phone] [place] [address] Medicare [id number] 2014 Unknown [employer] MED[employer] SUPPLEMENT [id number] 2014-Present [phone] [address] [place] [address] Indemnity [id number] 2014 Unknown [employer] SUPPLE[place] [id number] 2014-Present [phone] [address] [place] [address] Indemnity [id number] 2014 Unknown [id number] 1959 Medicare [id number] 1959 Unknown [id number] 1947 Unknown [id number] [id number] 3 1947 Unknown [id number] 2.16.840.1.121861.3.579.2.59 3 1947 Unknown [id number] 2.16.840.1.517190.3.579.2.72 7 1947 Unknown [id number] 2.16.840.1.550581.3.579.2.72 7 1947 Unknown [id number] 2.16.840.1.409681.3.579.2.72 7 1947 Unknown [id number] 2.16.840.1.884965.3.579.2.72 7 1947 Unknown [id number] 2.16.840.1.209498.3.579.2.72 7 1947 Unknown [id number] 2.16.840.1.608799.3.579.2.72 7 1947 Unknown [id number] 2.16.840.1.181011.3.579.2.12 59 1947 Unknown [id number] 2.16.840.1.083352.3.579.2.12 59 1947 Unknown [id number] 2.16.840.1.562327.3.579.2.12 86 1947 Unknown [id number] 2.16.840.1.408976.3.579.2.12 86 1947 Unknown [id number] 2.16.840.1.227980.3.579.2.12 86 1947 Unknown [id number] 2.16.840.1.149206.3.579.2.12 86 1947 Unknown [id number] 2.16.840.1.963949.3.579.2.12 86 1947 Unknown [id number] 2.16.840.1.710013.3.579.2.12 86 1947 Unknown [id number] 2.16.840.1.508310.3.579.2.12 86 1947 Unknown [id number] 2.16.840.1.936435.3.579.2.12 86 Social History Date Type Detail Facility Start: 06-23-2021 End: 02-25-2022 Tobacco smoking status NHIS Ex-smoker [facility] Start: 03-01-1969 End: 03-01-2004 History of tobacco use Current smoker [facility] [facility] Work Phone: Start: 03-01-1969 End: 03-01-2004 History of tobacco use Cigarette Smoker [facility] Work Phone: Start: 06-06-2021 End: 11-19-2023 Alcohol intake Current drinker of alcohol (finding) [facility] Start: 03-19-2021 History SDOH Alcohol Comment 1 beer per week. [facility] Start: 1945 Sex Assigned At Male [facility] Start: 05-03-2021 End: 08-28-2021 Exposure to SARS-CoV-2 (event) Not sure [facility] Start: 08-19-2022 End: 08-25-2022 Sex Assigned At Male [facility] Start: 07-11-2014 End: 08-19-2022 Cigarettes smoked current (pack per day) - Reported 2 [facility] Start: 07-11-2014 End: 02-25-2022 Tobacco use and exposure Smokeless tobacco non-user [facility] Tobacco smoking status Never [facility] Start: 05-13-2020 Gender identity Identifies as male gender (finding) [facility] Start: 05-13-2020 Sexual orientation Heterosexual (nirmala chaudhari) [facility] Medical Equipment Procedure Code Equipment Code Equipment Origin al Text Equipment Identifier Dates Lens Iol 0d +20 Jarvis Uv Abs - [id number] Start: 02-15-2020 Comment on above: Description: -0.23 Lens Iol 0d +20 Jarvis Uv Abs - [id number] Start: 06-11-2020 Comment on above: Description: -0.09 Functional Status Date Assessment Result Facility 03-31-2023 Functional Status N/A [facility] 08-25-2022 Functional Status N/A [facility] 03-16-2022 Functional Status N/A [facility] 02-03-2022 Functional Status N/A [facility] 12-29-2021 Functional Status N/A [facility] 11-18-2021 Functional Status N/A [facility] 08-11-2021 Functional Status No [facility] Clinical Notes 02-15-2020 to 11-19-2023 Odette Barrett OD - 11/19/2023 3:07 PM EDTTelephone Encounter - Bhavani Clements - 04/21/2023 12:14 PM Frandy Robles RN - 04/16/2023 7:45 AM Lizzie Henderson, RT(R) - 04/16/2023 7:45 AM EST Note Date & Type Note Facility 11-19-2023 Note HNO ID: [id number] Author: ODETTE BARRETT OD Service: ? Author Type: CREMATOR Type: Progress Notes Filed: 11/19/2023 15:12 Note Text: (H04.123) Dry eye syndrome of bilateral lacrimal glands (primary encounter diagnosis) Comment: Mild Plan: Tears PRN (H57.812) Brow ptosis, left Comment: Is affecting vision OS Plan: Plastics if desired (Z96.1) Pseudophakia Comment: IOL stable Plan: Observation RTC 1 year Full The nature of the patient's eye disease, [...] detail with the patient. Odette Barrett, OD November 19, 2023 3:08 PM [facility] 11-19-2023 History of Present illness Narrative (H04.123) Dry eye syndrome of bilateral lacrimal glands (primary encounter diagnosis) Comment: Mild Plan: Tears PRN (H57.812) Brow ptosis, left Comment: Is affecting vision OS Plan: Plastics if desired (Z96.1) Pseudophakia Comment: IOL stable Plan: Observation RTC 1 year Full The nature of the patient's eye disease, [...] detail with the patient. Odette Barrett, OD November 19, 2023 3:08 PM documented in this encounter [facility] 04-21-2023 Miscellaneous Notes Patient is requesting an appointment closer to home and not at main campus: Referring physician: Dr. Larry Henson Address: Internal Phone: Fax: Diagnosis: Bronchiectasis Are there epic records: Yes Are there care everywhere records: Yes Has a referral form been faxed: Yes Has patient been added to spreadsheet: No Routing: Please route to Olivia Quintero documented in this encounter [facility] 04-16-2023 History of Present illness Narrative [...] PATIENT PRESENTS WITH AN IMPLANTABLE OR ATTACHED PLAYERS CLUB REPRESENTATIVE: No RADIOLOGY DEPARTMENT: CT; Exam(s) Completed: Chest Abdomen Pelvis With IV and Oral contrast PERIPHERAL IV DATA: Site assessment: Clean,Dry and Intact, Site disposition Discontinued SIGNED BY: RT Linnea(R) April 16, 2023 7:50 AM documented in this encounter [facility] 04-16-2023 Note HNO ID: [id number] Author: FRANDY SKINENR RN Service: ? Author Type: Registered Nurse [...] DATE: April 16, 2023 TIME: 7:41 AM [facility] 04-16-2023 Note HNO ID: [id number] Author: LIZZIE MAC RT(R) Service: ? Author [...] PATIENT PRESENTS WITH AN IMPLANTABLE OR ATTACHED PLAYERS CLUB REPRESENTATIVE: No RADIOLOGY DEPARTMENT: CT; Exam(s) Completed: Chest Abdomen Pelvis With IV and Oral contrast PERIPHERAL IV DATA: Site assessment: Clean,Dry and Intact, Site disposition Discontinued SIGNED BY: Lizzie Mac, RT(R) April 16, 2023 7:50 AM [facility] 04-01-2023 Note HNO ID: [id number] Author: LARRY HENSON MD, PhD Service: ? Author Type: Physician Type: Progress Notes Filed: 04/01/2023 16:06 Note Text: [facility] DEPARTMENT OF HEMATOLOGY AND MEDICAL ONCOLOGY ASSESSMENT [...] seen by Dr. Luis Daniel Galicia at [place] and underwent a transthoracic CT guided needle [...] of right iritis. 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 Noted symptoms improved with eye drops, but [...] ptosis of the (more content not included)... [facility] 03-31-2023 Hospital Discharge instructions Patient [...] include: ?8 oz (237 mL) of milk, wfyqulc-zwldnyumnzqo-cxekh milk, and calcium-fortifiedfruit juice. Calcium-fortified means that [...] ?Spinach (cooked), rhubarb, beets, sweet potatoes, and [place] chard. ?Peanuts. ?Potato chips, northern irish fries, and baked potatoes with skin on. ?Nuts and nut products. ?Chocolate. If you regularly take a diuretic medicine, make sure to eat at least 1 or 2 servings of fruits or vegetables that are high in potassium each day. These include: ?Avocado. ?Banana. ?[place], prune, carrot, or tomato juice. ?Baked potato. [...] magnesium, fish oil, or vitamin B6. Take hfgp-gvz-nfqdfbn and prescription medicines only as told by [...] Casseroles. Pizza. Lasagna. Frozen meals. Potato chips. Italian fries. The items listed above may not [...] provider. Document Revised: 05/28/2022 Document Reviewed: 05/28/2022 [employer] Patient Education 2022 [employer]. 03/31/2023 19:17:52 Kidney Stones, Nquc-mm-Saed Kidney Stones Kidney stones are rock-like masses [...] Follow these instructions at home: Medicines Take nqum-iwm-fcijiib and prescription medicines only as told by [...] provider. Document Revised: 10/20/2021 Document Reviewed: 10/20/2021 [employer] Patient Education 2022 [employer]. 03/31/2023 19:17:39 Benign Prostatic Hyperplasia Benign Prostatic [...] urethra. Follow these instructions at home: Take yrbb-tsg-iozgeyx and prescription medicines only as told by [...] provider. Document Revised: 09/03/2021 Document Reviewed: 09/03/2021 [employer] Patient Education 2022 [employer]. 03/31/2023 19:17:29 Prostate Cancer Prostate Cancer The [...] under a microscope. This is called the Lutcher score and the total score can range from 6 10, indicating how likely it is that the cancer will spread (metastasize) to other parts of the body. The higher the score, the greater the likelihood that the cancer will spread. Elham 6 or lower: This indicates that the cancer cells look similar to normal prostate cells (well differentiated). Elham 7: This indicates that the cancer cells look somewhat similar to normal prostate cells (moderately differentiated). Lutcher 8, 9, or 10: This indicates that [...] stress of having cancer. General instructions Take mbei-rui-dcclldp and prescription medicines only as told by your health care provider. If you have to go to the hospital, notify your cancer specialist (oncologist). Keep all follow-up visits. This is important. Where to find more information [place] [employer] Society: www.cancer.org [place] Society of Clinical Oncology: www.cancer.net National Cancer [place]: www.cancer.gov Contact a health care provider if: [...] provider. Document Revised: 05/14/2021 Document Reviewed: 05/14/2021 [employer] Patient Education 2022 [employer]. [facility] 03-02-2023 Note HNO ID: [id number] Author: Dillan KAISER MD Service: ? Author Type: Physician Type: Progress Notes Filed: 03/05/2023 15:59 Note Text: Radiation Oncology - Follow Up Note PATIENT NAME: Luis Alberto Ocampo PATIENT DIAGNOSIS: 1. Prostate adenocarcinoma, initial PSA 5.51, biopsy Lutcher score 3 + 3 = 6 (grade [...] ASSESSMENT/PLAN: Prostate adenocarcinoma, initial PSA 5.51, biopsy Lutcher score 3 + 3 = 6 (grade [...] as active information included in the EMR. [facility] 11-16-2022 History of Present illness [...] 2022 4:03 PM documented in this encounter [facility] 11-05-2022 History of Present illness Narrative The documentation for this note was completed by ADITYA Alarcon acting as a scribe for Lanie HUGO MD. 11/05/2022 3:30 PM. ASSESSMENT / [...] patient was offered a surgery/procedure at a [facility]. The surgeon/proceduralist and patient have discussed in [...] the consent form. -F/U 1 week with cd mixer (Franki) The documentation recorded by the scribe [...] agree with all of its relevant components. Lanie HUGO MD November 05, 2022 3:30 PM [...] with all of its relevant components. Freda Hendrix OD November 05, 2022 2:59 PM documented in this encounter [facility] 09-30-2022 Miscellaneous Notes Last appt 05/26/22 [facility] Requested Prescriptions Pending Prescriptions Disp Refills carbidopa-levodopa (SINEMET 25-100) 25-100 mg per tablet 270 tablet 3 Sig: Take 1 tablet by mouth three times daily. documented in this encounter [facility] 08-28-2022 History of Present illness Narrative Radiology Service Progress Note PATIENT NAME: Luis [...] RT Linnea(R) August 28, 2022 8:49 AM documented in this encounter [facility] 08-25-2022 Nurse Note AUA=20 documented in this encounter [facility] 08-25-2022 History of Present illness Narrative Radiation Oncology - Follow Up Note PATIENT NAME: Luis Alberto Ocampo PATIENT DIAGNOSIS: 1. Prostate adenocarcinoma, initial PSA 5.51, biopsy Lutcher score 3 + 3 = 6 (grade [...] ASSESSMENT/PLAN: Prostate adenocarcinoma, initial PSA 5.51, biopsy Lutcher score 3 + 3 = 6 (grade [...] in the EMR. documented in this encounter [facility] 08-25-2022 Hospital Discharge instructions Patient Education [...] if anything looks unusual. Men with a hosmrq-ojgx-gszkcu risk for skin cancer may want to see a hide and skin classer (electrode turner and finisher) for an annual body check. What are the benefits of screening? Cancer screening is done to look for cancer in the very early stages, before it spreads and becomes harder to treat and before you would start to notice symptoms. Finding cancer early improves the chances of successful treatment. It may save your life. Where to find more information [place] Cancer Society: www.cancer.org Centers for Disease Control and Prevention: www.cdc.gov National Cancer [place]: www.cancer.gov Contact a health care provider if: [...] provider. Document Revised: 07/14/2021 Document Reviewed: 01/12/2020 [employer] Patient Education 2022 [employer]. Follow Up Care 07/28/2022 15:36:43 With:PIERCE CORONADO, Dakotah Krueger, URL Address: [address] [place], [place] [id number]- When: Unknown [facility] 05-26-2022 Instructions Jigar Stanford DO - 05/26/2022 [...] Compazine or Phenergan. documented in this encounter [facility] 05-26-2022 History of Present illness Narrative VIRTUAL VISIT PROGRESS NOTE This is a virtual visit using Vidatronic video visit. It required patient-provider interaction for the medical decision making as documented below. I have communicated my name and active licensure. The patient's identity and physical location were verified at the time of this visit. Either the patient or their legal customer loyalty representative has been informed of the risks and benefits of -- and alternatives to -- treatment through a remote evaluation and consents to proceed with the evaluation remotely. 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[facility]) Parkinson disease ([facility]) Polio 195 No sequela Prostate CA ([facility]) 04/2020 Tremor of both hands on [...] which included preparing to see the patient, tcdy-vj-tgfq patient care, completing clinical documentation, obtaining and/or reviewing separately obtained history, counseling and educating the patient/family/caregiver, and communicating results to the patient/family/caregiver Jigar Stanford DO documented in this encounter [facility] 04-20-2022 Miscellaneous Notes Name: Luis Alberto Ocampo AGE: [age] year old Weight: Last 1 Encounter Wt Readings: Date: Wt: 02/25/2022 103.9 kg (229 lb) Is this appointment for a WBC scan? No. Clinical Scan VIJAY SCAN Scheduled for - Date: 05/06 Time: 1030 Study can ONLY be done Wednesday thru Wednesday Scanned into Syngo: N/A Additional Comments: Route to P NM Special Studies ([id number]) Are all orders present for scheduling? Yes Appointment Scheduled: Date: 05/06 Time: 1030 Circular Distributor Notes: N/A Route to P NM SPECIAL STUDIES [[id number]] documented in this encounter [facility] 04-16-2022 Instructions Jigar Stanford DO - 04/16/2022 4:44 PM EST Radiology will contact the patient OR call [phone] option 3 to schedule documented in this encounter [facility] 04-16-2022 History of Present illness Narrative [facility] - NEW PATIENT EVALUATION Luis Daniel Galicia MD, MD [address] [facility] [id number] Luis Alberto Ocampo is a 76 year [...] has scratchier. 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 [...] Left pathological reflexes: Mike's absent. Coordination Right: Lfevwg-yx-pjtl normal. Rapid alternating movement normal.Left: Kycgtu-ct-jjco normal. Rapid alternating movement normal. Gait Casual [...] stare. Hypophonia was not present. The patient's penmanship sample reveals significant tremulousness without micrographia. Assessment [...] newly diagnosed Neurologic disease and counseling about long-term implications, counseling and review of mutliple symptoms [...] counseling regarding preparing to see the patient, ofyd-qn-xctj patient care, completing clinical documentation, obtaining and/or reviewing separately obtained history, performing a medically appropriate examination, counseling and educating the patient/family/caregiver, ordering medications, tests, or procedures, and communicating results to the patient/family/caregiver. I tried to answer all of the patient's questions and concerns during this visit. Jigar Stanford DO Senior Staff Neurologist - [facility] documented in this encounter [facility] 03-16-2022 Hospital Discharge instructions Patient Education [...] who: Are older than age 65. Are -[place]. Are obese. Have a family history of [...] cells. Follow these instructions at home: Take nznz-hgh-anjwudm and prescription medicines only as told by [...] 02/15/2006 Document Revised: 01/28/2018 Document Reviewed: 10/26/2016 [employer] Patient Education 2020 [employer]. Follow Up Care 02/26/2022 11:42:07 With:PIERCE CORONADO, Dakotah Krueger, URL Address: [address] [place], [place] [id number]- When: Unknown [facility] [place] 02-25-2022 History of Present illness Narrative Radiation [...] Parkinsons, has worsening tremor, has consult at [facility] with neurology. continues to decline. Considering [...] in the EMR. documented in this encounter [facility] 02-03-2022 Hospital Discharge instructions Patient Education [...] urethra. Follow these instructions at home: Take uecz-zkk-yujconj and prescription medicines only as told by [...] 02/15/2006 Document Revised: 01/10/2019 Document Reviewed: 03/22/2017 [employer] Patient Education 2020 [employer]. Follow Up Care 01/14/2022 12:19:47 With:PIERCE CORONADO, Dakotah Krueger, URL Address: [facility] [address] [place] [id number]- When:3 months [facility] 01-12-2022 Hospital Discharge instructions Patient Education 01/12/2022 [...] facility personnel to use a Coude (pronounced institutional research coordinator-day) tipped catheter. Follow Up Care 11/18/2021 10:03:06 With:Dakotah PELAYO Address: [address] [facility] (1) When: Unknown Comments:Call for followup appointment. Please make arrangements to follow-up on Wednesday morning so we can remove the catheter. [facility] 12-11-2021 Nurse Note Additional intake questions: Has the patient had fever, nausea, vomiting, diarrhea, constipation, fatigue for > 1 week? No Does the patient have a decreased appetite? No Does patient want to see a Field Mechanical Meter Tester? No (yes to any of above refer patient to schedulers for dietitian appointment) ) Does patient have any new or increased numbness or tingling of extremities? No Is patient interested in fertility information? No Does patient need any prescription refills? No Does patient have an advanced directive in place? No, Patient refused referral to Social Work or Resource Center documented in this encounter [facility] 12-11-2021 History of Present illness Narrative Images from the original note were not included. [facility] DEPARTMENT OF HEMATOLOGY AND MEDICAL ONCOLOGY ASSESSMENT [...] seen by Dr. Luis Daniel Galicia at [facility] and underwent a transthoracic CT guided needle [...] of right iritis. 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 Noted symptoms improved with eye drops, but [...] of bilateral nephrolithiasis. April 2020 Diagnosed with Lutcher 6 (3+3) K2rH2K1 prostate cancer. Underwent brachytherapy with appropriate decrement [...] as above Elham 6 (3+3) prostate cancer (T8rN4P3), low risk; treated with brachytherapy Parkinson's Disease [...] 2021 Larry Henson M.D., Ph.D. Staff Physician [facility] [address] [address] Office Office Appointments Authenticated by responsible provider. documented in this encounter [facility] 11-18-2021 Hospital Discharge instructions Patient Education [...] including vitamins, herbs, eye drops, creams, and ijkk-lig-swepjfh medicines. ?Whether you are or may be [...] 12/13/2007 Document Revised: 06/06/2019 Document Reviewed: 12/20/2017 [employer] Patient Education 2020 [employer]. Follow Up Care 11/05/2021 14:26:12 With:Dakotah PELAYO MD, URL Address: [address] [address]- When: Unknown With:Dakotah PELAYO MD, URL Address: [address] [address] When: Unknown [facility] [place] 10-23-2021 Miscellaneous Notes Returned patient's call regarding referral to Neurology. The patient verbalized that he has seen his PCP regarding the hand tremors and was referred to a neurologist at [facility]. He has seen this neurologist twice and verbalized that he is not comfortable he would like a referral to a [facility] Neurologist. Dr. Henson notified of the above. Zo Kingsley RN Patient is calling back to follow-up on request for referral to neurology. States he would like to be seen as close to [place] as possible. Requesting response back: [phone] Luis Alberto Ocampo('s) is calling Larry Henson MD, PhD today regarding Care Coordination (Neurologist Referral ) Patient has been identified by name and birthdate. Requesting response back: [phone] (home) [phone] (cell) Pt called stating that he has [...] October 21, 2021 documented in this encounter [facility] 10-09-2021 Evaluation + Plan note Diagnostic Tests PendingCalculi Analysis Urinary 10/09/21 [facility] 10-09-2021 Hospital Discharge instructions Patient [...] Follow these instructions at home: Medicines Take ibga-jcp-emdgxqh and prescription medicines only as told by [...] 03/06/2008 Document Revised: 05/29/2019 Document Reviewed: 01/06/2017 [employer] Patient Education 2020 [employer]. 10/09/2021 11:21:03 Cystoscopy Cystoscopy Cystoscopy is a [...] including vitamins, herbs, eye drops, creams, and rtww-iyj-dlpqpbx medicines. Any problems you or family members [...] provider tells you to take them. ?Taking qxax-psa-owjtkpv medicines, vitamins, herbs, and supplements. Follow instructions [...] Follow these instructions at home: Medicines Take zytx-thn-szxztfs and prescription medicines only as told by [...] 02/12/2001 Document Revised: 02/07/2019 Document Reviewed: 02/07/2019 [employer] Patient Education 2020 [employer] 10/09/2021 11:21:03 Post Op Patient Instructions - FT (CUSTOM) Follow Up Care 09/17/2021 14:25:14 With:Supa Dicekns Address: [facility] [address] [place] [address]- Business (1) When:6 weeks Comments:PVR with next visitCall for followup appointmentCall for any problems. [facility] 08-28-2021 History of Present illness Narrative Radiation Oncology - Follow Up Note PATIENT NAME: Luis Alberto Ocampo PATIENT DIAGNOSIS: 1. Prostate adenocarcinoma, initial PSA 5.51, biopsy Lutcher score 3 + 3 = 6 (grade [...] day to affected eyelid x 2 wks uzfxwmtd-eyw-cbjma-vit K-lycop (ONE-A-DAY MEN'S 50 PLUS) 400-20-370 mcg [...] ASSESSMENT/PLAN: Prostate adenocarcinoma, initial PSA 5.51, biopsy Lutcher score 3 + 3 = 6 (grade [...] in the EMR. documented in this encounter [facility] 07-21-2021 Hospital Discharge instructions Patient Education [...] nerve stimulation). For women, using a medical equipment sales to prevent urine leaks. This is a [...] right after experiencing incontinence. General instructions Take iosx-hgp-fitebse and prescription medicines only as told by [...] 03/25/2005 Document Revised: 02/25/2018 Document Reviewed: 05/27/2017 [employer] Patient Education 2020 [employer]. Follow Up Care 06/26/2021 12:54:28 With:Maninder Juarez MD, Supa Viveros, URO Address: [facility] [address] , [place] [address]- When: Unknown Comments:Cysto Lithopathy & bladder stone urolift [facility] 06-23-2021 Hospital Discharge instructions Patient [...] fried and sweet foods. General instructions Take vrlx-yyp-mtzkwtm and prescription medicines only as told by [...] 12/12/2009 Document Revised: 06/08/2019 Document Reviewed: 03/03/2018 [employer] Patient Education 2020 [employer]. 06/23/2021 11:49:37 Brachytherapy for Prostate Cancer Brachytherapy [...] including vitamins, herbs, eye drops, creams, and xuje-wji-yvjrkxy medicines. Any problems you or family members [...] 07/26/2006 Document Revised: 01/28/2018 Document Reviewed: 02/24/2017 [employer] Patient Education 2020 [employer]. Follow Up Care 04/21/2021 09:38:11 With:Maninder Juarez MD, Supa Viveros URO Address: [facility] [address] [place] [address]- When: Unknown [facility] 06-06-2021 Instructions Marissa Leija MD [...] with small sip of water Will need shuttle van driver if having sedation surgery For surgery at [facility], call . The patient was offered a surgery/procedure at a [facility] facility. The surgeon/proceduralist and patient have [...] okay after surgery. documented in this encounter [facility] 06-06-2021 History of Present illness Narrative [...] with small sip of water Will need shuttle van driver if having sedation surgery For surgery at [facility], call . The patient was offered a surgery/procedure at a [facility] facility. The surgeon/proceduralist and patient have [...] 2021 2:38 PM. documented in this encounter [facility] 05-30-2021 Nurse Note AUA=23 documented in this encounter [facility] 05-28-2021 Miscellaneous Notes Called patient and LVM for him to call back and schedule a follow up appointment with Dr. Leija. Patient wanting a call back from Dr. Barrett because he hasnt heard from Dr. Leija or Dr. Barrett about some results. He can be reached at [phone]. 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 documented as of this encounter (statuses as of 06/06/2021) [facility] History of Past illness Narrative* Problem Noted Date Resolved Date Combined 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 02/15/2020 02/16/2020 Senile incipient cataract, bilateral 12/28/2019 02/16/2020 Dry eye syndrome of bilateral lacrimal glands 12/28/2019 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 documented as of this encounter (statuses as of 2021) [facility] History of Past illness Narrative* Problem Noted Date Resolved Date Combined 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 02/15/2020 02/16/2020 Senile incipient cataract, bilateral 12/28/2019 02/16/2020 Dry eye syndrome of bilateral lacrimal glands 12/28/2019 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 documented as of this encounter (statuses as of 08/16/2021) [facility] History of Past illness Narrative* Problem Noted Date Resolved Date Combined 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 02/15/2020 02/16/2020 Senile incipient cataract, bilateral 12/28/2019 02/16/2020 Dry eye syndrome of bilateral lacrimal glands 12/28/2019 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 documented as of this encounter (statuses as of 09/02/2021) [facility] of Past illness Narrative* Problem Noted Date Resolved Date Combined 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 02/15/2020 02/16/2020 Senile incipient cataract, bilateral 12/28/2019 02/16/2020 Dry eye syndrome of bilateral lacrimal glands 12/28/2019 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 documented as of this encounter (statuses as of 10/23/2021) [facility] History of Past illness Narrative* Problem Noted Date Resolved Date Combined 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 02/15/2020 02/16/2020 Senile incipient cataract, bilateral 12/28/2019 02/16/2020 Dry eye syndrome of bilateral lacrimal glands 12/28/2019 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 documented as of this encounter (statuses as of 12/12/2021) [facility] of Past illness Narrative* Problem Noted Date Resolved Date Combined 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 02/15/2020 02/16/2020 Senile incipient cataract, bilateral 12/28/2019 02/16/2020 Dry eye syndrome of bilateral lacrimal glands 12/28/2019 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 documented as of this encounter (statuses as of 03/04/2022) [facility] of Past illness Narrative* Problem Noted Date Resolved Date Combined 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 02/15/2020 02/16/2020 Senile incipient cataract, bilateral 12/28/2019 02/16/2020 Dry eye syndrome of bilateral lacrimal glands 12/28/2019 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 documented as of this encounter (statuses as of 04/17/2022) [facility] History of Past illness Narrative* Problem Noted Date Resolved Date Combined 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 02/15/2020 02/16/2020 Senile incipient cataract, bilateral 12/28/2019 02/16/2020 Dry eye syndrome of bilateral lacrimal glands 12/28/2019 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 documented as of this encounter (statuses as of 04/21/2022) [facility] of Past illness Narrative* Problem Noted Date Resolved Date Combined 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 02/15/2020 02/16/2020 Senile incipient cataract, bilateral 12/28/2019 02/16/2020 Dry eye syndrome of bilateral lacrimal glands 12/28/2019 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 documented as of this encounter (statuses as of 05/08/2022) [facility] History of Past illness Narrative* Problem Noted Date Resolved Date Combined 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 02/15/2020 02/16/2020 Senile incipient cataract, bilateral 12/28/2019 02/16/2020 Dry eye syndrome of bilateral lacrimal glands 12/28/2019 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 documented as of this encounter (statuses as of 05/27/2022) [facility] History of Past illness Narrative* Problem Noted Date Resolved Date Combined 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 02/15/2020 02/16/2020 Senile incipient cataract, bilateral 12/28/2019 02/16/2020 Dry eye syndrome of bilateral lacrimal glands 12/28/2019 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 documented as of this encounter (statuses as of 09/03/2022) [facility] of Past illness Narrative* Problem [...] of this encounter (statuses as of 09/30/2022) [facility] of [facility] illness Narrative* Problem [...] of this encounter (statuses as of 11/06/2022) [facility] History of Past illness Narrative* Problem [...] of this encounter (statuses as of 11/17/2022) [facility] History of Past illness Narrative* Problem Noted Date Diagnosed Date Resolved Date Combined forms of age-relate d cataract of both eyes 02/15/2020 02/16/2020 Senile incipient cataract, bilateral 12/28/2019 02/16/2020 Dry eye syndrome of bilateral lacrimal glands 11/17/1912/28/2019 Malignant neoplasm of right conjunctiva (HCC) 09/03/19 18 12/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 documented as of this encounter (statuses as of 04/21/2023) [facility] No data available for this section [facility] Evaluation + Plan note Future Appointments Appointment Date:08/14/2021 11:45:00 AM Scheduled Provider: Location:[facility] Future Appointments Appointment Date:01/05/2022 07:45:00 AM Scheduled Provider: Location:[facility] Appointment Type:Urology CALL PAT FT Appointment Date:01/12/2022 01:00:00 PM Scheduled Provider: Location:[facility] Appointment Type:Urology FT [facility] Evaluation + Plan note Future Appointments Appointment Date:01/14/2022 11:30:00 AM Scheduled Provider: Location:[facility] Pramod Appointment Type:URO [facility] Future Appointments Appointment Date:02/03/2022 03:30:00 PM Scheduled Provider:Dakotah PELAYO MD Location:[facility] Radha Appointment Type:URO Office Visit [facility] Pramod evaluation + Plan note Future Appointments Appointment Date:05/05/2022 03:15:00 PM Scheduled Provider:Dakotah PELAYO MD Location:[facility] Radha Appointment Type:URO Office Visit [facility] Evaluation + Plan note Future Appointments Appointment Date:02/16/2023 11:00:00 AM Scheduled Provider:Dakotah PELAYO MD Location:[facility] Radha Appointment Type:URO Office Visit [facility] Evaluation + Plan note Future Appointments Appointment Date:02/16/2023 11:00:00 AM Scheduled Provider:Dakotah PELAYO [facility] Type:URO Office Visit Diagnostic Tests Pending * Calculi Analysis Urinary 08/25/22 [facility] Future Appointments Appointment Date:03/28/2024 03:15:00 PM Scheduled Provider:Dakotah PELAYO MD [facility] Type:URO Office Visit [facility] Evaluation note* Diagnosis 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 [facility] Diagnosis Dermatochalasis of both upper eyelids- Primary Brow ptosis, left [facility] Diagnosis Malignant neoplasm of prostate (HCC)- Primary Malignant neoplasm of prostate [facility] Diagnosis Tremor- Primary Abnormal involuntary movements Extranodal marginal zone B-cell lymphoma (HCC) Marginal zone lymphoma, unspecified site, extranodal and solid organ sites [facility] Diagnosis Malignant neoplasm of prostate (HCC)- Primary Malignant neoplasm of prostate [facility] Diagnosis Tremor- Primary Abnormal involuntary movements Other symptoms and signs involving the nervous system [facility]* Diagnosis Primary parkinsonism (HCC)- Primary Paralysis agitans Tremor Abnormal involuntary movements [facility] Diagnosis Malignant neoplasm of prostate (HCC)- Primary Malignant neoplasm of prostate [facility]* Diagnosis Primary parkinsonism (HCC) Paralysis agitans [facility]* Diagnosis 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- Primary Pseudophakia Lens replaced by other means Insufficiency of tear film of both eyes [facility]* Diagnosis S/P YAG capsulotomy, bilateral- Primary Pseudophakia Lens replaced by other means Insufficiency of tear film of both eyes [facility]* Diagnosis Bronchiectasis without acute exacerbation (HCC)- Primary Bronchiectasis without acute exacerbation [facility]* Diagnosis Preop examination- Primary Preoperative examination, [...] solid organ sites [facility] Diagnosis Preop examination- Primary Preoperative examination, unspecified Myogenic ptosis of eyelid of both eyes Myogenic ptosis Personal history of lymphoma Personal history of other lymphatic and hematopoietic neoplasm Parkinson disease (HCC) Paralysis agitans Gastroesophageal reflux disease, unspecified whether esophagitis present Prostate CA (HCC) Malignant neoplasm of prostate Dry eye syndrome of bilateral lacrimal glands- Primary Tear film insufficiency, unspecified Pseudophakia Lens replaced by other means Brow ptosis, left documented in this encounter [facility] Discharge instructions No data available for this section [facility] No data available for this section [facility] HospitalReason for referral (narrative)* Outpatient Procedure (Routine) - Authorized Specialty Diagnoses / Procedures Referred By Juliet t Referred To [facility] Diagnoses Bronchiectasis without acute exacerbation (HCC) Procedures SPIROMETRY - BASELINE AND POST DILATOR BRNCDILAT RSPSE SPMTRY PRE&POST-BRNCDILAT ADMN Pulm [address] [address] Respiratory [place] [address] [place] [address] Referral ID Status Reason Start Date Expiration Date Visits Requested Visits Authorized [id number] Authorized Auto-Generat ed Referral 04/21/2023 05/20/2024 1 1 [facility] Summary Purpose Family History No Family History Records FoundNo Family History Records Found No data available for this section No data available for this section No Family History Records FoundNo Family History Records FoundNo Family History Records FoundNo Family History Records FoundNo Family History Records Found Advance Directives No Advanced Directives Records FoundDocuments on File Type Date Recorded Patient Patient Case Coordinator Expl anation Advance Directive(s) 04/04/2021 9:46 AM [...] TOMOGRAPHY THORAX W/[place] [address] [place] [address] Ct Imaging [facility] Referral ID Status Reason Start Date Expiration Date V isits Requested Visits Authorized [id number] Closed Auto-Generate d Referral 04/01/2023 04/30/2024 1 1 Specialty Diagnoses / Procedures Referred By Juliet gold Referred To Contact CT IMAGING Diagnoses Extranodal marginal zone B-cell lymphoma (HCC) Procedures CT ABD/PEL W IVCON CT ABD & PELVIS W/[place] [address] [place] [address] Ct [facility] Referral ID Status Reason Start Date Expiration Date V isits Requested Visits Authorized [id number] Closed Auto-Generate d Referral 04/01/2023 04/30/2024 1 1 Specialty Diagnoses / Procedures Referred By Juliet t Referred To Contact Diagnoses Primary parkinsonism (HCC) Procedures PROVIDER ORDERED FOLLOW UP OFFICE/OUTPATIENT [facility] 60-74 MINUTES Jigar Stanford, DO [address] [place] [address] Referral ID Status Reason Start Date Expiration Date V isits Requested Visits Authorized [id number] Authorized 11/26/2022 02/24/2023 1 1 Specialty Diagnoses / Procedures Referred By Contac t Referred To Contact Diagnoses Tremor Procedures PROVIDER ORDERED FOLLOW UP OFFICE/OUTPATIENT [facility] 60-74 MINUTES Jigar Stanford, DO [address] [place] [address] Referral ID Status Reason Start Date Expiration Date Visits Requested Visits Authorized [id number] Authorized PCP Requested Referral 07/14/2022 07/15/2022 1 1 Specialty Diagnoses / Procedures Referred By Juliet t Referred To Contact MOLECULAR & FUNCTIONAL IMAGING Diagnoses Other symptoms and signs involving the nervous system Procedures NM BRAIN SPECT RP LOCLZJ MARANDA SPECT 1 AREA SINGLE DAY IMAGING Jigar Stanford, DO [address] [place] [address] Molecular & Functional Imaging [address] [place] [address] Referral ID Status Reason Start Date Expiration Date Visits Requested Visits Authorized [id number] Pending Review Auto-Generat ed Referral 04/16/2022 05/16/2023 1 1 Specialty Diagnoses / Procedures Referred By José Miguelac t Referred To Contact Neurology Diagnoses Tremor Procedures CONSULT TO NEUROLOGY OFFICE/OUTPATIENT [facility] 60-74 [place] [address] [place] [address] Referral ID Status Reason Start Date Expiration Date Visits Requested Visits Authorized [id number] Authorized PCP Requested Referral 12/11/2022 1 1 Additional Source Comments (unrecognized sect ion and content) No Status Records FoundNo Status Records FoundNo Status Records FoundNo Status Records FoundNo Status Records FoundNo Status Records FoundNo Status Records Found INFORMATION SOURCE (unrecogn ized section and content) DATE CREATED AUTHOR 04/24/2021 [facility] DATE CREATED AUTHOR AUTHOR'S ORGANIZ ATION 04/09/2022 [facility] DATE CREATED AUTHOR AUTHOR'S ORGANIZ ATION 05/13/2023 [facility] DATE CREATED AUTHOR AUTHOR'S ORGANIZ ATION 09/02/[address] [facility] DATE CREATED AUTHOR AUTHOR'S ORGANIZ ATION 10/05/2023 [facility] DATE CREATED AUTHOR AUTHOR'S ORGANIZ ATION 11/13/2023 [facility] DATE CREATED AUTHOR AUTHOR'S ORGANIZ ATION 11/22/2023 [facility] Source Comments (unrecognize d section and content) In the event this informatio n is protected by the Federal Confidentiality of Alcohol and Drug Abuse Patient Records regulations: The Federal rules restrict any use of the information to criminally investigate or prosecute any alcohol or drug abuse patient.[facility] the event this information is protected by the Federal Confidentiality of Alcohol and Drug Abuse Patient Records regulations: The Federal rules restrict any use of the information to criminally investigate or prosecute any alcohol or drug abuse patient.[facility] the event this information is protected by the Federal Confidentiality of Alcohol and Drug Abuse Patient Records regulations: The Federal rules restrict any use of the information to criminally investigate or prosecute any alcohol or drug abuse patient.[facility] the event this information is protected by the Federal Confidentiality of Alcohol and Drug Abuse Patient Records regulations: The Federal rules restrict any use of the information to criminally investigate or prosecute any alcohol or drug abuse patient.[facility] the event this information is protected by the Federal Confidentiality of Alcohol and Drug Abuse Patient Records regulations: The Federal rules restrict any use of the information to criminally investigate or prosecute any alcohol or drug abuse patient.[facility] the event this information is protected by the Federal Confidentiality of Alcohol and Drug Abuse Patient Records regulations: The Federal rules restrict any use of the information to criminally investigate or prosecute any alcohol or drug abuse patient.[facility] the event this information is protected by the Federal Confidentiality of Alcohol and Drug Abuse Patient Records regulations: The Federal rules restrict any use of the information to criminally investigate or prosecute any alcohol or drug abuse patient.[facility] the event this information is protected by the Federal Confidentiality of Alcohol and Drug Abuse Patient Records regulations: The Federal rules restrict any use of the information to criminally investigate or prosecute any alcohol or drug abuse patient.[facility] the event this information is protected by the Federal Confidentiality of Alcohol and Drug Abuse Patient Records regulations: The Federal rules restrict any use of the information to criminally investigate or prosecute any alcohol or drug abuse patient.[facility] the event this information is protected by the Federal Confidentiality of Alcohol and Drug Abuse Patient Records regulations: The Federal rules restrict any use of the information to criminally investigate or prosecute any alcohol or drug abuse patient.[facility] the event this information is protected by the Federal Confidentiality of Alcohol and Drug Abuse Patient Records regulations: The Federal rules restrict any use of the information to criminally investigate or prosecute any alcohol or drug abuse patient.[facility] the event this information is protected by the Federal Confidentiality of Alcohol and Drug Abuse Patient Records regulations: The Federal rules restrict any use of the information to criminally investigate or prosecute any alcohol or drug abuse patient.[facility] the event this information is protected by the Federal Confidentiality of Alcohol and Drug Abuse Patient Records regulations: The Federal rules restrict any use of the information to criminally investigate or prosecute any alcohol or drug abuse patient.[facility] the event this information is protected by the Federal Confidentiality of Alcohol and Drug Abuse Patient Records regulations: The Federal rules restrict any use of the information to criminally investigate or prosecute any alcohol or drug abuse patient.[facility] HospitalIn the event this information is protected by the Federal Confidentiality of Alcohol and Drug Abuse Patient Records regulations: The Federal rules restrict any use of the information to criminally investigate or prosecute any alcohol or drug abuse patient.[facility] the event this information is protected by the Federal Confidentiality of Alcohol and Drug Abuse Patient Records regulations: The Federal rules restrict any use of the information to criminally investigate or prosecute any alcohol or drug abuse patient.[facility] HospitalIn the event this information is protected by the Federal Confidentiality of Alcohol and Drug Abuse Patient Records regulations: The Federal rules restrict any use of the information to criminally investigate or prosecute any alcohol or drug abuse patient.[facility] the event this information is protected by the Federal Confidentiality of Alcohol and Drug Abuse Patient Records regulations: The Federal rules restrict any use of the information to criminally investigate or prosecute any alcohol or drug abuse patient.[facility] Hospital[facility] the event this information is protected by the Federal Confidentiality of Alcohol and Drug Abuse Patient Records regulations: The Federal rules restrict any use of the information to criminally investigate or prosecute any alcohol or drug abuse patient.[facility] Reason for Visit (unrecogniz ed section and content) Reason Comments Established Patient Specialty Diagnoses / Procedures Referred By Juliet t Referred To Contact Diagnoses Tremor Procedures PROVIDER ORDERED FOLLOW UP OFFICE/OUTPATIENT NEW HIGH MDM 60-74 MINUTES Jigar Stanford, DO [address] [place] [address] Referral ID Status Reason Start Date Expiration Date V isits Requested Visits Authorized [id number] Closed PCP Requested Referral 07/14/2022 07/15/2022 1 [...] CT Specialty Diagnoses / Procedures Referred By Contharper t Referred To Contact CT IMAGING Diagnoses Extranodal marginal zone B-cell lymphoma (HCC) Procedures CT CHEST W IVCON DIAGNOSTIC COMPUTED TOMOGRAPHY THORAX W/[place] [address] [place] [address] Ct [facility] [place] [id number] Referral ID Status Reason Start Date Expiration Date V isits Requested Visits Authorized [id number] Closed Auto-Generate d Referral 04/01/2023 04/30/2024 [address] Reason Comments Blurred Vision Both Eyes Care Teams (unrecognized sec tion and content) Transit Survey Worker Relationship Specialty Start Date End Date Luis Daniel Galicia MD [address] [place] [id number] PCP - General Family Practice 02/17/18 Alexandria Camargo, RN Specialty Leather Leveler Radiation Oncology 06/17/17 Transit Survey Worker Relationship Specialty Start Date End Date Luis Daniel Galicia MD [address] [place] [place] [id number] PCP - General Family Practice 02/17/18 Alexandria Camargo, RN Specialty Leather Leveler Radiation Oncology 06/17/17 Transit Survey Worker Relationship Specialty Start Date End Date Luis Daniel Galicia MD [address] [place] [place] [id number] PCP - General Family Practice 02/17/18 Alexandria Camargo, RN Specialty Leather Leveler Radiation Oncology 06/17/17 Transit Survey Worker Relationship Specialty Start Date End Date Luis Daniel Galicia MD [address] [place] [place] [id number] PCP - General Family Practice 02/17/18 Alexandria Camargo, RN Specialty Leather Leveler Radiation Oncology 06/17/17 Transit Survey Worker Relationship Specialty Start Date End Date Luis Daniel Galicia MD [address] [place] [place] [id number] PCP - General Family Practice 02/17/18 Alexandria Camargo, RN Specialty Leather Leveler Radiation Oncology 06/17/17 Transit Survey Worker Relationship Specialty Start Date End Date Luis Daniel Galicia MD [address] [place] [place] [id number] PCP - General Family Medicine 02/17/18 Alexandria Camargo, RN Specialty Leather Leveler Radiation Oncology 06/17/17 Transit Survey Worker Relationship Specialty Start Date End Date Hoy, Luis Daniel M, MD [address] [place] [id number] PCP - General Family Medicine 02/17/18 Alexandria Camargo, RN Specialty Leather Leveler Radiation Oncology 06/17/17 Transit Survey Worker Relationship Specialty Start Date End Date Luis Daniel Galicia MD [address] [place] [id number] PCP - General Family Medicine 02/17/18 Alexandria Camargo, RN Specialty Leather Leveler Radiation Oncology 06/17/17 Transit Survey Worker Relationship Specialty Start Date End Date Luis Daniel Galicia MD [address] [place] [place] [id number] PCP - General Family Medicine 02/17/18 Alexandria Camargo, RN Specialty Leather Leveler Radiation Oncology 06/17/17 Transit Survey Worker Relationship Specialty Start Date End Date Luis Daniel Galicia MD PCP - General Family Medicine 02/17/18 Alexandria Camargo, RN Specialty Leather Leveler Radiation Oncology 06/17/17 Transit Survey Worker Relationship Specialty Start Date End Date Luis Daniel Galicia MD PCP - General Family Medicine 02/17/18 Alexandria Camargo, RN Specialty Leather Leveler Radiation Oncology 06/17/17 Transit Survey Worker Relationship Specialty Start Date End Date Luis Daniel Galicia MD PCP - General Family Medicine 02/17/18 Alexandria Camargo, RN Specialty Leather Leveler Radiation Oncology 06/17/17 Transit Survey Worker Relationship Specialty Start Date End Date Luis Daniel Galicia MD PCP - General Family Medicine 02/17/18 Alexandria Camargo, RN Specialty Leather Leveler Radiation Oncology 06/17/17 Transit Survey Worker Relationship Specialty Start Date End Date Luis Daniel Galicia MD PCP - General Family Medicine 02/17/18 Alexandria Camargo, RN Specialty Leather Leveler Radiation Oncology 06/17/17 Transit Survey Worker Relationship Specialty Start Date End Date Luis Daniel Galicia MD PCP - General Family Medicine 02/17/18 Alexandria Camargo, RN Specialty Leather Leveler Radiation Oncology 06/17/17 Jigar Stanford, [address] [place], [place] [id number] Specialty Activity Leader Neurology 02/17/23 Transit Survey Worker Relationship Specialty Start Date End Date Luis Daniel Galicia MD PCP - General Family Medicine 02/17/18 Alexandria Camargo, RN Specialty Leather Leveler Radiation Oncology 06/17/17 Jigar Stanford DO [address] [place], [place] [id number] Specialty Activity Leader Neurology 02/17/23 Transit Survey Worker Relationship Specialty Start Date End Date Luis Daniel Galicia MD PCP - General Family Medicine 02/17/18 Alexandria Camargo, RN Specialty Leather Leveler Radiation Oncology 06/17/17 Jigar Stanford DO [address] [place] [address] Specialty Activity Leader Neurology 02/17/23 FOR RECORDS PERTAINING TO PATIENTS [...] BE BASED ON THE PRIMARY CLINICAL RECORDS. [facility] [employer] [facility] provides no warranty or guarantee of the accuracy or completeness of information in this document.
[2024-02-12 10:10] LABS: Estimated Average Glucose 94 mg/dL; Glycohemoglobin A1C 4.9 % (4.5-6.2)
[2024-02-12 10:21] LABS: Basophils Percent Auto 0.4 % (0.2-2.0); Eosinophils Absolute Auto 0.1 10^3/uL (0.0-0.7); Eosinophils Percent Auto 1.2 % (0.9-7.0); Hematocrit 38.6 % (42.0-54.0); Hemoglobin 13.5 g/dL (14.0-18.0); Immature Granulocytes Pct Auto 1.1 % (0.0-0.5); Lymphocytes Absolute Auto 0.7 10^3/uL (1.2-3.8); Lymphocytes Percent Auto 7.6 % (20.5-60.0); Mean Corpuscular Hemoglobin 35.5 pg (25.9-34.0); Mean Corpuscular Volume 101.6 fL (80.0-94.0); Mean Platelet Volume 9.4 fL (9.5-13.5); Monocytes Absolute Auto 0.6 10^3/uL (0.3-0.8); Monocytes Percent Auto 6.1 % (1.7-12.0); Neutrophils Absolute Auto 7.8 10^3/uL (1.4-6.5); Neutrophils Percent Auto 83.6 % (43.0-75.0); Platelet Count 289 10^3/uL (150-450); Red Cell Distribution Width 13.6 % (11.0-15.0); White Blood Count 9.3 10^3/uL (4.0-11.0)
[2024-02-12 10:43] LABS: Alanine Aminotransferase 24 U/L (16-63); Albumin Globulin Ratio 0.9; Albumin Level 3.6 g/dL (3.4-5.0); Alkaline Phosphatase 136 U/L (46-116); Anion Gap 11.2; Aspartate Amino Transferase 16 U/L (15-37); BUN Creatinine Ratio 19.8; Bilirubin Total 1.2 mg/dL (0.2-1.0); Calcium 9.3 mg/dL (8.5-10.1); Carbon Dioxide 29.9 mmol/L (21.0-32.0); Chloride 105 mmol/L (98-107); Cholesterol 92 mg/dL (<=200); Estimated GFR (African America >60 (>=60 mL/min/1.73m^2); Estimated GFR (Non-African Ame >60 (>=60 mL/min/1.73m^2); Free T3 2.15 pg/mL (2.18-3.98); Globulin 4.1 g/dL; Glucose 120 mg/dL (74-106); HDL Cholesterol 46 mg/dL (40-60); LDL Cholesterol Calculated 34.8 mg/dL; Potassium 4.1 mmol/L (3.5-5.1); Sodium 142 mmol/L (136-145); Thyroid Stimulating Hormone 0.532 uIU/mL (0.358-3.740); Total Protein 7.7 g/dL (6.4-8.2); Triglycerides 56 mg/dL (<=150); VLDL CHOLESTEROL 11.2 mg/dL
[2024-02-12 11:00] LABS: Prostate Specific Antigen Scrn 0.16 ng/mL (<=4.00)
[2024-02-13 08:07] LABS: CA 19-9 <2 U/mL (0-35)
[2024-02-13 10:07] LABS: Insulin 7.2 uIU/mL (2.6-24.9)
== END 2024-02-12 09:17 | disposition home or self-care (01) ==
PROVIDERS: PCP Family Medicine; Visit Provider Family Medicine
DX: R63.4 Abnormal weight loss (principal); R91.1 Solitary pulmonary nodule; I10 Essential (primary) hypertension; G21.3 Postencephalitic parkinsonism; E78.5 Hyperlipidemia, unspecified; R73.09 Other abnormal glucose; Z12.5 Encounter for screening for malignant neoplasm of prostate
CPT/HCPCS: 36415; 80053; 80061; 83036; 83525; 84436; 84443; 84481; 85025; 86301; G0103